=== PATIENT | male | born 1980 | race Two or more races ===

== ENCOUNTER 2019-12-18 01:47 | Emergency (ER) | payer MEDICARE, OTHER, MEDICAID, SELFPAY ==
--- NOTE | 2019-12-18 | XR_ITS ---
Pt: Koby Lundberg. :1980 EXAMINATION: ABDOMEN SERIES CLINICAL INFORMATION: Rule out obstruction. Abdominal COMPARISON: CT abdomen and pelvis 10/26/2019 TECHNIQUE: 2 views abdomen FINDINGS: Upright and supine views of the abdomen reveal a no bowel distention, air-fluid levels or free air. There is no organomegaly. Scattered stool is seen in the colon. No radiopaque renal calculi. No gross bony abnormality. IMPRESSION: Unremarkable abdomen exam with no evidence of obstruction or free air.
[2019-12-18 03:28] LABS: Anion Gap 14 (12-20); Bilirubin Total 0.8 mg/dL (0.0-1.0); Blood Urea Nitrogen 12 mg/dL (9-16); Carbon Dioxide 27 mmol/L (22-29); Chloride 102 mmol/L (96-108); Estimated Glomerular Filt Rate > 60; Glucose Random 126 mg/dL (60-115); Potassium 4.4 mmol/l (3.3-5.1); Sodium 139 mmol/L (135-145)
[2019-12-18 03:29] LABS: Alanine Aminotransferase 34 U/L (0-40); Albumin Level 4.6 g/dL (3.5-5.0); Alkaline Phosphatase 74 U/L (39-117); Aspartate Amino Transferase 29 U/L (5-37); Bilirubin Direct 0.3 mg/dL (0.0-0.5); Lipase 22 U/L (8-78); Total Protein 8.5 g/dL (6.5-8.0)
[2019-12-18 04:23] LABS: MANUAL DIFF FLAG NO
[2019-12-18 04:26] LABS: Basophils Absolute Auto 0.1 X10*3/uL (0.0-0.2); Basophils Percent Auto 0.4 % (0-2); Eosinophils Absolute Auto 0.2 X10*3/uL (0.0-0.4); Hematocrit 39.4 % (42-52); Imm Gran Abs Auto 0.04 X10*3/uL (0.00-0.03); Imm Gran Pct Auto 0.4 % (0.0-0.4); Lymphocytes Absolute Auto 2.7 X10*3/uL (1.2-4.9); Lymphocytes Percent Auto 23.9 % (20-40); Mean Corpuscular Hemoglobin 29.5 pg (27.0-33.0); Mean Corpuscular Volume 89.3 fL (80-98); Mean Platelet Volume 12.1 fL (9.4-12.4); Monocytes Absolute Auto 0.9 X10*3/uL (0.1-1.2); Monocytes Percent Auto 7.8 % (2-11); Neutrophils Absolute Auto 7.5 X10*3/uL (2.0-8.3); Neutrophils Percent Auto 65.5 % (45-73); Platelet Count 270 X10*3/uL (160-400); Red Blood Count 4.41 X10*6/uL (4.60-5.80); Red Cell Distribution Width 11.9 % (11.0-16.0); White Blood Count 11.4 X10*3/uL (4.8-10.8)
== END 2019-12-18 11:29 | disposition home or self-care (01) ==
PROVIDERS: Emergency Provider Emergency Medicine; PCP Internal Medicine
DX: K50.90 Crohn's disease, unspecified, without complications (principal); R11.0 Nausea
CPT/HCPCS: 36415; 74022; 80051; 80076; 82565; 82947; 83690; 84520; 85025; 96361; 96374; 96375; 96376; 99284

== ENCOUNTER 2019-12-18 16:56 | Emergency (ER) | payer MEDICARE, OTHER, MEDICAID, SELFPAY ==
--- NOTE | 2019-12-18 18:53 | ED.ABDPAIN ---
HPI - Abdominal Pain General Chief Complaint: Abdominal Pain Stated Complaint: abd pain, nausea Time Seen by Provider: 12/18/19 18:50 Source: patient Mode of arrival: ambulatory Limitations: no limitations History of Present Illness HPI narrative: 39 y/o MD elicited complaint: abdominal pain Related Data Allergies Allergy/AdvReac Type Severity Reaction Status Date / Time No Known Allergies Allergy Unverified 12/04/19 15:38 [No Known Allergies*] none Allergy Unknown Uncoded 07/29/18 00:00 Course Course Hospital Course: 39 y/o mlae with history of Crohn's disease presenting with abdominal pain and nausea. Seen here at 6am today for the same. labs were unremarkable, aside from WBC 11.4.
== END 2019-12-18 19:00 | disposition left against medical advice (07) ==
LOC: HO.ED 19:13
PROVIDERS: Emergency Provider Emergency Medicine; PCP Internal Medicine
DX: R10.9 Unspecified abdominal pain (principal); R11.0 Nausea
CPT/HCPCS: 99281

== ENCOUNTER → 2020-05-05 10:25 | Outpatient (BNVA) | payer OTHER, SELFPAY | PROVIDERS: Visit Provider Internal Medicine Gastroenterology ==

== ENCOUNTER 2020-07-11 14:47 | Emergency (ER) | payer OTHER, MEDICARE, MEDICAID, SELFPAY ==
--- NOTE | ~2020-07-11 | CT_ITS ---
EXAMINATION: CT ABDOMEN AND PELVIS WITH CONTRAST CLINICAL INFORMATION: ?Crohn's flare, diarrhea, AP COMPARISON: 10/26/2019 TECHNIQUE: Multidetector volumetric images were obtained from the superior aspect of the liver through the pubic symphysis following administration 85 mL of Omnipaque 350 intravenous contrast. Sagittal and coronal reformatted images were obtained on the technologist's workstation. Oral contrast: No This CT examination was performed using dose optimization techniques as appropriate, variously including the following: *Automated exposure control *Adjustment of mA and/or kV according to patient size (this includes techniques or standardized protocols for targeted exams where dose is matched to indication/reason for exam; i.e. extremities or head) *Use of iterative reconstruction technique DLP: 704 mGy-cm FINDINGS: LUNG BASES: Dependent atelectasis is present in the lower lobes bilaterally. A 1.2 cm ill-defined nodular opacity in the right lower lobe is favored to be consolidative nature. Additional airspace consolidation is suspected in the left lower lobe. Imaged airways appear clear. LIVER, GALLBLADDER, AND BILIARY TREE: The liver is normal in size, shape, and attenuation. No focal hepatic lesion or biliary ductal dilatation is present. The gallbladder is unremarkable with no evidence of radiopaque gallstones, gallbladder wall thickening, or obvious pericholecystic inflammatory changes. PANCREAS: Unremarkable. SPLEEN: Unremarkable. ADRENAL GLANDS: Unremarkable. KIDNEYS AND URETERS: The kidneys are normal in size, shape, and attenuation. No hydronephrosis or hydroureter. A few punctate calculi in the left lower pole measure up to 2 mm in diameter. No additional calculi are identified. Ureters are normal in caliber without ureteral calculi. No perinephric stranding. 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 BLADDER: There is mild bladder wall thickening with surrounding fat stranding. GASTROINTESTINAL TRACT: Stomach, small bowel, and colon are normal in caliber. Again seen are postsurgical changes of prior ileocolonic anastomosis and rectosigmoid anastomosis, suggesting prior partial colectomies. Intramural fat within the colon is most pronounced at the hepatic flexure and suggestive of changes of chronic inflammation. Internal fat is also noted within the distal ileum. No acute bowel wall thickening and surrounding fat stranding are identified. ABDOMINAL WALL: Postsurgical changes of prior midline laparotomy are again noted. Multiple fat containing midline ventral abdominal hernias are noted. No bowel involvement. LYMPH NODES: Normal. VASCULAR: Unremarkable. PELVIC VISCERA: Prostate gland is normal in size. OSSEOUS STRUCTURES: No acute osseous abnormalities. CT/CT abdomen pelvis w con IMPRESSION: 1. No acute intra-abdominal or intrapelvic abnormalities are identified. Chronic postoperative changes from prior bowel surgeries are evident. Intramural fat within segments of distal small bowel and colon are consistent with chronic inflammation related to Crohn's disease. No areas of acute inflammation are identified. No abscess. 2. Left nephrolithiasis without evidence of acute obstructive uropathy.
[2020-07-11 14:59] VITALS: BP 120/75; PULSE 82; RESP 17; TEMP 37.3; O2SAT 97; BMI 31.8
[2020-07-11 15:52] VITALS: BP 110/69; PULSE 74; RESP 18; TEMP 37.2; O2SAT 94
[2020-07-11 16:11] LABS: MANUAL DIFF FLAG NO
[2020-07-11 16:13] LABS: Eosinophils Absolute Auto 0.1 X10*3/uL (0.0-0.4); Eosinophils Percent Auto 1.4 % (0-4); Hematocrit 37.5 % (42-52); Hemoglobin 12.2 g/dl (14.0-18.0); Imm Gran Abs Auto 0.01 X10*3/uL (0.00-0.03); Imm Gran Pct Auto 0.2 % (0.0-0.4); Lymphocytes Absolute Auto 1.5 X10*3/uL (1.2-4.9); Lymphocytes Percent Auto 34.5 % (20-40); Mean Corpuscular HGB Conc 32.5 g/dl (31.0-36.0); Mean Corpuscular Hemoglobin 29.1 pg (27.0-33.0); Mean Corpuscular Volume 89.5 fL (80-98); Mean Platelet Volume 11.7 fL (9.4-12.4); Monocytes Absolute Auto 0.6 X10*3/uL (0.1-1.2); Monocytes Percent Auto 13.8 % (2-11); Neutrophils Absolute Auto 2.1 X10*3/uL (2.0-8.3); Neutrophils Percent Auto 50.1 % (45-73); Platelet Count 187 X10*3/uL (160-400); Red Blood Count 4.19 X10*6/uL (4.60-5.80); Red Cell Distribution Width 12.1 % (11.0-16.0); White Blood Count 4.3 X10*3/uL (4.8-10.8)
[2020-07-11] MEDS: Morphine Sulfate 4 MG/ML CARTRIDGE IVPUSH ×2 (16:20→18:38)
--- NOTE | 2020-07-11 16:22 | ED_ITS ---
HPI - Abdominal Pain General Chief Complaint: Abdominal Pain Stated Complaint: abd pain Time Seen by Provider: 07/11/20 16:07 Source: patient Mode of arrival: ambulatory Limitations: no limitations History of Present Illness HPI narrative: 39-year-old male with a past medical history of Crohn's disease on Remicade infusions every [address] Arellano, iron deficiency anemia here with complaints of lower abdominal cramping and discomfort with increase in stools x2 days. Patient tells me he normally moves his bowels 3-4 times a day. Since waking today he has had 5 episodes which are nonbloody.. No fevers, chills, nausea, vomiting. Status post exploratory laparotomy, sigmoid resection with primary colonic anastomosis, diverting loop ileostomy and 2016. Ileostomy reversal and 2017 @ [facility]. elicited complaint: abdominal pain Related Data Home Medications Medication Instructions Recorded Confirmed ferrous sulfate 325 mg (65 mg 325 mg PO DAILY 05/09/20 05/09/20 iron) tablet infliximab 100 mg intravenous IV Q6W ea 05/09/20 05/09/20 solution omeprazole magnesium 20 mg 20 mg PO DAILY 05/09/20 05/09/20 tablet,delayed release Previous Rx's Medication Instructions Recorded oxycodone 5 mg PO Q6H PRN #10 tab 07/11/20 prednisone See Rx Instructions .ROUTE 07/11/20 .COMPLEX #70 tab Allergies Allergy/AdvReac Type Severity Reaction Status Date / Time No Known Allergies Allergy Verified 05/05/20 10:26 [No Known Allergies*] Review of Systems Review of Systems Yes all other systems are reviewed and are negative Constitutional: Reports no additional constitutional complaints, Denies body ache(s), Denies chills, Denies fever(s), Denies headache(s) and Denies weakness Eyes: Reports no additional eye complaints and Denies change in vision Reports system reviewed and no additional complaints, except as documented, Denies dizziness, Denies headache(s), Denies nasal congestion, Denies nasal discharge and Denies neck pain Cardiovascular: Reports no additional cardiovascular complaints, Denies chest pain, Denies leg edema and Denies dyspnea Respiratory: Reports no additional respiratory complaints, Denies cough and Denies dyspnea Gastrointestinal: Reports no additional gastrointestinal complaints, Reports abdominal pain, Denies hematochezia, Reports diarrhea, Denies nausea and Denies vomiting Genitourinary: Denies urinary incontinence Musculoskeletal: Reports no additional musculoskeletal complaints, Denies back pain, Denies arthralgias, Denies joint swelling, Denies neck pain, Denies numbness and Denies tingling Skin/Breast: Reports system reviewed and no additional complaints, except as docu and Denies rash Reports system reviewed and no additional complaints, except as documented, Denies Abnormal speech present, Denies dizziness, Denies headache(s), Denies numbness, Denies tingling and Denies weakness Physical Exam Vital Signs: Vital Signs: Last Vital Signs Temp 98.9 F 07/11/20 20:41 Pulse 68 07/11/20 20:41 Resp 18 07/11/20 20:41 BP 117/76 07/11/20 20:41 Pulse Ox 96 07/11/20 20:41 Body Mass Index 31.8 Const: General: cooperative, healthy appearing, comfortable and no acute distress Orientation/consciousness: patient oriented x3 Limitations: no limitations HENMT: Head: Yes normal to inspection Ears: hearing grossly normal bilaterally General nose exam: Normal external nose present Face and sinus: Yes normal facial exam Mouth: Normal oral and palatal mucosa present Throat: Yes posterior oropharynx normal Eyes: General: appearance normal, both eyes and all related structures Pupils: Equal, round and reactive pupils present Neck: Neck: Yes normal visual inspection Chest: Chest palpation & inspection: normal inspection of the chest Resp: Effort & Inspection: normal respiratory effort Auscultation: clear to auscultation bilaterally Cardio: Rate: regular rate Rhythm: regular rhythm Peripheral pulses: Peripheral pulses 2+ throughout GI: Inspection: Yes normal to inspection Palpation (GI): Soft to palpation and Tenderness to palpation present (GI) (Tender in the bilateral lower quadrants. No rebound or guarding) Auscultation: normal bowel sounds Back/Spine/Pelvis: Thoracic/Lumbar Spine: thoracic and lumbar spine normal to inspection Skin: General skin exam: no rashes or lesions noted Neuro: General: patient oriented x3, no focal motor deficits and normal sensation to monofilament Cranial nerves: Yes Equal, round and reactive pupils present Cognition (Neuro): normal cognition Speech: No Abnormal speech present Gait exam (Neuro): Normal gait present Motor exam (neuro): 5/5 motor strength present throughout Extrem: General: Yes normal to inspection, Yes no pedal edema and Yes no calf tenderness Course Course Course Narrative: [age] year old male with a past medical history of Crohn's disease currently on Remicade infusions here with concern for Crohn's flare. Patient has had increase in bowel movements with associated abdominal pain for the last 24-48 hours. On exam he has tenderness in the bilateral lower quadrants. No rebound or guarding. Will need labs, UA, CT a/P. Will provide analgesia, discuss with GI 1899-CT shows no acute finding. Hemoglobin stable. No leukocytosis or shift. Urine is pending. Patient has required an additional dose of morphine for pain control. Will discuss with GI. 1999-UA negative. Feeling improved after second dose of morphine. Pending call back from Dr Song from GI. 2099-pain is now improving. Patient tolerated p.o. prednisone and some fluids. Discussed with Dr. Song from GI. Recommended a taper of prednisone (40mg x 7 days, then decreased by 10 every 7 days) and follow-up with Dr. Arellano. Reviewed worrisome signs and symptoms and when to return to the emergency department. Comfortable with discharge home. MDM - Abdominal Pain Medical Records Attestation: I reviewed the patient's medical records. Lab Data Attestation: I reviewed the patient's lab results. Result diagrams: 07/11/20 16:07 07/11/20 16:07 Labs: Lab Results 07/11/20 07/11/20 07/11/20 Range/Units 16:07 16:07 16:07 WBC 4.3 L (4.8-10.8) X10*3/uL RBC 4.19 L (4.60-5.80) X10*6/uL Hgb 12.2 L (14.0-18.0) g/dl Hct 37.5 L (42-52) % MCV 89.5 (80-98) fL MCH 29.1 (27.0-33.0) pg MCHC 32.5 (31.0-36.0) g/dl RDW 12.1 (11.0-16.0) % Plt Count 187 D (160-400) X10*3/uL MPV 11.7 (9.4-12.4) fL Immature Gran % (Auto) 0.2 (0.0-0.4) % Neut % (Auto) 50.1 (45-73) % Lymph % (Auto) 34.5 (20-40) % Angelina % (Auto) 13.8 H (2-11) % Eos % (Auto) 1.4 (0-4) % Baso % (Auto) 0.0 (0-2) % Lymph # (Auto) 1.5 (1.2-4.9) X10*3/uL Angelina # (Auto) 0.6 (0.1-1.2) X10*3/uL Eos # (Auto) 0.1 (0.0-0.4) X10*3/uL Baso # (Auto) 0.0 (0.0-0.2) X10*3/uL Abs Immat Gran (auto) 0.01 (0.00-0.03) X10*3/uL Absolute Neuts (auto) 2.1 (2.0-8.3) X10*3/uL Absolute Nucleated RBC 0.000 (0.0-0.012) X10*3/uL Nucleated RBC % (auto) 0.0 (0.0-0.2) /100WBC ESR (0-15) MM/HR Hold Blue Top SEE NOTE Sodium 140 (135-145) mmol/L Potassium 4.0 (3.3-5.1) mmol/L Chloride 108 (96-108) mmol/L Carbon Dioxide 23 (22-29) mmol/L Anion Gap 13 (12-20) BUN 12 (9-16) mg/dL Creatinine 0.86 (0.5-1.4) mg/dL Estim Creat Clear Calc 135.7 Estimated GFR > 60 Random Glucose 96 (60-115) mg/dL Calcium 8.4 (8.4-10.2) mg/dL Total Bilirubin 0.6 (0.0-1.0) mg/dL Direct Bilirubin 0.3 (0.0-0.5) mg/dL AST 66 H (5-37) U/L ALT 79 H (0-40) U/L Alkaline Phosphatase 104 D (39-117) U/L C-Reactive Protein 0.55 H (< or = 0.50) mg/dL Total Protein 7.9 (6.5-8.0) g/dL Albumin 4.0 (3.5-5.0) g/dL Lipase 53 (8-78) U/L Urine Color Urine Appearance Urine pH (5.0-8.0) Ur Specific [place] (1.005-1.025) Urine Protein (NEG-TRACE) MG/DL Urine Glucose (UA) (NEG) MG/DL Urine Ketones (NEG) MG/DL Urine Blood (NEG) Urine Nitrite (NEG) Ur Leukocyte Esterase (NEG) 07/11/20 07/11/20 07/11/20 Range/Units 17:26 17:26 19:39 WBC (4.8-10.8) X10*3/uL RBC (4.60-5.80) X10*6/uL Hgb (14.0-18.0) g/dl Hct (42-52) % MCV (80-98) fL MCH (27.0-33.0) pg MCHC (31.0-36.0) g/dl RDW (11.0-16.0) % Plt Count (160-400) X10*3/uL MPV (9.4-12.4) fL Immature Gran % (Auto) (0.0-0.4) % Neut % (Auto) (45-73) % Lymph % (Auto) (20-40) % Angelina % (Auto) (2-11) % Eos % (Auto) (0-4) % Baso % (Auto) (0-2) % Lymph # (Auto) (1.2-4.9) X10*3/uL Angelina # (Auto) (0.1-1.2) X10*3/uL Eos # (Auto) (0.0-0.4) X10*3/uL Baso # (Auto) (0.0-0.2) X10*3/uL Abs Immat Gran (auto) (0.00-0.03) X10*3/uL Absolute Neuts (auto) (2.0-8.3) X10*3/uL Absolute Nucleated RBC (0.0-0.012) X10*3/uL Nucleated RBC % (auto) (0.0-0.2) /100WBC ESR 33 H (0-15) MM/HR Hold Blue Top Sodium (135-145) mmol/L Potassium (3.3-5.1) mmol/L Chloride (96-108) mmol/L Carbon Dioxide (22-29) mmol/L Anion Gap (12-20) BUN (9-16) mg/dL Creatinine (0.5-1.4) mg/dL Estim Creat Clear Calc Estimated GFR Random Glucose (60-115) mg/dL Calcium (8.4-10.2) mg/dL Total Bilirubin 0.6 (0.0-1.0) mg/dL Direct Bilirubin 0.3 (0.0-0.5) mg/dL AST 59 H (5-37) U/L ALT 75 H (0-40) U/L Alkaline Phosphatase 101 (39-117) U/L C-Reactive Protein 0.53 H (< or = 0.50) mg/dL Total Protein 7.2 (6.5-8.0) g/dL Albumin 3.8 (3.5-5.0) g/dL Lipase (8-78) U/L Urine Color YELLOW Urine Appearance CLEAR Urine pH 5.0 (5.0-8.0) Ur Specific [place] 1.010 (1.005-1.025) Urine Protein NEG (NEG-TRACE) MG/DL Urine Glucose (UA) NEG (NEG) MG/DL Urine Ketones NEG (NEG) MG/DL Urine Blood NEG (NEG) Urine Nitrite NEG (NEG) Ur Leukocyte Esterase NEG (NEG) Imaging Data CT scan - abdomen: Attestation: I personally reviewed and interpreted this imaging study as follows: Radiologist's impression: 1. No acute intra-abdominal or intrapelvic abnormalities are identified. Chronic postoperative changes from prior bowel surgeries are evident. Intramural fat within segments of distal small bowel and colon are consistent with chronic inflammation related to Crohn's disease. No areas of acute inflammation are identified. No abscess. 2. Left nephrolithiasis without evidence of acute obstructive uropathy. Discharge Plan Discharge Clinical Impression: Crohn disease Qualifiers: Digestive disease complication type: without complication Patient Disposition: Home, Self-Care Instructions: Crohn Disease (ED) Additional Instructions: Next dose of prednisone tomorrow Call Dr. Arellano' office for follow-up appointment Prescriptions: New prednisone 10 mg tablet See Rx Instructions .ROUTE .COMPLEX Qty: 70 RF: 0 oxycodone 5 mg tablet 5 mg PO Q6H PRN (Reason: pain) Qty: 10 RF: 0 No Action ferrous sulfate 325 mg (65 mg iron) tablet 325 mg PO DAILY RF: 0 omeprazole magnesium 20 mg tablet,delayed release (DR/EC) 20 mg PO DAILY RF: 0 Remicade 100 mg recon soln IV Q6W RF: 0 Referrals: Emilia Leija MD [Primary Care Provider] - 2 days Livier Arellano MD [Physician] - 2 days Interventions: ED Discharge Assessment Last Done: 07/11/20 20:49 Discharge Date/Time: 07/11/20 20:49 [facility] Past Medical History Attestation statement: The following information was validated with the patient. Source: old records reviewed and nursing notes reviewed Medical History Anemia Anxiety Crohn disease GERD (gastroesophageal reflux disease) High risk medication use Low vitamin D level Pituitary macroadenoma Surgical History H/O colonoscopy History of esophagogastroduodenoscopy (EGD) Family History Family History Mother Breast cancer Social History Social History Household Members: Significant Other Alcohol intake: never Smoking Status: Never smoker Use of substances other than those prescribed or required for medical reasons: No Substance Use Type: Marijuana Advance Directives: No Advance Directives Information Provided: No
--- NOTE | 2020-07-11 16:22 | PC.NURSE ---
iv inserted, labs drawn, pt medicated for pain, will continue to monitor.
[2020-07-11 16:37] LABS: Alanine Aminotransferase 79 U/L (0-40); Alkaline Phosphatase 104 U/L (39-117); Anion Gap 13 (12-20); Aspartate Amino Transferase 66 U/L (5-37); Bilirubin Total 0.6 mg/dL (0.0-1.0); Blood Urea Nitrogen 12 mg/dL (9-16); Calcium 8.4 mg/dL (8.4-10.2); Carbon Dioxide 23 mmol/L (22-29); Chloride 108 mmol/L (96-108); Creatinine Clr Calc Pharmacy 135.7; Estimated Glomerular Filt Rate > 60; Glucose Random 96 mg/dL (60-115); Lipase 53 U/L (8-78); Sodium 140 mmol/L (135-145); Total Protein 7.9 g/dL (6.5-8.0)
[2020-07-11] MEDS: iohexoL 350 MG/ML 100 ML INFUS..BTL IV (17:34)
[2020-07-11 17:56] LABS: Alanine Aminotransferase 75 U/L (0-40); Albumin Level 3.8 g/dL (3.5-5.0); Alkaline Phosphatase 101 U/L (39-117); Aspartate Amino Transferase 59 U/L (5-37); Bilirubin Direct 0.3 mg/dL (0.0-0.5); Bilirubin Total 0.6 mg/dL (0.0-1.0); C Reactive Protein 0.53 mg/dL (< or = 0.50); Total Protein 7.2 g/dL (6.5-8.0)
[2020-07-11 18:10] LABS: Bilirubin Direct 0.3 mg/dL (0.0-0.5); C Reactive Protein 0.55 mg/dL (< or = 0.50)
[2020-07-11 18:16] LABS: Erythrocyte Sedimentation Rate 33 MM/HR (0-15)
--- NOTE | 2020-07-11 18:31 | PC.NURSE ---
pt requesting additional pain medications, provider notified, pt is aware a urine is needed.
[2020-07-11] MEDS: 0.9 % Sodium Chloride 1,000 ML 999 ML IV (18:38)
[2020-07-11 18:40] VITALS: BP 113/81; PULSE 65; RESP 18; TEMP 37.2; O2SAT 97
--- NOTE | 2020-07-11 18:41 | PC.NURSE ---
ivf hung per order, pt medicated for pain, vss, will continue to monitor.
[2020-07-11 19:55] LABS: Glucose Urine UA NEG (NEG); Leukocyte Esterase Urine NEG (NEG); Nitrite Urine NEG (NEG); Urine Blood NEG (NEG); Urine Ketones NEG (NEG); Urine Protein NEG (NEG-TRACE)
[2020-07-11 19:56] LABS: Appearance Urine CLEAR; Color Urine YELLOW
[2020-07-11 20:41] VITALS: BP 117/76; PULSE 68; RESP 18; TEMP 37.2; O2SAT 96
[2020-07-11] MEDS: predniSONE 20 MG TABLET 40 MG PO (20:43)
--- NOTE | 2020-07-11 20:43 | PC.NURSE ---
patient a&ox3, pt c/o 05/26 umbilicus area pain, vss, pt medicated per order, will continue to monitor
== END 2020-07-11 20:49 | disposition home or self-care (01) ==
PROVIDERS: Nurse Practitioner Family; Emergency Provider Emergency Medicine Emergency Medical Services; PCP Internal Medicine
DX: D50.9 Iron deficiency anemia, unspecified (principal); K50.90 Crohn's disease, unspecified, without complications; K21.9 Gastro-esophageal reflux disease without esophagitis; N20.0 Calculus of kidney
CPT/HCPCS: 36415; 74177; 80053; 80076; 81003; 82248; 83690; 85025; 85652; 86140; 96361; 96374; 96376; 99284; J2270; Q9967

== ENCOUNTER 2020-07-16 19:18 | Inpatient (IN) | payer OTHER, MEDICARE, MEDICAID, SELFPAY ==
--- NOTE | ~2020-07-16 | XR_ITS ---
EXAMINATION: XR ABDOMEN KUB CLINICAL INDICATION: Abdominal pain with history of Crohn's disease. COMPARISON: CT abdomen pelvis 07/11/2020 TECHNIQUE: AP view of the abdomen. FINDINGS: The bowel gas pattern is normal with no evidence of ileus or obstruction. No unusual soft tissue calcifications are noted. Again seen is a rectal anastomosis as well as an ileocolic anastomosis in the right abdomen. The bones are unremarkable. XR/XR KUB IMPRESSION: No acute disease.
[2020-07-16 20:02] VITALS: BP 135/86; PULSE 60; RESP 18; TEMP 37; O2SAT 98; BMI 31.5
[2020-07-16 21:29] LABS: MANUAL DIFF FLAG NO
[2020-07-16 21:30] LABS: Basophils Percent Auto 0.1 % (0-2); Eosinophils Absolute Auto 0.1 X10*3/uL (0.0-0.4); Eosinophils Percent Auto 1.8 % (0-4); Hematocrit 37.8 % (42-52); Hemoglobin 11.8 g/dl (14.0-18.0); Imm Gran Abs Auto 0.02 X10*3/uL (0.00-0.03); Imm Gran Pct Auto 0.3 % (0.0-0.4); Lymphocytes Absolute Auto 1.8 X10*3/uL (1.2-4.9); Lymphocytes Percent Auto 25.6 % (20-40); Mean Corpuscular HGB Conc 31.2 g/dl (31.0-36.0); Mean Corpuscular Hemoglobin 28.6 pg (27.0-33.0); Mean Corpuscular Volume 91.5 fL (80-98); Mean Platelet Volume 11.7 fL (9.4-12.4); Monocytes Absolute Auto 0.7 X10*3/uL (0.1-1.2); Monocytes Percent Auto 10.1 % (2-11); Neutrophils Absolute Auto 4.2 X10*3/uL (2.0-8.3); Neutrophils Percent Auto 62.1 % (45-73); Platelet Count 216 X10*3/uL (160-400); Red Blood Count 4.13 X10*6/uL (4.60-5.80); Red Cell Distribution Width 12.2 % (11.0-16.0); White Blood Count 6.8 X10*3/uL (4.8-10.8)
[2020-07-16 21:52] LABS: Alanine Aminotransferase 70 U/L (0-40); Albumin Level 4.2 g/dL (3.5-5.0); Alkaline Phosphatase 102 U/L (39-117); Anion Gap 15 (12-20); Aspartate Amino Transferase 38 U/L (5-37); Bilirubin Total 0.8 mg/dL (0.0-1.0); Blood Urea Nitrogen 12 mg/dL (9-16); Calcium 9.4 mg/dL (8.4-10.2); Carbon Dioxide 26 mmol/L (22-29); Chloride 107 mmol/L (96-108); Creatinine Clr Calc Pharmacy 119.8; Estimated Glomerular Filt Rate > 60; Glucose Random 103 mg/dL (60-115); Lipase 23 U/L (8-78); Potassium 4.6 mmol/L (3.3-5.1); Sodium 143 mmol/L (135-145); Total Protein 8.2 g/dL (6.5-8.0)
--- NOTE | 2020-07-16 22:12 | ED.ABDPAIN ---
HPI - Abdominal Pain General Chief Complaint: Abdominal Pain Stated Complaint: Abdominal pain Time Seen by Provider: 07/16/20 22:06 Source: patient Mode of arrival: ambulatory Limitations: no limitations History of Present Illness HPI narrative: 39-year-old male with a past medical history of Crohn's disease on Remicade infusions every [address] Arellano, iron deficiency anemia. Status post exploratory laparotomy, sigmoid resection with primary colonic anastomosis, diverting loop ileostomy and 2016. Ileostomy reversal and 2017 @ [facility]. Patient was evaluated on 07/11/2020 at this hospital, CT scan was unremarkable. Patient states that since he left the hospital, the abdominal pain has gradually been worse. Patient has been taking prednisone at home. Patient has not had any bowel movements in 3 days. Patient has not been vomiting but is very nauseous. Patient states the pain is worse in bilateral lower quadrants Related Data Home Medications Medication Instructions Recorded Confirmed ferrous sulfate 325 mg (65 mg 325 mg PO DAILY 05/09/20 05/09/20 iron) tablet infliximab 100 mg intravenous IV Q6W ea 05/09/20 05/09/20 solution omeprazole magnesium 20 mg 20 mg PO DAILY 05/09/20 05/09/20 tablet,delayed release Previous Rx's Medication Instructions Recorded oxycodone 5 mg PO Q6H PRN #10 tab 07/11/20 prednisone See Rx Instructions .ROUTE 07/11/20 .COMPLEX #70 tab Allergies Allergy/AdvReac Type Severity Reaction Status Date / Time No Known Allergies Allergy Verified 07/16/20 20:01 [No Known Allergies*] Review of Systems Review of Systems Constitutional : No Weight loss, No Fever, No Chills, No Night Sweats, No Fatigue, No Malaise ENT/Mouth : No Hearing loss, No Ear Pain, No Nasal Congestion, No Sinus Pain, No Hoarseness, No sore throat, No Rhinorrhea, No Swallowing Difficulty Eyes: No Eye Pain, No Swelling, No Redness, No Foreign Body, No Discharge, No Vision Changes Cardiovascular : No Chest Pain, No SOB, No Dyspnea on Exertion, No Orthopnea, No Edema, No Palpitations Respiratory : No Cough, No Sputum, No Wheezing, No Smoke Exposure, No Dyspnea Gastrointestinal : Complaining of Nausea, No Vomiting, No Diarrhea, No Constipation, complaining of diffuse abdominal pain but worse in bilateral lower quadrants, No Hematochezia, No Melena, able to pass gas Genitourinary : no irregular bleeding, No Dysuria, No Urinary Frequency, No Hematuria, No Urinary Incontinence, No Urgency, No Flank Pain, No Urinary Flow Changes, No Hesitancy Musculoskeletal : No joint pain, No Myalgias, No Joint Swelling Skin : No Skin Lesions, No rash Neuro : No Weakness, No Numbness, No Paresthesias, No Loss of Consciousness, No Dizziness, No Headache Psych : No Anxiety/Panic, No Depression, No SI/HI/AH/VH, No Social Issues, Heme/Lymph: No Bruising, No Bleeding,No Lymphadenopathy Endocrine : No Polyuria, No Polydipsia, No Temperature Intolerance Physical Exam Vital Signs: Vital Signs: Last Vital Signs Temp 98.3 F 07/17/20 00:06 Pulse 59 07/17/20 00:06 Resp 20 07/17/20 00:06 BP 128/80 07/17/20 00:06 Pulse Ox 96 07/17/20 00:06 Body Mass Index 31.5 Course Course Course Narrative: I discussed with the patient that his labs are at baseline, no acute pathology, KUB is not consistent with obstruction. Patient states that the morphine helps, however the pain is going back up fast. I discussed the patient with our hospitalist, patient being admitted for pain control for Crohn's exacerbation. Patient was admitted to the hospital, seen by Dr. Garcia. Patient changed his mind, states that he would like to be discharged, patient will call tomorrow Dr. Arellano [facility] - Abdominal Pain Lab Data Result diagrams: 07/16/20 21:20 07/16/20 21:20 Labs: Lab Results 07/16/20 07/16/20 07/16/20 Range/Units 21:20 21:20 21:20 WBC 6.8 (4.8-10.8) X10*3/uL RBC 4.13 L (4.60-5.80) X10*6/uL Hgb 11.8 L (14.0-18.0) g/dl Hct 37.8 L (42-52) % MCV 91.5 (80-98) fL MCH 28.6 (27.0-33.0) pg MCHC 31.2 (31.0-36.0) g/dl RDW 12.2 (11.0-16.0) % Plt Count 216 (160-400) X10*3/uL MPV 11.7 (9.4-12.4) fL Immature Gran % (Auto) 0.3 (0.0-0.4) % Neut % (Auto) 62.1 (45-73) % Lymph % (Auto) 25.6 (20-40) % Alexander % (Auto) 10.1 (2-11) % Eos % (Auto) 1.8 (0-4) % Baso % (Auto) 0.1 (0-2) % Lymph # (Auto) 1.8 (1.2-4.9) X10*3/uL Alexander # (Auto) 0.7 (0.1-1.2) X10*3/uL Eos # (Auto) 0.1 (0.0-0.4) X10*3/uL Baso # (Auto) 0.0 (0.0-0.2) X10*3/uL Abs Immat Gran (auto) 0.02 (0.00-0.03) X10*3/uL Absolute Neuts (auto) 4.2 (2.0-8.3) X10*3/uL Absolute Nucleated RBC 0.000 (0.0-0.012) X10*3/uL Nucleated RBC % (auto) 0.0 (0.0-0.2) /100WBC Hold Blue Top SEE NOTE Sodium 143 (135-145) mmol/L Potassium 4.6 (3.3-5.1) mmol/L Chloride 107 (96-108) mmol/L Carbon Dioxide 26 (22-29) mmol/L Anion Gap 15 (12-20) BUN 12 (9-16) mg/dL Creatinine 0.97 (0.5-1.4) mg/dL Estim Creat Clear Calc 119.8 Estimated GFR > 60 Random Glucose 103 (60-115) mg/dL Calcium 9.4 D (8.4-10.2) mg/dL Total Bilirubin 0.8 (0.0-1.0) mg/dL AST 38 H (5-37) U/L ALT 70 H (0-40) U/L Alkaline Phosphatase 102 (39-117) U/L Total Protein 8.2 H (6.5-8.0) g/dL Albumin 4.2 (3.5-5.0) g/dL Lipase 23 (8-78) U/L Imaging Data KUB: Radiologist's impression: The bowel gas pattern is normal with no evidence of ileus or obstruction. No unusual soft tissue calcifications are noted. Again seen is a rectal anastomosis as well as an ileocolic anastomosis in the right abdomen. The bones are unremarkable. XR/XR KUB IMPRESSION: No acute disease. Discharge Plan Discharge Clinical Impression: Crohn disease, Abdominal pain Patient Disposition: Home, Self-Care [facility] Past Medical History Medical History Anemia Anxiety Crohn disease GERD (gastroesophageal reflux disease) High risk medication use Low vitamin D level Pituitary macroadenoma Surgical History H/O colonoscopy History of esophagogastroduodenoscopy (EGD) Family History Family History Mother Breast cancer Social History Social History Household Members: Significant Other Alcohol intake: never Smoking Status: Never smoker Substance Use Type: Marijuana Advance Directives: No Advance Directives Information Provided: Yes
[2020-07-16 22:59] VITALS: RESP 20
[2020-07-16] MEDS: 0.9 % Sodium Chloride 1,000 ML 999 ML IVCONT (22:59)
[2020-07-16] MEDS: methylPREDNISolone Sod Succ 125 MG/2 ML VIAL IVPUSH (22:59)
[2020-07-16] MEDS: Morphine Sulfate 4 MG/ML CARTRIDGE IVPUSH (22:59)
[2020-07-16] MEDS: ondansetron HCL 4 MG/2 ML VIAL IVPUSH (23:00)
[2020-07-17 00:06] VITALS: BP 128/80; PULSE 59; RESP 20; TEMP 36.8; O2SAT 96
--- NOTE | 2020-07-17 00:52 | PM.IMHP ---
History of Present Illness Date of Service: 07/17/20 Chief Complaint: Abd pain PMFSH Medical History Anemia Anxiety Crohn disease GERD (gastroesophageal reflux disease) High risk medication use Low vitamin D level Pituitary macroadenoma Family History Mother Breast cancer Surgical History H/O colonoscopy History of esophagogastroduodenoscopy (EGD) Social History Household Members: Significant Other Alcohol intake: never Smoking Status: Never smoker Substance Use Type: Marijuana Advance Directives: No Advance Directives Information Provided: Yes Meds Allergies Allergy/AdvReac Type Severity Reaction Status Date / Time No Known Allergies Allergy Verified 07/16/20 20:01 [No Known Allergies*] Active Medications: Current Medications Generic Name Dose Route Start Last Admin Trade Name Freq PRN Reason Stop Dose Admin Hydromorphone HCl 0.5 mg 07/17/20 00:49 Hydromorphone Hcl 0.5 Mg/0.5 Ml Syringe IVPUSH Q4H PRN Pain, Severe (Pain Scale 7-10) Dextrose/Sodium Chloride 1,000 mls @ 100 mls/hr 07/17/20 01:00 D51/2ns IVCONT .Q10H SANGITA Methylprednisolone Sodium Succinate 20 mg 07/17/20 01:00 Methylprednisolone Sod Succ 40 Mg/Ml Vial IVPUSH Q8H [facility] Sodium Chloride 3 ml 07/17/20 08:00 0.9 % Sodium Chloride Flush 3 Ml Syringe IVFLUSH QSHIFT [facility] Home Medications Medication Instructions Recorded Confirmed Last Taken Type ferrous sulfate 325 mg (65 mg 325 mg PO DAILY 05/09/20 05/09/20 Unknown History iron) tablet infliximab 100 mg intravenous IV Q6W ea 05/09/20 05/09/20 Unknown History solution omeprazole magnesium 20 mg 20 mg PO DAILY 05/09/20 05/09/20 Unknown History tablet,delayed release Physical Exam Vital Signs and Narrative: Vital Signs: Last Vital Signs Temp 98.3 F 07/17/20 00:06 Pulse 59 07/17/20 00:06 Resp 20 07/17/20 00:06 BP 128/80 07/17/20 00:06 Pulse Ox 96 07/17/20 00:06 Body Mass Index 31.5 Results Labs CBC and Chem 7: 07/16/20 21:20 07/16/20 21:20 Labs: Laboratory Results - last 24 hr 07/16/20 07/16/20 07/16/20 21:20 21:20 21:20 MCV 91.5 MCH 28.6 MCHC 31.2 RDW 12.2 Plt Count 216 MPV 11.7 Immature Gran % (Auto) 0.3 Neut % (Auto) 62.1 Lymph % (Auto) 25.6 [place] % (Auto) 10.1 Eos % (Auto) 1.8 Baso % (Auto) 0.1 Lymph # (Auto) 1.8 [place] # (Auto) 0.7 Eos # (Auto) 0.1 Baso # (Auto) 0.0 Abs Immat Gran (auto) 0.02 Absolute Neuts (auto) 4.2 Absolute Nucleated RBC 0.000 Nucleated RBC % (auto) 0.0 Hold Blue Top SEE NOTE Anion Gap 15 Estim Creat Clear Calc 119.8 Estimated GFR > 60 Random Glucose 103 Calcium 9.4 D Total Bilirubin 0.8 AST 38 H ALT 70 H Alkaline Phosphatase 102 Total Protein 8.2 H Albumin 4.2 Lipase 23 Imaging Radiologist's Impressions: Impressions KUB X-Ray 07/16/20 22:18 IMPRESSION: No acute disease. Assessment and Plan (1) Abdominal pain: Qualifiers: Abdominal location: generalized Qualified Code(s): R10.84 - Generalized abdominal pain Status: Acute
--- NOTE | 2020-07-17 01:37 | PC.NURSE ---
Patient verbalizes that he does not want to stay and be admitted as planned for pain management. Pt states I just don't want to stay for pain management, and at the same time they're telling me that they're not finding anything wrong with me, but I'm still in pain. I'll just follow up with tomorrow and arrange things myself. & hospitalist aware, and spoke to patient at bedside. Explained risks to not being admitted, and offered GI consult tomorrow arranged by [facility] if admitted. Pt continues to refuse admission. IV access removed from Right AC. Awaiting discharge paperwork. Pt is non-combative, remained calm/cooperative/understanding with staff. Pt thankful to staff for care provided while in ED.
--- NOTE | 2020-07-17 01:45 | PM.EVENT ---
Event Note Date of Service: 07/17/20 Event Note: ER initially asked for an admission for this patient. I went in to talk to the patient patient does not want to stay and wanted to be discharged from the ER. Patient was not admitted. ER physician signed out the patient MICHAEL
== END 2020-07-17 07:53 | disposition left against medical advice (07) | DRG 387 ==
LOC: HO.ED 07-17 00:50 → HO.EDOVER 07-17 01:03
PROVIDERS: Admitting Provider Hospitalist; Emergency Provider Emergency Medicine; PCP Internal Medicine; Visit Provider Internal Medicine
DX: K50.90 Crohn's disease, unspecified, without complications (principal); Z79.899 Other long term (current) drug therapy
CPT/HCPCS: 36415; 74018; 80053; 83690; 85025; 96374; 96375; 99283; 99285; J2270; J2405; J2930

== ENCOUNTER 2020-07-17 08:44 | Inpatient (IN) | payer OTHER, MEDICARE, MEDICAID, SELFPAY ==
--- NOTE | ~2020-07-17 | CT_ITS ---
EXAMINATION: CT ABDOMEN AND PELVIS WITHOUT CONTRAST CLINICAL INFORMATION: History of Crohn's disease. Colectomy. COMPARISON: 07/11/2020 TECHNIQUE: Multidetector volumetric imaging was performed from the superior aspect of the liver through the pubic symphysis. Sagittal and coronal reformatted images were obtained on the technologist's workstation. This CT examination was performed using dose optimization techniques as appropriate, variously including the following: *Automated exposure control *Adjustment of mA and/or kV according to patient size (this includes techniques or standardized protocols for targeted exams where dose is matched to indication/reason for exam; i.e. extremities or head) *Use of iterative reconstruction technique DLP: 733 mGy-cm FINDINGS: LUNG BASES: Subsegmental atelectasis present within the lower lobes bilaterally. There are some patchy and groundglass opacities within the lower lobes bilaterally. Previously seen 1 cm nodular opacity within the right lower lobe lateral segment has decreased in size and density. New nodular opacity with associated small pneumatocele present within the right lower lobe as seen on series 4, image 67. LIVER, GALLBLADDER, AND BILIARY TREE: Liver is normal in size, contour and morphology. Mild diffuse hepatic steatosis. No focal liver lesions. No intra or extrahepatic biliary dilatation. Gallbladder unremarkable. PANCREAS: Unremarkable. SPLEEN: Unremarkable. ADRENAL GLANDS: Unremarkable. KIDNEYS AND URETERS: The kidneys are normal in size, shape, and attenuation. No hydronephrosis or hydroureter. 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 There are couple punctate nonobstructive calculi within the lower pole of the left kidney. No perinephric stranding. BLADDER: Unremarkable. GASTROINTESTINAL TRACT: Ileocecectomy. There is a enteroenteric ileal anastomosis within the right abdomen with dilatation of the small bowel inspissation of succus entericus proximal to the anastomosis and decompression distally suggestive of a small bowel obstruction. Previous sigmoid colectomy with intact anastomosis within the pelvis. Submucosal fat deposition present within the remaining distal ileum and proximal colon ABDOMINAL WALL: Small omental fat-containing hernia in the epigastric midline as well as small fat-containing umbilical hernia. LYMPH NODES: Normal. VASCULAR: Unremarkable. PELVIC VISCERA: Unremarkable. OSSEOUS STRUCTURES: Unremarkable. CT/CT abdomen pelvis wo con IMPRESSION: * There is a small bowel obstruction with transition point at a enteroenteric ileal anastomosis within the right mid abdomen. The small bowel upstream from the anastomosis is mildly dilated with inspissation of succus entericus. * Additional post surgical changes involving the gastrointestinal tract is described. * Mild diffuse hepatic steatosis. 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 * Nonobstructive intrarenal calculi present within the left lower kidney. * Chronic inflammatory changes within the lower lungs bilaterally with decreased size of a 1.2 cm nodule seen previously and new approximately 1 cm nodule with associated small pneumatocele within the right lower lobe.
[2020-07-17 09:56] VITALS: BP 144/84; PULSE 61; RESP 16; O2SAT 97; BMI 31.4
--- NOTE | 2020-07-17 10:20 | ED_ITS ---
HPI - Abdominal Pain General Chief Complaint: Abdominal Pain Stated Complaint: ABD PAIN Time Seen by Provider: 07/17/20 09:50 Source: patient Mode of arrival: ambulatory Limitations: no limitations History of Present Illness HPI narrative: This is 39 years old male came in for evaluation of abdominal pain for the past 3 days. This is a 39-year-old male with history of Crohn's disease, and history of colectomy test well as the consequences of complicated Crohn's disease, patient also is taking Remicade infusion every 8 weeks (last infusion was 7 weeks ago). Patient came in for abdominal pain for the past 3 days describes the pain as constant crampy, pain is involved the entire abdomen diffusely, described as severe 10/10, associated with nausea, last bowel movement was this morning and he is passing flatus normally.. Nothing makes the pain better or worse. Patient was seen last night for similar symptoms and patient was discharged after felt slightly better. Patient had CT of the abdomen pelvis 5 days ago and had KUB yesterday showing no sign of bowel obstruction. Related Data Home Medications Medication Instructions Recorded Confirmed ferrous sulfate 325 mg (65 mg 325 mg PO DAILY 05/09/20 05/09/20 iron) tablet infliximab 100 mg intravenous IV Q6W ea 05/09/20 05/09/20 solution omeprazole magnesium 20 mg 20 mg PO DAILY 05/09/20 05/09/20 tablet,delayed release Previous Rx's Medication Instructions Recorded oxycodone 5 mg PO Q6H PRN #10 tab 07/11/20 prednisone See Rx Instructions .ROUTE 07/11/20 .COMPLEX #70 tab Allergies Allergy/AdvReac Type Severity Reaction Status Date / Time No Known Allergies Allergy Verified 07/16/20 20:01 [No Known Allergies*] Review of Systems Review of Systems All other systems are reviewed and are negative Constitutional: Reports as per HPI and Reports no additional constitutional complaints Eyes: Reports as per HPI and Reports no additional eye complaints Reports system reviewed and no additional complaints, except as documented Cardiovascular: Reports as per HPI and Reports no additional cardiovascular complaints Respiratory: Reports as per HPI and Reports no additional respiratory complaints Gastrointestinal: Reports as per HPI and Reports no additional gastrointestinal complaints Genitourinary: Reports no additional female genitourinary complaints Musculoskeletal: Reports no additional musculoskeletal complaints Skin/Breast: Reports system reviewed and no additional complaints, except as docu Psychiatric: Reports no additional psychiatric complaints Endocrine: Reports no additional endocrine complaints Hematologic/Lymphatic: Reports no additional hematologic/lymphatic complaints Allergic/Immunologic: Reports no additional allergic/immunologic complaints Reports system reviewed and no additional complaints, except as documented and Reports Abnormal speech present Physical Exam Vital Signs: Vital Signs: Last Vital Signs Pulse 61 07/17/20 09:56 Resp 16 07/17/20 09:56 BP 144/84 H 07/17/20 09:56 Pulse Ox 97 07/17/20 09:56 Body Mass Index 31.4 Vital signs have been reviewed as appeared to be correct. Blood pressure normal. Heart rate normal. Respiration rate normal. Temperature normal. Oxygen saturation normal. Appearance: Alert. Oriented X3. No acute distress. Head: Normal external exam. Normocephalic. Atraumatic. No Stevens signs noted. No raccoon eyes noted Eyes: PERRLA. EOMI. Conjunctiva and sclera normal. Eyelids normal. ENT: TM's Normal. Pharynx normal. Uvula midline. Moist mucous membranes. No trismus noted. No drooling noted. No muffled voice noted. Neck: Normal inspection. Neck supple. FROM. No adenopathy. Thyroid Normal. No meningeal signs. No neck mass noted. CVS: Normal heart rate and rhythm. Heart sound normal. No murmurs noted. Pulses normal throughout. Respiratory: No respiratory distress. Painless inspiration. Breath sounds normal. No wheezes/rales/rhonchi noted. Chest nontender. No accessory muscle usage noted or decreased air movement noted. Abdomen: Soft, diffuse tenderness with no rebound.. Bowel sounds normal in all 4 quadrants. No distention noted. No organomegaly noted. No visible injury noted. Back: No CVA tenderness. Full range of motion noted. Skin: Skin warm and dry. Normal skin color. Normal skin turgor. No rashes/lesions/lacerations noted. Extremities: No lower extremity edema. Extremities exhibit normal range of motion. Extremities nontender. Neuro: Oriented X 3. No motor deficit. No sensory deficit. Reflexes normal. Course Course Course Narrative: Assessment and plan. 39 years old male with history of Crohn's disease, multiple abdominal surgery and colectomy in the past, patient return to the emergency department for severe abdominal pain, CT of today showed small-bowel obstruction, patient adamantly refusing placement of NG tube. The case was discussed with Dr. Simpson from surgery, admit the patient. MDM - Abdominal Pain Lab Data Attestation: I reviewed the patient's lab results. Result diagrams: 07/17/20 10:26 07/17/20 10:26 Labs: Lab Results 07/17/20 07/17/20 Range/Units 10:26 10:26 WBC 6.2 (4.8-10.8) X10*3/uL RBC 4.27 L (4.60-5.80) X10*6/uL Hgb 12.1 L (14.0-18.0) g/dl Hct 38.1 L (42-52) % MCV 89.2 (80-98) fL MCH 28.3 (27.0-33.0) pg MCHC 31.8 (31.0-36.0) g/dl RDW 12.0 (11.0-16.0) % Plt Count 246 (160-400) X10*3/uL MPV 11.7 (9.4-12.4) fL Immature Gran % (Auto) 0.5 H (0.0-0.4) % Neut % (Auto) 81.5 H (45-73) % Lymph % (Auto) 16.0 L (20-40) % [place] % (Auto) 1.8 L (2-11) % Eos % (Auto) 0.0 (0-4) % Baso % (Auto) 0.2 (0-2) % Lymph # (Auto) 1.0 L (1.2-4.9) X10*3/uL [place] # (Auto) 0.1 (0.1-1.2) X10*3/uL Eos # (Auto) 0.0 (0.0-0.4) X10*3/uL Baso # (Auto) 0.0 (0.0-0.2) X10*3/uL Abs Immat Gran (auto) 0.03 (0.00-0.03) X10*3/uL Absolute Neuts (auto) 5.0 (2.0-8.3) X10*3/uL Absolute Nucleated RBC 0.000 (0.0-0.012) X10*3/uL Nucleated RBC % (auto) 0.0 (0.0-0.2) /100WBC Sodium 142 (135-145) mmol/L Potassium 4.3 (3.3-5.1) mmol/L Chloride 105 (96-108) mmol/L Carbon Dioxide 25 (22-29) mmol/L Anion Gap 16 (12-20) BUN 14 (9-16) mg/dL Creatinine 0.93 (0.5-1.4) mg/dL Estim Creat Clear Calc 124.7 Estimated GFR > 60 Random Glucose 130 H (60-115) mg/dL Calcium 9.3 (8.4-10.2) mg/dL Total Bilirubin 0.9 (0.0-1.0) mg/dL Direct Bilirubin 0.4 (0.0-0.5) mg/dL AST 35 (5-37) U/L ALT 67 H (0-40) U/L Alkaline Phosphatase 101 (39-117) U/L Total Protein 8.3 H (6.5-8.0) g/dL Albumin 4.2 (3.5-5.0) g/dL Lipase 18 (8-78) U/L Imaging Data CT scan - abdomen: Radiologist's impression: * There is a small bowel obstruction with transition point at a enteroenteric ileal anastomosis within the right mid abdomen. The small bowel upstream from the anastomosis is mildly dilated with inspissation of succus entericus. * Additional post surgical changes involving the gastrointestinal tract is described. * Mild diffuse hepatic steatosis. 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 * Nonobstructive intrarenal calculi present within the left lower kidney. * Chronic inflammatory changes within the lower lungs bilaterally with decreased size of a 1.2 cm nodule seen previously and new approximately 1 cm nodule with associated small pneumatocele within the right lower lobe. Discharge Plan Discharge Clinical Impression: Crohn disease, Small bowel obstruction Patient Disposition: Admitted As Inpatient Prescriptions: No Action prednisone 10 mg tablet See Rx Instructions .ROUTE .COMPLEX Qty: 70 RF: 0 oxycodone 5 mg tablet 5 mg PO Q6H PRN (Reason: pain) Qty: 10 RF: 0 ferrous sulfate 325 mg (65 mg iron) tablet 325 mg PO DAILY RF: 0 omeprazole magnesium 20 mg tablet,delayed release (DR/EC) 20 mg PO DAILY RF: 0 Remicade 100 mg recon soln IV Q6W RF: 0 PMFSH Past Medical History Medical History Anemia Anxiety Crohn disease GERD (gastroesophageal reflux disease) High risk medication use Low vitamin D level Pituitary macroadenoma Surgical History H/O colonoscopy History of esophagogastroduodenoscopy (EGD) Family History Family History Mother Breast cancer Social History Social History Household Members: Significant Other Alcohol intake: never Smoking Status: Never smoker Substance Use Type: Marijuana Advance Directives: Yes Advance Directives Information Provided: No Advance Directives on File: No
[2020-07-17] MEDS: 0.9 % Sodium Chloride 1,000 ML 999 ML IVCONT (10:26)
[2020-07-17 10:32] LABS: MANUAL DIFF FLAG NO
[2020-07-17] MEDS: Morphine Sulfate 2 MG/ML CARTRIDGE 1 MG IVPUSH (10:36)
[2020-07-17] MEDS: Ketorolac Tromethamine 15 MG/ML VIAL IV (10:36)
[2020-07-17 10:39] LABS: Basophils Percent Auto 0.2 % (0-2); Hematocrit 38.1 % (42-52); Hemoglobin 12.1 g/dl (14.0-18.0); Imm Gran Abs Auto 0.03 X10*3/uL (0.00-0.03); Imm Gran Pct Auto 0.5 % (0.0-0.4); Mean Corpuscular HGB Conc 31.8 g/dl (31.0-36.0); Mean Corpuscular Hemoglobin 28.3 pg (27.0-33.0); Mean Corpuscular Volume 89.2 fL (80-98); Mean Platelet Volume 11.7 fL (9.4-12.4); Monocytes Absolute Auto 0.1 X10*3/uL (0.1-1.2); Monocytes Percent Auto 1.8 % (2-11); Neutrophils Percent Auto 81.5 % (45-73); Platelet Count 246 X10*3/uL (160-400); Red Blood Count 4.27 X10*6/uL (4.60-5.80); White Blood Count 6.2 X10*3/uL (4.8-10.8)
[2020-07-17 10:56] LABS: Alanine Aminotransferase 67 U/L (0-40); Albumin Level 4.2 g/dL (3.5-5.0); Alkaline Phosphatase 101 U/L (39-117); Anion Gap 16 (12-20); Aspartate Amino Transferase 35 U/L (5-37); Bilirubin Direct 0.4 mg/dL (0.0-0.5); Bilirubin Total 0.9 mg/dL (0.0-1.0); Blood Urea Nitrogen 14 mg/dL (9-16); Calcium 9.3 mg/dL (8.4-10.2); Carbon Dioxide 25 mmol/L (22-29); Chloride 105 mmol/L (96-108); Creatinine Clr Calc Pharmacy 124.7; Estimated Glomerular Filt Rate > 60; Glucose Random 130 mg/dL (60-115); Lipase 18 U/L (8-78); Potassium 4.3 mmol/L (3.3-5.1); Sodium 142 mmol/L (135-145); Total Protein 8.3 g/dL (6.5-8.0)
[2020-07-17] MEDS: Morphine Sulfate 2 MG/ML CARTRIDGE IVPUSH (12:44)
[2020-07-17 13:55] VITALS: BP 121/78; PULSE 56; RESP 16; O2SAT 96
--- NOTE | 2020-07-17 14:08 | PM.HPGS ---
History of Present Illness History of Present Illness Date of Service: 07/17/20 Chief complaint: ABD PAIN Narrative: Toño Whalen is a 39 year old male with a history of Crohn's disease and prior surgery (ileocecectomy and sigmoid resection with diverting loop ileostomy followed by ileostomy reversal at [facility]) who presents with an approximately 1 week history of intermittent stabbing abdominal pain. He has no urinary complaints. The pain has been worsening slowly. He has been passing gas and had a formed bowel movement this morning. His usual bowel pattern has been 3-4 soft stools daily. He stools have been more formed recently. He does not report fever or chills. He reports that the pain is similar to pain he has experienced in the past with flares of his Crohn's disease. He was seen in the emergency department on 07/11/2020, a couple of days after his symptoms began. His workup at that time was unremarkable including a CT scan of the abdomen and pelvis that demonstrated changes consistent with prior surgery and with Crohn's disease, but no acute abnormalities. He returned to the emergency department yesterday because of persistent symptoms. A KUB at that time did not demonstrate anyAcute changes. He returned today because of worsening pain. CT scan of the abdomen and pelvis was repeated and demonstrated changes consistent with partial small-bowel obstruction at the level of his small-bowel anastomosis. Crohn's disease is managed with Remicade infusions Q 6 weeks. He receives these at home. Review of Systems Constitutional: Constitutional: Denies body ache(s), Denies chills and Denies fever(s) Eyes: Eyes: Denies requires corrective lenses ENT: Reports Normal hearing present Cardiovascular: Cardiovascular: Denies chest pain, Denies palpitations and Denies dyspnea Respiratory: Respiratory: Denies cough, Denies dyspnea and Denies wheezing Gastrointestinal: Gastrointestinal: Reports as per HPI Genitourinary: Genitourinary: Reports no additional male genitourinary complaints Musculoskeletal: Musculoskeletal: Reports no additional musculoskeletal complaints Neurologic: Reports Normal hearing present Endocrine: Endocrine: Denies cold intolerance, Denies heat intolerance and Denies palpitations Hematologic/Lymphatic: Hematologic/Lymphatic: Denies easy bleeding Allergic/Immunologic: Allergic/Immunologic: Denies wheezing Comments: Seasonal allergies PMFSH Past Medical History Medical History Anemia Anxiety Crohn disease GERD (gastroesophageal reflux disease) High risk medication use Low vitamin D level Pituitary macroadenoma Family History Family History Mother Breast cancer Surgical History Surgical History (Updated 07/17/20 @ 14:27 by Jennifer Simpson MD) H/O colonoscopy History of esophagogastroduodenoscopy (EGD) History of ileostomy History of partial surgical removal of colon Social History Social History Household Members: Significant Other Alcohol intake: never Smoking Status: Never smoker Substance Use Type: Marijuana Advance Directives: Yes Advance Directives Information Provided: No Advance Directives on File: No Meds Allergies Allergy/AdvReac Type Severity Reaction Status Date / Time No Known Allergies Allergy Verified 07/16/20 20:01 [No Known Allergies*] Home Medications Medication Instructions Recorded Confirmed Last Taken Type ferrous sulfate 325 mg (65 mg 325 mg PO DAILY 05/09/20 05/09/20 Unknown History iron) tablet infliximab 100 mg intravenous IV Q6W ea 05/09/20 05/09/20 Unknown History solution omeprazole magnesium 20 mg 20 mg PO DAILY 05/09/20 05/09/20 Unknown History tablet,delayed release Physical Exam Vital Signs: Vital Signs: Last Vital Signs Pulse 56 07/17/20 13:55 Resp 16 07/17/20 13:55 BP 121/78 07/17/20 13:55 Pulse Ox 96 07/17/20 13:55 Body Mass Index 31.4 Const: General: cooperative, alert and ill appearing (Mildly) Orientation/consciousness: patient oriented x3 HENMT: Head: Yes normocephalic and Yes atraumatic Eyes: Sclerae: sclerae normal EOM: EOMs intact bilaterally Neck: Neck: Yes normal visual inspection Resp: Effort & Inspection: normal respiratory effort Auscultation: clear to auscultation bilaterally Cardio: Rate: regular rate Rhythm: regular rhythm GI: Other: Mildly distended, soft, active bowel sounds, mild diffuse tenderness more significant right lower quadrant, no palpable masses, no organomegaly Rectal Exam - Male: Yes deferred Skin: Other: Normal color, warm and dry Neuro: General: patient oriented x3 Cranial nerves: Yes Normal hearing present Extrem: General: Yes normal to inspection Psych: Affect: normal affect Attitude: cooperative Thought process: Normal thought process present Insight: Good insight present (Psych) Results Results Labs: Short CBC 07/17/20 Range/Units 10:26 WBC 6.2 (4.8-10.8) X10*3/uL Hgb 12.1 L (14.0-18.0) g/dl Hct 38.1 L (42-52) % Plt Count 246 (160-400) X10*3/uL BMP 07/17/20 10:26 Sodium 142 Potassium 4.3 Chloride 105 Carbon Dioxide 25 BUN 14 Creatinine 0.93 Calcium 9.3 Liver Function 07/17/20 Range/Units 10:26 Total Bilirubin 0.9 (0.0-1.0) mg/dL Direct Bilirubin 0.4 (0.0-0.5) mg/dL AST 35 (5-37) U/L ALT 67 H (0-40) U/L Alkaline Phosphatase 101 (39-117) U/L Albumin 4.2 (3.5-5.0) g/dL Assessment and Plan (1) Small bowel obstruction: Status: Acute 39-year-old male with history of Crohn's disease status post ileocolic and sigmoid resection with ileostomy followed by ileostomy closure now presenting with partial small-bowel obstruction at the level of the ileal anastomosis. He has not experienced nausea and vomiting. NG tube insertion has been difficult in the past and he prefers not to attempt insertion at this time. It does not appear to be necessary. He will be admitted and kept NPO and on IV fluids. Further plans will be made depending upon his clinical progress. (2) Crohn disease: Qualifiers: Digestive disease complication type: with intestinal obstruction Gastrointestinal tract location: unspecified location Qualified Code(s): K50.912 - Crohn's disease, unspecified, with intestinal obstruction Status: Acute His Crohn's disease appears stable at this time. There is no radiologic evidence to suggest that the bowel obstruction is related to a flare of his Crohn's disease. 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 Livier Arellano, will be requested.
[2020-07-17] MEDS: HYDROmorphone HCl 1 MG/ML SYRINGE IVPUSH (14:29)
[2020-07-17 15:32] VITALS: BP 123/76; PULSE 81; RESP 20; TEMP 37.2; O2SAT 94
[2020-07-17 15:59] LABS: COVID-19 Test Negative (Negative)
[2020-07-17] MEDS: HYDROmorphone HCl 0.5 MG/0.5 ML SYRINGE IVPUSH (18:41)
[2020-07-17 20:45] VITALS: BP 108/72; PULSE 61; RESP 20; TEMP 36.3; O2SAT 93
[2020-07-17] MEDS: Dextrose 5 % and Lactated Ring 1,000 ML 100 ML IVCONT (20:54)
[2020-07-17 23:48] VITALS: BP 109/62; PULSE 69; RESP 20; TEMP 36.7; O2SAT 92
[2020-07-18] MEDS: HYDROmorphone HCl 0.5 MG/0.5 ML SYRINGE IVPUSH ×3 (00:06→14:49)
[2020-07-18] MEDS: LORazepam 2 MG/ML VIAL 1 MG IVPUSH (02:27)
[2020-07-18 04:07] VITALS: BP 122/69; PULSE 69; RESP 20; TEMP 36.3; O2SAT 96
[2020-07-18] MEDS: Omeprazole 20 MG CAPSULE.DR PO (05:41)
[2020-07-18] MEDS: Dextrose 5 % and Lactated Ring 1,000 ML 100 ML IVCONT (05:42)
[2020-07-18 06:57] LABS: Hematocrit 34.7 % (42-52); Hemoglobin 10.8 g/dl (14.0-18.0); Mean Corpuscular HGB Conc 31.1 g/dl (31.0-36.0); Mean Corpuscular Volume 89.9 fL (80-98); Mean Platelet Volume 12.1 fL (9.4-12.4); Platelet Count 193 X10*3/uL (160-400); Red Blood Count 3.86 X10*6/uL (4.60-5.80); White Blood Count 7.5 X10*3/uL (4.8-10.8)
[2020-07-18 07:10] LABS: Anion Gap 11 (12-20); Blood Urea Nitrogen 17 mg/dL (9-16); Carbon Dioxide 26 mmol/L (22-29); Chloride 109 mmol/L (96-108); Creatinine Clr Calc Pharmacy 139.7; Estimated Glomerular Filt Rate > 60; Glucose Fasting 102 mg/dL (60-99); Potassium 3.7 mmol/L (3.3-5.1); Sodium 142 mmol/L (135-145)
[2020-07-18 07:19] LABS: Calcium 8.2 mg/dL (8.4-10.2)
[2020-07-18 08:00] VITALS: BP 116/79; PULSE 91; RESP 18; TEMP 36; O2SAT 93
--- NOTE | 2020-07-18 08:34 | MHC.CM.PN ---
Patient lives at home with his girlfriend. He is independent, drives, no services, no equipment needs. He will call his girlfriend for a ride home when he is ready for D/C.
[2020-07-18 12:00] VITALS: BP 108/73; PULSE 82; RESP 18; TEMP 35.9; O2SAT 96
--- NOTE | 2020-07-18 13:17 | PM.PNGS ---
Subjective Subjective Date of Service: 07/18/20 Interval history: Feels better. Still having some pain, but less severe. Passing flatus. No bowel movement since prior to admission yesterday. Physical Exam Vital Signs: Vital Signs: Last Vital Signs Temp 96.7 F L 07/18/20 12:00 Pulse 82 07/18/20 12:00 Resp 18 07/18/20 12:00 BP 108/73 07/18/20 12:00 Pulse Ox 96 07/18/20 12:00 Body Mass Index 31.4 Const: General: cooperative, no acute distress and alert Resp: Effort & Inspection: normal respiratory effort Auscultation: wheezes right lower (Occasional) Cardio: Rate: regular rate Rhythm: regular rhythm GI: Other: Soft, mildly tender, normal bowel sounds, no palpable masses Skin: Other: Normal color, warm and dry Progress Note: A&P Assessment and plan (1) Small bowel obstruction: Status: Acute Assessment and Plan: Appears symptomatically improved. Will begin clear liquid diet and continue observation. (2) Crohn disease: Status: Acute Assessment and Plan: Chronic. Partial small-bowel obstruction and does not appear to be related to an exacerbation of Crohn's radiographically, but the possibility cannot be completely ruled out in GI consultation may be needed. Fall Risk Details Current Medications: Current Medications Generic Name Dose Route Start Last Admin Trade Name Freq PRN Reason Stop Dose Admin Acetaminophen 650 mg 07/17/20 18:28 Acetaminophen 325 Mg Tablet PO Q6H PRN Fever Hydromorphone HCl 0.5 mg 07/17/20 18:28 07/18/20 09:35 Hydromorphone Hcl 0.5 Mg/0.5 Ml Syringe IVPUSH 0.5 mg Q3H PRN Administration Pain, severe Dextrose/Lactated Ringer's 1,000 mls @ 100 mls/hr 07/17/20 18:28 07/18/20 05:42 D5lr IVCONT 100 mls/hr .Q10H SANGITA Administration Lorazepam 1 mg 07/18/20 02:07 07/18/20 02:27 Lorazepam 2 Mg/Ml Vial IVPUSH 1 mg Q6H PRN Administration Anxiety Omeprazole 20 mg 07/18/20 06:30 07/18/20 05:41 Omeprazole 20 Mg Capsule. PO 20 mg BID@0630,1630 SANGITA Administration Ondansetron HCl 4 mg 07/17/20 18:28 Ondansetron Hcl 4 Mg/2 Ml Vial IVPUSH Q8H PRN Nausea Time Spent With Patient Time: Total time spent is greater than 50% in coordination of care (as documented) at patient's floor/unit and/or counseling patient: Time with patient: less than 15 minutes
[2020-07-18 15:42] VITALS: BP 144/98; PULSE 64; RESP 20; TEMP 36; O2SAT 98
--- NOTE | 2020-07-28 08:55 | PM.DS ---
DS: Providers Provider Date of Service: 07/28/20 Date of admission: 07/17/20 15:02 Primary care physician: Emilia Leija MD DS: Diagnosis Discharge Diagnosis (1) Small bowel obstruction: Status: Acute (2) Crohn disease: Status: Acute DS: Medications Discharge Medications Home Medications: Home Medications Medication Instructions Recorded Confirmed ferrous sulfate 325 mg (65 mg 325 mg PO DAILY 05/09/20 05/09/20 iron) tablet infliximab 100 mg intravenous IV Q6W ea 05/09/20 05/09/20 solution omeprazole magnesium 20 mg 20 mg PO DAILY 05/09/20 05/09/20 tablet,delayed release Previous Rx's Medication Instructions Recorded oxycodone 5 mg PO Q6H PRN #10 tab 07/11/20 prednisone See Rx Instructions .ROUTE 07/11/20 .COMPLEX #70 tab DS: Summary Hospital Course Hospital Course: This is a 39-year-old gentleman With a history of Crohn's disease who presented to the emergency department with a several-day history of stabbing abdominal pain that had been worsening steadily. he reported that the pain felt similar to pain he had experienced with prior exacerbations of his Crohn's disease. He had visited the emergency department for evaluation on 2 prior occasions following the onset of pain, but workup on those occasions had been unrevealing. CT scan of the abdomen pelvis done in the emergency department at the time of this visit revealed findings consistent with small bowel obstruction at the level of an ileal anastomosis. He had a history of prior treatment for the Crohn's disease with ileocolectomy and sigmoidectomy as well as a diverting loop ileostomy followed by ileostomy closure. The point of obstruction appeared to be the prior loop ileostomy closure site. he did not report vomiting or significant nausea, but appetite had been diminished. He had been passing flatus and had a formed bowel movement on the morning of admission. He had been receiving his usual Remicade Q 6 weeks for treatment of the Crohn's disease. Laboratory studies on admission were significant for a normal white blood count and a mild anemia with hemoglobin of 12.1. ALT was elevated at 67. CT findings were not suggestive of Crohn's disease as the source of obstruction. Gastroenterology consultation was not requested though plans were in place to proceed with consultation if the obstruction did not resolve promptly. He was admitted and kept NPO except for medications. IV fluids were administered. By the following day, he was feeling better though he still had some abdominal discomfort. He had continued to pass flatus but had not had A bowel movement since the time of admission. Clear liquid diet was initiated. He tolerated this. Later in the day, on 07/18/2020, he received word that his mother was extremely ill. He felt he could not stay in the hospital under that circumstance and elected to proceed with discharge against medical advice. He was advised by nursing staff to return to the emergency department if needed for further evaluation and treatment. He was to continue his usual medications at home. Time Spent with Patient Time attestation: Total time spent providing and/or coordinating discharge services: Discharge coordination time: Less than 30 minutes Physical Exam Vital Signs: Vital Signs: Last Vital Signs Temp 96.8 F 07/18/20 15:42 Pulse 64 07/18/20 15:42 Resp 20 07/18/20 15:42 BP 144/98 H 07/18/20 15:42 Pulse Ox 98 07/18/20 15:42 Body Mass Index 31.4 Const: General: cooperative, healthy appearing and no acute distress Resp: Other: Occasional wheeze right lower lobe, otherwise clear Effort & Inspection: normal respiratory effort Cardio: Rate: regular rate Rhythm: regular rhythm GI: Other: soft, nondistended, mildly tender diffusely, no palpable masses Skin: Other: normal color, warm and dry Discharge Plan Discharge Patient Disposition: Left Against Medical Advice Discharge Diagnosis: SBO Referrals: Emilia Leija MD [Primary Care Provider] - 1 Week Discharge Medications: No Action prednisone 10 mg tablet See Rx Instructions .ROUTE .COMPLEX Qty: 70 RF: 0 oxycodone 5 mg tablet 5 mg PO Q6H PRN (Reason: pain) Qty: 10 RF: 0 ferrous sulfate 325 mg (65 mg iron) tablet 325 mg PO DAILY RF: 0 omeprazole magnesium 20 mg tablet,delayed release (DR/EC) 20 mg PO DAILY RF: 0 Remicade 100 mg recon soln IV Q6W RF: 0 Discharge Orders: Discharge Order (Routine); Ordered 07/28/20 Ordered By: Jennifer Simpson Care Plan Goals: Left against medical advice, advised to return to the emergency department for further evaluation and care if needed. Was to continue routine follow-up with his PCP and healthcare administrative assistant, Dr. Livier Arellano. Health Concerns: Small-bowel obstruction, Crohn's disease Plan of Treatment: left against medical advice. Up was to return to the emergency department as needed. Continue current treatment regimen for Crohn's disease with Remicade. Assessment: Left against medical advice Discharge Date/Time: 07/18/20 15:40
== END 2020-07-18 15:40 | disposition left against medical advice (07) | DRG 389 ==
LOC: HO.ED 15:20 → HO.EDOVER 15:37 → HO.S3 16:17
PROVIDERS: Admitting Provider Surgery; Emergency Provider Emergency Medicine; PCP Internal Medicine; Visit Provider Surgery
DX: K56.609 Unspecified intestinal obstruction, unspecified as to partial versus complete obstruction (principal); K50.90 Crohn's disease, unspecified, without complications; K21.9 Gastro-esophageal reflux disease without esophagitis; F41.9 Anxiety disorder, unspecified; Z20.822 Contact with and (suspected) exposure to COVID-19; Z79.899 Other long term (current) drug therapy
CPT/HCPCS: 36415; 74176; 80048; 80076; 83690; 85025; 85027; 87635; 96374; 96375; 99285; J1170; J1885; J2060; J2270

== ENCOUNTER → 2020-11-19 11:05 | Outpatient (BNVA) | payer MEDICARE, MEDICAID, SELFPAY | PROVIDERS: PCP Internal Medicine; Visit Provider Internal Medicine Gastroenterology | DX: Z13.89 Encounter for screening for other disorder (principal) | CPT/HCPCS: Q3014 ==

== ENCOUNTER 2021-10-04 22:24 | Emergency (ER) | payer MEDICARE, BC, MEDICAID, SELFPAY ==
[2021-10-04 22:27] VITALS: BP 135/87; PULSE 77; RESP 18; TEMP 36.3; O2SAT 96; BMI 32.3
== END 2021-10-04 23:57 | disposition left against medical advice (07) ==
LOC: HO.ED 23:14
PROVIDERS: Emergency Provider Emergency Medicine
DX: R10.9 Unspecified abdominal pain (principal)
CPT/HCPCS: 99281

== ENCOUNTER 2021-10-05 01:58 | Inpatient (IN) | payer MEDICARE, BC, MEDICAID, SELFPAY ==
[2021-10-05] VITALS (8 sets, daily range): BP systolic 110–143; BP diastolic 71–92; PULSE 55–96; RESP 16–20; TEMP 36.4–37; O2SAT 90–98; BMI 31.4
--- NOTE | ~2021-10-05 | CT_ITS ---
EXAMINATION: CT ABDOMEN AND PELVIS WITHOUT CONTRAST CLINICAL INFORMATION: History of Crohn's, abdominal pain, distention COMPARISON: 07/17/2020 TECHNIQUE: Multidetector volumetric imaging was performed from the superior aspect of the liver through the pubic symphysis. Sagittal and coronal reformatted images were obtained on the technologist's workstation. This CT examination was performed using dose optimization techniques as appropriate, variously including the following: *Automated exposure control *Adjustment of mA and/or kV according to patient size (this includes techniques or standardized protocols for targeted exams where dose is matched to indication/reason for exam; i.e. extremities or head) *Use of iterative reconstruction technique DLP: 675 mGy-cm FINDINGS: LUNG BASES: The visualized lung bases are unremarkable. LIVER, GALLBLADDER, AND BILIARY TREE: The liver is normal in size, shape, and attenuation. No focal hepatic lesion or biliary ductal dilatation is present. The gallbladder is unremarkable with no evidence of radiopaque gallstones, gallbladder wall thickening, or obvious pericholecystic inflammatory changes. PANCREAS: Unremarkable. SPLEEN: Unremarkable. ADRENAL GLANDS: Unremarkable. KIDNEYS AND URETERS: Duplicated right renal collecting system. No hydronephrosis or obstructing calculus. A few scattered bilateral renal calculi are noted measuring up to 3 mm. BLADDER: Unremarkable. GASTROINTESTINAL TRACT: There is an enterocolonic anastomosis in the right lower quadrant. There are several dilated, fluid-filled and fecalized small bowel loops in the lower abdomen leading to a suspected transition site at a right lower quadrant small bowel suture line on image 56/103, consistent with small bowel obstruction. Suture line is also noted in the sigmoid colon. Much of the colon is collapsed and demonstrates diffuse prominence of submucosal fat which can be seen as sequelae of prior inflammation. No free fluid or free air is seen. ABDOMINAL WALL: Bilateral fat-containing inguinal hernias. LYMPH NODES: Normal. VASCULAR: Unremarkable. PELVIC VISCERA: Unremarkable. OSSEOUS STRUCTURES: Unremarkable. CT/CT abdomen pelvis wo con IMPRESSION: Small bowel obstruction, with transition point at the site of a small bowel anastomosis in the right lower quadrant.
--- NOTE | 2021-10-05 02:18 | ED.ABDPAIN ---
HPI - Abdominal Pain General Chief Complaint: Abdominal Pain <AMBROSE Mei Last Filed: 10/05/21 03:54> Stated Complaint: abd pain <AMBROSE Mei Last Filed: 10/05/21 03:54> Time Seen by Provider: 10/05/21 04:44 <AMBROSE Mei Last Filed: 10/05/21 03:54> Source: patient <AMBROSE Mei Last Filed: 10/05/21 03:54> Mode of arrival: ambulatory <Tamika Whitehead NP - Last Filed: 10/05/21 03:54> Limitations: no limitations <Tamika Whitehead NP - Last Filed: 10/05/21 03:54> History of Present Illness HPI narrative: 40-year-old male with past medical history of small-bowel obstruction, Crohn's disease, colon resection, on Remicade every 8 weeks and is due in approximately 1 week. States that his entire abdomen is tender, has 10/10 pain, with nausea and vomiting. He is able to pass bowels and flatus without difficulty. States that this onset of pain started at 15:00 this afternoon. He does not report fevers, chills, chest pain or pressure, palpitations, or weakness. <AMBROSE Mei Last Filed: 10/05/21 03:54> MD elicited complaint: abdominal pain <AMBROSE Mei Last Filed: 10/05/21 03:54> Pertinent past history: other (Crohn's with surgical resection) <AMBROSE Mei Last Filed: 10/05/21 03:54> Onset (ago): hour(s) (15:00 today) <AMBROSE Mei Last Filed: 10/05/21 03:54> Pain Consistency: constant <AMBROSE Mei Last Filed: 10/05/21 03:54> Location: diffuse <Tamika Whitehead NP - Last Filed: 10/05/21 03:54> Severity: severe <AMBROSE Mei Last Filed: 10/05/21 03:54> Pain scale (0-10): 10 <AMBROSE Mei Last Filed: 10/05/21 03:54> Quality: aching and fullness <AMBROSE Mei Last Filed: 10/05/21 03:54> Radiation: none <Tamika Whitehead NP - Last Filed: 10/05/21 03:54> Migration to: no migration <AMBROSE Mei Last Filed: 10/05/21 03:54> Exacerbating factors: vomiting and movement <AMBROSE Mei Last Filed: 10/05/21 03:54> Relieving factors: nothing <Tamika Whitehead NP - Last Filed: 10/05/21 03:54> Context: history of similar episodes <AMBROSE Mei Last Filed: 10/05/21 03:54> Associated symptoms: denies other symptoms <Tamika Whitehead NP - Last Filed: 10/05/21 03:54> Related Data Home Medications: Home Medications Medication Instructions Recorded Confirmed ferrous sulfate 325 mg (65 mg 325 mg PO DAILY 05/09/20 05/09/20 iron) tablet infliximab 100 mg intravenous IV Q6W 05/09/20 05/09/20 solution (Remicade) omeprazole magnesium 20 mg 20 mg PO DAILY 05/09/20 05/09/20 tablet,delayed release ergocalciferol (vitamin D2) 1,250 1,250 mcg PO QWEEK 11/19/20 mcg (50,000 unit) capsule pyridoxine (vitamin B6) 50 mg 50 mg PO DAILY 11/19/20 tablet Previous Rx's Medication Instructions Recorded oxycodone 5 mg tablet 5 mg PO Q6H PRN pain #10 tabs 07/11/20 prednisone 10 mg tablet See Rx Instructions .Route 07/11/20 .COMPLEX #70 tabs azathioprine 50 mg tablet 50 mg PO DAILY #60 tabs 11/19/20 <AMBROSE Mei Last Filed: 10/05/21 03:54> Allergies/Adverse Reactions: Allergies Allergy/AdvReac Type Severity Reaction Status Date / Time No Known Allergies Allergy Verified 11/19/20 11:06 [No Known Allergies*] <AMBROSE Mei Last Filed: 10/05/21 03:54> Review of Systems Review of Systems Constitutional: No Weight loss, No Fever, No Chills, No Night Sweats, No Fatigue, No Malaise ENT/Mouth: No Hearing loss, No Ear Pain, No Nasal Congestion, No Sinus Pain, No Hoarseness, No sore throat, No Rhinorrhea, No Swallowing Difficulty Eyes: No Eye Pain, No Swelling, No Redness, No Foreign Body, No Discharge, No Vision Changes Cardiovascular: No Chest Pain, No SOB, No Dyspnea on Exertion, No Orthopnea, No Edema, No Palpitations Respiratory: No Cough, No Sputum, No Wheezing, No Smoke Exposure, No Dyspnea Gastrointestinal: Positive Nausea, Positive Vomiting, no Diarrhea, positive abdominal Pain, No Hematochezia, No Melena Genitourinary: no irregular bleeding, No Dysuria, No Urinary Frequency, No Hematuria, No Urinary Incontinence, No Urgency, No Flank Pain, No Urinary Flow Changes, No Hesitancy Musculoskeletal: No joint pain, No Myalgias, No Joint Swelling Skin: No Skin Lesions, No rash Neuro: No Weakness, No Numbness, No Paresthesias, No Loss of Consciousness, No Dizziness, No Headache Psych: No Anxiety/Panic, No Depression, No SI/HI/AH/VH, No Social Issues Heme/Lymph: No Bruising, No Bleeding,No Lymphadenopathy Endocrine: No Polyuria, No Polydipsia, No Temperature Intolerance <Tamika Whitehead NP - Last Filed: 10/05/21 03:54> Yes all other systems are reviewed and are negative <Tamika Whitehead NP - Last Filed: 10/05/21 03:54> PMFSH Past Medical History Attestation statement: The following information was validated with the patient. <Tamika Whitehead NP - Last Filed: 10/05/21 03:54> Source: old records reviewed <Tamika Whitehead NP - Last Filed: 10/05/21 03:54> Medical History: Medical History Anemia Anxiety Crohn disease GERD (gastroesophageal reflux disease) High risk medication use Low vitamin D level Pituitary macroadenoma <Tamika Whitehead NP - Last Filed: 10/05/21 03:54> Surgical History: Surgical History H/O colonoscopy History of esophagogastroduodenoscopy (EGD) History of ileostomy History of partial surgical removal of colon <Tamika Whitehead NP - Last Filed: 10/05/21 03:54> Family History Family History: Family History Mother Breast cancer <Tamika Whitehead NP - Last Filed: 10/05/21 03:54> Social History Social History: Social History Household Members: Significant Other Do you presently have visiting nurse or other home services: No Alcohol intake: never Patient Tobacco Use Status: Never used Tobacco Second Hand Smoke Exposure: No Use of substances other than those prescribed or required for medical reasons: No Substance Use Type: Marijuana Advance Directives: No Advance Directives Date on File: 07/17/20 service: No <Tamika Whitehead NP - Last Filed: 10/05/21 03:54> Physical Exam ED Vital Signs: Vital Signs - 24 hr 10/05/21 02:12 10/05/21 04:49 10/05/21 06:54 Temperature 97.7 F 98.6 F Pulse Rate 96 55 66 Respiratory Rate 20 18 16 Blood Pressure 139/88 125/87 123/88 Pulse Oximetry 95 97 96 Oxygen Delivery Method Room Air Room Air Room Air BMI result Body Mass Index 31.4 <Tamika Whitehead NP - Last Filed: 10/05/21 03:54> Vital Signs - 24 hr 10/05/21 02:12 10/05/21 04:49 10/05/21 06:54 Temperature 97.7 F 98.6 F Pulse Rate 96 55 66 Respiratory Rate 20 18 16 Blood Pressure 139/88 125/87 123/88 Pulse Oximetry 95 97 96 Oxygen Delivery Method Room Air Room Air Room Air BMI result Body Mass Index 31.4 <Selma Goetz MD - Last Filed: 10/05/21 07:21> Appearance: Alert. Oriented X3. Moderate distress. Eyes: Pupils equal, round and reactive to light. Sclera nonicteric. ENT: Pharynx normal. Neck: Normal inspection. Neck supple. CVS: Tachycardic heart rate and rhythm. Apical pulse good pulses to extremities. Respiratory: No respiratory distress. Breath sounds normal. Abdomen: Soft and diffusely tender. Skin: Skin warm and dry. Normal skin color. Normal skin turgor. Extremities: No lower extremity edema. Moves all extremities against resistance. Neuro: No motor deficit. No sensory deficit. Cranial nerves 2-12 intact. <Tamika Whitehead NP - Last Filed: 10/05/21 03:54> Course Course Course Narrative: 40-year-old male presents with diffuse abdominal pain nausea and vomiting that started at 15:00 today. Has a history of Crohn's and prior colectomy. Has had small bowel obstructions in the past. Is due for Remicade in approximately 1 week. Patient does not report any bright red blood per rectum or melena. Will order CT scan of abdomen and pelvis, and labs. 03:29 CT scan positive for small bowel obstruction. I discussed severity of findings with this patient. Patient does not want an NG tube. Will agree to stay. 03:[address] Kumar, he recommends NG tube, however patient is adamantly against NG tube placement. Dr. Kumar recommends admitting to Medicine. Also recommends referring to Dr. Reyes will be on in the morning as he does not work with small bowel inflammatory disease . 03:42 discussion with hospitalist, hospitalist feels that this patient is a surgical patient. Recommends that patient be admitted by surgery. Hospitalist did ask if I spoke to surgery regarding this patient, I did inform him that Dr. Kumar will not be admitting this patient. 03:[address] Goetz. <Tamika Whitehead NP - Last Filed: 10/05/21 03:54> 40-year-old male presents with diffuse abdominal pain nausea and vomiting that started at 15:00 today. Has a history of Crohn's and prior colectomy. Has had small bowel obstructions in the past. Is due for Remicade in approximately 1 week. Patient does not report any bright red blood per rectum or melena. Will order CT scan of abdomen and pelvis, and labs. 03:29 CT scan positive for small bowel obstruction. I discussed severity of findings with this patient. Patient does not want an NG tube. Will agree to stay. 03:[address] Kumar, he recommends NG tube, however patient is adamantly against NG tube placement. Dr. Kumar recommends admitting to Medicine. Also recommends referring to Dr. Reyes will be on in the morning as he does not work with small bowel inflammatory disease . 03:42 discussion with hospitalist, hospitalist feels that this patient is a surgical patient. Recommends that patient be admitted by surgery. Hospitalist did ask if I spoke to surgery regarding this patient, I did inform him that Dr. Kumar will not be admitting this patient. 03:[address] Goetz. 07:20, I discussed the patient with Dr. Reyes, who will be admitting the patient. <Selma Goetz MD - Last Filed: 10/05/21 07:21> Consultations Consultation #1: José <Tamika Whitehead NP - Last Filed: 10/05/21 03:54> Time: 03:40 <Tamika Whitehead NP - Last Filed: 10/05/21 03:54> Consultation #2: kailey <Tamika Whitehead NP - Last Filed: 10/05/21 03:54> Time: 03:46 <Tamika Whitehead NP - Last Filed: 10/05/21 03:54> MDM - Abdominal Pain Differential Diagnosis Differential diagnosis: Likely abdominal pain, acute appendicitis, bowel perforation and small bowel obstruction <Tamika Whitehead NP - Last Filed: 10/05/21 03:54> Medical Records Attestation: I reviewed the patient's medical records. <Tamika Whitehead NP - Last Filed: 10/05/21 03:54> Lab Data Attestation: I reviewed the patient's lab results. <Tamika Whitehead NP - Last Filed: 10/05/21 03:54> Result diagrams: : 10/05/21 02:56 10/05/21 02:56 <Tamika Whitehead NP - Last Filed: 10/05/21 03:54> Labs: Lab Results 10/05/21 10/05/21 10/05/21 Range/Units 02:55 02:56 02:56 WBC 9.8 (4.8-10.8) X10*3/uL RBC 4.60 (4.60-5.80) X10*6/uL Hgb 13.2 L (14.0-18.0) g/dl Hct 40.2 L (42.0-52.0) % MCV 87.4 (80.0-98.0) fL MCH 28.7 (27.0-33.0) pg MCHC 32.8 (31.0-36.0) g/dl RDW 12.0 (11.0-16.0) % Plt Count 238 (160-400) X10*3/uL MPV 11.5 (9.4-12.4) fL Immature Gran % (Auto) 0.3 (0.0-0.4) % Neut % (Auto) 59.3 (45-73) % Lymph % (Auto) 28.2 (20-40) % [place] % (Auto) 9.7 (2-11) % Eos % (Auto) 2.1 (0-4) % Baso % (Auto) 0.4 (0-2) % Lymph # (Auto) 2.8 (1.2-4.9) X10*3/uL [place] # (Auto) 1.0 (0.1-1.2) X10*3/uL Eos # (Auto) 0.2 (0.0-0.4) X10*3/uL Baso # (Auto) 0.0 (0.0-0.2) X10*3/uL Abs Immat Gran (auto) 0.03 (0.00-0.03) X10*3/uL Absolute Neuts (auto) 5.8 (2.0-8.3) x10*3/uL Absolute Nucleated RBC 0.000 (0.0-0.012) X10*3/uL Nucleated RBC % (auto) 0.0 (0.0-0.2) /100WBC Sodium 139 (135-145) mmol/L Potassium 5.2 H D (3.3-5.1) mmol/L Chloride 106 (96-108) mmol/L Carbon Dioxide 24 (22-29) mmol/L Anion Gap 14 (12-20) BUN 13 (9-16) mg/dL Creatinine 1.09 (0.5-1.4) mg/dL Estim Creat Clear Calc 108.4 Estimated GFR > 60 POC Glucose 104 (60-115) mg/dL Random Glucose 114 (60-115) mg/dL Calcium 9.0 D (8.4-10.2) mg/dL Magnesium 1.8 (1.6-2.6) mg/dL Total Bilirubin 0.7 (0.0-1.0) mg/dL Direct Bilirubin 0.2 (0.0-0.5) mg/dL AST 37 (5-37) U/L ALT 39 (0-40) U/L Alkaline Phosphatase 75 D (39-117) U/L Total Protein 8.4 H (6.5-8.0) g/dL Albumin 4.3 (3.5-5.0) g/dL Lipase 22 (8-78) U/L <Tamika Whitehead, MILK COLLECTOR - Last Filed: 10/05/21 03:54> Lab Results 10/05/21 10/05/21 10/05/21 Range/Units 02:55 02:56 02:56 WBC 9.8 (4.8-10.8) X10*3/uL RBC 4.60 (4.60-5.80) X10*6/uL Hgb 13.2 L (14.0-18.0) g/dl Hct 40.2 L (42.0-52.0) % MCV 87.4 (80.0-98.0) fL MCH 28.7 (27.0-33.0) pg MCHC 32.8 (31.0-36.0) g/dl RDW 12.0 (11.0-16.0) % Plt Count 238 (160-400) X10*3/uL MPV 11.5 (9.4-12.4) fL Immature Gran % (Auto) 0.3 (0.0-0.4) % Neut % (Auto) 59.3 (45-73) % Lymph % (Auto) 28.2 (20-40) % [place] % (Auto) 9.7 (2-11) % Eos % (Auto) 2.1 (0-4) % Baso % (Auto) 0.4 (0-2) % Lymph # (Auto) 2.8 (1.2-4.9) X10*3/uL [place] # (Auto) 1.0 (0.1-1.2) X10*3/uL Eos # (Auto) 0.2 (0.0-0.4) X10*3/uL Baso # (Auto) 0.0 (0.0-0.2) X10*3/uL Abs Immat Gran (auto) 0.03 (0.00-0.03) X10*3/uL Absolute Neuts (auto) 5.8 (2.0-8.3) x10*3/uL Absolute Nucleated RBC 0.000 (0.0-0.012) X10*3/uL Nucleated RBC % (auto) 0.0 (0.0-0.2) /100WBC Sodium 139 (135-145) mmol/L Potassium 5.2 H D (3.3-5.1) mmol/L Chloride 106 (96-108) mmol/L Carbon Dioxide 24 (22-29) mmol/L Anion Gap 14 (12-20) BUN 13 (9-16) mg/dL Creatinine 1.09 (0.5-1.4) mg/dL Estim Creat Clear Calc 108.4 Estimated GFR > 60 POC Glucose 104 (60-115) mg/dL Random Glucose 114 (60-115) mg/dL Calcium 9.0 D (8.4-10.2) mg/dL Magnesium 1.8 (1.6-2.6) mg/dL Total Bilirubin 0.7 (0.0-1.0) mg/dL Direct Bilirubin 0.2 (0.0-0.5) mg/dL AST 37 (5-37) U/L ALT 39 (0-40) U/L Alkaline Phosphatase 75 D (39-117) U/L Total Protein 8.4 H (6.5-8.0) g/dL Albumin 4.3 (3.5-5.0) g/dL Lipase 22 (8-78) U/L <Selma Goetz MD - Last Filed: 10/05/21 07:21> Imaging Data CT scan - abdomen: Attestation: I personally reviewed and interpreted this imaging study as follows: <Tamika Whitehead NP - Last Filed: 10/05/21 03:54> Radiologist's impression: FINDINGS: LUNG BASES: The visualized lung bases are unremarkable.? LIVER, GALLBLADDER, AND BILIARY TREE: The liver is normal in size, shape, and attenuation. No focal hepatic lesion or biliary ductal dilatation is present. The gallbladder is unremarkable with no evidence of radiopaque gallstones, gallbladder wall thickening, or obvious pericholecystic inflammatory changes.? PANCREAS: Unremarkable.? SPLEEN: Unremarkable.? ADRENAL GLANDS: Unremarkable.? KIDNEYS AND URETERS: Duplicated right renal collecting system. No hydronephrosis or obstructing calculus. A few scattered bilateral renal calculi are noted measuring up to 3 mm. BLADDER: Unremarkable.? GASTROINTESTINAL TRACT: There is an enterocolonic anastomosis in the right lower quadrant. There are several dilated, fluid-filled and fecalized small bowel loops in the lower abdomen leading to a suspected transition site at a right lower quadrant small bowel suture line on image 56/103, consistent with small bowel obstruction. Suture line is also noted in the sigmoid colon. Much of the colon is collapsed and demonstrates diffuse prominence of submucosal fat which can be seen as sequelae of prior inflammation. No free fluid or free air is seen. ABDOMINAL WALL: Bilateral fat-containing inguinal hernias.? LYMPH NODES: Normal. VASCULAR: Unremarkable. PELVIC VISCERA: Unremarkable.? OSSEOUS STRUCTURES: Unremarkable.? CT/CT abdomen pelvis wo con IMPRESSION: Small bowel obstruction, with transition point at the site of a small bowel anastomosis in the right lower quadrant.? <Tamika Whitehead NP - Last Filed: 10/05/21 03:54> Discharge Plan Discharge Clinical Impression: Small bowel obstruction <Tamika Whitehead NP - Last Filed: 10/05/21 03:54> Patient Disposition: Admitted As Inpatient <Tamika Whitehead NP - Last Filed: 10/05/21 03:54> Prescriptions: No Action prednisone 10 mg tablet See Rx Instructions .ROUTE .COMPLEX Qty: 70 0RF Rx Instructions: 40mg daily for 7 days, then decrease to 30mg daily for 7 days, then decrease to 20mg daily for 7 days then decreased to 10mg for 7 days then discontinue oxycodone 5 mg tablet 5 mg PO Q6H PRN (Reason: pain) Qty: 10 0RF ergocalciferol (vitamin D2) 1,250 mcg (50,000 unit) capsule 1,250 mcg PO QWEEK pyridoxine (vitamin B6) 50 mg tablet 50 mg PO DAILY azathioprine 50 mg tablet 50 mg PO DAILY Qty: 60 1RF ferrous sulfate 325 mg (65 mg iron) tablet 325 mg PO DAILY omeprazole magnesium 20 mg tablet,delayed release (DR/EC) 20 mg PO DAILY Remicade 100 mg recon soln IV Q6W <Tamika Whitehead NP - Last Filed: 10/05/21 03:54>
[2021-10-05 03:00] LABS: Glucose, Whole Blood 104 mg/dL (60-115)
[2021-10-05 03:01] LABS: Basophils Percent Auto 0.4 % (0-2); Eosinophils Absolute Auto 0.2 X10*3/uL (0.0-0.4); Eosinophils Percent Auto 2.1 % (0-4); Hematocrit 40.2 % (42.0-52.0); Hemoglobin 13.2 g/dl (14.0-18.0); Imm Gran Abs Auto 0.03 X10*3/uL (0.00-0.03); Imm Gran Pct Auto 0.3 % (0.0-0.4); Lymphocytes Absolute Auto 2.8 X10*3/uL (1.2-4.9); Lymphocytes Percent Auto 28.2 % (20-40); MANUAL DIFF FLAG NO; Mean Corpuscular HGB Conc 32.8 g/dl (31.0-36.0); Mean Corpuscular Hemoglobin 28.7 pg (27.0-33.0); Mean Corpuscular Volume 87.4 fL (80.0-98.0); Mean Platelet Volume 11.5 fL (9.4-12.4); Monocytes Percent Auto 9.7 % (2-11); Neutrophils Absolute Auto 5.8 x10*3/uL (2.0-8.3); Neutrophils Percent Auto 59.3 % (45-73); Platelet Count 238 X10*3/uL (160-400); White Blood Count 9.8 X10*3/uL (4.8-10.8)
[2021-10-05] MEDS: 0.9 % Sodium Chloride 1,000 ML 999 ML IVCONT (03:04)
[2021-10-05] MEDS: ondansetron HCL 4 MG/2 ML VIAL IVPUSH ×3 (03:04→14:36)
[2021-10-05] MEDS: Morphine Sulfate 4 MG/ML CARTRIDGE IVPUSH ×2 (03:04→04:59)
[2021-10-05 03:39] LABS: Alanine Aminotransferase 39 U/L (0-40); Albumin Level 4.3 g/dL (3.5-5.0); Alkaline Phosphatase 75 U/L (39-117); Anion Gap 14 (12-20); Aspartate Amino Transferase 37 U/L (5-37); Bilirubin Direct 0.2 mg/dL (0.0-0.5); Bilirubin Total 0.7 mg/dL (0.0-1.0); Blood Urea Nitrogen 13 mg/dL (9-16); Carbon Dioxide 24 mmol/L (22-29); Chloride 106 mmol/L (96-108); Creatinine Clr Calc Pharmacy 108.4; Estimated Glomerular Filt Rate > 60; Glucose Random 114 mg/dL (60-115); Lipase 22 U/L (8-78); Magnesium 1.8 mg/dL (1.6-2.6); Potassium 5.2 mmol/L (3.3-5.1); Sodium 139 mmol/L (135-145); Total Protein 8.4 g/dL (6.5-8.0)
--- NOTE | 2021-10-05 05:02 | PC.NURSE ---
Pt a&o, no sob or chest pain. Medicated pt for abd pain. Pt Npo until surgery conscult.
--- NOTE | 2021-10-05 05:08 | PC.NURSE ---
pt reports not having any medications.
--- NOTE | 2021-10-05 05:08 | PC.NURSE ---
pt reports having a bowel movement yesterday, but was straining.
--- NOTE | 2021-10-05 06:02 | PC.NURSE ---
medicated pt per Mar
[2021-10-05] MEDS: HYDROmorphone HCl 1 MG/ML SYRINGE IVPUSH (07:30)
--- NOTE | 2021-10-05 07:32 | PC.NURSE ---
Report received from Marie PIZANO. Patient resting on stretcher, reports some discomfort, no nausea at this time. Respirations regular and even. Skin PWD. Lung sounds clear. Patient reports discomfort and requests pain medication. Made Dr. Goetz aware. Administered Dilaudid as ordered. Will continue to monitor.
--- NOTE | 2021-10-05 08:38 | PC.NURSE ---
Patient remains comfortable after Dilaudid. Dr. Reyes down to discuss admission with patient. Patient agreeable to plan of care. Respirations regular and even with clear lunch sounds. RR-17. Pharmacy down to complete medication reconciliation. Awaiting admission orders. Will continue to monitor.
--- NOTE | 2021-10-05 08:44 | PHA.MEDREC ---
Pharmacy Consult ? Medication Reconciliation Pharmacy has completed the medication reconciliation. Patient gets remicade infusion every 8 weeks. says he is due in about 1 week. thanks cora
[2021-10-05] MEDS: Lactated Ringers 1,000 ML 100 ML IVCONT ×2 (09:06→18:50)
--- NOTE | 2021-10-05 09:47 | P.CNGI_ITS ---
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 Patient initially diagnosed with crohns 2004 and had surgeries for complications at [facility] 2011 He has been on remicade for 2-3 yrs with q 6 wk dosing, having been on humira before this. yesterday he had peanuts which usu he avoids, shortly thereafter he developed severe 10/10 cramping, colicky mid sbdominal pain which was spreading over the abdomen, associated with nausea but no vomiting as well as abdominal distention. he has been passing formed stool and gas. No fever or chills. no relieving or exacerbating factors to symptoms. These sx were very similar to prior attacks of SBO with last major attack about 1 year ago. Review of Systems Review of Systems: Constitutional: No Weight loss, No Fever, No Chills, No Night Sweats, No Fatigue, No Malaise ENT/Mouth: No Hearing loss, No Ear Pain, No Nasal Congestion, No Sinus Pain, No Hoarseness, No sore throat, No Rhinorrhea, No Swallowing Difficulty Eyes: No Eye Pain, No Swelling, No Redness, No Foreign Body, No Discharge, No Vision Changes Cardiovascular: No Chest Pain, No SOB, No Dyspnea on Exertion, No Orthopnea, No Edema, No Palpitations Respiratory: No Cough, No Sputum, No Wheezing, No Smoke Exposure, No Dyspnea Gastrointestinal: Positive Nausea, , no Diarrhea, positive abdominal Pain, No Hematochezia, No Melena Genitourinary: no irregular bleeding, No Dysuria, No Urinary Frequency, No Hematuria, No Urinary Incontinence, No Urgency, No Flank Pain, No Urinary Flow Changes, No Hesitancy Musculoskeletal: No joint pain, No Myalgias, No Joint Swelling Skin: No Skin Lesions, No rash Neuro: No Weakness, No Numbness, No Paresthesias, No Loss of Consciousness, No Dizziness, No Headache Psych: No Anxiety/Panic, No Depression, No SI/HI/AH/VH, No Social Issues Heme/Lymph: No Bruising, No Bleeding,No Lymphadenopathy Endocrine: No Polyuria, No Polydipsia, No Temperature Intolerance PMFSH Past Medical History Medical History Anemia Anxiety Crohn disease GERD (gastroesophageal reflux disease) High risk medication use Low vitamin D level Pituitary macroadenoma Family History Family History Mother Breast cancer Surgical History Surgical History H/O colonoscopy History of esophagogastroduodenoscopy (EGD) History of ileostomy History of partial surgical removal of colon Social History Social History Household Members: Significant Other Do you presently have visiting nurse or other home services: No Alcohol intake: never Patient Tobacco Use Status: Never used Tobacco Second Hand Smoke Exposure: No Use of substances other than those prescribed or required for medical reasons: No Substance Use Type: Marijuana Advance Directives: No Advance Directives Date on File: 07/17/20 service: No Meds Allergies Allergy/AdvReac Type Severity Reaction Status Date / Time No Known Allergies Allergy Verified 11/19/20 11:06 [No Known Allergies*] Active Medications: Current Medications Lactated Ringer's (Lr) 1,000 mls @ 100 mls/hr IVCONT .Q10H [facility] Last Admin: 10/05/21 09:06 Dose: 100 mls/hr Morphine Sulfate (Morphine Sulfate 4 Mg/Ml Cartridge) 3 mg IVPUSH Q4H PRN; Protocol PRN Reason: Pain, Severe (Pain Scale 7-10) Ondansetron HCl (Ondansetron Hcl 4 Mg/2 Ml Vial) 4 mg IVPUSH Q8H PRN PRN Reason: Nausea Sodium Chloride (0.9 % Sodium Chloride Flush 3 Ml Syringe) 3 ml IVFLUSH QSHIFT [facility] Home Medications Medication Instructions Recorded Confirmed Last Taken Type infliximab 100 mg intravenous IV Q6W 05/09/20 05/09/20 Unknown History solution (Remicade) omeprazole magnesium 20 mg 20 mg PO DAILY 05/09/20 10/05/21 Unknown History tablet,delayed release Physical Exam Vital Signs: Vital Signs: Last Vital Signs Temp 97.8 F 10/05/21 08:00 Pulse 59 10/05/21 08:00 Resp 17 10/05/21 08:00 BP 117/82 10/05/21 08:00 Pulse Ox 94 10/05/21 08:00 O2 Del Method 10/05/21 08:00 BMI result Body Mass Index 31.4 EXAM: GENERAL: The patient is well developed and nontoxic. VITAL SIGNS:see workflow HEENT: Nonicteric sclerae, PERRLA, EOMI. Oropharynx clear. Moist mucous membranes. Conjunctivae appear well perfused. No thyroid mass. CHEST: Chest wall is nontender. HEART: Regular rate and rhythm without murmurs. LUNGS: Clear to auscultation bilaterally. ABDOMEN: Soft, positive bowel sounds, nontender, no organomegaly.no flank tenderness, distended abdomen SKIN: No rash, no excessive bruising, petechiae, or purpura. NEUROLOGIC: Cranial nerves II-XII intact without motor/sensory deficit. psych-nml affect Results Labs CBC & Chem 7: 10/05/21 02:56 10/05/21 02:56 Labs: Short CBC 10/05/21 Range/Units 02:56 WBC 9.8 (4.8-10.8) X10*3/uL Hgb 13.2 L (14.0-18.0) g/dl Hct 40.2 L (42.0-52.0) % Plt Count 238 (160-400) X10*3/uL BMP 10/05/21 02:56 Sodium 139 Potassium 5.2 H D Chloride 106 Carbon Dioxide 24 BUN 13 Creatinine 1.09 Calcium 9.0 D Liver Function 10/05/21 Range/Units 02:56 Total Bilirubin 0.7 (0.0-1.0) mg/dL Direct Bilirubin 0.2 (0.0-0.5) mg/dL AST 37 (5-37) U/L ALT 39 (0-40) U/L Alkaline Phosphatase 75 D (39-117) U/L Albumin 4.3 (3.5-5.0) g/dL Imaging CT scan - abdomen: Attestation: I personally reviewed and interpreted this imaging study as follows: (dilated small bowel, enterocolonic narrowing) Assessment and Plan (1) Small bowel obstruction: Status: Acute (2) Crohn disease: Qualifiers: Digestive disease complication type: with intestinal obstruction Gastrointestinal tract location: unspecified location Qualified Code(s): K50.912 - Crohn's disease, unspecified, with intestinal obstruction Status: Acute Plan 1/ SBO (seems partial as passign gas and stool) from diet indiscretion and pre exisitng stricture from enterocolonic anastomosis. Seems like a simple mechanical obstruction, no evidence of crohns flare. PLAN: 1/ Bowel rest, NGT if needed 2/ analgesia 3/ hold on antibioitcs and steroids 4/ o/p colonoscopy with dilation and maybe kenalog injection into the stricture site. Procedures Date of Service Date of Service: 10/05/21
--- NOTE | 2021-10-05 10:38 | P.HPGS_ITS ---
History of Present Illness History of Present Illness Date of Service: 10/11/21 Chief complaint: Small-bowel obstruction Narrative: Toño Whalen is a 40 year old male with a long history of Crohn's disease. He came in last night because of what he described as abdominal pain starting about 03:00 o'clock yesterday afternoon. He says that he had some emesis last night as well. He has had no vomiting since about 02:00 o'clock in the morning. He has history of ileo colectomy and sigmoid resection for Crohn's disease with a stricture in 2016. He has had multiple this for small-bowel obstruction in the meantime since then. Review of his records show that this last admission for small-bowel obstruction was more than a year ago. He does state that he feels much better this morning. He is on Remicade and was seen by GI last year for this. Review of Systems Constitutional: Constitutional: Denies chills and Denies fever(s) Cardiovascular: Cardiovascular: Denies chest pain, Denies dyspnea and Denies dyspnea on exertion Respiratory: Respiratory: Denies cough, Denies dyspnea and Denies dyspnea on exertion Gastrointestinal: Gastrointestinal: Denies hematochezia and Denies change in bowel habits Genitourinary: Genitourinary: Denies hematuria and Denies difficulty urinating Musculoskeletal: Musculoskeletal: Denies back pain and Denies limited range of motion Neurologic: Denies focal weakness and Denies convulsions Psychiatric: Psychiatric: Denies depression and Denies mood swings PMFSH Past Medical History Medical History Anemia Anxiety Crohn disease GERD (gastroesophageal reflux disease) High risk medication use Low vitamin D level Pituitary macroadenoma Family History Family History Mother Breast cancer Surgical History Surgical History H/O colonoscopy History of esophagogastroduodenoscopy (EGD) History of ileostomy History of partial surgical removal of colon Social History Social History Household Members: None Housing: Apartment Do you presently have visiting nurse or other home services: Yes (infusion nurses) Alcohol intake: never Patient Tobacco Use Status: Never used Tobacco e-Cigarette/Vaping Use: Never Used Second Hand Smoke Exposure: No Substance Use Type: Marijuana Advance Directives Date on File: 07/17/20 service: No Current occupational status: disabled Meds Allergies Allergy/AdvReac Type Severity Reaction Status Date / Time No Known Allergies Allergy Verified 11/19/20 11:06 [No Known Allergies*] Active Medications: Current Medications Lactated Ringer's (Lr) 1,000 mls @ 100 mls/hr IVCONT .Q10H [facility] Last Admin: 10/05/21 09:06 Dose: 100 mls/hr Morphine Sulfate (Morphine Sulfate 4 Mg/Ml Cartridge) 3 mg IVPUSH Q4H PRN; Protocol PRN Reason: Pain, Severe (Pain Scale 7-10) Ondansetron HCl (Ondansetron Hcl 4 Mg/2 Ml Vial) 4 mg IVPUSH Q8H PRN PRN Reason: Nausea Sodium Chloride (0.9 % Sodium Chloride Flush 3 Ml Syringe) 3 ml IVFLUSH QSHIFT [facility] Home Medications Medication Instructions Recorded Confirmed Last Taken Type infliximab 100 mg intravenous IV Q6W 05/09/20 05/09/20 Unknown History solution (Remicade) omeprazole magnesium 20 mg 20 mg PO DAILY 05/09/20 10/05/21 Unknown History tablet,delayed release Physical Exam Vital Signs: Vital Signs: Last Vital Signs Temp 97.8 F 10/05/21 08:00 Pulse 59 10/05/21 08:00 Resp 17 10/05/21 08:00 BP 117/82 10/05/21 08:00 Pulse Ox 94 10/05/21 08:00 O2 Del Method 10/05/21 08:00 BMI result Body Mass Index 31.4 Const: General: comfortable and no acute distress Orientation/consciousness: patient oriented x3 Neck: Neck: Yes no lymphadenopathy Resp: Auscultation: clear to auscultation bilaterally Cardio: Rhythm: regular rhythm GI: Other: Mildly distended, soft, no guarding rebound, no significant tenderness at this time Palpation (GI): Soft to palpation, nontender and no guarding Neuro: General: patient oriented x3 Results Results Labs: Short CBC 10/05/21 Range/Units 02:56 WBC 9.8 (4.8-10.8) X10*3/uL Hgb 13.2 L (14.0-18.0) g/dl Hct 40.2 L (42.0-52.0) % Plt Count 238 (160-400) X10*3/uL BMP 10/05/21 02:56 Sodium 139 Potassium 5.2 H D Chloride 106 Carbon Dioxide 24 BUN 13 Creatinine 1.09 Calcium 9.0 D Liver Function 10/05/21 Range/Units 02:56 Total Bilirubin 0.7 (0.0-1.0) mg/dL Direct Bilirubin 0.2 (0.0-0.5) mg/dL AST 37 (5-37) U/L ALT 39 (0-40) U/L Alkaline Phosphatase 75 D (39-117) U/L Albumin 4.3 (3.5-5.0) g/dL Additional studies: Laboratory Results WBC 9.8 X10*3/uL (4.8-10.8) 10/05/21 02:56 RBC 4.60 X10*6/uL (4.60-5.80) 10/05/21 02:56 Hgb 13.2 g/dl (14.0-18.0) L 10/05/21 02:56 Hct 40.2 % (42.0-52.0) L 10/05/21 02:56 MCV 87.4 fL (80.0-98.0) 10/05/21 02:56 MCH 28.7 pg (27.0-33.0) 10/05/21 02:56 MCHC 32.8 g/dl (31.0-36.0) 10/05/21 02:56 RDW 12.0 % (11.0-16.0) 10/05/21 02:56 Plt Count 238 X10*3/uL (160-400) 10/05/21 02:56 MPV 11.5 fL (9.4-12.4) 10/05/21 02:56 Immature Gran % (Auto) 0.3 % (0.0-0.4) 10/05/21 02:56 Neut % (Auto) 59.3 % (45-73) 10/05/21 02:56 Lymph % (Auto) 28.2 % (20-40) 10/05/21 02:56 [place] % (Auto) 9.7 % (2-11) 10/05/21 02:56 Eos % (Auto) 2.1 % (0-4) 10/05/21 02:56 Baso % (Auto) 0.4 % (0-2) 10/05/21 02:56 Lymph # (Auto) 2.8 X10*3/uL (1.2-4.9) 10/05/21 02:56 [place] # (Auto) 1.0 X10*3/uL (0.1-1.2) 10/05/21 02:56 Eos # (Auto) 0.2 X10*3/uL (0.0-0.4) 10/05/21 02:56 Baso # (Auto) 0.0 X10*3/uL (0.0-0.2) 10/05/21 02:56 Abs Immat Gran (auto) 0.03 X10*3/uL (0.00-0.03) 10/05/21 02:56 Absolute Neuts (auto) 5.8 x10*3/uL (2.0-8.3) 10/05/21 02:56 Absolute Nucleated RBC 0.000 X10*3/uL (0.0-0.012) 10/05/21 02:56 Nucleated RBC % (auto) 0.0 /100WBC (0.0-0.2) 10/05/21 02:56 Sodium 139 mmol/L (135-145) 10/05/21 02:56 Potassium 5.2 mmol/L (3.3-5.1) H D 10/05/21 02:56 Chloride 106 mmol/L (96-108) 10/05/21 02:56 Carbon Dioxide 24 mmol/L (22-29) 10/05/21 02:56 Anion Gap 14 (12-20) 10/05/21 02:56 BUN 13 mg/dL (9-16) 10/05/21 02:56 Creatinine 1.09 mg/dL (0.5-1.4) 10/05/21 02:56 Estim Creat Clear Calc 108.4 10/05/21 02:56 Estimated GFR > 60 10/05/21 02:56 POC Glucose 104 mg/dL (60-115) 10/05/21 02:55 Random Glucose 114 mg/dL (60-115) 10/05/21 02:56 Calcium 9.0 mg/dL (8.4-10.2) D 10/05/21 02:56 Magnesium 1.8 mg/dL (1.6-2.6) 10/05/21 02:56 Total Bilirubin 0.7 mg/dL (0.0-1.0) 10/05/21 02:56 Direct Bilirubin 0.2 mg/dL (0.0-0.5) 10/05/21 02:56 AST 37 U/L (5-37) 10/05/21 02:56 ALT 39 U/L (0-40) 10/05/21 02:56 Alkaline Phosphatase 75 U/L (39-117) D 10/05/21 02:56 Total Protein 8.4 g/dL (6.5-8.0) H 10/05/21 02:56 Albumin 4.3 g/dL (3.5-5.0) 10/05/21 02:56 Lipase 22 U/L (8-78) 10/05/21 02:56 Impressions Abdomen/Pelvis CT 10/05/21 02:41 IMPRESSION: Small bowel obstruction, with transition point at the site of a small bowel anastomosis in the right lower quadrant. Assessment and Plan (1) Small bowel obstruction: Status: Acute 40-year-old male long history of Crohn's disease, admitted for abdominal pain vomiting. Review of his CT scan shows dilated small bowel loops all the way to the ileocolic anastomosis suggestive of narrowing in this area. There does not seem to be any suggestion of active disease at this time. He is exam is otherwise benign. He feels much improved. He has had similar admissions in the past. I will hold off on any NG tube placement in the meantime. He will be kept NPO and the will be hydrated. His potassium was on the high normal so this will be followed. He understands the plan and is comfortable with this. I will have the gastroenterology see him as well as he is on Remicade. Quality Stroke Does the patient have a stroke diagnosis?: No VTE Prior VTE?: No VTE Risk Level:: Medical - low VTE Device Contraindication: N/A - Device Ordered VTE Drug Contraindication: Treatment Not Indicated Procedures Date of Service Date of Service: 10/05/21
[2021-10-05] MEDS: Morphine Sulfate 4 MG/ML CARTRIDGE 3 MG IVPUSH ×3 (10:55→18:49)
[2021-10-05 11:18] LABS: COVID-19 Test Negative (Negative); IDNOW Serial# 16C4AD1C
[2021-10-05] MEDS: Acetaminophen 325 MG TABLET 650 MG PO (16:24)
--- NOTE | 2021-10-05 16:43 | PM.EVENT ---
Event Note Date of Service: 10/05/21 Event Note: Seen on afternoon rounds Says he has good pain control Comfortable Abdomen soft, benign, minimal tenderness Keep NPO IV fluids Looks well otherwise
[2021-10-05] MEDS: Metoclopramide HCl 10 MG/2 ML VIAL IVPUSH (18:49)
[2021-10-06] VITALS (8 sets, daily range): BP systolic 124–160; BP diastolic 68–88; PULSE 60–74; RESP 16–20; TEMP 36.5–37.3; O2SAT 94–97
[2021-10-06] MEDS: Morphine Sulfate 4 MG/ML CARTRIDGE 3 MG IVPUSH ×4 (00:20→19:49)
[2021-10-06] MEDS: ondansetron HCL 4 MG/2 ML VIAL IVPUSH (03:13)
[2021-10-06] MEDS: Acetaminophen 325 MG TABLET 650 MG PO (03:16)
[2021-10-06] MEDS: Lactated Ringers 1,000 ML 100 ML IVCONT ×3 (04:34→22:15)
[2021-10-06] MEDS: Metoclopramide HCl 10 MG/2 ML VIAL IVPUSH ×2 (08:16→17:47)
[2021-10-06] MEDS: 0.9 % Sodium Chloride Flush 3 ML SYRINGE IVFLUSH (08:16)
--- NOTE | 2021-10-06 08:34 | MHC.CM.PN ---
CM met with Patient at bedside and addressed IMM with him, providing him with the original and placing a copy on the chart. 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 Home/self care is the goal and CM has initiated and will follow for dc planning. Patient states that he believes his PCP is through [facility] and he has received [employer] vax X2.
--- NOTE | 2021-10-06 09:19 | PM.PNGS ---
Subjective Subjective Date of Service: 10/06/21 Interval history: feels better denies abdl pain no N/V passing flatus c/o headache Physical Exam Vital Signs: Vital Signs: Last Vital Signs Temp 98.0 F 10/06/21 07:47 Pulse 66 10/06/21 07:47 Resp 18 10/06/21 07:47 BP 140/88 H 10/06/21 07:47 Pulse Ox 96 10/06/21 07:47 O2 Del Method 10/06/21 07:47 BMI result Body Mass Index 31.4 Const: General: comfortable and no acute distress Orientation/consciousness: patient oriented x3 Neck: Neck: Yes no lymphadenopathy Resp: Auscultation: clear to auscultation bilaterally Cardio: Rhythm: regular rhythm GI: Palpation (GI): Soft to palpation, nontender and no guarding Neuro: General: patient oriented x3 Objective Data Active Medications Acetaminophen (Acetaminophen 325 Mg Tablet) 650 mg PO Q6H PRN PRN Reason: Pain, Mild (Pain Scale 1-3) Last Admin: 10/06/21 03:16 Dose: 650 mg Documented By: PEPITO Lactated Ringer's (Lr) 1,000 mls @ 100 mls/hr IVCONT .Q10H [facility] Last Admin: 10/06/21 04:34 Dose: 100 mls/hr Documented By: PEPITO Metoclopramide HCl (Metoclopramide Hcl 10 Mg/2 Ml Vial) 10 mg IVPUSH Q6H PRN PRN Reason: Nausea and Vomiting Last Admin: 10/06/21 08:16 Dose: 10 mg Documented By: PEPITO Morphine Sulfate (Morphine Sulfate 4 Mg/Ml Cartridge) 3 mg IVPUSH Q4H PRN; Protocol PRN Reason: Pain, Severe (Pain Scale 7-10) Last Admin: 10/06/21 00:20 Dose: 3 mg Documented By: PEPITO Ondansetron HCl (Ondansetron Hcl 4 Mg/2 Ml Vial) 4 mg IVPUSH Q8H PRN PRN Reason: Nausea Last Admin: 10/06/21 03:13 Dose: 4 mg Documented By: PEPITO Sodium Chloride (0.9 % Sodium Chloride Flush 3 Ml Syringe) 3 ml IVFLUSH QSHIFT [facility] Last Admin: 10/06/21 08:16 Dose: 3 ml Documented By: PEPITO Labs CBC & Chem 7: 10/05/21 02:56 10/05/21 02:56 Labs: Laboratory Results - last 24 hr 10/05/21 10/05/21 02:55 10:57 POC Glucose 104 COVID-19 ([facility]) Negative COVID-19 Clin Com See Note Procedures Date of Service Date of Service: 10/06/21 Progress Note: A&P Assessment and plan (1) Small bowel obstruction: Status: Acute Assessment and Plan: clinically much improved ok for clear liquids OOB Ibuprofen for headache doing well Time Spent With Patient Time: Total time spent is greater than 50% in coordination of care (as documented) at patient's floor/unit and/or counseling patient: Quality Stroke Does the patient have a stroke diagnosis?: No VTE Prior VTE?: No VTE Risk Level:: Medical - low VTE Device Contraindication: N/A - Device Ordered VTE Drug Contraindication: Treatment Not Indicated
[2021-10-06 10:45] LABS: Anion Gap 12 (12-20); Blood Urea Nitrogen 9 mg/dL (9-16); Calcium 8.7 mg/dL (8.4-10.2); Carbon Dioxide 26 mmol/L (22-29); Chloride 101 mmol/L (96-108); Creatinine Clr Calc Pharmacy 124.4; Estimated Glomerular Filt Rate > 60; Glucose Random 95 mg/dL (60-115); Potassium 4.4 mmol/L (3.3-5.1); Sodium 135 mmol/L (135-145)
[2021-10-07] MEDS: Morphine Sulfate 4 MG/ML CARTRIDGE 3 MG IVPUSH (01:10)
[2021-10-07 03:54] VITALS: BP 133/86; PULSE 74; RESP 20; TEMP 36.8; O2SAT 94
[2021-10-07 07:49] VITALS: BP 132/91; PULSE 74; RESP 18; TEMP 36.4; O2SAT 97
--- NOTE | 2021-10-07 09:41 | PM.PNGS ---
Subjective Subjective Date of Service: 10/07/21 Interval history: feels well tolerating clear liquids has flatus and BMs denies pain says he is ready to go home Physical Exam Vital Signs: Vital Signs: Last Vital Signs Temp 97.5 F 10/07/21 07:49 Pulse 74 10/07/21 07:49 Resp 18 10/07/21 07:49 BP 132/91 H 10/07/21 07:49 Pulse Ox 97 10/07/21 07:49 O2 Del Method 10/07/21 07:49 BMI result Body Mass Index 31.4 Const: General: comfortable and no acute distress Resp: Effort & Inspection: normal respiratory effort Cardio: Rate: regular rate GI: Palpation (GI): Soft to palpation, not firm, nontender and no guarding Objective Data Active Medications Acetaminophen (Acetaminophen 325 Mg Tablet) 650 mg PO Q6H PRN PRN Reason: Pain, Mild (Pain Scale 1-3) Last Admin: 10/06/21 03:16 Dose: 650 mg Documented By: PEPITO Ibuprofen (Ibuprofen 400 Mg Tablet) 400 mg PO Q6H PRN PRN Reason: Headache Metoclopramide HCl (Metoclopramide Hcl 10 Mg/2 Ml Vial) 10 mg IVPUSH Q6H PRN PRN Reason: Nausea and Vomiting Last Admin: 10/06/21 17:47 Dose: 10 mg Documented By: VALARIE Morphine Sulfate (Morphine Sulfate 4 Mg/Ml Cartridge) 3 mg IVPUSH Q4H PRN; Protocol PRN Reason: Pain, Severe (Pain Scale 7-10) Last Admin: 10/07/21 01:10 Dose: 3 mg Documented By: AMBROCIO Ondansetron HCl (Ondansetron Hcl 4 Mg/2 Ml Vial) 4 mg IVPUSH Q8H PRN PRN Reason: Nausea Last Admin: 10/06/21 03:13 Dose: 4 mg Documented By: PEPITO Sodium Chloride (0.9 % Sodium Chloride Flush 3 Ml Syringe) 3 ml IVFLUSH [facility] Last Admin: 10/06/21 19:51 Dose: Not Given Documented By: AMBROCIO Non-Admin Reason: IV Running Labs CBC & Chem 7: 10/05/21 02:56 10/06/21 10:14 Labs: Laboratory Results - last 24 hr 10/06/21 10:14 Anion Gap 12 Estim Creat Clear Calc 124.4 Estimated GFR > 60 Random Glucose 95 Calcium 8.7 Procedures Date of Service Date of Service: 10/07/21 Progress Note: A&P Assessment and plan (1) Small bowel obstruction: Status: Acute Assessment and Plan: clinically resolved likely from anastomotic narrowing and not from active Crohn's diet as tolerated he looks well likely to be discharged home later on today Time Spent With Patient Time: Total time spent is greater than 50% in coordination of care (as documented) at patient's floor/unit and/or counseling patient: Quality Stroke Does the patient have a stroke diagnosis?: No VTE Prior VTE?: No VTE Risk Level:: Medical - low VTE Device Contraindication: N/A - Device Ordered VTE Drug Contraindication: Treatment Not Indicated
[2021-10-07] MEDS: 0.9 % Sodium Chloride Flush 3 ML SYRINGE IVFLUSH (10:10)
[2021-10-07 11:33] VITALS: BP 128/83; PULSE 71; RESP 18; TEMP 36.6; O2SAT 92
--- NOTE | 2021-10-07 13:45 | MHC.CM.PN ---
HOME - SELF CARE RN AWARE OF PLAN
--- NOTE | 2021-10-11 16:27 | PM.DS ---
DS: Providers Provider Date of Service: 10/05/21 Date of admission: 10/05/21 08:34 Date of discharge: 10/07/21 Primary care physician: Emilia Leija MD Consults: 10/05/21 08:37 Consult to Gastroenterology Routine Consulting Provider: Jacob Mackenzie Reason for consultation: hx of Crohns DS: Diagnosis Discharge Diagnosis (1) Small bowel obstruction: Status: Acute DS: Summary Hospital Course Hospital Course: 40-year-old male with history of Crohn's disease, with previous right colon resection, admitted because of abdominal pain and vomiting. His CAT scan was suggestive of a partial small-bowel obstruction with narrowing at the ileocolic anastomosis. He was kept on bowel rest. He improved significantly. He did not have any significant pain after admission so was started on clear liquids. No NG tube was placed. He tolerated clear liquids and started to have good BMs and flatus. He did not have any further abdominal pain. His exam remained benign. He was therefore discharged on 10/07/2021. At the time of his discharge, he was tolerating regular diet. He did not have any vomiting and his exam was unremarkable. He was also seen by GI as a consult during admission. Time Spent with Patient Time attestation: Total time spent providing and/or coordinating discharge services: Discharge coordination time: Less than 30 minutes Quality: Safe Use of Opioids Does Pt have an Active Cancer Diagnosis on the Problem List?: No Quality: Stroke Does the patient have a stroke diagnosis?: No Physical Exam Vital Signs: Vital Signs: Last Vital Signs Temp 97.8 F 10/07/21 11:33 Pulse 71 10/07/21 11:33 Resp 18 10/07/21 11:33 BP 128/83 10/07/21 11:33 Pulse Ox 92 10/07/21 11:33 O2 Del Method 10/07/21 11:33 BMI result Body Mass Index 31.4 Const: General: comfortable and no acute distress Orientation/consciousness: patient oriented x3 Neck: Neck: Yes no lymphadenopathy Resp: Auscultation: clear to auscultation bilaterally Cardio: Rhythm: regular rhythm GI: Palpation (GI): Soft to palpation, nontender and no guarding Neuro: General: patient oriented x3 DS: Data Data Completed and Pending Labs on day of discharge: Laboratory Results WBC 9.8 X10*3/uL (4.8-10.8) 10/05/21 02:56 RBC 4.60 X10*6/uL (4.60-5.80) 10/05/21 02:56 Hgb 13.2 g/dl (14.0-18.0) L 10/05/21 02:56 Hct 40.2 % (42.0-52.0) L 10/05/21 02:56 MCV 87.4 fL (80.0-98.0) 10/05/21 02:56 MCH 28.7 pg (27.0-33.0) 10/05/21 02:56 MCHC 32.8 g/dl (31.0-36.0) 10/05/21 02:56 RDW 12.0 % (11.0-16.0) 10/05/21 02:56 Plt Count 238 X10*3/uL (160-400) 10/05/21 02:56 MPV 11.5 fL (9.4-12.4) 10/05/21 02:56 Immature Gran % (Auto) 0.3 % (0.0-0.4) 10/05/21 02:56 Neut % (Auto) 59.3 % (45-73) 10/05/21 02:56 Lymph % (Auto) 28.2 % (20-40) 10/05/21 02:56 [place] % (Auto) 9.7 % (2-11) 10/05/21 02:56 Eos % (Auto) 2.1 % (0-4) 10/05/21 02:56 Baso % (Auto) 0.4 % (0-2) 10/05/21 02:56 Lymph # (Auto) 2.8 X10*3/uL (1.2-4.9) 10/05/21 02:56 [place] # (Auto) 1.0 X10*3/uL (0.1-1.2) 10/05/21 02:56 Eos # (Auto) 0.2 X10*3/uL (0.0-0.4) 10/05/21 02:56 Baso # (Auto) 0.0 X10*3/uL (0.0-0.2) 10/05/21 02:56 Abs Immat Gran (auto) 0.03 X10*3/uL (0.00-0.03) 10/05/21 02:56 Absolute Neuts (auto) 5.8 x10*3/uL (2.0-8.3) 10/05/21 02:56 Absolute Nucleated RBC 0.000 X10*3/uL (0.0-0.012) 10/05/21 02:56 Nucleated RBC % (auto) 0.0 /100WBC (0.0-0.2) 10/05/21 02:56 Sodium 135 mmol/L (135-145) 10/06/21 10:14 Potassium 4.4 mmol/L (3.3-5.1) 10/06/21 10:14 Chloride 101 mmol/L (96-108) 10/06/21 10:14 Carbon Dioxide 26 mmol/L (22-29) 10/06/21 10:14 Anion Gap 12 (12-20) 10/06/21 10:14 BUN 9 mg/dL (9-16) 10/06/21 10:14 Creatinine 0.95 mg/dL (0.5-1.4) 10/06/21 10:14 Estim Creat Clear Calc 124.4 10/06/21 10:14 Estimated GFR > 60 10/06/21 10:14 POC Glucose 104 mg/dL (60-115) 10/05/21 02:55 Random Glucose 95 mg/dL (60-115) 10/06/21 10:14 Calcium 8.7 mg/dL (8.4-10.2) 10/06/21 10:14 Magnesium 1.8 mg/dL (1.6-2.6) 10/05/21 02:56 Total Bilirubin 0.7 mg/dL (0.0-1.0) 10/05/21 02:56 Direct Bilirubin 0.2 mg/dL (0.0-0.5) 10/05/21 02:56 AST 37 U/L (5-37) 10/05/21 02:56 ALT 39 U/L (0-40) 10/05/21 02:56 Alkaline Phosphatase 75 U/L (39-117) D 10/05/21 02:56 Total Protein 8.4 g/dL (6.5-8.0) H 10/05/21 02:56 Albumin 4.3 g/dL (3.5-5.0) 10/05/21 02:56 Lipase 22 U/L (8-78) 10/05/21 02:56 COVID-19 ([facility]) Negative (Negative) 10/05/21 10:57 COVID-19 Clin Com See Note 10/05/21 10:57 Impressions Abdomen/Pelvis CT 10/05/21 02:41 IMPRESSION: Small bowel obstruction, with transition point at the site of a small bowel anastomosis in the right lower quadrant. Discharge Plan Discharge Patient Disposition: Home, Self-Care Discharge Diagnosis: partial small-bowel obstruction Referrals: Physician,None [Physician] - 1 Week Discharge Medications: Continued omeprazole magnesium 20 mg tablet,delayed release (DR/EC) 20 mg PO DAILY Remicade 100 mg recon soln IV Q6W Discharge Orders: Discharge Order (Routine); Ordered 10/07/21 Ordered By: Wesley Reyes Activity on Discharge: As tolerated Stand Alone Forms: Patient Portal Discharge page Activity Restrictions/Additional Instructions: make sure to follow-up with organic extractions technician Care Plan Goals: control Crohn's disease Health Concerns: Crohn's disease recurrent obstruction Plan of Treatment: follow-up with Gastroenterology Assessment: doing well Discharge Date/Time: 10/07/21 14:15
== END 2021-10-07 14:15 | disposition home or self-care (01) | DRG 387 ==
LOC: HO.ED 07:21 → HO.EDOVER 08:40 → HO.S3 16:03
PROVIDERS: Nurse Practitioner Family; Admitting Provider Surgery; Emergency Provider Emergency Medicine; PCP Internal Medicine; Visit Provider Surgery
DX: K50.912 Crohn's disease, unspecified, with intestinal obstruction (principal); K21.9 Gastro-esophageal reflux disease without esophagitis; F41.9 Anxiety disorder, unspecified; Z20.822 Contact with and (suspected) exposure to COVID-19; Z79.899 Other long term (current) drug therapy
CPT/HCPCS: 36415; 74176; 80048; 80076; 82947; 83690; 83735; 85025; 87635; 96361; 96374; 96375; 96376; 99281; 99285; J1170; J2270; J2405; J2765

== ENCOUNTER 2021-10-31 10:38 | Outpatient (REF) | payer MEDICARE, BC, MEDICAID, SELFPAY ==
[2021-10-31 10:59] LABS: MANUAL DIFF FLAG NO
[2021-10-31 11:31] LABS: Basophils Absolute Auto 0.1 X10*3/uL (0.0-0.2); Basophils Percent Auto 0.6 % (0-2); Eosinophils Absolute Auto 0.3 X10*3/uL (0.0-0.4); Eosinophils Percent Auto 3.6 % (0-4); Hematocrit 37.9 % (42.0-52.0); Hemoglobin 12.3 g/dl (14.0-18.0); Imm Gran Abs Auto 0.02 X10*3/uL (0.00-0.03); Imm Gran Pct Auto 0.2 % (0.0-0.4); Lymphocytes Absolute Auto 2.2 X10*3/uL (1.2-4.9); Lymphocytes Percent Auto 25.2 % (20-40); Mean Corpuscular HGB Conc 32.5 g/dl (31.0-36.0); Mean Corpuscular Hemoglobin 28.4 pg (27.0-33.0); Mean Corpuscular Volume 87.5 fL (80.0-98.0); Mean Platelet Volume 12.2 fL (9.4-12.4); Monocytes Absolute Auto 1.1 X10*3/uL (0.1-1.2); Monocytes Percent Auto 12.5 % (2-11); Neutrophils Percent Auto 57.9 % (45-73); Platelet Count 248 X10*3/uL (160-400); Red Blood Count 4.33 X10*6/uL (4.60-5.80); Red Cell Distribution Width 11.9 % (11.0-16.0); White Blood Count 8.6 X10*3/uL (4.8-10.8)
[2021-10-31 12:22] LABS: Alanine Aminotransferase 36 U/L (0-40); Albumin Level 4.2 g/dL (3.5-5.0); Alkaline Phosphatase 72 U/L (39-117); Anion Gap 14 (12-20); Aspartate Amino Transferase 27 U/L (5-37); Bilirubin Total 0.7 mg/dL (0.0-1.0); Blood Urea Nitrogen 11 mg/dL (9-16); C Reactive Protein 0.65 mg/dL (< or = 0.50); Calcium 9.3 mg/dL (8.4-10.2); Carbon Dioxide 26 mmol/L (22-29); Chloride 105 mmol/L (96-108); Estimated Glomerular Filt Rate > 60; Glucose Random 86 mg/dL (60-115); Potassium 4.2 mmol/L (3.3-5.1); Sodium 141 mmol/L (135-145)
[2021-10-31 12:52] LABS: Vitamin B12 192 pg/mL (200-900)
[2021-11-01 04:06] LABS: HBS Num1 2.12 mIU/mL (0-7.99); HBc Num1 0.15 S/CO (0.00-0.79); HBsAGNum1 0.26 S/CO (0.00-0.99); Hepatitis B Core Antibody Nonreactive (Nonreactive); Hepatitis B Surface Antigen Negative (Negative); ~HepC Num1 0.12 S/CO (0.00-0.79); ~Hepatitis B Surface Antibody NONREACTIVE (Nonreactive); ~Hepatitis C Antibody Nonreactive (Nonreactive)
[2021-11-02 04:58] LABS: Hepatitis A Antibody IgM 0.14 Index (0-0.79); ~Hepatitis A Antibody IgM Nonreactive (Nonreactive)
[2021-11-02 22:36] LABS: TS Negative Control Passed; TS Panel A 0; TS Panel B 0; TS Positive Control Passed; TSpotTB Negative (Negative)
== END 2021-10-31 10:39 | disposition home or self-care (01) ==
LOC: HO.LAB 10:38
PROVIDERS: PCP Internal Medicine; Visit Provider Internal Medicine Gastroenterology
DX: Z11.1 Encounter for screening for respiratory tuberculosis (principal); K50.912 Crohn's disease, unspecified, with intestinal obstruction; K56.609 Unspecified intestinal obstruction, unspecified as to partial versus complete obstruction; K75.81 Nonalcoholic steatohepatitis (NASH)
CPT/HCPCS: 36415; 80053; 82607; 82746; 85025; 86140; 86481; 86704; 86706; 86709; 86803; 87340

== ENCOUNTER 2022-05-07 20:09 | Inpatient (IN) | payer MEDICARE, BC, MEDICAID, SELFPAY ==
--- NOTE | ~2022-05-07 | CT_ITS ---
EXAMINATION: CT ABDOMEN AND PELVIS WITH CONTRAST CLINICAL INFORMATION: Diffuse severe abdominal pain, history of Crohn's COMPARISON: 10/05/2021 TECHNIQUE: Multidetector volumetric images were obtained from the superior aspect of the liver through the pubic symphysis following administration 85 mL of Omnipaque 350 intravenous contrast. Sagittal and coronal reformatted images were obtained on the technologist's workstation. Oral contrast: No This CT examination was performed using dose optimization techniques as appropriate, variously including the following: *Automated exposure control *Adjustment of mA and/or kV according to patient size (this includes techniques or standardized protocols for targeted exams where dose is matched to indication/reason for exam; i.e. extremities or head) *Use of iterative reconstruction technique DLP: 688 mGy-cm FINDINGS: LUNG BASES: The visualized lung bases are unremarkable. LIVER, GALLBLADDER, AND BILIARY TREE: The liver is normal in size, shape, and attenuation. No focal hepatic lesion or biliary ductal dilatation is present. The gallbladder is unremarkable with no evidence of radiopaque gallstones, gallbladder wall thickening, or obvious pericholecystic inflammatory changes. PANCREAS: Unremarkable. SPLEEN: Unremarkable. ADRENAL GLANDS: Unremarkable. KIDNEYS AND URETERS: Bilateral duplicated renal collecting systems. No hydronephrosis or obstructing calculus bilaterally. There is a 5 mm right upper pole renal calculus. A couple tiny calculi are also noted in the left lower pole. A few scattered small hypodensities bilaterally are too small to characterize, statistically favoring cysts; no follow-up recommended. BLADDER: Unremarkable. GASTROINTESTINAL TRACT: There are mildly to moderately dilated small bowel loops in the central to lower abdomen. Transition from dilated to nondilated small bowel appears to occur at the location of a suture line in the anterior right lower quadrant, and overall appearance is suspicious for a component of small bowel obstruction. Enterocolonic anastomosis noted in the right lower quadrant. There is prominent submucosal fat throughout the colon, which may be sequelae of prior inflammation. Additional suture line is present in the sigmoid colon. No free fluid or free air is seen. ABDOMINAL WALL: Small fat-containing inguinal hernias. LYMPH NODES: Normal. VASCULAR: Unremarkable. PELVIC VISCERA: Unremarkable. OSSEOUS STRUCTURES: Unremarkable. CT/CT abdomen pelvis w IV con IMPRESSION: 1. Mildly to moderately dilated small bowel loops in the central to lower abdomen, suspicious for small bowel obstruction. Transition point appears to occur at the location of a suture line in the anterior right lower quadrant. 2. Bilateral renal calculi without hydronephrosis.
--- NOTE | 2022-05-07 20:33 | ED_ITS ---
HPI - Abdominal Pain General Chief Complaint: Abdominal Pain <FOX Dyer - Last Filed: 05/07/22 20:38> Stated Complaint: abd pain/ vomiting <FOX Dyer - Last Filed: 05/07/22 20:38> Time Seen by Provider: 05/07/22 21:31 <FOX Dyer - Last Filed: 05/07/22 20:38> Source: patient <Elise Lopez MD - Last Filed: 05/07/22 23:47> Mode of arrival: ambulatory <Elise Lopez MD - Last Filed: 05/07/22 23:47> Limitations: no limitations <Elise Lopez MD - Last Filed: 05/07/22 23:47> History of Present Illness HPI narrative: 41-year-old male history of complicated Crohn's disease, colectomy, small- bowel obstruction is taking Remicade every 8 weeks to control his Crohn's disease, presented today with diffuse abdominal pain x1 day similar to his previous Crohn's disease flare, pain is described as 5/10 constant as crampy pain associated with vomiting x2, has a bowel movement earlier today, patient is passing gas, decline fever chills. <Elise Lopez MD - Last Filed: 05/07/22 23:47> Related Data Home Medications: Home Medications Medication Instructions Recorded Confirmed infliximab 100 mg intravenous IV Q6W 05/09/20 05/09/20 solution (Remicade) omeprazole magnesium 20 mg 20 mg PO DAILY 05/09/20 10/05/21 tablet,delayed release <FOX Dyer - Last Filed: 05/07/22 20:38> Allergies/Adverse Reactions: Allergies Allergy/AdvReac Type Severity Reaction Status Date / Time No Known Allergies Allergy Verified 11/19/20 11:06 [No Known Allergies*] <FOX Dyer - Last Filed: 05/07/22 20:38> Review of Systems Review of Systems All other systems are reviewed and are negative Constitutional: Reports as per HPI and Reports no additional constitutional complaints Eyes: Reports as per HPI and Reports no additional eye complaints Reports system reviewed and no additional complaints, except as documented Cardiovascular: Reports as per HPI and Reports no additional cardiovascular complaints Respiratory: Reports as per HPI and Reports no additional respiratory complaints Gastrointestinal: Reports as per HPI and Reports no additional gastrointestinal complaints Genitourinary: Reports no additional female genitourinary complaints Musculoskeletal: Reports no additional musculoskeletal complaints Skin/Breast: Reports system reviewed and no additional complaints, except as docu Psychiatric: Reports no additional psychiatric complaints Endocrine: Reports no additional endocrine complaints Hematologic/Lymphatic: Reports no additional hematologic/lymphatic complaints Allergic/Immunologic: Reports no additional allergic/immunologic complaints Reports system reviewed and no additional complaints, except as documented and Reports Abnormal speech present <Elise Lopez MD - Last Filed: 05/07/22 23:47> [facility] Past Medical History Medical History: Medical History Anemia Anxiety Crohn disease GERD (gastroesophageal reflux disease) High risk medication use Low vitamin D level Pituitary macroadenoma <FOX Dyer - Last Filed: 05/07/22 20:38> Surgical History: Surgical History H/O colonoscopy History of esophagogastroduodenoscopy (EGD) History of ileostomy History of partial surgical removal of colon <FOX Dyer - Last Filed: 05/07/22 20:38> Family History Family History: Family History Mother Breast cancer <FOX Dyer - Last Filed: 05/07/22 20:38> Social History Social History: Social History Household Members: None Housing: Apartment Do you presently have visiting nurse or other home services: Yes (infusion nurses) Alcohol intake: never Patient Tobacco Use Status: Never used Tobacco e-Cigarette/Vaping Use: Never Used Second Hand Smoke Exposure: No Substance Use Type: Marijuana Advance Directives: No Advance Directives Information Provided: Yes Advance Directives Date on File: 07/17/20 service: No Current occupational status: disabled <FOX Dyer - Last Filed: 05/07/22 20:38> Physical Exam ED Vital Signs: Vital Signs - 24 hr 05/07/22 20:35 Temperature 97.8 F Pulse Rate 69 Respiratory Rate 16 Blood Pressure 138/86 Pulse Oximetry 99 Oxygen Delivery Method Room Air BMI result Body Mass Index 31.5 <FOX Dyer - Last Filed: 05/07/22 20:38> Vital Signs - 24 hr 05/07/22 20:35 Temperature 97.8 F Pulse Rate 69 Respiratory Rate 16 Blood Pressure 138/86 Pulse Oximetry 99 Oxygen Delivery Method Room Air BMI result Body Mass Index 31.5 Vital signs have been reviewed as appeared to be correct. Blood pressure normal. Heart rate normal. Respiration rate normal. Temperature normal. Oxygen saturation normal. <Elise Lopez MD - Last Filed: 05/07/22 23:47> Appearance: Alert. Oriented X3. No acute distress. Head: Normal external exam. Normocephalic. Atraumatic. No Stevens signs noted. No raccoon eyes noted Eyes: PERRLA. EOMI. Conjunctiva and sclera normal. Eyelids normal. ENT: TM's Normal. Pharynx normal. Uvula midline. Moist mucous membranes. No trismus noted. No drooling noted. No muffled voice noted. Neck: Normal inspection. Neck supple. FROM. No adenopathy. Thyroid Normal. No meningeal signs. No neck mass noted. CVS: Normal heart rate and rhythm. Heart sound normal. No murmurs noted. Pulses normal throughout. Respiratory: No respiratory distress. Painless inspiration. Breath sounds normal. No wheezes/rales/rhonchi noted. Chest nontender. No accessory muscle usage noted or decreased air movement noted. Abdomen: Soft and nontender. Bowel sounds normal in all 4 quadrants. No distention noted. No organomegaly noted. No visible injury noted. Back: No CVA tenderness. Full range of motion noted. Skin: Skin warm and dry. Normal skin color. Normal skin turgor. No rashes/lesions/lacerations noted. Extremities: No lower extremity edema. Extremities exhibit normal range of motion. Extremities nontender. Neuro: Oriented X 3. Cranial nerve exam: II-XII are grossly intact No motor deficit. No sensory deficit. Reflexes normal. <Elise Lopez MD - Last Filed: 05/07/22 23:47> Course Course Course Narrative: This is an RME: Additional HPI, ROS, PE not included below will be deferred to primary provider. 41-year-old male history of Crohn's disease presents diffuse abdominal pain, nausea, vomiting since this morning, tells me this feels like a typical Crohn's flare he tells me he is extremely uncomfortab le reporting 10/10 abdominal pain. Denies fevers, chills, chest pain, shortness of breath, headache, vision changes, dizziness, weakness. Physical exam diffuse tenderness on exam. Patient appears uncomfortable. Plan labs, urine, CT of the abdomen and pelvis, morphine for pain control <FOX Dyer - Last Filed: 05/07/22 20:38> Reevaluation(s) Reevaluation #1: 41-year-old male with history of Crohn's disease and colectomy presented with abdominal pain physical exam and CT revealed SBO, patient had 2 vomiting a home no vomiting for the last few hours patient of did not to insert NG tube illicit of pain and vomiting become very severe which is not draining now. The case discussed with Dr. Reyes who will admit the patient for serial abdominal exam, and surgical evaluation. <Elise Lopez MD - Last Filed: 05/07/22 23:47> Time: 23:46 <Elise Lopez MD - Last Filed: 05/07/22 23:47> Medical Decision Making Differential Diagnosis Differential Diagnoses: The differential diagnosis associated with the presentation includes (Crohn disease flare, small-bowel obstruction, perforated bowel.) <Elise Lopez MD - Last Filed: 05/07/22 23:47> Admission/Observation Consideration of admission/observation: Escalation of care including admission/observation considered <Elise Lopez MD - Last Filed: 05/07/22 23:47> Consult Healthcare Provider Management of the patient was discussed with: 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 Reyes <Elise Lopez MD - Last Filed: 05/07/22 23:47> Lab Data MDM Lab Attestation statement: I reviewed the patient's lab results. <Elise Lopez MD - Last Filed: 05/07/22 23:47> Result Diagrams: 05/07/22 20:32 05/07/22 20:32 <FOX Dyer - Last Filed: 05/07/22 20:38> Labs: Lab Results 05/07/22 05/07/22 05/07/22 Range/Units 20:29 20:32 20:32 WBC 10.6 (4.8-10.8) X10*3/uL RBC 4.27 L (4.60-5.80) X10*6/uL Hgb 12.3 L (14.0-18.0) g/dl Hct 37.8 L (42.0-52.0) % MCV 88.5 (80.0-98.0) fL MCH 28.8 (27.0-33.0) pg MCHC 32.5 (31.0-36.0) g/dl RDW 12.0 (11.0-16.0) % Plt Count 247 (160-400) X10*3/uL MPV 11.5 (9.4-12.4) fL Immature Gran % (Auto) 0.3 (0.0-0.4) % Neut % (Auto) 53.3 (45-73) % Lymph % (Auto) 34.2 (20-40) % [place] % (Auto) 8.8 (2-11) % Eos % (Auto) 3.0 (0-4) % Baso % (Auto) 0.4 (0-2) % Lymph # (Auto) 3.6 (1.2-4.9) X10*3/uL [place] # (Auto) 0.9 (0.1-1.2) X10*3/uL Eos # (Auto) 0.3 (0.0-0.4) X10*3/uL Baso # (Auto) 0.0 (0.0-0.2) X10*3/uL Abs Immat Gran (auto) 0.03 (0.00-0.03) X10*3/uL Absolute Neuts (auto) 5.7 (2.0-8.3) x10*3/uL Absolute Nucleated RBC 0.000 (0.0-0.012) X10*3/uL Nucleated RBC % (auto) 0.0 (0.0-0.2) /100WBC Sodium 141 (135-145) mmol/L Potassium 3.9 (3.3-5.1) mmol/L Chloride 107 (96-108) mmol/L Carbon Dioxide 27 (22-29) mmol/L Anion Gap 11 L (12-20) BUN 10 (9-16) mg/dL Creatinine 0.88 (0.5-1.4) mg/dL Estim Creat Clear Calc 129.4 Estimated GFR > 60 Random Glucose 97 (60-115) mg/dL Calcium 9.1 (8.4-10.2) mg/dL Magnesium 1.7 (1.6-2.6) mg/dL Total Bilirubin 0.8 (0.0-1.0) mg/dL AST 50 H (5-37) U/L ALT 39 (0-40) U/L Alkaline Phosphatase 70 (39-117) U/L Total Protein 7.5 (6.5-8.0) g/dL Albumin 4.2 (3.5-5.0) g/dL Lipase 25 (8-78) U/L COVID-19 ([facility]) Negative (Negative) COVID-19 Clin Com See Note <FOX Dyer - Last Filed: 05/07/22 20:38> Lab Results 05/07/22 05/07/22 05/07/22 Range/Units 20:29 20:32 20:32 WBC 10.6 (4.8-10.8) X10*3/uL RBC 4.27 L (4.60-5.80) X10*6/uL Hgb 12.3 L (14.0-18.0) g/dl Hct 37.8 L (42.0-52.0) % MCV 88.5 (80.0-98.0) fL MCH 28.8 (27.0-33.0) pg MCHC 32.5 (31.0-36.0) g/dl RDW 12.0 (11.0-16.0) % Plt Count 247 (160-400) X10*3/uL MPV 11.5 (9.4-12.4) fL Immature Gran % (Auto) 0.3 (0.0-0.4) % Neut % (Auto) 53.3 (45-73) % Lymph % (Auto) 34.2 (20-40) % [place] % (Auto) 8.8 (2-11) % Eos % (Auto) 3.0 (0-4) % Baso % (Auto) 0.4 (0-2) % Lymph # (Auto) 3.6 (1.2-4.9) X10*3/uL [place] # (Auto) 0.9 (0.1-1.2) X10*3/uL Eos # (Auto) 0.3 (0.0-0.4) X10*3/uL Baso # (Auto) 0.0 (0.0-0.2) X10*3/uL Abs Immat Gran (auto) 0.03 (0.00-0.03) X10*3/uL Absolute Neuts (auto) 5.7 (2.0-8.3) x10*3/uL Absolute Nucleated RBC 0.000 (0.0-0.012) X10*3/uL Nucleated RBC % (auto) 0.0 (0.0-0.2) /100WBC Sodium 141 (135-145) mmol/L Potassium 3.9 (3.3-5.1) mmol/L Chloride 107 (96-108) mmol/L Carbon Dioxide 27 (22-29) mmol/L Anion Gap 11 L (12-20) BUN 10 (9-16) mg/dL Creatinine 0.88 (0.5-1.4) mg/dL Estim Creat Clear Calc 129.4 Estimated GFR > 60 Random Glucose 97 (60-115) mg/dL Calcium 9.1 (8.4-10.2) mg/dL Magnesium 1.7 (1.6-2.6) mg/dL Total Bilirubin 0.8 (0.0-1.0) mg/dL AST 50 H (5-37) U/L ALT 39 (0-40) U/L Alkaline Phosphatase 70 (39-117) U/L Total Protein 7.5 (6.5-8.0) g/dL Albumin 4.2 (3.5-5.0) g/dL Lipase 25 (8-78) U/L COVID-19 ([facility]) Negative (Negative) COVID-19 Clin Com See Note <Elise Lopez MD - Last Filed: 05/07/22 23:47> Independent Interpretation I performed an independent interpretation of an: CT Scan (Abdomen and pelvis:. Mildly to moderately dilated small bowel loops in the central to lower abdomen, suspicious for small bowel obstruction. Transition point appears to occur at the location of a suture line in the anterior right lower quadrant. 2. Bilateral renal calculi without hydronephrosis.) <Elise Lopez MD - Last Filed: 05/07/22 23:47> Radiology Impression Discussion of test interpretation with radiology: I have reviewed the radiologist's reading. <Elise Lopez MD - Last Filed: 05/07/22 23:47> Chronic Conditions Patient?s care impacted by: Other (Crohn's disease.) <Elise Lopez MD - Last Filed: 05/07/22 23:47> Medications Administered Discontinued Medications Generic Name Dose Route Start Last Admin Trade Name Freq PRN Reason Stop Dose Admin Sodium Chloride 1,000 mls @ 999 mls/hr 05/07/22 20:45 05/07/22 21:35 Ns IV 05/07/22 21:45 999 mls/hr .Q1H1M SANGITA Administration Iohexol 100 ml 05/07/22 21:57 05/07/22 21:57 Iohexol 350 Mg/Ml 100 Ml Infus..Btl IV 05/07/22 21:58 85 ml ONCE ONE Administration Morphine Sulfate 4 mg 05/07/22 20:34 05/07/22 21:30 Morphine Sulfate 4 Mg/Ml Cartridge IVPUSH 05/07/22 20:35 4 mg ONCE ONE Administration Protocol <FOX Dyer - Last Filed: 05/07/22 20:38> Medications Administered Discontinued Medications Generic Name Dose Route Start Last Admin Trade Name Freq PRN Reason Stop Dose Admin Sodium Chloride 1,000 mls @ 999 mls/hr 05/07/22 20:45 05/07/22 21:35 Ns IV 05/07/22 21:45 999 mls/hr .Q1H1M SANGITA Administration Iohexol 100 ml 05/07/22 21:57 05/07/22 21:57 Iohexol 350 Mg/Ml 100 Ml Infus..Btl IV 05/07/22 21:58 85 ml ONCE ONE Administration Morphine Sulfate 4 mg 05/07/22 20:34 05/07/22 21:30 Morphine Sulfate 4 Mg/Ml Cartridge IVPUSH 05/07/22 20:35 4 mg ONCE ONE Administration Protocol <Elise Lopez MD - Last Filed: 05/07/22 23:47> Discharge Plan Discharge Clinical Impression: Small bowel obstruction <FOX Dyer - Last Filed: 05/07/22 20:38> Patient Disposition: Admitted As Inpatient <FOX Dyer - Last Filed: 05/07/22 20:38>
[2022-05-07 20:35] VITALS: BP 138/86; PULSE 69; RESP 16; TEMP 36.6; O2SAT 99; BMI 31.5
[2022-05-07 20:36] LABS: MANUAL DIFF FLAG NO
[2022-05-07 20:39] LABS: Basophils Percent Auto 0.4 % (0-2); Eosinophils Absolute Auto 0.3 X10*3/uL (0.0-0.4); Hematocrit 37.8 % (42.0-52.0); Hemoglobin 12.3 g/dl (14.0-18.0); Imm Gran Abs Auto 0.03 X10*3/uL (0.00-0.03); Imm Gran Pct Auto 0.3 % (0.0-0.4); Lymphocytes Absolute Auto 3.6 X10*3/uL (1.2-4.9); Lymphocytes Percent Auto 34.2 % (20-40); Mean Corpuscular HGB Conc 32.5 g/dl (31.0-36.0); Mean Corpuscular Hemoglobin 28.8 pg (27.0-33.0); Mean Corpuscular Volume 88.5 fL (80.0-98.0); Mean Platelet Volume 11.5 fL (9.4-12.4); Monocytes Absolute Auto 0.9 X10*3/uL (0.1-1.2); Monocytes Percent Auto 8.8 % (2-11); Neutrophils Absolute Auto 5.7 x10*3/uL (2.0-8.3); Neutrophils Percent Auto 53.3 % (45-73); Platelet Count 247 X10*3/uL (160-400); Red Blood Count 4.27 X10*6/uL (4.60-5.80); White Blood Count 10.6 X10*3/uL (4.8-10.8)
[2022-05-07 20:54] LABS: COVID-19 Test Negative (Negative); IDNOW Serial# 16C4AD1C
[2022-05-07 20:55] LABS: Alanine Aminotransferase 39 U/L (0-40); Albumin Level 4.2 g/dL (3.5-5.0); Alkaline Phosphatase 70 U/L (39-117); Anion Gap 11 (12-20); Aspartate Amino Transferase 50 U/L (5-37); Bilirubin Total 0.8 mg/dL (0.0-1.0); Blood Urea Nitrogen 10 mg/dL (9-16); Calcium 9.1 mg/dL (8.4-10.2); Carbon Dioxide 27 mmol/L (22-29); Chloride 107 mmol/L (96-108); Creatinine Clr Calc Pharmacy 129.4; Estimated Glomerular Filt Rate > 60; Glucose Random 97 mg/dL (60-115); Lipase 25 U/L (8-78); Magnesium 1.7 mg/dL (1.6-2.6); Potassium 3.9 mmol/L (3.3-5.1); Sodium 141 mmol/L (135-145); Total Protein 7.5 g/dL (6.5-8.0)
[2022-05-07] MEDS: Morphine Sulfate 4 MG/ML CARTRIDGE IVPUSH (21:30)
[2022-05-07] MEDS: 0.9 % Sodium Chloride 1,000 ML 999 ML IV (21:35)
[2022-05-07] MEDS: iohexoL 350 MG/ML 100 ML INFUS..BTL IV (21:57)
--- NOTE | 2022-05-07 22:33 | PC.NURSE ---
pt medicated per MAY- now reporting 09/25 abdonimal pain- pt awaiting CT results- 22g IV in place in right hand- call powell within reach, will continue to monitor
--- NOTE | 2022-05-07 23:06 | PC.NURSE ---
report given to JERICA lynne pt transferred to ED19
[2022-05-07] MEDS: Lactated Ringers 1,000 ML 100 ML IVCONT (23:52)
[2022-05-07 23:57] VITALS: BP 123/77; PULSE 60; RESP 16; TEMP 36.7; O2SAT 97
--- NOTE | 2022-05-08 00:01 | PC.NURSE ---
Pt A&Ox4, reports 7/10 all over ABD pain. ABD rounds, firm, tender to RLQ abd, hypoactive bowel sounds. States last BM was yesterday, normal, denies diarrhea. VSS. IV fluids running as ordered.
[2022-05-08] MEDS: ondansetron HCL 4 MG/2 ML VIAL IVPUSH (00:57)
[2022-05-08 00:59] VITALS: RESP 20
[2022-05-08] MEDS: Morphine Sulfate 4 MG/ML CARTRIDGE 3 MG IVPUSH ×2 (00:59→04:11)
[2022-05-08 04:08] VITALS: BP 111/71; PULSE 78; RESP 17; TEMP 36.6; O2SAT 97
[2022-05-08 04:11] VITALS: RESP 18
--- NOTE | 2022-05-08 04:16 | PC.NURSE ---
Pt reports effectiveness to meds given as documented but reports increasing 6/10 ABD pain. Medicated per PRN MAY. VSS.
--- NOTE | 2022-05-08 04:58 | PC.NURSE ---
Addendum entered by Alison Moss 05/08/22 05:20: Dr. Reyes notified Pt request to leave AMA. Informed of risks of leaving and advised to come back if symptoms worsen. AMA formed signed with witness presence. Pt ambulated independently with steady gait. Original Note: New room assignment, Pt updated on plan, states I don't want to take a room from anyone, I want to leave AMA, I've been through this before and I am here for pain management . Dr. Tirado notified and will see Pt.
--- NOTE | 2022-05-08 08:03 | PM.EVENT ---
Event Note Date of Service: 05/08/22 Event Note: informed by nurse that patient signed out from the ED AMA around 5 am this morning I had not seen patient prior to that Time Spent With Patient Time: Total time managing care of this patient today ____ minutes.
== END 2022-05-07 23:00 | disposition left against medical advice (07) | DRG 387 ==
LOC: HO.ED 22:58 → HO.EDOVER 23:18 → HO.IMC 05-08 05:19
PROVIDERS: Physician Assistant; Admitting Provider Surgery; Emergency Provider Emergency Medicine; PCP Internal Medicine; Visit Provider Surgery
DX: K50.912 Crohn's disease, unspecified, with intestinal obstruction (principal); F41.9 Anxiety disorder, unspecified; K21.9 Gastro-esophageal reflux disease without esophagitis; Z20.822 Contact with and (suspected) exposure to COVID-19; Z79.899 Other long term (current) drug therapy
CPT/HCPCS: 74177; 80053; 83690; 83735; 85025; 87635; 96361; 96374; 96375; 96376; 99284; J2270; J2405; Q9967

== ENCOUNTER 2022-05-21 09:06 | Inpatient (IN) | payer MEDICARE, BC, MEDICAID, SELFPAY ==
--- NOTE | ~2022-05-21 | CT_ITS ---
EXAMINATION: CT ABDOMEN AND PELVIS WITH CONTRAST CLINICAL INFORMATION: SBO, abdominal pain. COMPARISON: CT abdomen and pelvis 05/07/2022. TECHNIQUE: Multidetector volumetric images were obtained from the superior aspect of the liver through the pubic symphysis following administration 85 mL of Omnipaque 350 intravenous contrast. Sagittal and coronal reformatted images were obtained on the technologist's workstation. Oral contrast: No. This CT examination was performed using dose optimization techniques as appropriate, variously including the following: *Automated exposure control *Adjustment of mA and/or kV according to patient size (this includes techniques or standardized protocols for targeted exams where dose is matched to indication/reason for exam; i.e. extremities or head) *Use of iterative reconstruction technique DLP: 707 mGy-cm FINDINGS: LUNG BASES: The visualized lung bases are unremarkable. LIVER, GALLBLADDER, AND BILIARY TREE: The liver is normal in size, shape, and attenuation. No focal hepatic lesion or biliary ductal dilatation is present. The gallbladder is unremarkable with no evidence of radiopaque gallstones, gallbladder wall thickening, or obvious pericholecystic inflammatory changes. PANCREAS: Unremarkable. SPLEEN: Unremarkable. ADRENAL GLANDS: Unremarkable. KIDNEYS AND URETERS: The kidneys are normal in size, shape, and attenuation. There are 5 mm nonobstructive radiopaque calculi upper pole right kidney and a couple of 2 mm radiopaque calculi in lower pole left kidney. No additional radiopaque calculi. There is no caliectasis or hydronephrosis. Patient has known bilateral duplicated collecting system. A 1.2 cm cyst seen in mid to lower pole left kidney. BLADDER: Unremarkable. GASTROINTESTINAL TRACT: There are anastomotic sutures distal small bowel loop in right lower quadrant with proximal dilated small bowel loops and air-fluid level suggestive of small bowel obstruction. The distal small bowel loops are normal caliber. It is best visualized on axial image 54/3. There is submucosal fat throughout the colon, similar to previous study. No free air or free fluid seen. ABDOMINAL WALL: Midline supraumbilical small abdominal wall hernia containing fat is noted, stable. Prominent bilateral inguinal canals containing fat. LYMPH NODES: Normal. VASCULAR: Unremarkable. PELVIC VISCERA: The prostate gland is normal size with central gland calcification. Periprostatic fat planes are preserved. OSSEOUS STRUCTURES: No aggressive lytic or sclerotic process seen. CT/CT abdomen pelvis w IV con IMPRESSION: 1. Anastomotic small bowel loop segment seen in right lower quadrant causing proximal small bowel obstruction, similar to previous study. 2. Bilateral nonobstructive radiopaque renal calculi with left renal cyst. 3. Small supraumbilical midline abdominal wall hernia containing fat, stable. Fleischner guidelines were followed.
[2022-05-21 09:17] VITALS: BP 138/86; PULSE 81; O2SAT 99
[2022-05-21 09:24] VITALS: BP 142/92; PULSE 77; RESP 20; TEMP 36.6; O2SAT 100; BMI 32.3
--- NOTE | 2022-05-21 09:27 | ED_ITS ---
HPI - Abdominal Pain General Chief Complaint: Abdominal Pain Stated Complaint: Abd pain, nausea per EMS Time Seen by Provider: 05/21/22 09:18 Source: patient Mode of arrival: ambulatory Limitations: no limitations History of Present Illness HPI narrative: 41-year-old male with long history of Crohn's disease complicated with small- bowel obstruction, patient has multiple hospitalization for similar symptoms started since yesterday with abdominal cramps associated with nausea and vomiting, last bowel movement was 2 days ago, no gas passing since last night. Related Data Home Medications Medication Instructions Recorded Confirmed infliximab 100 mg intravenous IV Q6W 05/09/20 05/09/20 solution (Remicade) omeprazole magnesium 20 mg 20 mg PO DAILY 05/09/20 10/05/21 tablet,delayed release Allergies Allergy/AdvReac Type Severity Reaction Status Date / Time No Known Allergies Allergy Verified 05/08/22 04:37 [No Known Allergies*] Review of Systems Review of Systems All other systems are reviewed and are negative Constitutional: Reports as per HPI and Reports no additional constitutional complaints Eyes: Reports as per HPI and Reports no additional eye complaints Reports system reviewed and no additional complaints, except as documented Cardiovascular: Reports as per HPI and Reports no additional cardiovascular com plaints Respiratory: Reports as per HPI and Reports no additional respiratory complaints Gastrointestinal: Reports as per HPI and Reports no additional gastrointestinal complaints Genitourinary: Reports no additional female genitourinary complaints Musculoskeletal: Reports no additional musculoskeletal complaints Skin/Breast: Reports system reviewed and no additional complaints, except as docu Psychiatric: Reports no additional psychiatric complaints Endocrine: Reports no additional endocrine complaints Hematologic/Lymphatic: Reports no additional hematologic/lymphatic complaints Allergic/Immunologic: Reports no additional allergic/immunologic complaints Reports system reviewed and no additional complaints, except as documented and Reports Abnormal speech present [facility] Past Medical History Medical History Anemia Anxiety Crohn disease GERD (gastroesophageal reflux disease) High risk medication use Low vitamin D level Pituitary macroadenoma Surgical History H/O colonoscopy History of esophagogastroduodenoscopy (EGD) History of ileostomy History of partial surgical removal of colon Family History Family History Mother Breast cancer Social History Social History Household Members: None Housing: Apartment Do you presently have visiting nurse or other home services: Yes (infusion nurses) Alcohol intake: never Patient Tobacco Use Status: Never used Tobacco Smoked in Last 30 Days: Yes e-Cigarette/Vaping Use: Never Used Second Hand Smoke Exposure: No Use of substances other than those prescribed or required for medical reasons: No Substance Use Type: Marijuana Advance Directives: No Advance Directives Information Provided: No Advance Directives Date on File: 07/17/20 service: No Current occupational status: disabled Physical Exam ED Vital Signs: Vital Signs - 24 hr 05/21/22 09:24 05/21/22 13:01 Temperature 98 F 98.3 F Pulse Rate 77 64 Respiratory Rate 20 16 Blood Pressure 142/92 H 119/75 Pulse Oximetry 100 94 Oxygen Delivery Method Room Air Room Air BMI result Body Mass Index 32.3 Vital signs have been reviewed as appeared to be correct. Blood pressure normal. Heart rate normal. Respiration rate normal. Temperature normal. Oxygen saturation normal. Appearance: Alert. Oriented X3. No acute distress. Head: Normal external exam. Normocephalic. Atraumatic. No Stevens signs noted. No raccoon eyes noted Eyes: PERRLA. EOMI. Conjunctiva and sclera normal. Eyelids normal. ENT: TM's Normal. Pharynx normal. Uvula midline. Moist mucous membranes. No trismus noted. No drooling noted. No muffled voice noted. Neck: Normal inspection. Neck supple. FROM. No adenopathy. Thyroid Normal. No meningeal signs. No neck mass noted. CVS: Normal heart rate and rhythm. Heart sound normal. No murmurs noted. Pulses normal throughout. Respiratory: No respiratory distress. Painless inspiration. Breath sounds normal. No wheezes/rales/rhonchi noted. Chest nontender. No accessory muscle usage noted or decreased air movement noted. Abdomen: Soft, my. Bowel sounds normal in all 4 quadrants. No distention noted. No organomegaly noted. No visible injury noted. Back: No CVA tenderness. Full range of motion noted. Skin: Skin warm and dry. Normal skin color. Normal skin turgor. No rashes/lesions/lacerations noted. Extremities: No lower extremity edema. Extremities exhibit normal range of motion. Extremities nontender. Neuro: Oriented X 3. Cranial nerve exam: II-XII are grossly intact No motor deficit. No sensory deficit. Reflexes normal. Course Course Course Narrative: 41-year-old male history of longstanding Crohn's disease with colectomy patient had a multiple presentation with small-bowel obstruction that is normally resolve spontaneously with conservative treatment, patient's presentation today is showing small bowel obstruction patient adamantly refusing NG tube insertion, case discussed with Dr. Zapien will admit the patient for observation. Medical Decision Making Differential Diagnosis Differential Diagnoses: The differential diagnosis associated with the presentation includes (Small-bowel obstruction, Crohn's disease flare, perforated bowel, kidney stone.) Admission/Observation Consideration of admission/observation: Escalation of care including admission/observation considered Consult Healthcare Provider Management of the patient was discussed with: Rn Admit (Dr. Zapien ) Lab Data MDM Lab Attestation statement: I reviewed the patient's lab results. 05/21/22 09:43 05/21/22 09:43 Labs: Lab Results 05/21/22 05/21/22 05/21/22 Range/Units 09:43 09:43 09:43 WBC 11.0 H (4.8-10.8) X10*3/uL RBC 4.53 L (4.60-5.80) X10*6/uL Hgb 13.0 L (14.0-18.0) g/dl Hct 39.7 L (42.0-52.0) % MCV 87.6 (80.0-98.0) fL MCH 28.7 (27.0-33.0) pg MCHC 32.7 (31.0-36.0) g/dl RDW 12.0 (11.0-16.0) % Plt Count 265 (160-400) X10*3/uL MPV 11.4 (9.4-12.4) fL Immature Gran % (Auto) 0.3 (0.0-0.4) % Neut % (Auto) 59.9 (45-73) % Lymph % (Auto) 29.0 (20-40) % [place] % (Auto) 8.8 (2-11) % Eos % (Auto) 1.5 (0-4) % Baso % (Auto) 0.5 (0-2) % Lymph # (Auto) 3.2 (1.2-4.9) X10*3/uL [place] # (Auto) 1.0 (0.1-1.2) X10*3/uL Eos # (Auto) 0.2 (0.0-0.4) X10*3/uL Baso # (Auto) 0.1 (0.0-0.2) X10*3/uL Abs Immat Gran (auto) 0.03 (0.00-0.03) X10*3/uL Absolute Neuts (auto) 6.6 (2.0-8.3) x10*3/uL Absolute Nucleated RBC 0.000 (0.0-0.012) X10*3/uL Nucleated RBC % (auto) 0.0 (0.0-0.2) /100WBC Sodium 139 (135-145) mmol/L Potassium 4.1 (3.3-5.1) mmol/L Chloride 106 (96-108) mmol/L Carbon Dioxide 23 (22-29) mmol/L Anion Gap 14 (12-20) BUN 12 (9-16) mg/dL Creatinine 0.95 (0.5-1.4) mg/dL Estim Creat Clear Calc 121.2 Estimated GFR > 60 Random Glucose 104 (60-115) mg/dL Calcium 9.4 (8.4-10.2) mg/dL Total Bilirubin 1.1 H (0.0-1.0) mg/dL Direct Bilirubin 0.3 (0.0-0.5) mg/dL AST 28 (5-37) U/L ALT 31 (0-40) U/L Alkaline Phosphatase 66 (39-117) U/L Troponin I High Sens < 3.5 (<3.5-35.0) ng/L Total Protein 8.1 H (6.5-8.0) g/dL Albumin 4.5 (3.5-5.0) g/dL Lipase 17 (8-78) U/L Independent Interpretation I performed an independent interpretation of an: CT Scan (Small-bowel obstruction) Radiology Impression Discussion of test interpretation with radiology: I have reviewed the radio logist's reading. Medications Administered Discontinued Medications Generic Name Dose Route Start Last Admin Trade Name Freq PRN Reason Stop Dose Admin Hydromorphone HCl 1 mg 05/21/22 09:22 05/21/22 10:33 Hydromorphone Hcl 1 Mg/Ml Syringe IVPUSH 05/21/22 09:23 1 mg ONCE ONE Administration Protocol Hydromorphone HCl 1 mg 05/21/22 11:53 05/21/22 12:05 Hydromorphone Hcl 1 Mg/Ml Syringe IVPUSH 05/21/22 11:54 1 mg ONCE ONE Administration Protocol Hydromorphone HCl 2 mg 05/21/22 14:40 05/21/22 14:46 Hydromorphone Hcl 2 Mg/Ml Vial IVPUSH 05/21/22 14:41 2 mg ONCE ONE Administration Protocol Sodium Chloride 1,000 mls @ 999 mls/hr 05/21/22 09:18 05/21/22 12:07 Ns IV 05/21/22 10:18 Infused .Q1H1M ONE Infusion Sodium Chloride 1,000 mls @ 999 mls/hr 05/21/22 09:24 05/21/22 14:46 Ns IV 05/21/22 10:24 Infused .Q1H1M ONE Infusion Iohexol 85 ml 05/21/22 10:58 05/21/22 11:00 Iohexol 350 Mg/Ml 100 Ml Infus..Btl IV 05/21/22 10:59 85 ml ONCE ONE Administration Ondansetron HCl 4 mg 05/21/22 09:22 05/21/22 10:33 Ondansetron Hcl 4 Mg/2 Ml Vial IVPUSH 05/21/22 09:23 4 mg ONCE ONE Administration Ondansetron HCl 4 mg 05/21/22 14:40 05/21/22 14:46 Ondansetron Hcl 4 Mg/2 Ml Vial IVPUSH 05/21/22 14:41 4 mg ONCE ONE Administration Discharge Plan Discharge Clinical Impression: Small bowel obstruction Patient Disposition: Admitted As Inpatient
[2022-05-21 09:49] LABS: MANUAL DIFF FLAG NO
[2022-05-21 09:51] LABS: Basophils Absolute Auto 0.1 X10*3/uL (0.0-0.2); Basophils Percent Auto 0.5 % (0-2); Eosinophils Absolute Auto 0.2 X10*3/uL (0.0-0.4); Eosinophils Percent Auto 1.5 % (0-4); Hematocrit 39.7 % (42.0-52.0); Imm Gran Abs Auto 0.03 X10*3/uL (0.00-0.03); Imm Gran Pct Auto 0.3 % (0.0-0.4); Lymphocytes Absolute Auto 3.2 X10*3/uL (1.2-4.9); Mean Corpuscular HGB Conc 32.7 g/dl (31.0-36.0); Mean Corpuscular Hemoglobin 28.7 pg (27.0-33.0); Mean Corpuscular Volume 87.6 fL (80.0-98.0); Mean Platelet Volume 11.4 fL (9.4-12.4); Monocytes Percent Auto 8.8 % (2-11); Neutrophils Absolute Auto 6.6 x10*3/uL (2.0-8.3); Neutrophils Percent Auto 59.9 % (45-73); Platelet Count 265 X10*3/uL (160-400); Red Blood Count 4.53 X10*6/uL (4.60-5.80)
[2022-05-21 10:08] LABS: Alanine Aminotransferase 31 U/L (0-40); Albumin Level 4.5 g/dL (3.5-5.0); Alkaline Phosphatase 66 U/L (39-117); Anion Gap 14 (12-20); Aspartate Amino Transferase 28 U/L (5-37); Bilirubin Direct 0.3 mg/dL (0.0-0.5); Bilirubin Total 1.1 mg/dL (0.0-1.0); Blood Urea Nitrogen 12 mg/dL (9-16); Calcium 9.4 mg/dL (8.4-10.2); Carbon Dioxide 23 mmol/L (22-29); Chloride 106 mmol/L (96-108); Creatinine Clr Calc Pharmacy 121.2; Estimated Glomerular Filt Rate > 60; Glucose Random 104 mg/dL (60-115); Lipase 17 U/L (8-78); Potassium 4.1 mmol/L (3.3-5.1); Sodium 139 mmol/L (135-145); Total Protein 8.1 g/dL (6.5-8.0)
[2022-05-21 10:19] LABS: Troponin-I High Sensitivity < 3.5 ng/L (<3.5-35.0)
[2022-05-21] MEDS: ondansetron HCL 4 MG/2 ML VIAL IVPUSH ×2 (10:33→14:46)
[2022-05-21] MEDS: HYDROmorphone HCl 1 MG/ML SYRINGE IVPUSH ×3 (10:33→23:30)
[2022-05-21] MEDS: 0.9 % Sodium Chloride 1,000 ML 999 ML IV ×2 (10:33→12:06)
[2022-05-21] MEDS: iohexoL 350 MG/ML 100 ML INFUS..BTL 85 ML IV (11:00)
[2022-05-21 13:01] VITALS: BP 119/75; PULSE 64; RESP 16; TEMP 36.8; O2SAT 94
[2022-05-21] MEDS: HYDROmorphone HCl 2 MG/ML VIAL IVPUSH (14:46)
[2022-05-21 15:01] VITALS: BP 115/78; PULSE 54; RESP 16; TEMP 36.9; O2SAT 96
--- NOTE | 2022-05-21 15:55 | PHA.MEDREC ---
Pharmacy Consult ? Medication Reconciliation Pharmacy has completed the medication reconciliation. med rec completed. spoke with patient. currently takes Remicade IV infusion every 8 weeks and he states last one was about a month ago. dose is unknown.
[2022-05-21 16:18] LABS: COVID-19 Test Negative (Negative); IDNOW Serial# 16C4AD1C
[2022-05-21] MEDS: 0.9 % Sodium Chloride 1,000 ML 100 ML IVCONT (16:25)
[2022-05-21 19:59] VITALS: BP 120/75; PULSE 60; RESP 14; TEMP 36.1; O2SAT 98
--- NOTE | 2022-05-21 20:04 | PM.HPGS ---
History of Present Illness History of Present Illness Date of Service: 05/21/22 Chief complaint: Abdominal Pain Narrative: Toño Whalen is a 41 year old male With history of Crohn's disease and previous admissions with partial small bowel obstruction. He has had a previous operation small bowel resection and it seems that the anastomosis site is what HOLDS THINGS UP AND PARTIAL BOWEL OBSTRUCTIONS. He has had more flareups recently. He says generally he knows that he is eaten something inappropriate and then gets an attack but this time he has been very good with trying to watch what he eats and not agitating things. He started feeling nausea abdominal distention and pain and came into the hospital. CT scan has showed this consistent findings over the last several months. He generally does well with conservative care and has recently been refusing NG tube decompression. Review of Systems Review of Systems: Yes all other systems are reviewed and are negative PMFSH Past Medical History Medical History Anemia Anxiety Crohn disease GERD (gastroesophageal reflux disease) High risk medication use Low vitamin D level Pituitary macroadenoma Family History Family History Mother Breast cancer Surgical History Surgical History H/O colonoscopy History of esophagogastroduodenoscopy (EGD) History of ileostomy History of partial surgical removal of colon Social History Social History Household Members: None Housing: Apartment Do you presently have visiting nurse or other home services: Yes (infusion nurses) Alcohol intake: never Patient Tobacco Use Status: Never used Tobacco Smoked in Last 30 Days: Yes e-Cigarette/Vaping Use: Never Used Second Hand Smoke Exposure: No Use of substances other than those prescribed or required for medical reasons: No Substance Use Type: Marijuana Advance Directives: No Advance Directives Information Provided: No Advance Directives Date on File: 07/17/20 Nutrition Risks: No Nutritional Risk service: No Current occupational status: disabled Meds Allergies Allergy/AdvReac Type Severity Reaction Status Date / Time No Known Allergies Allergy Verified 05/08/22 04:37 [No Known Allergies*] Active Medications: Current Medications Sodium Chloride (Ns) 1,000 mls @ 100 mls/hr IVCONT .Q10H [facility] [place] Last Admin: 05/21/22 16:25 Dose: 100 mls/hr Morphine Sulfate (Morphine Sulfate 4 Mg/Ml Cartridge) 4 mg IVPUSH Q4H PRN; Protocol PRN Reason: Pain, Moderate (Pain Scale 4-6 Ondansetron HCl (Ondansetron Hcl 4 Mg/2 Ml Vial) 4 mg IVPUSH QID PRN PRN Reason: Nausea Sodium Chloride (0.9 % Sodium Chloride Flush 3 Ml Syringe) 3 ml IVFLUSH QSHIFT [facility] [place] Last Admin: 05/21/22 16:25 Dose: Not Given Home Medications Medication Instructions Recorded Confirmed Last Taken Type infliximab 100 mg intravenous IV Q8W 05/09/20 05/09/20 Unknown History solution (Remicade) calcium carbonate 200 mg calcium 200 mg PO BID PRN Heartburn 05/21/22 05/21/22 Unknown History (500 mg) chewable tablet (Tums) Physical Exam Vital Signs: Vital Signs: Last Vital Signs Temp 96.9 F 05/21/22 19:59 Pulse 60 05/21/22 19:59 Resp 14 05/21/22 19:59 BP 120/75 05/21/22 19:59 Pulse Ox 98 05/21/22 19:59 O2 Del Method 05/21/22 19:59 BMI result Body Mass Index 32.3 Const: General: cooperative, healthy appearing and comfortable HEENT: Head: Yes normal to inspection Resp: Effort & Inspection: normal respiratory effort Auscultation: clear to auscultation bilaterally Cardio: Rate: regular rate Rhythm: regular rhythm GI: Other: SOFT diffusely mild tenderness hypo bowel sounds Inspection: Yes normal to inspection Results Results Labs: Short CBC 05/21/22 Range/Units 09:43 WBC 11.0 H (4.8-10.8) X10*3/uL Hgb 13.0 L (14.0-18.0) g/dl Hct 39.7 L (42.0-52.0) % Plt Count 265 (160-400) X10*3/uL BMP 05/21/22 09:43 Sodium 139 Potassium 4.1 Chloride 106 Carbon Dioxide 23 BUN 12 Creatinine 0.95 Calcium 9.4 Liver Function 05/21/22 Range/Units 09:43 Total Bilirubin 1.1 H (0.0-1.0) mg/dL Direct Bilirubin 0.3 (0.0-0.5) mg/dL AST 28 (5-37) U/L ALT 31 (0-40) U/L Alkaline Phosphatase 66 (39-117) U/L Albumin 4.5 (3.5-5.0) g/dL Abdomen CT scan report/results: report reviewed and image reviewed CT scan - pelvis: report reviewed and image reviewed Assessment and Plan (1) Small bowel obstruction: Status: Acute Plan 41-year-old male history of Crohn's disease coming in with another episode of partial small bowel obstruction. Patient has had previous surgery with anastomosis area seeming to be part of the issue with his repeated episodes of bowel obstruction. Plan to continue with conservative care in this admission. Nothing by mouth NG tube decompression is being refused by patient. Continue with IV fluids IV pain meds and consider small bowel follow-through during this admission to reevaluate the anastomosis area. He understands and agrees Time Spent With Patient Time: Total time managing care of this patient today __55__ minutes. Quality Stroke Does the patient have a stroke diagnosis?: No VTE Prior VTE?: No VTE Risk Level:: Medical - low VTE Device Contraindication: N/A - Device Ordered VTE Drug Contraindication: Treatment Not Indicated Procedures Date of Service Date of Service: 05/21/22
[2022-05-21 20:09] VITALS: BMI 32.3
[2022-05-21] MEDS: diphenhydrAMINE HCL 50 MG/ML VIAL 25 MG IVPUSH (20:47)
[2022-05-21] MEDS: LORazepam 2 MG/ML VIAL 1 MG IVPUSH (23:31)
[2022-05-21] MEDS: Acetaminophen 1,000 MG/100 ML PIGGYBACK 400 MG IV (23:39)
[2022-05-22 00:54] LABS: Appearance Urine Clear; Color Urine Yellow; Glucose Urine UA Negative (Negative); Leukocyte Esterase Urine Negative (Negative); Nitrite Urine Negative (Negative); PH 5.5 (5.0-9.0); Specific Gravity - Urine >= 1.030 (1.005-1.025); Urine Blood Negative (Negative); Urine Ketones Trace mg/dL (Negative); Urine Protein Trace mg/dL (Neg-Trace)
[2022-05-22 03:55] VITALS: BP 130/74; PULSE 75; RESP 18; TEMP 36.4; O2SAT 93
[2022-05-22] MEDS: Acetaminophen 1,000 MG/100 ML PIGGYBACK 400 MG IV ×3 (04:45→15:28)
[2022-05-22] MEDS: 0.9 % Sodium Chloride 1,000 ML 100 ML IVCONT ×2 (04:47→10:28)
[2022-05-22] MEDS: HYDROmorphone HCl 1 MG/ML SYRINGE IVPUSH ×4 (04:47→20:35)
[2022-05-22 06:22] LABS: Hematocrit 35.6 % (42.0-52.0); Hemoglobin 11.2 g/dl (14.0-18.0); Mean Corpuscular HGB Conc 31.5 g/dl (31.0-36.0); Mean Corpuscular Hemoglobin 28.9 pg (27.0-33.0); Mean Platelet Volume 11.6 fL (9.4-12.4); Platelet Count 209 X10*3/uL (160-400); Red Blood Count 3.87 X10*6/uL (4.60-5.80); Red Cell Distribution Width 12.3 % (11.0-16.0)
[2022-05-22 06:37] LABS: Anion Gap 9 (12-20); Blood Urea Nitrogen 11 mg/dL (9-16); Calcium 7.4 mg/dL (8.4-10.2); Carbon Dioxide 24 mmol/L (22-29); Chloride 113 mmol/L (96-108); Creatinine Clr Calc Pharmacy 145.7; Estimated Glomerular Filt Rate > 60; Glucose Random 74 mg/dL (60-115); Potassium 3.5 mmol/L (3.3-5.1); Sodium 142 mmol/L (135-145)
[2022-05-22 07:37] VITALS: BP 119/74; PULSE 55; RESP 16; TEMP 36.5; O2SAT 96
--- NOTE | 2022-05-22 08:17 | PM.PNGS ---
Subjective Subjective Date of Service: 05/22/22 Interval history: history reviewed pt known to me he now feels much better denies pain does not recall flatus no vomitting since last night Physical Exam Vital Signs: Vital Signs: Last Vital Signs Temp 97.7 F 05/22/22 07:37 Pulse 55 05/22/22 07:37 Resp 16 05/22/22 07:37 BP 119/74 05/22/22 07:37 Pulse Ox 96 05/22/22 07:37 O2 Del Method 05/22/22 07:37 BMI result Body Mass Index 32.3 Const: Other: looks well General: comfortable and no acute distress Resp: Effort & Inspection: normal respiratory effort Cardio: Rate: regular rate GI: Palpation (GI): Soft to palpation, not firm, nontender and no guarding Objective Data Active Medications Hydromorphone HCl (Hydromorphone Hcl 1 Mg/Ml Syringe) 1 mg IVPUSH Q4H PRN; Protocol PRN Reason: Pain, Severe (Pain Scale 7-10) Last Admin: 05/22/22 04:47 Dose: 1 mg Documented By: DAVID Sodium Chloride (Ns) 1,000 mls @ 100 mls/hr IVCONT .Q10H [facility] Last Admin: 05/22/22 04:47 Dose: 100 mls/hr Documented By: DAVID Acetaminophen (Ofirmev) 1,000 mg in 100 mls @ 400 mls/hr IV Q6H [facility] Stop: 05/22/22 15:14 Last Infusion: 05/22/22 05:33 Dose: 0 mls/hr Documented By: DAVID Ondansetron HCl (Ondansetron Hcl 4 Mg/2 Ml Vial) 4 mg IVPUSH QID PRN PRN Reason: Nausea Sodium Chloride (0.9 % Sodium Chloride Flush 3 Ml Syringe) 3 ml IVFLUSH QSHIFT [facility] Last Admin: 05/22/22 04:46 Dose: Not Given Documented By: DAVID Non-Admin Reason: IV Running Labs 05/22/22 06:04 05/22/22 06:04 Labs: Laboratory Results - last 24 hr 05/21/22 05/21/22 05/21/22 09:43 09:43 09:43 MCV 87.6 MCH 28.7 MCHC 32.7 RDW 12.0 Plt Count 265 MPV 11.4 Immature Gran % (Auto) 0.3 Neut % (Auto) 59.9 Lymph % (Auto) 29.0 [place] % (Auto) 8.8 Eos % (Auto) 1.5 Baso % (Auto) 0.5 Lymph # (Auto) 3.2 [place] # (Auto) 1.0 Eos # (Auto) 0.2 Baso # (Auto) 0.1 Abs Immat Gran (auto) 0.03 Absolute Neuts (auto) 6.6 Absolute Nucleated RBC 0.000 Nucleated RBC % (auto) 0.0 Anion Gap 14 Estim Creat Clear Calc 121.2 Estimated GFR > 60 Random Glucose 104 Calcium 9.4 Total Bilirubin 1.1 H Direct Bilirubin 0.3 AST 28 ALT 31 Alkaline Phosphatase 66 Troponin I High Sens < 3.5 Total Protein 8.1 H Albumin 4.5 Lipase 17 Urine Color Urine Appearance Urine pH Ur Specific [place] Urine Protein Urine Glucose (UA) Urine Ketones Urine Blood Urine Nitrite Ur Leukocyte Esterase COVID-19 ([facility]) COVID-19 Clin Com 05/21/22 05/22/22 05/22/22 16:01 06:04 06:04 MCV 92.0 MCH 28.9 MCHC 31.5 RDW 12.3 Plt Count 209 MPV 11.6 Immature Gran % (Auto) Neut % (Auto) Lymph % (Auto) [place] % (Auto) Eos % (Auto) Baso % (Auto) Lymph # (Auto) [place] # (Auto) Eos # (Auto) Baso # (Auto) Abs Immat Gran (auto) Absolute Neuts (auto) Absolute Nucleated RBC 0.000 Nucleated RBC % (auto) 0.0 Anion Gap 9 L Estim Creat Clear Calc 145.7 Estimated GFR > 60 Random Glucose 74 Calcium 7.4 L D Total Bilirubin Direct Bilirubin AST ALT Alkaline Phosphatase Troponin I High Sens Total Protein Albumin Lipase Urine Color Urine Appearance Urine pH Ur Specific [place] Urine Protein Urine Glucose (UA) Urine Ketones Urine Blood Urine Nitrite Ur Leukocyte Esterase COVID-19 ([facility]) Negative COVID-19 Clin Com See Note 05/22/22 Unknown MCV MCH MCHC RDW Plt Count MPV Immature Gran % (Auto) Neut % (Auto) Lymph % (Auto) [place] % (Auto) Eos % (Auto) Baso % (Auto) Lymph # (Auto) [place] # (Auto) Eos # (Auto) Baso # (Auto) Abs Immat Gran (auto) Absolute Neuts (auto) Absolute Nucleated RBC Nucleated RBC % (auto) Anion Gap Estim Creat Clear Calc Estimated GFR Random Glucose Calcium Total Bilirubin Direct Bilirubin AST ALT Alkaline Phosphatase Troponin I High Sens Total Protein Albumin Lipase Urine Color Yellow Urine Appearance Clear Urine pH 5.5 Ur Specific [place] >= 1.030 H Urine Protein Trace Urine Glucose (UA) Negative Urine Ketones Trace Urine Blood Negative Urine Nitrite Negative Ur Leukocyte Esterase Negative COVID-19 ([facility]) COVID-19 Clin Com Procedures Date of Service Date of Service: 05/22/22 Progress Note: A&P Assessment and plan (1) Small bowel obstruction: Status: Acute Plan clinically much improved denies pain now however, he states he does not think he has passed flatus yet will keep NPO for now exam very benign Time Spent With Patient Time: Total time managing care of this patient today ____ minutes. Quality Stroke Does the patient have a stroke diagnosis?: No VTE Prior VTE?: No VTE Risk Level:: Medical - low VTE Device Contraindication: N/A - Device Ordered VTE Drug Contraindication: Treatment Not Indicated
[2022-05-22] MEDS: 0.9 % Sodium Chloride Flush 3 ML SYRINGE IVFLUSH (08:58)
--- NOTE | 2022-05-22 14:37 | PM.EVENT ---
Event Note Date of Service: 05/22/22 Event Note: Seen on afternoon rounds Has been passing flatus Denies abdominal pain Abdomen remained soft, benign, nondistended, nontender Will start on clear liquids Looks well Time Spent With Patient Time: Total time managing care of this patient today ____ minutes.
[2022-05-22 15:33] VITALS: BP 134/80; PULSE 56; RESP 17; TEMP 36.3; O2SAT 98
[2022-05-22 19:30] VITALS: BP 118/73; PULSE 66; RESP 16; TEMP 36.4; O2SAT 95
[2022-05-23] MEDS: HYDROmorphone HCl 1 MG/ML SYRINGE IVPUSH ×2 (00:50→04:48)
[2022-05-23] MEDS: 0.9 % Sodium Chloride 1,000 ML 100 ML IVCONT (06:10)
[2022-05-23 07:32] VITALS: BP 128/80; PULSE 63; RESP 16; TEMP 36.8; O2SAT 94
--- NOTE | 2022-05-23 07:35 | PM.PNGS ---
Subjective Subjective Date of Service: 05/23/22 Interval history: continues to feel well denies abdominal pain tolerating liquids passing flatus, had BMs says he wants to go home Physical Exam Vital Signs: Vital Signs: Last Vital Signs Temp 98.2 F 05/23/22 07:32 Pulse 63 05/23/22 07:32 Resp 16 05/23/22 07:32 BP 128/80 05/23/22 07:32 Pulse Ox 94 05/23/22 07:32 O2 Del Method 05/23/22 07:32 BMI result Body Mass Index 32.3 Const: General: comfortable and no acute distress Resp: Effort & Inspection: normal respiratory effort Cardio: Rate: regular rate GI: Inspection: No distended Palpation (GI): Soft to palpation, not firm, nontender and no guarding Objective Data Active Medications Hydromorphone HCl (Hydromorphone Hcl 1 Mg/Ml Syringe) 1 mg IVPUSH Q4H PRN; Protocol PRN Reason: Pain, Severe (Pain Scale 7-10) Last Admin: 05/23/22 04:48 Dose: 1 mg Documented By: DAVID Sodium Chloride (Ns) 1,000 mls @ 100 mls/hr IVCONT .Q10H [facility] Last Admin: 05/23/22 06:10 Dose: 100 mls/hr Documented By: DAVID Ondansetron HCl (Ondansetron Hcl 4 Mg/2 Ml Vial) 4 mg IVPUSH QID PRN PRN Reason: Nausea Sodium Chloride (0.9 % Sodium Chloride Flush 3 Ml Syringe) 3 ml IVFLUSH QSHIFT [facility] Last Admin: 05/23/22 07:29 Dose: Not Given Documented By: FREDDIE Non-Admin Reason: IV Running Labs 05/22/22 06:04 05/22/22 06:04 Procedures Date of Service Date of Service: 05/23/22 Progress Note: A&P Assessment and plan (1) Small bowel obstruction: Status: Acute Assessment and Plan: continues do well abdomen remained soft and benign asymptomatic good GI function regular diet possibly home later on today - patient asking to be discharged Time Spent With Patient Time: Total time managing care of this patient today ____ minutes. Quality Stroke Does the patient have a stroke diagnosis?: No VTE Prior VTE?: No VTE Risk Level:: Medical - low VTE Device Contraindication: N/A - Device Ordered VTE Drug Contraindication: Treatment Not Indicated
--- NOTE | 2022-05-23 13:04 | MHC.CM.PN ---
pt is independent expects to be dcd today he is covid vax x 2 declined hcp
--- NOTE | 2022-05-23 13:27 | PM.EVENT ---
Event Note Date of Service: 05/23/22 Event Note: says he tolerated regular food denies N/V denies abdl pain passing flatus abd soft he says he is ready to be discharged continues to look well and comfortable Time Spent With Patient Time: Total time managing care of this patient today ____ minutes.
--- NOTE | 2022-05-23 14:19 | P.DS_ITS ---
DS: Providers Provider Date of Service: 05/23/22 Date of admission: 05/21/22 14:54 Date of discharge: 05/23/22 Primary care physician: Emilia Leija MD Attending physician on admission: Aida Zapien Attending physician on discharge: Wesley Reyes DS: Diagnosis Discharge Diagnosis (1) Small bowel obstruction: Status: Acute DS: Summary Hospital Course Hospital Course: HPI AT ADMISSION: Toño Whalen is a 41 year old male With history of Crohn's disease and previous admissions with partial small bowel obstruction.? He has had a previous operation small bowel resection and it seems that the anastomosis site is what HOLDS THINGS UP AND PARTIAL BOWEL OBSTRUCTIONS.? He has had more flareups recently.? He says generally he knows that he is eaten something inappropriate and then gets an attack but this time he has been very good with trying to watch what he eats and not agitating things.? He started feeling nausea abdominal distention and pain and came into the hospital.? CT scan has showed this consistent findings over the last several months.? He generally does well with conservative care and has recently been refusing NG tube decompression. HOSPITAL COURSE: He was admitted to the surgical service for further treatment of the SBO. Conservative care was continued with NPO status, IVF. NG tube decompression was being refused by patient.? He had an uncomplicated hospital stay. The following day he felt improved symptomatically. He began to pass flatus later in the day and he was started on clear liquids. He began to move his bowels the following day and remained without abd pain, nausea or vomiting. He was then advanced to a solid diet. He was tolerating this without any symptoms and good GI function. He felt ready for discharge. He was discharged to home on 05/23/22 in stable condition. Time Spent with Patient Time attestation: Total time managing care of this patient today ____ minutes. Discharge coordination time: Less than 30 minutes Quality: Safe Use of Opioids Does Pt have an Active Cancer Diagnosis on the Problem List?: No Quality: Stroke Does the patient have a stroke diagnosis?: No Physical Exam 2 Vital Signs: Vital Signs: Last Vital Signs Temp 98.2 F 05/23/22 07:32 Pulse 63 05/23/22 07:32 Resp 16 05/23/22 07:32 BP 128/80 03/07/23 07:32 Pulse Ox 94 05/23/22 07:32 O2 Del Method 05/23/22 07:32 BMI result Body Mass Index 32.3 Const: General: comfortable, no acute distress and alert Resp: Effort & Inspection: normal respiratory effort GI: Inspection: No distended Palpation (GI): Soft to palpation, nontender, no guarding and not rigid Skin: General skin exam: no rashes or lesions noted Discharge Plan Discharge Anticipated Discharge Date/Time: 05/23/22 12:40 Patient Disposition: Home, Self-Care Discharge Diagnosis: SBO Referrals: Emilia Leija MD [Primary Care Provider] - 1 Week Discharge Medications: Continued calcium carbonate [Tums] 200 mg calcium (500 mg) Tablet,Chewable 200 mg PO BID PRN (Reason: Heartburn) Remicade 100 mg recon soln IV Q8W Discharge Orders: Discharge Order (Routine); Ordered 05/23/22 Ordered By: Candace Cuevas Diet: Advance to usual diet Activity on Discharge: As tolerated Stand Alone Forms: Patient Portal Discharge page Activity Restrictions/Additional Instructions: Follow up in office in a week. ([phone]) Call Your Doctor If: ? ? -Your temperature exceeds 101.5? F? ? ? -You experience excessive pain or swelling ? ? -You have an unexpected reaction to medication ? ? -You experience continued vomiting/nausea Care Plan Goals: gradual return to activity Health Concerns: SBO, crohns disease Plan of Treatment: nonoperative management Assessment: Improved Discharge Date/Time: 05/23/22 14:00
== END 2022-05-23 14:00 | disposition home or self-care (01) | DRG 390 ==
LOC: HO.ED 14:57 → HO.EDOVER 14:59 → HO.S3 18:37
PROVIDERS: Admitting Provider Surgery; Emergency Provider Emergency Medicine; PCP Internal Medicine; Visit Provider Surgery
DX: K91.31 Postprocedural partial intestinal obstruction (principal); Y83.2 Surgical operation with anastomosis, bypass or graft as the cause of abnormal reaction of the patient, or of later complication, without mention of misadventure at the time of the procedure; Z20.822 Contact with and (suspected) exposure to COVID-19; Z79.899 Other long term (current) drug therapy
CPT/HCPCS: 36415; 74177; 80048; 80076; 81003; 83690; 84484; 85025; 85027; 87635; 96361; 96374; 96375; 96376; 99285; J0131; J1170; J1200; J2060; J2405; Q9967

== ENCOUNTER 2022-06-10 17:55 | Inpatient (IN) | payer MEDICARE, BC, MEDICAID, SELFPAY ==
--- NOTE | ~2022-06-10 | FL_ITS ---
EXAMINATION: FL SMALL BOWEL SERIES CLINICAL INFORMATION: Small bowel obstruction. COMPARISON: None available. TECHNIQUE: Following a take down sorter image of the abdomen, contrast was administered orally, and interval abdominal radiographs were performed to assess for contrast progression through the small bowel. Following contrast transit through the small bowel and into the colon, the patient was placed on the fluoroscopy table, and multiple spot images were obtained. FINDINGS: Pattern Clerk image of the abdomen demonstrates prominent gas in the transverse colon. The small bowel loops are unremarkable.. Following oral administration of Gastrografin patient immediately vomited. Subsequently 2 cups of thin barium was administered and an sequential images were obtained over the abdomen and reveal contrast within the stomach and small bowel. There is slow progression of oral contrast through the small bowel into the right colon by greater than 8 hours.. FLUOROSCOPY TIME: 0 DOSE AREA PRODUCT: 0 uGy-m2 (microgray-meter squared) FL/FL small bowel follow through IMPRESSION: Significant delay of small bowel transit following oral administration of thin barium. Recommend KUB this morning at 8:00 AM.
--- NOTE | ~2022-06-10 | XR_ITS ---
EXAMINATION: XR ABDOMEN KUB CLINICAL INDICATION: Follow-up small bowel follow COMPARISON: Small bowel follow-through 06/11/2022 TECHNIQUE: AP view of the abdomen. FINDINGS: All of the contrast administered yesterday is in the right colon with the exception of a tiny bit that is in the terminal ileum. No evidence of bowel obstruction. XR/XR KUB IMPRESSION: All of the contrast administered yesterday is in the right colon.
--- NOTE | ~2022-06-10 | CT_ITS ---
EXAMINATION: CT ABDOMEN AND PELVIS WITHOUT CONTRAST CLINICAL INFORMATION: Abdominal pain COMPARISON: CT 05/21/2022 TECHNIQUE: Multidetector volumetric imaging was performed from the superior aspect of the liver through the pubic symphysis. Sagittal and coronal reformatted images were obtained on the technologist's workstation. This CT examination was performed using dose optimization techniques as appropriate, variously including the following: *Automated exposure control *Adjustment of mA and/or kV according to patient size (this includes techniques or standardized protocols for targeted exams where dose is matched to indication/reason for exam; i.e. extremities or head) *Use of iterative reconstruction technique DLP: 675 mGy-cm FINDINGS: LUNG BASES: The visualized lung bases are unremarkable. LIVER, GALLBLADDER, AND BILIARY TREE: The liver is normal in size, shape, and attenuation. No focal hepatic lesion or biliary ductal dilatation is present. The gallbladder is unremarkable with no evidence of radiopaque gallstones, gallbladder wall thickening, or obvious pericholecystic inflammatory changes. PANCREAS: Unremarkable. SPLEEN: Unremarkable. ADRENAL GLANDS: Unremarkable. KIDNEYS AND URETERS: Nonobstructing right renal calculus. No change. BLADDER: Unremarkable. GASTROINTESTINAL TRACT: Post surgical changes with anastomotic sutures. Small bowel dilatation has slightly decreased. Previously demonstrated inflammatory stranding adjacent to the small bowel anastomosis in the right lower quadrant has resolved. ABDOMINAL WALL: Ventral hernia, unchanged. LYMPH NODES: Normal. VASCULAR: Unremarkable. PELVIC VISCERA: Unremarkable. OSSEOUS STRUCTURES: Unremarkable. CT/CT abdomen pelvis wo IV con IMPRESSION: Probable mild partial obstruction of the right lower quadrant small bowel anastomosis has improved since 05/21/2022. No new abnormality. Fleischner guidelines were followed.
--- NOTE | 2022-06-10 18:11 | ED_ITS ---
HPI - Abdominal Pain General Chief Complaint: Abdominal Pain <FOX Muro - Last Filed: 06/10/22 18:18> Stated Complaint: ABD PAIN/ N/V <FOX Muro - Last Filed: 06/10/22 18:18> Time Seen by Provider: 06/10/22 18:34 <FOX Muro - Last Filed: 06/10/22 18:18> Source: patient and EMS <FOX Dyer - Last Filed: 06/10/22 21:25> Mode of arrival: EMS <FOX Dyer Last Filed: 06/10/22 21:25> Limitations: no limitations <FOX Dyer Last Filed: 06/10/22 21:25> History of Present Illness HPI narrative: 41-year-old male history of complicated Crohn's disease, colectomy, small- bowel obstruction is taking Remicade every 8 weeks to control his Crohn's disease, presents to the emergency department with complaints of diffuse abdominal pain x1 day similar to his previous Crohn's disease flare. Pain is described as diffuse, severe 10/10 constant crampy pain associated with nausea and vomiting. Denies chest pain, shortness of breath, hematochezia, melena, hematemesis, headache, vision changes, dizziness, fevers, chills, sick contacts and weakness. Currently followed by gastroenterology Dr. Mackenzie <FOX Dyer Last Filed: 06/10/22 21:25> Related Data Home Medications: Home Medications Medication Instructions Recorded Confirmed infliximab 100 mg intravenous IV Q8W 05/09/20 05/09/20 solution (Remicade) calcium carbonate 200 mg calcium 200 mg PO BID PRN Heartburn 05/21/22 05/21/22 (500 mg) chewable tablet (Tums) <FOX Muro Last Filed: 06/10/22 18:18> Allergies/Adverse Reactions: Allergies Allergy/AdvReac Type Severity Reaction Status Date / Time No Known Allergies Allergy Verified 05/08/22 04:37 [No Known Allergies*] <FOX Muro Last Filed: 06/10/22 18:18> Review of Systems Review of Systems Constitutional : No Weight loss, No Fever, No Chills, No Fatigue, + Malaise ENT/Mouth : No sore throat, No Rhinorrhea Eyes: No Eye Pain, No Swelling, No Redness Cardiovascular : No Chest Pain, No SOB, No Dyspnea on Exertion, No Orthopnea, No Edema, No Palpitations Respiratory : No Cough, No Sputum, No Wheezing Gastrointestinal : + Nausea, + Vomiting, No Diarrhea, No Constipation, + abdominal Pain, No Hematochezia, No Melena Genitourinary : No Dysuria, No Urinary Frequency, No Hematuria, Musculoskeletal : No joint pain, No Myalgias, No Joint Swelling Skin : No Skin Lesions, No rash Neuro : No Weakness, No Numbness, No Dizziness, No Headache Psych : No Anxiety/Panic, No Depression All other systems reviewed and are negative <FOX Dyer - Last Filed: 06/10/22 21:25> Yes all other systems are reviewed and are negative <FOX Deyr - Last Filed: 06/10/22 21:25> [facility] Past Medical History Attestation statement: The following information was validated with the patient. <FOX Dyer - Last Filed: 06/10/22 21:25> Source: old records reviewed and nursing notes reviewed <FOX Dyer - Last Filed: 06/10/22 21:25> Medical History: Medical History Anemia Anxiety Crohn disease GERD (gastroesophageal reflux disease) High risk medication use Low vitamin D level Pituitary macroadenoma <FOX Muro - Last Filed: 06/10/22 18:18> Surgical History: Surgical History H/O colonoscopy History of esophagogastroduodenoscopy (EGD) History of ileostomy History of partial surgical removal of colon <FOX Muro - Last Filed: 06/10/22 18:18> Family History Family History: Family History Mother Breast cancer <FOX Muro - Last Filed: 06/10/22 18:18> Social History Social History: Social History Household Members: Family Housing: Apartment Do you presently have visiting nurse or other home services: Yes (infusion nurses) Alcohol intake: never Patient Tobacco Use Status: Never used Tobacco Smoked in Last 30 Days: No e-Cigarette/Vaping Use: Never Used Second Hand Smoke Exposure: No Use of substances other than those prescribed or required for medical reasons: Yes Substance Use Type: Marijuana Advance Directives: No Advance Directives Information Provided: No Advance Directives Date on File: 07/17/20 Nutrition Risks: No Nutritional Risk service: No Current occupational status: disabled <FOX Muro - Last Filed: 06/10/22 18:18> Physical Exam ED Vital Signs: Vital Signs - 24 hr 06/10/22 18:12 06/10/22 18:44 06/10/22 19:51 Temperature 97.3 F 97 F 97.5 F Pulse Rate 84 84 73 Respiratory Rate 18 18 15 Blood Pressure 123/88 119/82 110/71 Pulse Oximetry 100 100 93 Oxygen Delivery Method Room Air Room Air Room Air 06/10/22 21:18 Temperature Pulse Rate 75 Respiratory Rate 18 Blood Pressure 117/77 Pulse Oximetry 98 Oxygen Delivery Method Room Air BMI result Body Mass Index 33.0 <FOX Muro - Last Filed: 06/10/22 18:18> Vital Signs - 24 hr 06/10/22 18:12 06/10/22 18:44 06/10/22 19:51 Temperature 97.3 F 97 F 97.5 F Pulse Rate 84 84 73 Respiratory Rate 18 18 15 Blood Pressure 123/88 119/82 110/71 Pulse Oximetry 100 100 93 Oxygen Delivery Method Room Air Room Air Room Air 06/10/22 21:18 Temperature Pulse Rate 75 Respiratory Rate 18 Blood Pressure 117/77 Pulse Oximetry 98 Oxygen Delivery Method Room Air BMI result Body Mass Index 33.0 vss <FOX Dyer - Last Filed: 06/10/22 21:25> Appearance: Alert.? Oriented X3.? No acute distress.? Head: Normocephalic, atraumatic, no step-offs or deformities Eyes: Pupils equal, round and reactive to light.? ENT: Pharynx normal.? Neck: Normal inspection.? Neck supple.? CVS: Normal heart rate and rhythm.? Pulses normal.? Respiratory: No respiratory distress.? Breath sounds normal.? Abdomen: Soft and diffusely tender with rebound tenderness throughout. Hypoactive bowel sounds in all 4 quadrants.? Skin: Skin warm and dry.? Normal skin color.? Normal skin turgor.? Extremities: No lower extremity edema.? No calf ttp. 5/5 strength to bilateral upper and lower extremities Back: No midline tenderness, no C-spine tenderness, full range of motion, no CVA tenderness bilaterally Neuro: Oriented X 3.? No motor deficit.? No sensory deficit. CN 2-12 intact <FOX Dyer - Last Filed: 06/10/22 21:25> Course Course Course Narrative: RME--41 year old male With history of Crohn's disease and previous admissions with partial small bowel obstruction presenting to the ED c/o abdominal pain, N/V x few hours. Last BM this AM. Patient was recently d/c from our facility with SBO on 05/23. Appears uncomfortable, actively vomiting in triage Labs, UA, CT, IVF, Zofran ordered <FOX Muro - Last Filed: 06/10/22 18:18> Reevaluation(s) Reevaluation #1: CBC with leukocytosis of 16.4 could be reactive from nausea and vomiting, chemistry is hemolyzed multiple times, phlebotomy nursing staff have tried, I will attempt to put in an ultrasound-guided line and obtain labs from there. Lactic acid was elevated 2.4 likely secondary to dehydration, fluids are given as well as antibiotics for prophylactic coverage. Patient is COVID negative. CT of the abdomen and pelvis showing probable mild partial obstruction of the right lower quadrant small bowel anastomoses have improved. No new abnormalities. Patient was evaluated by general surgeon Dr. Lovelace who will admit to the surgical team, NG-tube recommended however patient refusing. Will continue to educate patient on whites needed and see if patient changes his mind. Patient will be NPO and received fluids, IV. Will be admitted to the surgical team at this time. <FOX Dyer - Last Filed: 06/10/22 21:25> Time: 21:22 <FOX Dyer - Last Filed: 06/10/22 21:25> Medical Decision Making Medical Decision Making [facility] Narrative: 1856 41-year-old male presents with 1 day of severe abdominal pain diffuse in nature with nausea, vomiting, feels like his typical Crohn's flare. Physical exam with Soft and diffusely tender with rebound tenderness throughout. Hypoactive bowel sounds in all 4 quadrants.? Patient appears very uncomfortable. Concerns for acute Crohn's flare with possible obstruction. Less likely acute abdomen, viral illness. Plan labs, imaging, urine, pain control. <FOX Dyer - Last Filed: 06/10/22 21:25> Differential Diagnosis Differential Diagnoses: The differential diagnosis associated with the presentation includes <FOX Dyer - Last Filed: 06/10/22 21:25> Concerns for acute Crohn's flare with possible obstruction. Less likely acute abdomen, viral illness. <FOX Dyer - Last Filed: 06/10/22 21:25> Admission/Observation Consideration of admission/observation: Escalation of care including admission/observation considered <FOX Dyer - Last Filed: 06/10/22 21:25> Likely <FOX Dyer - Last Filed: 06/10/22 21:25> Lab Data [facility] Lab Attestation statement: I reviewed the patient's lab results. <FOX Dyre - Last Filed: 06/10/22 21:25> Result Diagrams: 06/10/22 19:04 06/10/22 19:46 <FOX Muro - Last Filed: 06/10/22 18:18> Labs: Lab Results 06/10/22 06/10/22 06/10/22 Range/Units 18:48 19:04 19:46 WBC 16.4 H (4.8-10.8) X10*3/uL RBC 4.89 D (4.60-5.80) X10*6/uL Hgb 14.0 D (14.0-18.0) g/dl Hct 43.2 D (42.0-52.0) % MCV 88.3 (80.0-98.0) fL MCH 28.6 (27.0-33.0) pg MCHC 32.4 (31.0-36.0) g/dl RDW 12.0 (11.0-16.0) % Plt Count 235 (160-400) X10*3/uL MPV 11.8 (9.4-12.4) fL Immature Gran % (Auto) 0.4 (0.0-0.4) % Neut % (Auto) 73.4 H (45-73) % Lymph % (Auto) 15.9 L (20-40) % [place] % (Auto) 9.3 (2-11) % Eos % (Auto) 0.6 (0-4) % Baso % (Auto) 0.4 (0-2) % Lymph # (Auto) 2.6 (1.2-4.9) X10*3/uL [place] # (Auto) 1.5 H (0.1-1.2) X10*3/uL Eos # (Auto) 0.1 (0.0-0.4) X10*3/uL Baso # (Auto) 0.1 (0.0-0.2) X10*3/uL Abs Immat Gran (auto) 0.07 H (0.00-0.03) X10*3/uL Absolute Neuts (auto) 12.0 H (2.0-8.3) x10*3/uL Absolute Nucleated RBC 0.000 (0.0-0.012) X10*3/uL Nucleated RBC % (auto) 0.0 (0.0-0.2) /100WBC Smear Tech's Comments VERIFIED Lactic Acid 2.4 H* (0.5-2.0) mmol/L COVID-19 ([facility]A) Negative (Negative) COVID-19 Clin Com See Note <FOX Muro - Last Filed: 06/10/22 18:18> Lab Results 06/10/22 06/10/22 06/10/22 Range/Units 18:48 19:04 19:46 WBC 16.4 H (4.8-10.8) X10*3/uL RBC 4.89 D (4.60-5.80) X10*6/uL Hgb 14.0 D (14.0-18.0) g/dl Hct 43.2 D (42.0-52.0) % MCV 88.3 (80.0-98.0) fL MCH 28.6 (27.0-33.0) pg MCHC 32.4 (31.0-36.0) g/dl RDW 12.0 (11.0-16.0) % Plt Count 235 (160-400) X10*3/uL MPV 11.8 (9.4-12.4) fL Immature Gran % (Auto) 0.4 (0.0-0.4) % Neut % (Auto) 73.4 H (45-73) % Lymph % (Auto) 15.9 L (20-40) % [place] % (Auto) 9.3 (2-11) % Eos % (Auto) 0.6 (0-4) % Baso % (Auto) 0.4 (0-2) % Lymph # (Auto) 2.6 (1.2-4.9) X10*3/uL [place] # (Auto) 1.5 H (0.1-1.2) X10*3/uL Eos # (Auto) 0.1 (0.0-0.4) X10*3/uL Baso # (Auto) 0.1 (0.0-0.2) X10*3/uL Abs Immat Gran (auto) 0.07 H (0.00-0.03) X10*3/uL Absolute Neuts (auto) 12.0 H (2.0-8.3) x10*3/uL Absolute Nucleated RBC 0.000 (0.0-0.012) X10*3/uL Nucleated RBC % (auto) 0.0 (0.0-0.2) /100WBC Smear Tech's Comments VERIFIED Lactic Acid 2.4 H* (0.5-2.0) mmol/L COVID-19 ([facility]) Negative (Negative) COVID-19 Clin Com See Note <FOX Dyer - Last Filed: 06/10/22 21:25> Independent Interpretation I performed an independent interpretation of an: CT Scan (CT/CT abdomen pelvis wo IV con IMPRESSION: Probable mild partial obstruction of the right lower quadrant small bowel anastomosis has improved since 05/21/2022. No new abnormality. Fleischner guidelines were followed.) <FOX Dyer - Last Filed: 06/10/22 21:25> Radiology Impression Discussion of test interpretation with radiology: I have reviewed the radiologist's reading. <FOX Dyer - Last Filed: 06/10/22 21:25> External Record Review External record reviewed: Inpatient record, Office record, Outpatient record, Prior outpatient labs, Prior outpatient radiology, Primary care record and Outside ED record <FOX Dyer - Last Filed: 06/10/22 21:25> Core Measures AMI core measures followed: Yes <FOX Dyer - Last Filed: 06/10/22 21:25> Measure exclusions: not indicated <FOX Dyer - Last Filed: 06/10/22 21:25> Medications Administered Discontinued Medications Generic Name Dose Route Start Last Admin Trade Name Freq PRN Reason Stop Dose Admin Sodium Chloride 1,000 mls @ 999 mls/hr 06/10/22 18:30 06/10/22 19:15 Ns IV 06/10/22 19:30 999 mls/hr .Q1H1M SANGITA Administration Sodium Chloride 1,000 mls @ 999 mls/hr 06/10/22 19:30 06/10/22 20:20 Ns IV 06/10/22 20:30 999 mls/hr .Q1H1M SANGITA Administration Morphine Sulfate 4 mg 06/10/22 18:53 06/10/22 19:10 Morphine Sulfate 4 Mg/Ml Cartridge IVPUSH 06/10/22 18:54 4 mg ONCE ONE Administration Protocol Ondansetron HCl 4 mg 06/10/22 18:16 06/10/22 19:09 Ondansetron Hcl 4 Mg/2 Ml Vial IVPUSH 06/10/22 18:17 4 mg ONCE ONE Administration <FOX Muro - Last Filed: 06/10/22 18:18> Medications Administered Discontinued Medications Generic Name Dose Route Start Last Admin Trade Name Freq PRN Reason Stop Dose Admin Sodium Chloride 1,000 mls @ 999 mls/hr 06/10/22 18:30 06/10/22 19:15 Ns IV 06/10/22 19:30 999 mls/hr .Q1H1M SANGITA Administration Sodium Chloride 1,000 mls @ 999 mls/hr 06/10/22 19:30 06/10/22 20:20 Ns IV 06/10/22 20:30 999 mls/hr .Q1H1M SANGITA Administration Morphine Sulfate 4 mg 06/10/22 18:53 06/10/22 19:10 Morphine Sulfate 4 Mg/Ml Cartridge IVPUSH 06/10/22 18:54 4 mg ONCE ONE Administration Protocol Ondansetron HCl 4 mg 06/10/22 18:16 06/10/22 19:09 Ondansetron Hcl 4 Mg/2 Ml Vial IVPUSH 06/10/22 18:17 4 mg ONCE ONE Administration <FOX Dyer - Last Filed: 06/10/22 21:25> Critical Care Time Critical Care Time Critical Care Time: Yes <FOX Dyer - Last Filed: 06/10/22 21:25> Total Critical Care Time: 35 <FOX Dyer - Last Filed: 06/10/22 21:25> Attestation: I attest to this time spent taking care of the patient, obtaining history, physical, reviewing labs, imaging, speaking to my attending, speaking to specialist. <FOX Dyer - Last Filed: 06/10/22 21:25> Discharge Plan Discharge Clinical Impression: Partial small bowel obstruction, Abdominal pain, Abdominal distension, Nausea & vomiting <FOX Muro Last Filed: 06/10/22 18:18> Patient Disposition: Admitted As Inpatient <FOX Muro Last Filed: 06/10/22 18:18> Prescriptions: No Action calcium carbonate [Tums] 200 mg calcium (500 mg) Tablet,Chewable 200 mg PO BID PRN (Reason: Heartburn) Remicade 100 mg recon soln IV Q8W <FOX Muro Last Filed: 06/10/22 18:18>
[2022-06-10 18:12] VITALS: BP 123/88; BP 170/110; PULSE 80; PULSE 84; RESP 18; TEMP 36.3; O2SAT 100; O2SAT 98; BMI 33.0
[2022-06-10 18:44] VITALS: BP 119/82; PULSE 84; RESP 18; TEMP 36.1; O2SAT 100
[2022-06-10 19:09] LABS: Basophils Absolute Auto 0.1 X10*3/uL (0.0-0.2); Basophils Percent Auto 0.4 % (0-2); Eosinophils Absolute Auto 0.1 X10*3/uL (0.0-0.4); Eosinophils Percent Auto 0.6 % (0-4); Hematocrit 43.2 % (42.0-52.0); Imm Gran Abs Auto 0.07 X10*3/uL (0.00-0.03); Imm Gran Pct Auto 0.4 % (0.0-0.4); Lymphocytes Absolute Auto 2.6 X10*3/uL (1.2-4.9); Lymphocytes Percent Auto 15.9 % (20-40); MANUAL DIFF FLAG SCAN; Mean Corpuscular HGB Conc 32.4 g/dl (31.0-36.0); Mean Corpuscular Hemoglobin 28.6 pg (27.0-33.0); Mean Corpuscular Volume 88.3 fL (80.0-98.0); Mean Platelet Volume 11.8 fL (9.4-12.4); Monocytes Absolute Auto 1.5 X10*3/uL (0.1-1.2); Monocytes Percent Auto 9.3 % (2-11); Neutrophils Percent Auto 73.4 % (45-73); Platelet Count 235 X10*3/uL (160-400); Red Blood Count 4.89 X10*6/uL (4.60-5.80); SCAN SMEAR FLAG 1; White Blood Count 16.4 X10*3/uL (4.8-10.8)
[2022-06-10] MEDS: ondansetron HCL 4 MG/2 ML VIAL IVPUSH ×2 (19:09→22:17)
[2022-06-10] MEDS: Morphine Sulfate 4 MG/ML CARTRIDGE IVPUSH ×2 (19:10→22:09)
[2022-06-10] MEDS: 0.9 % Sodium Chloride 1,000 ML 999 ML IV ×3 (19:15→21:37)
--- NOTE | 2022-06-10 19:19 | PC.NURSE ---
pt aox3, reporting 10/10 abdominal pain, pt vomiting. IV inserted, labs drawn and sent to lab. pt medicated per order and fluids running. site monitor intact. will cont to monitor
[2022-06-10 19:29] LABS: COVID-19 Test Negative (Negative); IDNOW Serial# 08D9AD1C
[2022-06-10 19:31] LABS: SLIDE REVIEW VERIFIED
--- NOTE | 2022-06-10 19:50 | PC.NURSE ---
phlebotomy was called to obtain blood cultures as patient is a difficult stick
[2022-06-10 19:51] VITALS: BP 110/71; PULSE 73; RESP 15; TEMP 36.4; O2SAT 93
--- NOTE | 2022-06-10 19:53 | PC.NURSE ---
pt nausea and pain has lessened - reporting 6/10 pain in abdomen. fluids running, playground monitor intact- NS. will continue to monitor. blood cultures needed
[2022-06-10 20:17] LABS: Lactic Acid 2.4 mmol/L (0.5-2.0)
--- NOTE | 2022-06-10 20:20 | PC.NURSE ---
ivf continue to run slowly
[2022-06-10 21:18] VITALS: BP 117/77; PULSE 75; RESP 18; O2SAT 98
--- NOTE | 2022-06-10 21:24 | ECG_ITS ---
Test Reason : repeat/ chest pain/ SOB Blood Pressure : / mmHG Vent. Rate : 081 BPM Atrial Rate : 081 BPM P-R Int : 202 ms QRS Dur : 088 ms QT Int : 358 ms P-R-T Axes : 037 -18 013 degrees QTc Int : 415 ms Normal sinus rhythm Normal ECG When compared with ECG of 20-JUN-2016 10:06, Inverted T waves have replaced nonspecific T wave abnormality in Inferior leads Nonspecific T wave abnormality now evident in Anterior leads Referred By: jM Gary Electronically Signed By:MONY PINON MD
--- NOTE | 2022-06-10 21:27 | PC.NURSE ---
pt resting on stretcher at this time, reporting 10/10 abdominal pain. IV is running very slowly, FOX Espinoza aware. phlebotomy was able to draw one set of blood cultures but was unable to obtain the second set. FOX Espinoza aware, plan to try a second IV with ultrasound in order to obtain blood cultures. IV abx continues to be delayed
[2022-06-10] MEDS: Lactated Ringers 1,000 ML 150 ML IVCONT (21:35)
--- NOTE | 2022-06-10 21:38 | PC.NURSE ---
pt refusing NG tube at this time. Pt states he has PTSD from getting multiple NG tubes in the past and would not like it at this time. bernard lepe
[2022-06-10 21:39] LABS: Alanine Aminotransferase 27 U/L (0-40); Albumin Level 4.4 g/dL (3.5-5.0); Alkaline Phosphatase 65 U/L (39-117); Anion Gap 17 (12-20); Aspartate Amino Transferase 25 U/L (5-37); Bilirubin Direct 0.3 mg/dL (0.0-0.5); Blood Urea Nitrogen 14 mg/dL (9-16); C Reactive Protein 0.64 mg/dL (< or = 0.50); Calcium 9.4 mg/dL (8.4-10.2); Carbon Dioxide 22 mmol/L (22-29); Chloride 105 mmol/L (96-108); Estimated Glomerular Filt Rate > 60; Glucose Random 93 mg/dL (60-115); Lipase 17 U/L (8-78); Magnesium 1.6 mg/dL (1.6-2.6); Potassium 4.6 mmol/L (3.3-5.1); Sodium 139 mmol/L (135-145); Total Protein 7.9 g/dL (6.5-8.0)
[2022-06-10 21:51] LABS: Reflex Lactate? Lactic Acid Added
[2022-06-10] MEDS: Piperacillin Sodium/Tazobactam 3.375 GM in 0.9 % Sodium Chloride 50 ML IV (22:17)
--- NOTE | 2022-06-10 22:26 | PC.NURSE ---
Addendum entered by Sheila Barton 06/10/22 22:26: lactated ringers had to be paused in order to administer abx Original Note: second set of blood cultures were able to be drawn by phlebotomy. Abx adminsitered
[2022-06-10 22:36] LABS: ~Lactic Acid-LAB USE ONLY 1.4 mmol/L (0.5-2.0)
[2022-06-10 22:50] VITALS: BP 106/77; PULSE 89; RESP 12; TEMP 36.6; O2SAT 95
[2022-06-11] VITALS (7 sets, daily range): BP systolic 115–163; BP diastolic 67–82; PULSE 65–88; RESP 16–18; TEMP 36–36.6; O2SAT 91–96
[2022-06-11] MEDS: HYDROmorphone HCl 2 MG/ML VIAL IVPUSH ×4 (00:36→21:18)
--- NOTE | 2022-06-11 03:55 | PC.NURSE ---
patient restless.anxious,and N/V. MD Lovelace contacted via [facility] requesting antiemetic and medication for anxiety to help make patient more comfortable.
[2022-06-11] MEDS: Lactated Ringers 1,000 ML 150 ML IVCONT ×3 (04:12→17:57)
[2022-06-11] MEDS: LORazepam 2 MG/ML VIAL 1 MG IVPUSH ×2 (04:34→22:22)
[2022-06-11] MEDS: ondansetron HCL 4 MG/2 ML VIAL IVPUSH ×3 (05:32→21:18)
[2022-06-11 06:20] LABS: MANUAL DIFF FLAG NO
[2022-06-11 06:25] LABS: Basophils Percent Auto 0.3 % (0-2); Eosinophils Absolute Auto 0.2 X10*3/uL (0.0-0.4); Eosinophils Percent Auto 1.5 % (0-4); Hematocrit 34.8 % (42.0-52.0); Hemoglobin 11.3 g/dl (14.0-18.0); Imm Gran Abs Auto 0.05 X10*3/uL (0.00-0.03); Imm Gran Pct Auto 0.4 % (0.0-0.4); Lymphocytes Absolute Auto 2.6 X10*3/uL (1.2-4.9); Lymphocytes Percent Auto 22.6 % (20-40); Mean Corpuscular HGB Conc 32.5 g/dl (31.0-36.0); Mean Corpuscular Hemoglobin 29.4 pg (27.0-33.0); Mean Corpuscular Volume 90.4 fL (80.0-98.0); Mean Platelet Volume 12.1 fL (9.4-12.4); Monocytes Absolute Auto 1.3 X10*3/uL (0.1-1.2); Monocytes Percent Auto 11.3 % (2-11); Neutrophils Absolute Auto 7.3 x10*3/uL (2.0-8.3); Neutrophils Percent Auto 63.9 % (45-73); Platelet Count 208 X10*3/uL (160-400); Red Blood Count 3.85 X10*6/uL (4.60-5.80); Red Cell Distribution Width 12.1 % (11.0-16.0); White Blood Count 11.4 X10*3/uL (4.8-10.8)
[2022-06-11 06:52] LABS: Anion Gap 15 (12-20); Blood Urea Nitrogen 12 mg/dL (9-16); Calcium 8.5 mg/dL (8.4-10.2); Carbon Dioxide 23 mmol/L (22-29); Chloride 105 mmol/L (96-108); Creatinine Clr Calc Pharmacy 140.2; Estimated Glomerular Filt Rate > 60; Glucose Random 88 mg/dL (60-115); Potassium 4.3 mmol/L (3.3-5.1); Sodium 139 mmol/L (135-145)
--- NOTE | 2022-06-11 10:00 | PHA.MEDREC ---
Pharmacy Consult ? Medication Reconciliation Pharmacy has completed the medication reconciliation. Spoke to patient to confirm meds.
[2022-06-11] MEDS: Metoclopramide HCl 10 MG/2 ML VIAL IVPUSH (10:28)
--- NOTE | 2022-06-11 10:31 | MHC.CM.PN ---
Lives with daughter. Has an infusion nurse that comes to his home ever 8 weeks to give him his remicade infusion; (he does not remember the name of the agency but indicates he will try to find it). No prior equipment, previously independent w/ADLs, etc. Drives self where he needs to go. At time of D/C, he will call a contact for a ride to return home. CM to follow.
--- NOTE | 2022-06-11 10:40 | PC.NURSE ---
Staff at bedside to do Swallow evaluation with small bowel follow through exam, pt vomiting unable to tolerate PO barium swallow. MD Lovelace notified, 10mg IV reglan ordered and given, awaiting results.
[2022-06-11] MEDS: Diatrizoate Meglumine, Sodium 120 ML SOLUTION PO ×2 (10:48→10:50)
--- NOTE | 2022-06-11 13:32 | PM.HPGS ---
History of Present Illness History of Present Illness Date of Service: 06/10/22 Chief complaint: Sbo Narrative: Toño Whalen is a 41 year old male who has a longstanding history of partial small-bowel obstructions and actually had a prior surgery for this who now presents with recurrence symptoms of nausea, vomiting, abdominal distention, and of colicky abdominal pain. Patient has had multiple admissions for this in the past. Chart was reviewed Andpatient evaluated. incidental note is that the patient has refused by me and by the ER staff placement of a nasogastric tube. PMFSH Past Medical History Medical History Anemia Anxiety Crohn disease GERD (gastroesophageal reflux disease) High risk medication use Low vitamin D level Pituitary macroadenoma Family History Family History Mother Breast cancer Surgical History Surgical History H/O colonoscopy History of esophagogastroduodenoscopy (EGD) History of ileostomy History of partial surgical removal of colon Social History Social History Household Members: Family Housing: Apartment Do you presently have visiting nurse or other home services: No Alcohol intake: never Patient Tobacco Use Status: Never used Tobacco Smoked in Last 30 Days: No e-Cigarette/Vaping Use: Never Used Patient Interested in Nicotine Replacement: No Patient Given Instructions on How to Stop Smoking: No Second Hand Smoke Exposure: No Use of substances other than those prescribed or required for medical reasons: Yes Substance Use Type: Marijuana Substance Use Frequency: Occasionally Last Used Substance: Unknown Currently Displaying Signs/Symptoms of Drug Intoxication Withdrawal: No Any prior treatment program specific to substance use: No Have you been hit, kicked, punched, or otherwise hurt by someone within the past year? If so, by whom?: No Do you feel safe in your current relationship?: No Current Relationship Is there a partner from a previous relationship who is making you feel unsafe now?: No Are you made to feel afraid or neglected: No Advance Directives: No Advance Directives Information Provided: No Advance Directives Date on File: 07/17/20 Do you have thoughts of harming others: None Do you have a plan to hurt others: No Plan Recently lost weight without trying: No Eating poorly because of decreased appetite: Yes Nutrition Risks: No Nutritional Risk Poor oral hygiene: No service: No Current occupational status: disabled Meds Allergies Allergy/AdvReac Type Severity Reaction Status Date / Time No Known Allergies Allergy Verified 05/08/22 04:37 [No Known Allergies*] Active Medications: Current Medications Hydromorphone HCl (Hydromorphone Hcl 2 Mg/Ml Vial) 2 mg IVPUSH Q4H PRN; Protocol PRN Reason: Pain, Moderate (Pain Scale 4-6 Last Admin: 06/11/22 07:52 Dose: 2 mg Lactated Ringer's (Lr) 1,000 mls @ 150 mls/hr IVCONT .Q6H40M REPLACED BY [facility] Last Admin: 06/11/22 10:32 Dose: 150 mls/hr Ondansetron HCl (Ondansetron Hcl 4 Mg/2 Ml Vial) 4 mg IVPUSH Q8H PRN PRN Reason: Nausea and Vomiting Last Admin: 06/11/22 05:32 Dose: 4 mg Sodium Chloride (0.9 % Sodium Chloride Flush 3 Ml Syringe) 3 ml IVFLUSH QSHIFT REPLACED BY [facility] Last Admin: 06/11/22 09:15 Dose: Not Given Home Medications Medication Instructions Recorded Confirmed Last Taken Type infliximab 100 mg intravenous 100 mg IV Q8W 05/09/20 06/11/22 05/01/22 History solution (Remicade) calcium carbonate 200 mg calcium 200 mg PO BID PRN Heartburn 05/21/22 06/11/22 Unknown History (500 mg) chewable tablet (Tums) ascorbic acid (vitamin C) 500 mg 500 mg PO DAILY 06/11/22 06/11/22 06/09/22 History tablet (Vitamin C) cholecalciferol (vitamin D3) 25 25 mcg PO DAILY 06/11/22 06/11/22 06/09/22 History mcg (1,000 unit) tablet (Vitamin D3) cyanocobalamin (vitamin B-12) 100 100 mcg PO DAILY 06/11/22 06/11/22 06/09/22 History mcg tablet Physical Exam Vital Signs: Vital Signs: Last Vital Signs Temp 97.2 F 06/11/22 07:44 Pulse 70 06/11/22 07:44 Resp 16 06/11/22 07:44 BP 117/82 06/11/22 07:44 Pulse Ox 93 06/11/22 07:44 O2 Del Method Room Air 06/11/22 07:44 O2 Flow Rate 1 06/11/22 05:25 BMI result Body Mass Index 33.0 GI: Other: Abdominal exam is most noteworthy for a moderately distended abdomen. Patient has a midline and right lower quadrant scar is well healed. There is diffuse mild tenderness but no evidence of any guarding, rebound, or rigidity. No obvious incisional Or groin hernias is demonstrated. Results Results Labs: Short CBC 06/10/22 06/11/22 Range/Units 19:04 05:45 WBC 16.4 H 11.4 H (4.8-10.8) X10*3/uL Hgb 14.0 D 11.3 L (14.0-18.0) g/dl Hct 43.2 D 34.8 L (42.0-52.0) % Plt Count 235 208 (160-400) X10*3/uL BMP 06/10/22 06/11/22 20:58 05:45 Sodium 139 139 Potassium 4.6 D 4.3 Chloride 105 105 Carbon Dioxide 22 23 BUN 14 12 Creatinine 0.97 0.83 Calcium 9.4 D 8.5 D Liver Function 06/10/22 Range/Units 20:58 Total Bilirubin 1.0 (0.0-1.0) mg/dL Direct Bilirubin 0.3 (0.0-0.5) mg/dL AST 25 (5-37) U/L ALT 27 (0-40) U/L Alkaline Phosphatase 65 (39-117) U/L Albumin 4.4 (3.5-5.0) g/dL Assessment and Plan (1) Partial small bowel obstruction: Status: Acute (2) Abdominal pain: Status: Acute (3) Abdominal distension: Status: Acute (4) Nausea & vomiting: Status: Acute (5) Abdominal pain: Qualifiers: Abdominal location: generalized Qualified Code(s): R10.84 - Generalized abdominal pain Status: Acute Plan CT scan is consistent with a partial small-bowel obstruction. This was compared to prior scan which apparently actually shows improvement from earlier studies. In the meantime, patient is inmoderate distress secondary to his distention and nausea, vomiting. Pleasant demented patient, although he has refused, he has been strongly encouraged to get a nasogastric tube placement. Follow I's and O's, serial labs and exams. I will arrange for a small-bowel follow-through study in the morning. Further interventions and studies will be directed by the patient's clinical course And the results of the above-mentioned studies. Time Spent With Patient Time: Total time managing care of this patient today ____ minutes. Quality Stroke Does the patient have a stroke diagnosis?: No VTE Prior VTE?: No VTE Risk Level:: Surgical - low VTE Device Contraindication: N/A - Device Ordered VTE Drug Contraindication: Treatment Not Indicated Procedures Date of Service Date of Service: 06/10/22
[2022-06-11 15:47] LABS: Appearance Urine Clear; Color Urine Yellow; Glucose Urine UA Negative (Negative); Leukocyte Esterase Urine Negative (Negative); Nitrite Urine Negative (Negative); Specific Gravity - Urine 1.025 (1.005-1.025); Urine Blood Negative (Negative); Urine Ketones 40 mg/dL (Negative); Urine Protein Negative (Neg-Trace)
--- NOTE | 2022-06-11 16:04 | P.PNGS_ITS ---
Subjective Subjective Date of Service: 06/11/22 Patient reports: pain is less and bowel movement Physical Exam Vital Signs: Vital Signs: Last Vital Signs Temp 98 F 06/11/22 15:14 Pulse 72 06/11/22 15:14 Resp 18 06/11/22 15:14 BP 116/67 06/11/22 15:14 Pulse Ox 95 06/11/22 15:14 O2 Del Method Room Air 06/11/22 15:14 O2 Flow Rate 1 06/11/22 05:25 BMI result Body Mass Index 33.0 GI: Other: patient passing contrast. Still has some nausea earlier today. Less abdominal discomfort. Abdomen softer. Minimal periumbilical tenderness. No evidence of any guarding, rebound, rigidity. Objective Data Active Medications Hydromorphone HCl (Hydromorphone Hcl 2 Mg/Ml Vial) 2 mg IVPUSH Q4H PRN; Protocol PRN Reason: Pain, Moderate (Pain Scale 4-6 Last Admin: 06/11/22 15:19 Dose: 2 mg Documented By: MATTY Lactated Ringer's (Lr) 1,000 mls @ 150 mls/hr IVCONT .Q6H40M [facility] Last Admin: 06/11/22 10:32 Dose: 150 mls/hr Documented By: MATTY Ondansetron HCl (Ondansetron Hcl 4 Mg/2 Ml Vial) 4 mg IVPUSH Q8H PRN PRN Reason: Nausea and Vomiting Last Admin: 06/11/22 14:19 Dose: 4 mg Documented By: MATTY Sodium Chloride (0.9 % Sodium Chloride Flush 3 Ml Syringe) [facility] Last Admin: 06/11/22 16:00 Dose: Not Given Documented By: MATTY Non-Admin Reason: IV Running Labs 06/11/22 05:45 06/11/22 05:45 Labs: Laboratory Results - last 24 hr 06/10/22 06/10/22 06/10/22 18:48 19:04 19:46 MCV 88.3 MCH 28.6 MCHC 32.4 RDW 12.0 Plt Count 235 MPV 11.8 Immature Gran % (Auto) 0.4 Neut % (Auto) 73.4 H Lymph % (Auto) 15.9 L [place] % (Auto) 9.3 Eos % (Auto) 0.6 Baso % (Auto) 0.4 Lymph # (Auto) 2.6 [place] # (Auto) 1.5 H Eos # (Auto) 0.1 Baso # (Auto) 0.1 Abs Immat Gran (auto) 0.07 H Absolute Neuts (auto) 12.0 H Absolute Nucleated RBC 0.000 Nucleated RBC % (auto) 0.0 Smear Tech's Comments VERIFIED Anion Gap Estim Creat Clear Calc Estimated GFR Random Glucose Lactic Acid 2.4 H* Lactic Acid F/U @ 2Hr Calcium Magnesium Total Bilirubin Direct Bilirubin AST ALT Alkaline Phosphatase C-Reactive Protein Total Protein Albumin Lipase Urine Color Urine Appearance Urine pH Ur Specific Kenneth Urine Protein Urine Glucose (UA) Urine Ketones Urine Blood Urine Nitrite Ur Leukocyte Esterase COVID-19 ([facility]) Negative COVID-19 Clin Com See Note 06/10/22 06/10/22 06/11/22 20:58 22:15 05:45 MCV 90.4 MCH 29.4 MCHC 32.5 RDW 12.1 Plt Count 208 MPV 12.1 Immature Gran % (Auto) 0.4 Neut % (Auto) 63.9 Lymph % (Auto) 22.6 [place] % (Auto) 11.3 H Eos % (Auto) 1.5 Baso % (Auto) 0.3 Lymph # (Auto) 2.6 [place] # (Auto) 1.3 H Eos # (Auto) 0.2 Baso # (Auto) 0.0 Abs Immat Gran (auto) 0.05 H Absolute Neuts (auto) 7.3 Absolute Nucleated RBC 0.000 Nucleated RBC % (auto) 0.0 Smear Tech's Comments Anion Gap 17 Estim Creat Clear Calc 120.0 Estimated GFR > 60 Random Glucose 93 Lactic Acid Lactic Acid F/U @ 2Hr 1.4 Calcium 9.4 D Magnesium 1.6 Total Bilirubin 1.0 Direct Bilirubin 0.3 AST 25 ALT 27 Alkaline Phosphatase 65 C-Reactive Protein 0.64 H Total Protein 7.9 Albumin 4.4 Lipase 17 Urine Color Urine Appearance Urine pH Ur Specific Kenneth Urine Protein Urine Glucose (UA) Urine Ketones Urine Blood Urine Nitrite Ur Leukocyte Esterase COVID-19 ([facility]) COVID-[place] Clin Com 06/11/22 06/11/22 05:45 15:17 MCV MCH MCHC RDW Plt Count MPV Immature Gran % (Auto) Neut % (Auto) Lymph % (Auto) [place] % (Auto) Eos % (Auto) Baso % (Auto) Lymph # (Auto) [place] # (Auto) Eos # (Auto) Baso # (Auto) Abs Immat Gran (auto) Absolute Neuts (auto) Absolute Nucleated RBC Nucleated RBC % (auto) Smear Tech's Comments Anion Gap 15 Estim Creat Clear Calc 140.2 Estimated GFR > 60 Random Glucose 88 Lactic Acid Lactic Acid F/U @ 2Hr Calcium 8.5 D Magnesium Total Bilirubin Direct Bilirubin AST ALT Alkaline Phosphatase C-Reactive Protein Total Protein Albumin Lipase Urine Color Yellow Urine Appearance Clear Urine pH 7.0 Ur Specific Kenneth 1.025 Urine Protein Negative Urine Glucose (UA) Negative Urine Ketones 40 Urine Blood Negative Urine Nitrite Negative Ur Leukocyte Esterase Negative COVID-19 ([facility]) COVID-19 Clin Com Procedures Date of Service Date of Service: 06/11/22 Progress Note: A&P Assessment and plan (1) Partial small bowel obstruction: Status: Acute Plan Improving partial SBO. Continue current plan. Anticipate advancing diet tomorrow as tolerated. Out of bed. Inc Time Spent With Patient Time: Total time managing care of this patient today ____ minutes. Quality Stroke Does the patient have a stroke diagnosis?: No VTE Prior VTE?: No VTE Risk Level:: Surgical - low VTE Device Contraindication: N/A - Device Ordered VTE Drug Contraindication: Treatment Not Indicated
[2022-06-12] MEDS: Lactated Ringers 1,000 ML 150 ML IVCONT ×4 (00:45→19:47)
[2022-06-12 02:58] VITALS: BP 138/83; PULSE 68; RESP 16; TEMP 36.3; O2SAT 98
[2022-06-12] MEDS: Metoclopramide HCl 10 MG/2 ML VIAL IVPUSH (03:12)
[2022-06-12] MEDS: HYDROmorphone HCl 2 MG/ML VIAL IVPUSH (04:32)
--- NOTE | 2022-06-12 06:15 | PC.NURSE ---
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 MD Lovelace notified of pt's symptoms. MD Lovelace ordered one time dose of Ativan & Reglan. Medications given to pt. Will continue to monitor pt's symptoms.
[2022-06-12 07:24] VITALS: BP 126/76; PULSE 66; RESP 18; TEMP 36.1; O2SAT 97
--- NOTE | 2022-06-12 09:17 | P.PNGS_ITS ---
Subjective Subjective Date of Service: 06/12/22 Interval history: Patient has no abdominal complaints or pain. He has had intermittent nausea. His p.o. intake has been marginal at best. Patient passed contrast yesterday. Only flatus this morning. Physical Exam Vital Signs: Vital Signs: Last Vital Signs Temp 97.0 F 06/12/22 07:24 Pulse 66 06/12/22 07:24 Resp 18 06/12/22 07:24 BP 126/76 06/12/22 07:24 Pulse Ox 97 06/12/22 07:24 O2 Del Method Room Air 06/12/22 07:24 O2 Flow Rate 1 06/11/22 05:25 BMI result Body Mass Index 33.0 GI: Other: Abdomen soft. Nontender. Objective Data Active Medications Hydromorphone HCl (Hydromorphone Hcl 2 Mg/Ml Vial) 0.5 mg IVPUSH Q4H PRN; Protocol PRN Reason: Pain, Moderate (Pain Scale 4-6 Lactated Ringer's (Lr) 1,000 mls @ 150 mls/hr IVCONT .Q6H40M [facility] Last Admin: 06/12/22 06:40 Dose: 150 mls/hr Documented By: JOSSE Ondansetron HCl (Ondansetron Hcl 4 Mg/2 Ml Vial) 4 mg IVPUSH Q8H PRN PRN Reason: Nausea and Vomiting Last Admin: 06/11/22 21:18 Dose: 4 mg Documented By: JOSSE Oxycodone HCl (Oxycodone Hcl Immed Release 5 Mg Tablet) 5 mg PO Q4H PRN PRN Reason: Pain, Moderate (Pain Scale 4-6 Sodium Chloride (0.9 % Sodium Chloride Flush 3 Ml Syringe) 3 ml IVFLUSH QSHIFT [facility] Last Admin: 06/12/22 07:43 Dose: Not Given Documented By: FREDDIE Non-Admin Reason: IV Running Labs 06/11/22 05:45 06/11/22 05:45 Labs: Laboratory Results - last 24 hr 06/11/22 15:17 Urine Color Yellow Urine Appearance Clear Urine pH 7.0 Ur Specific [place] 1.025 Urine Protein Negative Urine Glucose (UA) Negative Urine Ketones 40 Urine Blood Negative Urine Nitrite Negative Ur Leukocyte Esterase Negative Microbiology Microbiology Results: Microbiology 06/10/22 22:15 Blood Culture - Preliminary Blood - Venous No growth after 24 hours. 06/10/22 20:58 Blood Culture - Preliminary Blood - Venous No growth after 24 hours. Procedures Date of Service Date of Service: 06/12/22 Progress Note: A&P Assessment and plan (1) Partial small bowel obstruction: Status: Acute Plan Encourage out of bed/ambulation, incentive spirometry, advanced diet as tolerated. Time Spent With Patient Time: Total time managing care of this patient today ____ minutes. Quality Stroke Does the patient have a stroke diagnosis?: No VTE Prior VTE?: No VTE Risk Level:: Surgical - low VTE Device Contraindication: N/A - Device Ordered VTE Drug Contraindication: Treatment Not Indicated
[2022-06-12] MEDS: ondansetron HCL 4 MG/2 ML VIAL IVPUSH (11:23)
[2022-06-12] MEDS: HYDROmorphone HCl 0.5 MG/0.5 ML SYRINGE IVPUSH ×3 (11:23→20:21)
[2022-06-12 14:15] VITALS: BP 136/77; PULSE 79; RESP 16; TEMP 37.2; O2SAT 97
[2022-06-12] MEDS: oxyCODONE HCl Immed Release 5 MG TABLET PO (14:57)
[2022-06-12] MEDS: Acetaminophen 325 MG TABLET 650 MG PO (14:57)
[2022-06-12 15:44] VITALS: BP 130/85; PULSE 75; RESP 18; TEMP 36.7; O2SAT 99
[2022-06-12 19:27] VITALS: BP 132/69; PULSE 79; RESP 18; TEMP 36.3; O2SAT 96
[2022-06-13] MEDS: HYDROmorphone HCl 0.5 MG/0.5 ML SYRINGE IVPUSH ×2 (01:15→11:55)
[2022-06-13] MEDS: LORazepam 2 MG/ML VIAL 0.5 MG IVPUSH (01:28)
[2022-06-13] MEDS: Pantoprazole Sodium 40 MG/10 ML VIAL IVPUSH (01:29)
[2022-06-13 03:28] VITALS: BP 132/80; PULSE 74; RESP 18; TEMP 36.8; O2SAT 93
--- NOTE | 2022-06-13 04:00 | PC.NURSE ---
Approximately around 00:45 pt complained of anxiety and acid reflex. rn call center MD Reyes notified of pt's symptoms. One time dose of Ativan and Protonix were ordered. Pt received ordered medications. Pt is now resting quietly in bed with no complaints of anxiety and acid reflex. Will continue to monitor.
[2022-06-13 08:00] VITALS: BP 132/76; PULSE 75; RESP 18; TEMP 36.6; O2SAT 94
--- NOTE | 2022-06-13 08:13 | PM.PNGS ---
Subjective Subjective Date of Service: 06/13/22 Interval history: Vomited yesterday following tylenol and oxycodone administration. Had some nausea following this but overall feels improved this morning. Denies abd pain. Continues to pass flatus. OOB and ambulating. Physical Exam Vital Signs: Vital Signs: Last Vital Signs Temp 98.2 F 06/13/22 03:28 Pulse 74 06/13/22 03:28 Resp 18 06/13/22 03:28 BP 132/80 06/13/22 03:28 Pulse Ox 93 06/13/22 03:28 O2 Del Method Room Air 06/13/22 03:28 O2 Flow Rate 1 06/11/22 05:25 BMI result Body Mass Index 33.0 Const: General: comfortable, no acute distress and alert Orientation/consciousness: patient oriented x3 Resp: Effort & Inspection: normal respiratory effort GI: Inspection: No distended Palpation (GI): Soft to palpation, nontender, no guarding and not rigid Percussion: Yes normal to percussion Skin: General skin exam: no rashes or lesions noted Neuro: General: patient oriented x3 Extrem: General: Yes no clubbing, cyanosis or edema Objective Data Active Medications Acetaminophen (Acetaminophen 325 Mg Tablet) 650 mg PO Q6H PRN PRN Reason: Pain, Mild (Pain Scale 1-3) Last Admin: 06/12/22 14:57 Dose: 650 mg Documented By: FREDDIE Hydromorphone HCl (Hydromorphone Hcl 0.5 Mg/0.5 Ml Syringe) 0.5 mg IVPUSH Q4H PRN; Protocol PRN Reason: Pain, Moderate (Pain Scale 4-6 Last Admin: 06/13/22 01:15 Dose: 0.5 mg Documented By: JOSSE Promethazine HCl 12.5 mg/ (Sodium Chloride) 50.5 mls @ 202 mls/hr IV Q6H PRN PRN Reason: Nausea and Vomiting Last Infusion: 06/12/22 16:33 Dose: 0 mls/hr Documented By: FREDDIE Ondansetron HCl (Ondansetron Hcl 4 Mg/2 Ml Vial) 4 mg IVPUSH Q8H PRN PRN Reason: Nausea and Vomiting Last Admin: 06/12/22 11:23 Dose: 4 mg Documented By: FREDDIE Oxycodone HCl (Oxycodone Hcl Immed Release 5 Mg Tablet) 5 mg PO Q4H PRN PRN Reason: Pain, Moderate (Pain Scale 4-6 Last Admin: 06/12/22 14:57 Dose: 5 mg Documented By: FREDDIE Sodium Chloride (0.9 % Sodium Chloride Flush 3 Ml Syringe) 3 ml IVFLUSH QSHIFT [facility] Last Admin: 06/13/22 00:54 Dose: Not Given Documented By: JOSSE Non-Admin Reason: IV Running Labs 06/11/22 05:45 06/11/22 05:45 Microbiology Microbiology Results: Microbiology 06/10/22 22:15 Blood Culture - Preliminary Blood - Venous No growth after 48 hours. 06/10/22 20:58 Blood Culture - Preliminary Blood - Venous No growth after 48 hours. Procedures Date of Service Date of Service: 06/13/22 Progress Note: A&P Assessment and plan (1) Partial small bowel obstruction: Status: Acute (2) Nausea & vomiting: Status: Acute Plan 41 year old male admitted with PSBO. Given gastrograffin for SBFT and PSBO appeared to resolved however he continued with intermittent nausea and vomiting. Improved this morning. Clinically not obstructed. Will advance to clear liquids and then further as tolerated. If unable to tolerate diet advancement, ?repeat CT scan vs GI consult. Patient comfortable with plan. Continue OOB/ambulation. Time Spent With Patient Time: Total time managing care of this patient today ____ minutes. Quality Stroke Does the patient have a stroke diagnosis?: No VTE Prior VTE?: No VTE Risk Level:: Surgical - low VTE Device Contraindication: N/A - Device Ordered VTE Drug Contraindication: Treatment Not Indicated
[2022-06-13] MEDS: 0.9 % Sodium Chloride Flush 3 ML SYRINGE IVFLUSH (09:12)
--- NOTE | 2022-06-13 16:06 | MHC.CM.PN ---
pt dcd home no skilled servceis ordered by
--- NOTE | 2022-06-14 12:59 | PM.DS ---
DS: Providers Provider Date of Service: 06/13/22 Date of admission: 06/10/22 20:34 Primary care physician: Emilia Leija MD Attending physician on admission: Pete Lovelace DS: Diagnosis Discharge Diagnosis (1) Partial small bowel obstruction: Status: Acute (2) Nausea & vomiting: Status: Acute DS: Summary Hospital Course Hospital Course: HPI AT BASELINE: Toño Whalen is a 41 year old male who has a longstanding history of partial small-bowel obstructions and actually had a prior surgery for this who now presents with recurrence symptoms of nausea, vomiting, abdominal distention, and of colicky abdominal pain. Patient has had multiple admissions for this in the past. Patient has refused by me and by the ED staff placement of a nasogastric tube. CT scan is consistent with a partial small-bowel obstruction.? This was compared to prior scan which apparently actually shows improvement from earlier studies. HOSPITAL COURSE: Admitted to the medical service for further treatment of his SBO. NGT was recommended and was refused. He was started on IVF, follow I's and O's, serial labs and exams.? He had a small-bowel follow-through the following day which showed contrast in the colon however there was delayed transit.?He began to have bowel movements and felt overall improved with less abdominal pain. His diet was slowly advanced however he had persistent intermittent nausea and vomiting. He was not clinically obstructed at that point. This was treated with bowel rest and antiemetics. His symptoms improved and his diet was advanced slowly to clear liquids and then solid. On the day of discharge he was tolerating a solid diet without any symptoms and had a benign abd exam. He was discharged to home on 06/13/22 in stable condition. Status at Discharge Functional status at discharge: independent ambulation Overall status at discharge: patient is back to baseline Time Spent with Patient Time attestation: Total time managing care of this patient today ____ minutes. Discharge coordination time: Less than 30 minutes Quality: Safe Use of Opioids Does Pt have an Active Cancer Diagnosis on the Problem List?: No Quality: Stroke Does the patient have a stroke diagnosis?: No Physical Exam Vital Signs: Vital Signs: Last Vital Signs Temp 97.8 F 06/13/22 08:00 Pulse 75 06/13/22 08:00 Resp 18 06/13/22 08:00 BP 132/76 06/13/22 08:00 Pulse Ox 94 06/13/22 08:00 O2 Del Method Room Air 06/13/22 08:00 O2 Flow Rate 1 06/11/22 05:25 BMI result Body Mass Index 33.0 Const: General: comfortable, no acute distress and alert Orientation/consciousness: patient oriented x3 Resp: Effort & Inspection: normal respiratory effort GI: Inspection: No distended Palpation (GI): Soft to palpation, nontender, no guarding and not rigid Skin: General skin exam: no rashes or lesions noted Neuro: General: patient oriented x3 DS: Data Data Completed and Pending Labs on day of discharge: Preliminary micro results at discharge 06/10/22 22:15 Blood Culture - Preliminary Blood - Venous No growth after 48 hours. 06/10/22 20:58 Blood Culture - Preliminary Blood - Venous No growth after 48 hours. Discharge Plan Discharge Anticipated Discharge Date/Time: 06/13/22 14:09 Patient Disposition: Home, Self-Care Discharge Diagnosis: PSBO Referrals: Emilia Leija MD [Primary Care Provider] - 1 Week Discharge Medications: Continued calcium carbonate [Tums] 200 mg calcium (500 mg) Tablet,Chewable 200 mg PO BID PRN (Reason: Heartburn) cyanocobalamin (vitamin B-12) 100 mcg Tablet 100 mcg PO DAILY ascorbic acid (vitamin C) [Vitamin C] 500 mg Tablet 500 mg PO DAILY cholecalciferol (vitamin D3) [Vitamin D3] 25 mcg (1,000 unit) Tablet 25 mcg PO DAILY Remicade 100 mg recon soln 100 mg IV Q8W Rx Instructions: NEXT DOSE: 06/29/22 Discharge Orders: Discharge Order (Routine); Ordered 06/13/22 Ordered By: Candace Cuevas Diet: low residue diet Activity on Discharge: As tolerated Stand Alone Forms: Patient Portal Discharge page Care Plan Goals: Return to baseline health and resume normal activities. Health Concerns: PSBO N/V Plan of Treatment: Supportive SBFT with gastrografin F/u with PCP Assessment: Improved Discharge Date/Time: 06/13/22 16:00
== END 2022-06-13 16:00 | disposition home or self-care (01) | DRG 387 ==
LOC: HO.ED 21:25 → HO.EDOVER 21:32 → HO.S3 22:50
PROVIDERS: Physician Assistant; Admitting Provider Surgery; Emergency Provider Emergency Medicine; PCP Internal Medicine; Visit Provider Surgery
DX: K50.912 Crohn's disease, unspecified, with intestinal obstruction (principal); K21.9 Gastro-esophageal reflux disease without esophagitis; Z20.822 Contact with and (suspected) exposure to COVID-19; Z79.620 Long term (current) use of immunosuppressive biologic; Z79.899 Other long term (current) drug therapy
CPT/HCPCS: 36415; 74018; 74176; 74250; 80048; 80076; 81003; 83605; 83690; 83735; 85025; 86140; 87040; 87635; 93005; 96361; 96374; 96375; 99214; 99285; J1170; J2060; J2270; J2405; J2543; J2550; J2765

== ENCOUNTER 2022-07-27 04:53 | Emergency (ER) | payer MEDICARE, BC, MEDICAID, SELFPAY ==
--- NOTE | ~2022-07-27 | CT_ITS ---
EXAMINATION: CT ABDOMEN AND PELVIS WITH CONTRAST CLINICAL INFORMATION: Abdominal pain, history of Crohn's disease COMPARISON: 06/10/2022 TECHNIQUE: Multidetector volumetric images were obtained from the superior aspect of the liver through the pubic symphysis following administration 85 mL of Omnipaque 350 intravenous contrast. Sagittal and coronal reformatted images were obtained on the technologist's workstation. Oral contrast: No This CT examination was performed using dose optimization techniques as appropriate, variously including the following: *Automated exposure control *Adjustment of mA and/or kV according to patient size (this includes techniques or standardized protocols for targeted exams where dose is matched to indication/reason for exam; i.e. extremities or head) *Use of iterative reconstruction technique DLP: 642 mGy-cm FINDINGS: LUNG BASES: Mild dependent atelectasis. LIVER, GALLBLADDER, AND BILIARY TREE: The liver is normal in size, shape, and attenuation. No focal hepatic lesion or biliary ductal dilatation is present. The gallbladder is unremarkable with no evidence of radiopaque gallstones, gallbladder wall thickening, or obvious pericholecystic inflammatory changes. PANCREAS: Unremarkable. SPLEEN: Unremarkable. ADRENAL GLANDS: Unremarkable. KIDNEYS AND URETERS: Bilateral nephrograms are symmetric. No hydronephrosis or obstructing calculus identified. Few scattered small hypoattenuating foci bilaterally favor cysts; no follow-up recommended. A few tiny calculi are noted in the lower left kidney. BLADDER: Partially distended with minimal adjacent stranding which appears similar to prior. GASTROINTESTINAL TRACT: There is an enterocolonic anastomosis in the right abdomen. There are several dilated, fluid-filled and fecalized small bowel loops in the central to lower abdomen. Transition from dilated to collapsed small bowel appears to occur anteriorly in the region of a fecalized segment and small bowel suture line such as on image 54/92. Small bowel distal to this site is collapsed, and appearance is consistent with small bowel obstruction. Overall appearance is somewhat similar to 06/10/2022. Much of the colon is collapsed. There is prominent submucosal fat within much of the colon which can be seen as sequelae of prior inflammation. Suture line is also present in the sigmoid colon. ABDOMINAL WALL: Small fat-containing inguinal hernias. LYMPH NODES: Normal. VASCULAR: Unremarkable. PELVIC VISCERA: Unremarkable. OSSEOUS STRUCTURES: Unremarkable. CT/CT abdomen pelvis w IV con IMPRESSION: Small bowel obstruction with transition point in the anterior lower abdomen. Overall appearance is somewhat similar to 06/10/2022.
[2022-07-27 04:56] VITALS: BP 132/93; PULSE 75; RESP 16; TEMP 36.4; O2SAT 99; BMI 31.6
[2022-07-27 05:07] VITALS: BP 128/79; PULSE 70; RESP 17; TEMP 36.3; O2SAT 96
[2022-07-27 05:22] LABS: Basophils Percent Auto 0.4 % (0-2); Eosinophils Absolute Auto 0.3 X10*3/uL (0.0-0.4); Eosinophils Percent Auto 3.3 % (0-4); Hemoglobin 11.2 g/dl (14.0-18.0); Imm Gran Abs Auto 0.02 X10*3/uL (0.00-0.03); Imm Gran Pct Auto 0.2 % (0.0-0.4); Lymphocytes Absolute Auto 2.4 X10*3/uL (1.2-4.9); Lymphocytes Percent Auto 28.9 % (20-40); MANUAL DIFF FLAG NO; Mean Corpuscular Hemoglobin 28.8 pg (27.0-33.0); Mean Platelet Volume 11.5 fL (9.4-12.4); Monocytes Absolute Auto 0.9 X10*3/uL (0.1-1.2); Monocytes Percent Auto 11.5 % (2-11); Neutrophils Absolute Auto 4.5 x10*3/uL (2.0-8.3); Neutrophils Percent Auto 55.7 % (45-73); Platelet Count 212 X10*3/uL (160-400); Red Blood Count 3.89 X10*6/uL (4.60-5.80); Red Cell Distribution Width 12.6 % (11.0-16.0); White Blood Count 8.2 X10*3/uL (4.8-10.8)
--- NOTE | 2022-07-27 05:30 | ED_ITS ---
HPI - Abdominal Pain General Chief Complaint: Abdominal Pain Stated Complaint: stomach pain Time Seen by Provider: 07/27/22 05:21 Source: patient Mode of arrival: ambulatory Limitations: no limitations History of Present Illness HPI narrative: 41-year-old male history of complicated Crohn's disease, colectomy, small-bowel obstruction is taking Remicade every 8 weeks to control his Crohn's disease, presents to the emergency department with complaints of? diffuse abdominal pain x1 day similar to his previous Crohn's disease flare. Pain is described as diffuse, severe 10/10 constant crampy pain associated with nausea and vomiting.? Denies chest pain, shortness of breath, hematochezia, melena, hematemesis, head ache, vision changes, dizziness, fevers, chills, sick contacts and weakness.? Currently followed by gastroenterology Dr. Mackenzie. Related Data Home Medications Medication Instructions Recorded Confirmed infliximab 100 mg intravenous 100 mg IV Q8W 05/09/20 06/11/22 solution (Remicade) calcium carbonate 200 mg calcium 200 mg PO BID PRN Heartburn 05/21/22 06/11/22 (500 mg) chewable tablet (Tums) ascorbic acid (vitamin C) 500 mg 500 mg PO DAILY 06/11/22 06/11/22 tablet (Vitamin C) cholecalciferol (vitamin D3) 25 25 mcg PO DAILY 06/11/22 06/11/22 mcg (1,000 unit) tablet (Vitamin D3) cyanocobalamin (vitamin B-12) 100 100 mcg PO DAILY 06/11/22 06/11/22 mcg tablet Allergies Allergy/AdvReac Type Severity Reaction Status Date / Time No Known Allergies Allergy Verified 07/27/22 04:56 [No Known Allergies*] Review of Systems Review of Systems all other systems are reviewed and are negative Constitutional: Reports as per HPI and Reports no additional constitutional complaints Eyes: Reports as per HPI and Reports no additional eye complaints Reports system reviewed and no additional complaints, except as documented Cardiovascular: Reports as per HPI and Reports no additional cardiovascular complaints Respiratory: Reports as per HPI and Reports no additional respiratory complaints Gastrointestinal: Reports as per HPI and Reports no additional gastrointestinal complaints Genitourinary: Reports no additional female genitourinary complaints Musculoskeletal: Reports no additional musculoskeletal complaints Skin/Breast: Reports system reviewed and no additional complaints, except as docu Psychiatric: Reports no additional psychiatric complaints Endocrine: Reports no additional endocrine complaints Hematologic/Lymphatic: Reports no additional hematologic/lymphatic complaints Allergic/Immunologic: Reports no additional allergic/immunologic complaints Reports system reviewed and no additional complaints, except as documented and Reports Abnormal speech present [facility] Past Medical History Medical History Anemia Anxiety Crohn disease GERD (gastroesophageal reflux disease) High risk medication use Low vitamin D level Pituitary macroadenoma Surgical History H/O colonoscopy History of esophagogastroduodenoscopy (EGD) History of ileostomy History of partial surgical removal of colon Family History Family History Mother Breast cancer Social History Social History Household Members: Family Housing: Apartment Do you presently have visiting nurse or other home services: No Alcohol intake: never Patient Tobacco Use Status: Never used Tobacco Smoked in Last 30 Days: No e-Cigarette/Vaping Use: Never Used Second Hand Smoke Exposure: No Use of substances other than those prescribed or required for medical reasons: No Substance Use Type: Marijuana Any prior treatment program specific to substance use: No Advance Directives: No Advance Directives Information Provided: Yes Advance Directives Date on File: 07/17/20 service: No Current occupational status: disabled Physical Exam ED Vital Signs: Vital Signs - 24 hr 07/27/22 04:56 07/27/22 05:07 07/27/22 06:08 Temperature 97.6 F 97.4 F Pulse Rate 75 70 58 Respiratory Rate 16 17 19 Blood Pressure 132/93 H 128/79 117/78 Pulse Oximetry 99 96 93 Oxygen Delivery Method Room Air Room Air Room Air BMI result Body Mass Index 31.6 vital signs have been reviewed as appeared to be correct. Blood pressure normal. Heart rate normal. Respiration rate normal. Temperature normal. Oxygen saturation normal. Appearance: Alert. Oriented X3. No acute distress. Head: Normal external exam. Normocephalic. Atraumatic. No Stevens signs noted. No raccoon eyes noted Eyes: PERRLA. EOMI. Conjunctiva and sclera normal. Eyelids normal. ENT: TM's Normal. Pharynx normal. Uvula midline. Moist mucous membranes. No trismus noted. No drooling noted. No muffled voice noted. Neck: Normal inspection. Neck supple. FROM. No adenopathy. Thyroid Normal. No meningeal signs. No neck mass noted. CVS: Normal heart rate and rhythm. Heart sound normal. No murmurs noted. Pulses normal throughout. Respiratory: No respiratory distress. Painless inspiration. Breath sounds nor mal. No wheezes/rales/rhonchi noted. Chest nontender. No accessory muscle usage noted or decreased air movement noted. Abdomen: Soft, diffuse abdominal tenderness, no rebound tenderness, no guarding. Bowel sounds hypoactive in all 4 quadrants. No distention noted. No organomegaly noted. No visible injury noted. Back: No CVA tenderness. Full range of motion noted. Skin: Skin warm and dry. Normal skin color. Normal skin turgor. No rashes/lesions/lacerations noted. Extremities: No lower extremity edema. Extremities exhibit normal range of motion. Extremities nontender. Neuro: Oriented X 3. Cranial nerve exam: II-XII are grossly intact No motor deficit. No sensory deficit. Reflexes normal. Course Course Course Narrative: 41-year-old male well known to our ED staff with frequent Crohn's disease flare up and frequent admission due to Crohn's disease complications presented with abdominal pain /vomiting, CT with p.o./ IV contrast was ordered patient adamantly refusing the p.o. contrast. the case discussed with Dr. Reyes who will review is a CT, Signed out to Dr. Yan and disposition of the patient. Medical Decision Making Differential Diagnosis Differential Diagnoses: The differential diagnosis associated with the presentation includes ( Crohn's disease exacerbation, bowel perforation, abscess, SBO, severe dehydration, electrolyte abnormalities, severe anemia.) Admission/Observation Consideration of admission/observation: Escalation of care including admission/observation considered Lab Data MDM Lab Attestation statement: I reviewed the patient's lab results. 07/27/22 05:18 07/27/22 05:18 Labs: Lab Results 07/27/22 07/27/22 Range/Units 05:18 05:18 WBC 8.2 (4.8-10.8) X10*3/uL RBC 3.89 L (4.60-5.80) X10*6/uL Hgb 11.2 L (14.0-18.0) g/dl Hct 35.0 L (42.0-52.0) % MCV 90.0 (80.0-98.0) fL MCH 28.8 (27.0-33.0) pg MCHC 32.0 (31.0-36.0) g/dl RDW 12.6 (11.0-16.0) % Plt Count 212 (160-400) X10*3/uL MPV 11.5 (9.4-12.4) fL Immature Gran % (Auto) 0.2 (0.0-0.4) % Neut % (Auto) 55.7 (45-73) % Lymph % (Auto) 28.9 (20-40) % [place] % (Auto) 11.5 H (2-11) % Eos % (Auto) 3.3 (0-4) % Baso % (Auto) 0.4 (0-2) % Lymph # (Auto) 2.4 (1.2-4.9) X10*3/uL [place] # (Auto) 0.9 (0.1-1.2) X10*3/uL Eos # (Auto) 0.3 (0.0-0.4) X10*3/uL Baso # (Auto) 0.0 (0.0-0.2) X10*3/uL Abs Immat Gran (auto) 0.02 (0.00-0.03) X10*3/uL Absolute Neuts (auto) 4.5 (2.0-8.3) x10*3/uL Absolute Nucleated RBC 0.000 (0.0-0.012) X10*3/uL Nucleated RBC % (auto) 0.0 (0.0-0.2) /100WBC Sodium 141 (135-145) mmol/L Potassium 3.8 (3.3-5.1) mmol/L Chloride 110 H (96-108) mmol/L Carbon Dioxide 25 (22-29) mmol/L Anion Gap 10 L (12-20) BUN 11 (9-16) mg/dL Creatinine 0.89 (0.5-1.4) mg/dL Estim Creat Clear Calc 128.0 Estimated GFR > 60 Random Glucose 106 (60-115) mg/dL Calcium 8.7 (8.4-10.2) mg/dL Total Bilirubin 0.7 (0.0-1.0) mg/dL Direct Bilirubin 0.2 (0.0-0.5) mg/dL AST 24 (5-37) U/L ALT 28 (0-40) U/L Alkaline Phosphatase 62 (39-117) U/L Total Protein 7.0 (6.5-8.0) g/dL Albumin 3.9 (3.5-5.0) g/dL Lipase 19 (8-78) U/L Independent Interpretation I performed an independent interpretation of an: CT Scan ( abdomen pelvis: SBO) Radiology Impression Discussion of test interpretation with radiology: I have reviewed the radiologist's reading. Medications Administered Discontinued Medications Generic Name Dose Route Start Last Admin Trade Name Freq PRN Reason Stop Dose Admin Hydromorphone HCl 1 mg 07/27/22 05:25 07/27/22 05:56 Hydromorphone Hcl 1 Mg/Ml Syringe IVPUSH 07/27/22 05:26 1 mg ONCE ONE Administration Protocol Sodium Chloride 1,000 mls @ 999 mls/hr 07/27/22 05:25 07/27/22 05:56 Ns IV 07/27/22 06:25 999 mls/hr .Q1H1M ONE Administration Iohexol 85 ml 07/27/22 06:19 07/27/22 06:19 Iohexol 350 Mg/Ml 100 Ml Infus..Btl IV 07/27/22 06:20 85 ml ONCE ONE Administration Ondansetron HCl 4 mg 07/27/22 05:25 07/27/22 05:56 Ondansetron Hcl 4 Mg/2 Ml Vial IVPUSH 07/27/22 05:26 4 mg ONCE ONE Administration Discharge Plan Discharge Clinical Impression: Abdominal pain, Exacerbation of Crohn's disease, Small bowel obstruction Patient Disposition: Admitted As Inpatient Prescriptions: No Action calcium carbonate [Tums] 200 mg calcium (500 mg) Tablet,Chewable 200 mg PO BID PRN (Reason: Heartburn) cyanocobalamin (vitamin B-12) 100 mcg Tablet 100 mcg PO DAILY ascorbic acid (vitamin C) [Vitamin C] 500 mg Tablet 500 mg PO DAILY cholecalciferol (vitamin D3) [Vitamin D3] 25 mcg (1,000 unit) Tablet 25 mcg PO DAILY Remicade 100 mg recon soln 100 mg IV Q8W Rx Instructions: NEXT DOSE: 06/29/22
[2022-07-27 05:46] LABS: Anion Gap 10 (12-20)
[2022-07-27 05:47] LABS: Alanine Aminotransferase 28 U/L (0-40); Albumin Level 3.9 g/dL (3.5-5.0); Alkaline Phosphatase 62 U/L (39-117); Aspartate Amino Transferase 24 U/L (5-37); Bilirubin Direct 0.2 mg/dL (0.0-0.5); Bilirubin Total 0.7 mg/dL (0.0-1.0); Blood Urea Nitrogen 11 mg/dL (9-16); Calcium 8.7 mg/dL (8.4-10.2); Carbon Dioxide 25 mmol/L (22-29); Chloride 110 mmol/L (96-108); Estimated Glomerular Filt Rate > 60; Glucose Random 106 mg/dL (60-115); Lipase 19 U/L (8-78); Potassium 3.8 mmol/L (3.3-5.1); Sodium 141 mmol/L (135-145)
[2022-07-27] MEDS: ondansetron HCL 4 MG/2 ML VIAL IVPUSH (05:56)
[2022-07-27] MEDS: 0.9 % Sodium Chloride 1,000 ML 999 ML IV (05:56)
[2022-07-27] MEDS: HYDROmorphone HCl 1 MG/ML SYRINGE IVPUSH ×2 (05:56→07:31)
[2022-07-27 06:08] VITALS: BP 117/78; PULSE 58; RESP 19; O2SAT 93
[2022-07-27] MEDS: iohexoL 350 MG/ML 100 ML INFUS..BTL 85 ML IV (06:19)
--- NOTE | 2022-07-27 07:08 | PC.NURSE ---
Report given to RN about pts present condition the reason pt is in the ED and what the treatments were carried out in the ED.
[2022-07-27 07:58] VITALS: BP 112/73; PULSE 61; RESP 18; TEMP 36.8; O2SAT 95
--- NOTE | 2022-07-27 08:40 | PHA.MEDREC ---
Pharmacy Consult ? Medication Reconciliation Pharmacy has completed the medication reconciliation. Patient reported all medications. Christal Manrique, AdelfoD
--- NOTE | 2022-07-27 09:46 | PM.CNGS ---
History of Present Illness Consult details Consult date: 07/27/22 Narrative: 41-year-old male in the ER because of 2 episodes of vomiting at around 02:00 o'clock in the morning last night. He says that he had been doing well yesterday. He had dinner with Yor[place] food and says that he felt that the peanuts with a Yoruba food had caused him this symptoms. He had some diffuse abdominal pain as well. He says that he has not had any vomiting since he has been in the ER. He says that his pain has improved significantly. He says he is passing flatus. He has a known history of Crohn's disease. He had undergone sigmoid resection and ileo colonic resection 2016 in [facility]. He is currently on Remicade. He is being followed by a needle punch machine operator helper. He has had multiple admissions for partial small-bowel obstruction here at [facility]. He says that his symptoms are similar although milder today. Review of Systems Constitutional: Constitutional: Denies chills and Denies fever(s) Cardiovascular: Cardiovascular: Denies chest pain, Denies dyspnea and Denies dyspnea on exertion Respiratory: Respiratory: Denies cough, Denies dyspnea and Denies dyspnea on exertion Gastrointestinal: Gastrointestinal: Denies hematochezia and Denies change in bowel habits Genitourinary: Genitourinary: Denies hematuria and Denies difficulty urinating Musculoskeletal: Musculoskeletal: Denies back pain and Denies limited range of motion Neurologic: Denies focal weakness and Denies convulsions Psychiatric: Psychiatric: Denies depression and Denies mood swings PMFSH Past Medical History Medical History Anemia Anxiety Crohn disease GERD (gastroesophageal reflux disease) High risk medication use Low vitamin D level Pituitary macroadenoma Family History Family History Mother Breast cancer Surgical History Surgical History H/O colonoscopy History of esophagogastroduodenoscopy (EGD) History of ileostomy History of partial surgical removal of colon Social History Social History Household Members: Family Housing: Apartment Do you presently have visiting nurse or other home services: No Alcohol intake: never Patient Tobacco Use Status: Never used Tobacco Smoked in Last 30 Days: No e-Cigarette/Vaping Use: Never Used Second Hand Smoke Exposure: No Use of substances other than those prescribed or required for medical reasons: No Substance Use Type: Marijuana Any prior treatment program specific to substance use: No Advance Directives: No Advance Directives Information Provided: Yes Advance Directives Date on File: 07/17/20 service: No Current occupational status: disabled Meds Allergies Allergy/AdvReac Type Severity Reaction Status Date / Time No Known Allergies Allergy Verified 07/27/22 04:56 [No Known Allergies*] Home Medications Medication Instructions Recorded Confirmed Last Taken Type infliximab 100 mg intravenous mg IV Q8W 05/09/20 06/11/22 05/01/22 History solution (Remicade) calcium carbonate 200 mg calcium 200 mg PO BID PRN Heartburn 05/21/22 07/27/22 Unknown History (500 mg) chewable tablet (Tums) ascorbic acid (vitamin C) 500 mg 500 mg PO DAILY 06/11/22 07/27/22 06/09/22 History tablet (Vitamin C) cholecalciferol (vitamin D3) 25 25 mcg PO DAILY 06/11/22 07/27/22 06/09/22 History mcg (1,000 unit) tablet (Vitamin D3) cyanocobalamin (vitamin B-12) 100 100 mcg PO DAILY 06/11/22 07/27/22 06/09/22 History mcg tablet Physical Exam Vital Signs: Vital Signs: Last Vital Signs Temp 98.3 F 07/27/22 07:58 Pulse 61 07/27/22 07:58 Resp 18 07/27/22 07:58 BP 112/73 07/27/22 07:58 Pulse Ox 95 07/27/22 07:58 O2 Del Method Room Air 07/27/22 07:58 BMI result Body Mass Index 31.6 Const: General: comfortable and no acute distress Orientation/consciousness: patient oriented x3 Neck: Neck: Yes no lymphadenopathy Resp: Auscultation: clear to auscultation bilaterally Cardio: Rhythm: regular rhythm GI: Inspection: No distended Palpation (GI): Soft to palpation, nontender and no guarding Neuro: General: patient oriented x3 Results Labs 07/27/22 05:18 07/27/22 05:18 Labs: Abnormal lab results 07/27/22 07/27/22 Range/Units 05:18 05:18 RBC 3.89 L (4.60-5.80) X10*6/uL Hgb 11.2 L (14.0-18.0) g/dl Hct 35.0 L (42.0-52.0) % [place] % (Auto) 11.5 H (2-11) % Chloride 110 H (96-108) mmol/L Anion Gap 10 L (12-20) Short CBC 07/27/22 Range/Units 05:18 WBC 8.2 (4.8-10.8) X10*3/uL Hgb 11.2 L (14.0-18.0) g/dl Hct 35.0 L (42.0-52.0) % Plt Count 212 (160-400) X10*3/uL BMP 07/27/22 05:18 Sodium 141 Potassium 3.8 Chloride 110 H Carbon Dioxide 25 BUN 11 Creatinine 0.89 Calcium 8.7 Liver Function 07/27/22 Range/Units 05:18 Total Bilirubin 0.7 (0.0-1.0) mg/dL Direct Bilirubin 0.2 (0.0-0.5) mg/dL AST 24 (5-37) U/L ALT 28 (0-40) U/L Alkaline Phosphatase 62 (39-117) U/L Albumin 3.9 (3.5-5.0) g/dL All other labs normal. Laboratory Results WBC 8.2 X10*3/uL (4.8-10.8) 07/27/22 05:18 RBC 3.89 X10*6/uL (4.60-5.80) L 07/27/22 05:18 Hgb 11.2 g/dl (14.0-18.0) L 07/27/22 05:18 Hct 35.0 % (42.0-52.0) L 07/27/22 05:18 MCV 90.0 fL (80.0-98.0) 07/27/22 05:18 MCH 28.8 pg (27.0-33.0) 07/27/22 05:18 MCHC 32.0 g/dl (31.0-36.0) 07/27/22 05:18 RDW 12.6 % (11.0-16.0) 07/27/22 05:18 Plt Count 212 X10*3/uL (160-400) 07/27/22 05:18 MPV 11.5 fL (9.4-12.4) 07/27/22 05:18 Immature Gran % (Auto) 0.2 % (0.0-0.4) 07/27/22 05:18 Neut % (Auto) 55.7 % (45-73) 07/27/22 05:18 Lymph % (Auto) 28.9 % (20-40) 07/27/22 05:18 [place] % (Auto) 11.5 % (2-11) H 07/27/22 05:18 Eos % (Auto) 3.3 % (0-4) 07/27/22 05:18 Baso % (Auto) 0.4 % (0-2) 07/27/22 05:18 Lymph # (Auto) 2.4 X10*3/uL (1.2-4.9) 07/27/22 05:18 [place] # (Auto) 0.9 X10*3/uL (0.1-1.2) 07/27/22 05:18 Eos # (Auto) 0.3 X10*3/uL (0.0-0.4) 07/27/22 05:18 Baso # (Auto) 0.0 X10*3/uL (0.0-0.2) 07/27/22 05:18 Abs Immat Gran (auto) 0.02 X10*3/uL (0.00-0.03) 07/27/22 05:18 Absolute Neuts (auto) 4.5 x10*3/uL (2.0-8.3) 07/27/22 05:18 Absolute Nucleated RBC 0.000 X10*3/uL (0.0-0.012) 07/27/22 05:18 Nucleated RBC % (auto) 0.0 /100WBC (0.0-0.2) 07/27/22 05:18 Sodium 141 mmol/L (135-145) 07/27/22 05:18 Potassium 3.8 mmol/L (3.3-5.1) 07/27/22 05:18 Chloride 110 mmol/L (96-108) H 07/27/22 05:18 Carbon Dioxide 25 mmol/L (22-29) 07/27/22 05:18 Anion Gap 10 (12-20) L 07/27/22 05:18 BUN 11 mg/dL (9-16) 07/27/22 05:18 Creatinine 0.89 mg/dL (0.5-1.4) 07/27/22 05:18 Estim Creat Clear Calc 128.0 07/27/22 05:18 Estimated GFR > 60 07/27/22 05:18 Random Glucose 106 mg/dL (60-115) 07/27/22 05:18 Calcium 8.7 mg/dL (8.4-10.2) 07/27/22 05:18 Total Bilirubin 0.7 mg/dL (0.0-1.0) 07/27/22 05:18 Direct Bilirubin 0.2 mg/dL (0.0-0.5) 07/27/22 05:18 AST 24 U/L (5-37) 07/27/22 05:18 ALT 28 U/L (0-40) 07/27/22 05:18 Alkaline Phosphatase 62 U/L (39-117) 07/27/22 05:18 Total Protein 7.0 g/dL (6.5-8.0) 07/27/22 05:18 Albumin 3.9 g/dL (3.5-5.0) 07/27/22 05:18 Lipase 19 U/L (8-78) 07/27/22 05:18 Impressions Abdomen/Pelvis CT 07/27/22 06:26 IMPRESSION: Small bowel obstruction with transition point in the anterior lower abdomen. Overall appearance is somewhat similar to 06/10/2022. Assessment and Plan (1) Partial small bowel obstruction: Status: Resolved He had 2 episodes of vomiting last night at around 02:00 o'clock in the morning along with some abdominal pain. He says that he feels much better this morning. I have reviewed his CAT scan and this appears similar to his previous CT scans showing a transition point in the mid abdomen. I do not see inflammatory changes and this probably is likely secondary to adhesions postoperatively. I have recommended for him to stay in the hospital overnight so we can observe him. He says that he is not staying though and stay stated that he knows his body well. He says that his symptoms have practically resolved. He understands the risks of recurrent vomiting and worsening of his symptoms once he he goes home. He says he is going to sign out against medical advise. He says that he has a follow-up with his needle punch machine operator helper tomorrow. I have discussed the above with the ER physician. Time Spent With Patient Time: Total time managing care of this patient today ____ minutes. Procedures Date of Service Date of Service: 07/27/22
== END 2022-07-27 08:05 | disposition left against medical advice (07) ==
PROVIDERS: Emergency Provider Emergency Medicine
DX: K56.600 Partial intestinal obstruction, unspecified as to cause (principal); K50.90 Crohn's disease, unspecified, without complications; Z79.899 Other long term (current) drug therapy
CPT/HCPCS: 36415; 74177; 80048; 80076; 83690; 85025; 96361; 96374; 96375; 96376; 99284; J1170; J2405; Q9967

== ENCOUNTER → 2022-07-28 11:50 | Outpatient (BNVA) | payer MEDICARE, BC, MEDICAID, SELFPAY | PROVIDERS: Visit Provider Internal Medicine Gastroenterology | DX: K50.90 Crohn's disease, unspecified, without complications (principal); K56.609 Unspecified intestinal obstruction, unspecified as to partial versus complete obstruction | CPT/HCPCS: 99212 ==

== ENCOUNTER 2022-09-05 13:39 | Emergency (ER) | payer MEDICARE, BC, MEDICAID, SELFPAY ==
[2022-09-05 14:04] VITALS: BP 148/85; PULSE 72; RESP 20; TEMP 36.4; O2SAT 100; BMI 31.6
--- NOTE | 2022-09-05 14:05 | ED.GENADULT ---
HPI - General Adult General Chief complaint: Abdominal Pain Stated complaint: having flare up Related Data Home Medications Medication Instructions Recorded Confirmed infliximab 100 mg intravenous mg IV Q8W 05/09/20 06/11/22 solution (Remicade) Previous Rx's Medication Instructions Recorded prednisone 20 mg tablet 40 mg (2 x 20 mg) PO DAILY #10 tabs 11/17/22 budesonide 3 mg 9 mg (3 x 3 mg) PO DAILY #90 ea 12/01/22 capsule,delayed,extended release sodium,potassium,mag sulfates 17.5 See Rx Instructions PO .COMPLEX 12/01/22 gram-3.13 gram-1.6 gram oral soln #354 mL (Suprep Bowel Prep Kit) Allergies Allergy/AdvReac Type Severity Reaction Status Date / Time No Known Allergies Allergy Verified 12/01/22 11:16 [No Known Allergies*] PMFSH Past Medical History Medical History Anemia Anxiety Crohn disease GERD (gastroesophageal reflux disease) High risk medication use Low vitamin D level Pituitary macroadenoma Surgical History H/O colonoscopy History of esophagogastroduodenoscopy (EGD) History of ileostomy History of partial surgical removal of colon Family History Family History Mother Breast cancer Social History Social History Household Members: Family Housing: Apartment Do you presently have visiting nurse or other home services: No Alcohol intake: never Patient Tobacco Use Status: Never used Tobacco e-Cigarette/Vaping Use: Never Used Second Hand Smoke Exposure: No Substance Use Type: Marijuana Advance Directives Date on File: 07/17/20 service: No Current occupational status: disabled Physical Exam ED Vital Signs: BMI result Body Mass Index 31.6 Course Course Course Narrative: RME- 41 year old male presents for evaluation of abdominal pain, nausea vomiting or diarrhea. Reports history of Crohn's disease. Feels if he is having a flare. Symptoms started at 10:00 a.m. this morning. Reports history of partial colectomy Medical Decision Making Lab Data 09/05/22 14:19 09/05/22 14:19 Labs: Lab Results 09/05/22 Range/Units 14:19 WBC 9.7 (4.8-10.8) X10*3/uL RBC 4.18 L (4.60-5.80) X10*6/uL Hgb 12.2 L (14.0-18.0) g/dl Hct 37.3 L (42.0-52.0) % MCV 89.2 (80.0-98.0) fL MCH 29.2 (27.0-33.0) pg MCHC 32.7 (31.0-36.0) g/dl RDW 12.4 (11.0-16.0) % Plt Count 250 (160-400) X10*3/uL MPV 12.1 (9.4-12.4) fL Immature Gran % (Auto) 0.3 (0.0-0.4) % Neut % (Auto) 54.2 (45-73) % Lymph % (Auto) 33.5 (20-40) % [place] % (Auto) 9.5 (2-11) % Eos % (Auto) 2.2 (0-4) % Baso % (Auto) 0.3 (0-2) % Lymph # (Auto) 3.3 (1.2-4.9) X10*3/uL [place] # (Auto) 0.9 (0.1-1.2) X10*3/uL Eos # (Auto) 0.2 (0.0-0.4) X10*3/uL Baso # (Auto) 0.0 (0.0-0.2) X10*3/uL Abs Immat Gran (auto) 0.03 (0.00-0.03) X10*3/uL Absolute Neuts (auto) 5.3 (2.0-8.3) x10*3/uL Absolute Nucleated RBC 0.000 (0.0-0.012) X10*3/uL Nucleated RBC % (auto) 0.0 (0.0-0.2) /100WBC ESR 20 H (0-15) MM/HR Sodium 139 (135-145) mmol/L Potassium 4.2 (3.3-5.1) mmol/L Chloride 104 (96-108) mmol/L Carbon Dioxide 24 (22-29) mmol/L Anion Gap 15 (12-20) BUN 10 (9-16) mg/dL Creatinine 0.92 (0.5-1.4) mg/dL Estim Creat Clear Calc 123.8 Estimated GFR > 60 Random Glucose 100 (60-115) mg/dL Calcium 10.0 D (8.4-10.2) mg/dL Total Bilirubin 0.9 (0.0-1.0) mg/dL AST 26 (5-37) U/L ALT 24 (0-40) U/L Alkaline Phosphatase 66 (39-117) U/L C-Reactive Protein 0.21 (< or = 0.50) mg/dL Total Protein 8.6 H (6.5-8.0) g/dL Albumin 4.5 (3.5-5.0) g/dL Lipase 17 (8-78) U/L Discharge Plan Discharge Clinical Impression: Diverticulitis Patient Disposition: Elopement Prescriptions: No Action prednisone 20 mg tablet 40 mg PO DAILY Qty: 10 0RF Remicade 100 mg recon soln IV Q8W Rx Instructions: NEXT DOSE: 10/17/2022 budesonide 3 mg capsule,delayed,extend.release 9 mg PO DAILY Qty: 90 1RF sodium,potassium,mag sulfates [Suprep Bowel Prep Kit] 17.5-3.13-1.6 gram recon soln See Rx Instructions PO .COMPLEX Qty: 354 0RF Rx Instructions: DILUTE; drink 1/2 at 6-8 pm and half at 11 PM- 1AM Discharge Date/Time: 09/05/22 17:06
[2022-09-05 14:36] LABS: MANUAL DIFF FLAG NO
[2022-09-05 14:41] LABS: Basophils Percent Auto 0.3 % (0-2); Eosinophils Absolute Auto 0.2 X10*3/uL (0.0-0.4); Eosinophils Percent Auto 2.2 % (0-4); Hematocrit 37.3 % (42.0-52.0); Hemoglobin 12.2 g/dl (14.0-18.0); Imm Gran Abs Auto 0.03 X10*3/uL (0.00-0.03); Imm Gran Pct Auto 0.3 % (0.0-0.4); Lymphocytes Absolute Auto 3.3 X10*3/uL (1.2-4.9); Lymphocytes Percent Auto 33.5 % (20-40); Mean Corpuscular HGB Conc 32.7 g/dl (31.0-36.0); Mean Corpuscular Hemoglobin 29.2 pg (27.0-33.0); Mean Corpuscular Volume 89.2 fL (80.0-98.0); Mean Platelet Volume 12.1 fL (9.4-12.4); Monocytes Absolute Auto 0.9 X10*3/uL (0.1-1.2); Monocytes Percent Auto 9.5 % (2-11); Neutrophils Absolute Auto 5.3 x10*3/uL (2.0-8.3); Neutrophils Percent Auto 54.2 % (45-73); Platelet Count 250 X10*3/uL (160-400); Red Blood Count 4.18 X10*6/uL (4.60-5.80); Red Cell Distribution Width 12.4 % (11.0-16.0); White Blood Count 9.7 X10*3/uL (4.8-10.8)
[2022-09-05 15:07] LABS: Alanine Aminotransferase 24 U/L (0-40); Albumin Level 4.5 g/dL (3.5-5.0); Alkaline Phosphatase 66 U/L (39-117); Anion Gap 15 (12-20); Aspartate Amino Transferase 26 U/L (5-37); Bilirubin Total 0.9 mg/dL (0.0-1.0); Blood Urea Nitrogen 10 mg/dL (9-16); C Reactive Protein 0.21 mg/dL (< or = 0.50); Carbon Dioxide 24 mmol/L (22-29); Chloride 104 mmol/L (96-108); Creatinine Clr Calc Pharmacy 123.8; Estimated Glomerular Filt Rate > 60; Glucose Random 100 mg/dL (60-115); Lipase 17 U/L (8-78); Potassium 4.2 mmol/L (3.3-5.1); Sodium 139 mmol/L (135-145); Total Protein 8.6 g/dL (6.5-8.0)
[2022-09-05 15:24] LABS: Erythrocyte Sedimentation Rate 20 MM/HR (0-15)
== END 2022-09-05 17:06 | disposition left against medical advice (07) ==
PROVIDERS: Physician Assistant; Emergency Provider Emergency Medicine; PCP Internal Medicine
DX: K50.90 Crohn's disease, unspecified, without complications (principal); R11.2 Nausea with vomiting, unspecified; Z79.899 Other long term (current) drug therapy
CPT/HCPCS: 36415; 80053; 83690; 85025; 85652; 86140; 99281; 99283

== ENCOUNTER 2022-10-04 15:54 | Inpatient (IN) | payer MEDICARE, BC, MEDICAID, SELFPAY ==
--- NOTE | ~2022-10-04 | CT_ITS ---
EXAMINATION: CT ABDOMEN AND PELVIS WITH CONTRAST CLINICAL INFORMATION: Previous CT of the abdomen and pelvis most recent July 2022 COMPARISON: Previous CT of the abdomen and pelvis most recent July 2022 TECHNIQUE: Multidetector volumetric images were obtained from the superior aspect of the liver through the pubic symphysis following administration 85 mL of Omnipaque 350 intravenous contrast. Sagittal and coronal reformatted images were obtained on the technologist's workstation. Oral contrast: No This CT examination was performed using dose optimization techniques as appropriate, variously including the following: *Automated exposure control *Adjustment of mA and/or kV according to patient size (this includes techniques or standardized protocols for targeted exams where dose is matched to indication/reason for exam; i.e. extremities or head) *Use of iterative reconstruction technique DLP: 806 mGy-cm FINDINGS: No IV contrast is seen and IV likely infiltrated in the arm. LUNG BASES: The visualized lung bases are unremarkable. LIVER, GALLBLADDER, AND BILIARY TREE: The liver is normal in size, shape, and attenuation. No focal hepatic lesion or biliary ductal dilatation is present. The gallbladder is unremarkable with no evidence of radiopaque gallstones, gallbladder wall thickening, or obvious pericholecystic inflammatory changes. PANCREAS: Unremarkable. SPLEEN: Unremarkable. ADRENAL GLANDS: Unremarkable. KIDNEYS AND URETERS: The kidneys are normal in size, shape, and attenuation. Small stones in the lower pole of the left kidney. No hydronephrosis. BLADDER: Unremarkable. GASTROINTESTINAL TRACT: There are postsurgical changes to the distal small bowel and proximal colon in the right lower quadrant. There is wall thickening of the proximal colon suggestive of acute colitis. There is fat in the colon. Specific finding seen with changes from old colitis. There are postsurgical changes to the sigmoid colon. There is very mild diverticulosis. There are several dilated fluid-filled small bowel and small bowel feces sign in the right lower quadrant and left mid abdomen. Appearance is questionable for small bowel stricture is partial small bowel obstruction. The appendix is not seen and may been removed. ABDOMINAL WALL: Small ventral hernia containing fat. Small umbilical hernia containing fat and knuckle of small bowel. No evidence of obstruction. LYMPH NODES: Small small bowel mesentery lymph nodes. No enlarged lymph nodes. No ascites. VASCULAR: Unremarkable. PELVIC VISCERA: Unremarkable. OSSEOUS STRUCTURES: Unremarkable. CT/CT abdomen pelvis w IV con IMPRESSION: Acute colitis of the proximal right colon. Dilated fluid-filled loops of small bowel and small bowel feces sign in the left mid abdomen and right lower quadrant questionable for partial small bowel obstructions. Small left renal stones. Fleischner guidelines were followed.
[2022-10-04 16:02] VITALS: BP 122/74; PULSE 76; O2SAT 99
[2022-10-04 16:13] VITALS: BP 129/80; PULSE 71; RESP 18; TEMP 37.1; O2SAT 98; BMI 31.6
--- NOTE | 2022-10-04 16:14 | ED_ITS ---
HPI - Abdominal Pain General Chief Complaint: Abdominal Pain Stated Complaint: n/v, chrons disease, per ems Time Seen by Provider: 10/04/22 18:10 Source: patient Mode of arrival: ambulatory Limitations: no limitations History of Present Illness HPI narrative: 41-year-old male presents with abdominal pain. The pain is generalized. Severe. Is constant. Is sharp, aching and crampy. It is associated with nausea vomiting. There is no diarrhea. He has had no fevers or chills. There is no clear relieving or exacerbating features. Patient has had similar symptoms in the past with a Crohn's flare ups. He believe this is a Crohn's flare-up. Patient denies any urinary frequency, urgency, dysuria. Denies any fevers or chills. Related Data Home Medications Medication Instructions Recorded Confirmed infliximab 100 mg intravenous mg IV Q8W 05/09/20 06/11/22 solution (Remicade) Allergies Allergy/AdvReac Type Severity Reaction Status Date / Time No Known Allergies Allergy Verified 10/04/22 16:12 [No Known Allergies*] Review of Systems Review of Systems CONSTITUTIONAL: Denies weight loss, fever and chills. HEENT: Denies changes in vision and hearing. RESPIRATORY: Denies SOB and cough. CV: Denies palpitations no CP. GI: + abdominal pain, nausea, vomiting - diarrhea. : Denies dysuria and urinary frequency. MSK: Denies myalgia and joint pain. SKIN: Denies rash and pruritus. NEUROLOGICAL: Denies headache and syncope. PSYCHIATRIC: Denies recent changes in mood. Denies anxiety and depression. All other ROS are negative unless in HPI PMFSH Past Medical History Medical History Anemia Anxiety Crohn disease GERD (gastroesophageal reflux disease) High risk medication use Low vitamin D level Pituitary macroadenoma Surgical History H/O colonoscopy History of esophagogastroduodenoscopy (EGD) History of ileostomy History of partial surgical removal of colon Family History Family History Mother Breast cancer Social History Social History Household Members: Family Housing: Apartment Do you presently have visiting nurse or other home services: No Alcohol intake: never Patient Tobacco Use Status: Never used Tobacco e-Cigarette/Vaping Use: Never Used Second Hand Smoke Exposure: No Substance Use Type: Marijuana Advance Directives: No Advance Directives Information Provided: Yes Advance Directives Date on File: 07/17/20 service: No Current occupational status: disabled Physical Exam ED Vital Signs: Vital Signs - 24 hr 10/04/22 16:13 10/04/22 18:03 10/04/22 19:50 Temperature 98.7 F 96.7 F L 97.5 F Pulse Rate 71 70 62 Respiratory Rate 18 24 H 18 Blood Pressure 129/80 137/83 Pulse Oximetry 98 98 98 Oxygen Delivery Method Room Air Room Air BMI result Body Mass Index 31.6 GEN: Well developed, + acute distress, alert, oriented HEENT: Normocephalic, atraumatic, normal external ears, nose appears normal, no oropharyngeal edema or exudates Eyes: Normal to appearance Neck: Supple, no lymphadenopathy Respiratory: Talks in complete sentences, no respiratory distress, clear to auscultation bilaterally Cardiovascular: Regular rate and rhythm, no murmurs rubs or gallops Abdomen: Soft, generalized tenderness, no rebound or guarding Back: No CVA tenderness Extremities: No clubbing cyanosis or edema Neurologic: No focal neurologic deficits, cranial nerves 2-12 intact, strength is 5/5 bilaterally Skin: No rash Course Course Course Narrative: 41 year old male patient with history of Chrons disease, GERD and Anemia presents to the ED with complaints of generalized abdominal pain, nausea, vomiting with hemoptysis since 9am this morning. Patient elicits chest pain that radiates to his lower back. Hasn't been able to eat or drink since this morning. Vital signs are stable. Plan: Labs Reevaluation(s) Reevaluation #1: Patient's pain is getting better. However, I did review the results with the patient. He has what size inflammation in areas of the small bowel with possible partial small-bowel obstruction. I suspect however he does not actually have a bowel obstruction but more likely just may be an ileus secondary to the inflammation. Will contact GI at this time to determine whether antibiotics plus or minus steroids would be appropriate. Time: 21:07 Reevaluation #2: For Dr. Song, if this is most consistent with Crohn's flare-up, which patient believes that it is and also I think this is reasonable, starting steroids methylprednisone wound 60 mg x 1 followed by 20 mg q.8 hours would be appropriate. Time: 21:25 Medical Decision Making Medical Decision Making [facility] Narrative: 41-year-old male presents with abdominal pain. Examination revealed diffuse tenderness without rebound or guarding. He does have a history of Crohn's disease. Differential diagnosis includes Crohn's flare-up, IBS, IBD, diverticulitis, mesenteric adenitis, infectious etiology, fissure, fistula. Patient will require CT scan to rule out any potential complications from a diagnosis of Crohn's flare-up. Will obtain routine laboratory analysis to assist with her diagnosis and manage any possible co conditions. Admission is determined by patient's clinical situation as well as his imaging studies. Differential Diagnosis Differential Diagnoses: The differential diagnosis associated with the presentation includes (See above) Admission/Observation Consideration of admission/observation: Escalation of care including admission/observation considered Lab Data [facility] Lab Attestation statement: I reviewed the patient's lab results. 10/04/22 18:35 10/04/22 16:36 Labs: Lab Results 10/04/22 10/04/22 10/04/22 Range/Units 16:36 18:35 18:35 WBC 17.4 H (4.8-10.8) X10*3/uL RBC 4.62 (4.60-5.80) X10*6/uL Hgb 13.3 L (14.0-18.0) g/dl Hct 40.1 L (42.0-52.0) % MCV 86.8 (80.0-98.0) fL MCH 28.8 (27.0-33.0) pg MCHC 33.2 (31.0-36.0) g/dl RDW 12.2 (11.0-16.0) % Plt Count 246 (160-400) X10*3/uL MPV 12.7 H (9.4-12.4) fL Immature Gran % (Auto) 0.3 (0.0-0.4) % Neut % (Auto) 79.1 H (45-73) % Lymph % (Auto) 11.0 L (20-40) % [place] % (Auto) 9.1 (2-11) % Eos % (Auto) 0.3 (0-4) % Baso % (Auto) 0.2 (0-2) % Lymph # (Auto) 1.9 (1.2-4.9) X10*3/uL [place] # (Auto) 1.6 H (0.1-1.2) X10*3/uL Eos # (Auto) 0.1 (0.0-0.4) X10*3/uL Baso # (Auto) 0.0 (0.0-0.2) X10*3/uL Abs Immat Gran (auto) 0.06 H (0.00-0.03) X10*3/uL Absolute Neuts (auto) 13.6 H (2.0-8.3) x10*3/uL Absolute Nucleated RBC 0.000 (0.0-0.012) X10*3/uL Nucleated RBC % (auto) 0.0 (0.0-0.2) /100WBC Smear Tech's Comments VERIFIED ESR 25 H (0-15) MM/HR Sodium 140 (135-145) mmol/L Potassium 4.1 (3.3-5.1) mmol/L Chloride 107 (96-108) mmol/L BUN 10 (9-16) mg/dL Creatinine 1.02 (0.5-1.4) mg/dL Estim Creat Clear Calc 111.7 Estimated GFR > 60 Random Glucose 132 H (60-115) mg/dL Calcium 10.2 (8.4-10.2) mg/dL Magnesium 1.6 (1.6-2.6) mg/dL Total Bilirubin 0.9 (0.0-1.0) mg/dL Direct Bilirubin 0.3 (0.0-0.5) mg/dL AST 25 (5-37) U/L ALT 21 (0-40) U/L Alkaline Phosphatase 61 (39-117) U/L C-Reactive Protein 0.18 (< or = 0.50) mg/dL Total Protein 8.4 H (6.5-8.0) g/dL Albumin 4.5 (3.5-5.0) g/dL Lipase 15 (8-78) U/L Independent Interpretation I performed an independent interpretation of an: CT Scan (Inflammatory changes on the right side of the abdomen just inferior to the liver. Additionally there are some air-fluid levels consistent with a possible partial small-bowel obstruction) Radiology Impression Discussion of test interpretation with radiology: I have reviewed the radiologist's reading. Radiologist Impression: CT/CT abdomen pelvis w IV con IMPRESSION: Acute colitis of the proximal right colon. Dilated fluid-filled loops of small bowel and? small bowel feces sign in the left mid abdomen and right lower quadrant questionable for partial small bowel obstructions. Small left renal stones. ? Fleischner guidelines were followed. Dictated By: Gladys Brand MD Signed By: <Electronically signed by Gladys Brand MD in [place]> 10/04/222050 Tests considered The following testing was considered but not selected: Ultrasound abdomen patient would benefit from a CT scan over ultrasound. Prescription Management I considered prescription management with: Pain Medication Chronic Conditions Patient?s care impacted by: Other (Crohn's disease) Medications Administered Discontinued Medications Generic Name Dose Route Start Last Admin Trade Name Freq PRN Reason Stop Dose Admin Hydromorphone HCl 1 mg 10/04/22 18:43 10/04/22 18:50 Hydromorphone Hcl 1 Mg/Ml Syringe IVPUSH 10/04/22 18:44 1 mg ONCE ONE Administration Protocol Sodium Chloride 1,000 mls @ 999 mls/hr 10/04/22 18:45 10/04/22 18:51 Ns IV 10/04/22 19:45 999 mls/hr .Q1H1M SANGITA Administration Iohexol 85 ml 10/04/22 19:45 10/04/22 19:46 Iohexol 350 Mg/Ml 100 Ml Infus..Btl IV 10/04/22 19:46 85 ml ONCE ONE Administration Metoclopramide HCl 10 mg 10/04/22 18:43 10/04/22 18:50 Metoclopramide Hcl 10 Mg/2 Ml Vial IVPUSH 10/04/22 18:44 10 mg ONCE ONE Administration Ondansetron HCl 4 mg 10/04/22 18:40 10/04/22 18:42 Ondansetron Odt 4 Mg Tab.Rapdis TRANSLINGU 10/04/22 18:41 4 mg ONCE ONE Administration Critical Care Time Critical Care Time Critical Care Time: Yes Total Critical Care Time: 35 Attestation: Approximately 35 minutes of critical care time was spent on patient including direct patient care, management a potentially the severe morbidity associated condition, interpretation and medical data, documentation in, all outside of any procedures. Discharge Plan Discharge Clinical Impression: Crohn disease, Abdominal pain Patient Disposition: Admitted As Inpatient
[2022-10-04 17:04] LABS: Alanine Aminotransferase 21 U/L (0-40); Albumin Level 4.5 g/dL (3.5-5.0); Alkaline Phosphatase 61 U/L (39-117); Aspartate Amino Transferase 25 U/L (5-37); Bilirubin Direct 0.3 mg/dL (0.0-0.5); Blood Urea Nitrogen 10 mg/dL (9-16); C Reactive Protein 0.18 mg/dL (< or = 0.50); Calcium 10.2 mg/dL (8.4-10.2); Chloride 107 mmol/L (96-108); Creatinine Clr Calc Pharmacy 111.7; Estimated Glomerular Filt Rate > 60; Glucose Random 132 mg/dL (60-115); Lipase 15 U/L (8-78); Magnesium 1.6 mg/dL (1.6-2.6); Potassium 4.1 mmol/L (3.3-5.1); Sodium 140 mmol/L (135-145); Total Protein 8.4 g/dL (6.5-8.0)
[2022-10-04 17:18] LABS: Bilirubin Total 0.9 mg/dL (0.0-1.0)
[2022-10-04 18:03] VITALS: BP 137/83; PULSE 70; RESP 24; TEMP 35.9; O2SAT 98
[2022-10-04] MEDS: Ondansetron ODT 4 MG TAB.RAPDIS TRANSLINGU (18:42)
[2022-10-04] MEDS: Metoclopramide HCl 10 MG/2 ML VIAL IVPUSH (18:50)
[2022-10-04] MEDS: HYDROmorphone HCl 1 MG/ML SYRINGE IVPUSH ×2 (18:50→22:21)
[2022-10-04] MEDS: 0.9 % Sodium Chloride 1,000 ML 999 ML IV (18:51)
[2022-10-04 18:57] LABS: Hemoglobin 13.3 g/dl (14.0-18.0); Mean Corpuscular Volume 86.8 fL (80.0-98.0); PLT CLUMP 1; Red Cell Distribution Width 12.2 % (11.0-16.0); SCAN SMEAR FLAG 1
[2022-10-04 18:59] LABS: Basophils Percent Auto 0.2 % (0-2); Eosinophils Absolute Auto 0.1 X10*3/uL (0.0-0.4); Eosinophils Percent Auto 0.3 % (0-4); Hematocrit 40.1 % (42.0-52.0); Imm Gran Abs Auto 0.06 X10*3/uL (0.00-0.03); Imm Gran Pct Auto 0.3 % (0.0-0.4); Lymphocytes Absolute Auto 1.9 X10*3/uL (1.2-4.9); MANUAL DIFF FLAG SCAN; Mean Corpuscular HGB Conc 33.2 g/dl (31.0-36.0); Mean Corpuscular Hemoglobin 28.8 pg (27.0-33.0); Mean Platelet Volume 12.7 fL (9.4-12.4); Monocytes Absolute Auto 1.6 X10*3/uL (0.1-1.2); Monocytes Percent Auto 9.1 % (2-11); Neutrophils Absolute Auto 13.6 x10*3/uL (2.0-8.3); Neutrophils Percent Auto 79.1 % (45-73); Red Blood Count 4.62 X10*6/uL (4.60-5.80)
[2022-10-04 19:26] LABS: White Blood Count 17.4 X10*3/uL (4.8-10.8)
[2022-10-04 19:27] LABS: Platelet Count 246 X10*3/uL (160-400); SLIDE REVIEW VERIFIED
--- NOTE | 2022-10-04 19:27 | PHA.MEDREC ---
Pharmacy Consult ? Medication Reconciliation Pharmacy has completed the medication reconciliation. Pt states that he is currently only on remicade which is due 10/17/22, pt unsure of dose
[2022-10-04 19:46] LABS: Erythrocyte Sedimentation Rate 25 MM/HR (0-15)
[2022-10-04] MEDS: iohexoL 350 MG/ML 100 ML INFUS..BTL 85 ML IV (19:46)
[2022-10-04 19:50] VITALS: PULSE 62; RESP 18; TEMP 36.4; O2SAT 98
--- NOTE | 2022-10-04 19:53 | PC.NURSE ---
[facility] care of patient at 1915. Patient alert and oriented in no acute distress, vss, skin warm pink and dry. returned from imaging at 194. Radiologist Tech reported possible infiltration of IV stating it was warm to touch. Upon assessment this RN noted no redness, warmth at IV site. Patient reports no pain although he did experience discomfort after receiving IV contrast. Will continue to monitor site. Patietn endorsing 7/10 pain and is requesting medications for pain. RN to speak with provider. Patient reports he is not able to provide a urine sample at this time.
--- NOTE | 2022-10-04 19:53 | MHC.EDTECH ---
Pt aware we need UA sample. He states at this time he can not urinate. Nancy Contreras aware SG.
--- NOTE | 2022-10-04 21:26 | PM.IMHP ---
History of Present Illness Date of Service: 10/04/22 Chief Complaint: Abdominal pain This is a 41-year-old male with pertinent history of Crohn's disease, history of multiple hospitalizations/ER visit due to partial SBO who presents to the emergency department for evaluation of abdominal pain. Patient states he states started having generalized abdominal discomfort on the day of presentation. It was progressive, nonradiating, constant and associated with nausea and multiple episodes of nonbloody emesis. Patient states that it feels like Crohn's flare. He denies fever, chills, diarrhea, chest discomfort, palpitations, shortness of breath, changes in urinary habits. Unable to tolerate p.o. intake due to abdominal pain and nausea. In the emergency department, imaging concerning for acute colitis and partial SBO Review of Systems Constitutional: Constitutional: Reports no additional constitutional complaints Cardiovascular: Cardiovascular: Reports no additional cardiovascular complaints Respiratory: Respiratory: Reports no additional respiratory complaints Gastrointestinal: Gastrointestinal: Reports abdominal pain, Reports nausea and Reports vomiting Genitourinary: Genitourinary: Reports no additional male genitourinary complaints Musculoskeletal: Musculoskeletal: Reports no additional musculoskeletal complaints [facility] Medical History Anemia Anxiety Crohn disease GERD (gastroesophageal reflux disease) High risk medication use Low vitamin D level Pituitary macroadenoma Family History Mother Breast cancer Surgical History H/O colonoscopy History of esophagogastroduodenoscopy (EGD) History of ileostomy History of partial surgical removal of colon Social History Household Members: Family Housing: Apartment Do you presently have visiting nurse or other home services: No Alcohol intake: never Patient Tobacco Use Status: Never used Tobacco e-Cigarette/Vaping Use: Never Used Second Hand Smoke Exposure: No Substance Use Type: Marijuana Advance Directives: No Advance Directives Information Provided: Yes Advance Directives Date on File: 07/17/20 service: No Current occupational status: disabled Meds Allergies Allergy/AdvReac Type Severity Reaction Status Date / Time No Known Allergies Allergy Verified 10/04/22 16:12 [No Known Allergies*] Active Medications: Current Medications Acetaminophen (Acetaminophen Supp 650 Mg Supp.Rect) 650 mg [place] Q6H PRN PRN Reason: Pain, Mild (Pain Scale 1-3) Hydromorphone HCl (Hydromorphone Hcl 1 Mg/Ml Syringe) 1 mg IVPUSH Q2H PRN; Protocol PRN Reason: Pain, Severe (Pain Scale 7-10) Hydromorphone HCl (Hydromorphone Hcl 1 Mg/Ml Syringe) 0.5 mg IVPUSH Q4H PRN; Protocol PRN Reason: Pain, Severe (Pain Scale 7-10) Piperacillin Sod/Tazobactam (Sod 3.375 gm/ Sodium Chloride) 50 mls @ 100 mls/hr IV ONCE ONE Stop: 10/04/22 21:37 Ondansetron HCl (Ondansetron Hcl 4 Mg/2 Ml Vial) 4 mg IVPUSH Q8H PRN PRN Reason: Nausea and Vomiting Pharmacy Consult (Consult Rx Perform Med Rec) 1 each MISCELLANE ONCE PRN PRN Reason: Consult order Sodium Chloride (0.9 % Sodium Chloride Flush 3 Ml Syringe) 3 ml IVFLUSH [facility] Home Medications Medication Instructions Recorded Confirmed Last Taken Type infliximab 100 mg intravenous mg IV Q8W 05/09/20 06/11/22 05/01/22 History solution (Remicade) Physical Exam Vital Signs and Narrative: Vital Signs: Last Vital Signs Temp 97.5 F 10/04/22 19:50 Pulse 62 10/04/22 19:50 Resp 18 10/04/22 19:50 BP 137/83 10/04/22 18:03 Pulse Ox 98 10/04/22 19:50 O2 Del Method Room Air 10/04/22 19:50 BMI result Body Mass Index 31.6 Middle-aged male lying in bed in mild distress Neck supple, no JVD Regular rate and rhythm, S1-S2 heard Regular breath sounds bilaterally, no wheezing or crackles appreciated Abdomen with generalized tenderness to palpation, no guarding, no rigidity, no rebound tenderness Patient is awake, alert and oriented to self, place, time and person ; no focal motor deficit Psych: Normal mood No pedal edema Results Labs 10/04/22 18:35 10/04/22 16:36 Labs: Laboratory Results - last 24 hr 10/04/22 10/04/22 10/04/22 16:36 18:35 18:35 MCV 86.8 MCH 28.8 MCHC 33.2 RDW 12.2 Plt Count 246 MPV 12.7 H Immature Gran % (Auto) 0.3 Neut % (Auto) 79.1 H Lymph % (Auto) 11.0 L [place] % (Auto) 9.1 Eos % (Auto) 0.3 Baso % (Auto) 0.2 Lymph # (Auto) 1.9 [place] # (Auto) 1.6 H Eos # (Auto) 0.1 Baso # (Auto) 0.0 Abs Immat Gran (auto) 0.06 H Absolute Neuts (auto) 13.6 H Absolute Nucleated RBC 0.000 Nucleated RBC % (auto) 0.0 Smear Tech's Comments VERIFIED ESR 25 H Estim Creat Clear Calc 111.7 Estimated GFR > 60 Random Glucose 132 H Calcium 10.2 Magnesium 1.6 Total Bilirubin 0.9 Direct Bilirubin 0.3 AST 25 ALT 21 Alkaline Phosphatase 61 C-Reactive Protein 0.18 Total Protein 8.4 H Albumin 4.5 Lipase 15 Imaging Radiologist's Impressions: Impressions Abdomen/Pelvis CT 10/04/22 19:49 IMPRESSION: Acute colitis of the proximal right colon. Dilated fluid-filled loops of small bowel and small bowel feces sign in the left mid abdomen and right lower quadrant questionable for partial small bowel obstructions. Small left renal stones. Fleischner guidelines were followed. Assessment and Plan (1) Abdominal pain: Status: Acute Plan This is a 41-year-old male with pertinent history of Crohn's disease, history of multiple hospitalizations/ER visit due to partial SBO who presents to the emergency department for evaluation of abdominal pain. #. Abdominal pain due to partial SBO. Imaging with acute colitis. Concerning for Crohn's flare. Dr. Song, GI was consulted from the ER. Will initiate patient on Solu-Medrol and empiric IV antibiotics. Also consulting General surgery. Pain control with IV opioids p.r.n. Will keep patient NPO. Ordered NG tube to suction Med rec pending DVT prophylaxis: Mechanical NPO Full code Admit as inpatient and will require two night minimum hospital stay for treatment of partial SBO. Specialist consult pending Time Spent With Patient Time: Total time managing care of this patient today ____ minutes. Quality Stroke Does the patient have a stroke diagnosis?: No VTE Prior VTE?: No VTE Risk Level:: Medical - moderate - high VTE Device Contraindication: N/A - Device Ordered VTE Drug Contraindication: Treatment Not Indicated
[2022-10-04 21:28] LABS: Carbon Dioxide 17 mmol/L (22-29)
[2022-10-04] MEDS: Piperacillin Sodium/Tazobactam 4.5 GM in 0.9 % Sodium Chloride 100 ML IV (22:12)
[2022-10-04] MEDS: methylPREDNISolone Sod Succ 125 MG/2 ML VIAL 60 MG IVPUSH (22:14)
[2022-10-04 23:03] VITALS: BP 137/71; PULSE 50; RESP 15; TEMP 36.4; O2SAT 96
[2022-10-04 23:33] VITALS: BP 103/59; PULSE 54; RESP 18; TEMP 36.9; O2SAT 96
[2022-10-05] MEDS: 0.9 % Sodium Chloride Flush 3 ML SYRINGE IVFLUSH ×2 (00:41→07:35)
[2022-10-05] MEDS: HYDROmorphone HCl 1 MG/ML SYRINGE IVPUSH (01:57)
[2022-10-05 02:09] LABS: Appearance Urine Clear; Color Urine Yellow; Glucose Urine UA Negative (Negative); Leukocyte Esterase Urine Negative (Negative); Nitrite Urine Negative (Negative); Urine Blood Negative (Negative); Urine Ketones Trace mg/dL (Negative); Urine Protein Negative (Neg-Trace)
[2022-10-05 04:00] VITALS: BP 102/63; PULSE 55; RESP 16; TEMP 36.8; O2SAT 97
[2022-10-05 04:43] LABS: MANUAL DIFF FLAG NO
[2022-10-05 04:46] LABS: Basophils Percent Auto 0.1 % (0-2); Hematocrit 35.4 % (42.0-52.0); Hemoglobin 11.5 g/dl (14.0-18.0); Imm Gran Abs Auto 0.03 X10*3/uL (0.00-0.03); Imm Gran Pct Auto 0.3 % (0.0-0.4); Lymphocytes Absolute Auto 1.2 X10*3/uL (1.2-4.9); Lymphocytes Percent Auto 11.2 % (20-40); Mean Corpuscular HGB Conc 32.5 g/dl (31.0-36.0); Mean Corpuscular Hemoglobin 28.9 pg (27.0-33.0); Mean Corpuscular Volume 88.9 fL (80.0-98.0); Mean Platelet Volume 11.7 fL (9.4-12.4); Monocytes Absolute Auto 0.1 X10*3/uL (0.1-1.2); Monocytes Percent Auto 0.7 % (2-11); Neutrophils Absolute Auto 9.1 x10*3/uL (2.0-8.3); Neutrophils Percent Auto 87.7 % (45-73); Platelet Count 210 X10*3/uL (160-400); Red Blood Count 3.98 X10*6/uL (4.60-5.80); Red Cell Distribution Width 12.4 % (11.0-16.0); White Blood Count 10.3 X10*3/uL (4.8-10.8)
[2022-10-05 05:01] LABS: Anion Gap 14 (12-20); Blood Urea Nitrogen 11 mg/dL (9-16); Calcium 9.2 mg/dL (8.4-10.2); Carbon Dioxide 24 mmol/L (22-29); Chloride 105 mmol/L (96-108); Creatinine Clr Calc Pharmacy 101.7; Estimated Glomerular Filt Rate > 60; Glucose Random 142 mg/dL (60-115); Potassium 4.6 mmol/L (3.3-5.1); Sodium 138 mmol/L (135-145)
[2022-10-05] MEDS: methylPREDNISolone Sod Succ 40 MG/ML VIAL 20 MG IVPUSH (05:15)
[2022-10-05] MEDS: Piperacillin Sodium/Tazobactam 4.5 GM in 0.9 % Sodium Chloride 100 ML IV (05:15)
--- NOTE | 2022-10-05 07:35 | PC.NURSE ---
Alert and oriented. Denies abdominal pain that this time. continues to decline NG tube, stating this happens 2-3 times a year for past 8 years. IV flushed without pain or discomfort.
--- NOTE | 2022-10-05 07:35 | PM.CNGS ---
History of Present Illness Consult details Consult date: 10/05/22 Requesting physician: Donte iTrado Narrative: 41-year-old male patient with a known history of Crohn's disease, s/p ileocecal resection performed at [facility], with history of multiple admissions for small-bowel obstruction returning today with complaints of abdominal pain, nausea and vomiting. The symptoms started yesterday any subsequently presented to the emergency department for further evaluation. Pain was noted diffusely throughout his abdomen. Workup in the emergency department revealed abdominal distension and tenderness. CT abdomen and pelvis revealed distended loops of small bowel down to the anastomosis in the ileocecal region. Findings were suggestive of a small-bowel obstruction. This morning he feels much improved with no further abdominal pain, nausea or vomiting. He reports his bowels are moving normally. Review of Systems Review of Systems: Yes all other systems are reviewed and are negative Gastrointestinal: Gastrointestinal: Reports abdominal pain, Denies constipation, Denies diarrhea, Reports loose stools, Reports nausea and Reports vomiting PMFSH Past Medical History Medical History Anemia Anxiety Crohn disease GERD (gastroesophageal reflux disease) High risk medication use Low vitamin D level Pituitary macroadenoma Family History Family History Mother Breast cancer Surgical History Surgical History H/O colonoscopy History of esophagogastroduodenoscopy (EGD) History of ileostomy History of partial surgical removal of colon Social History Social History Household Members: Family Housing: Apartment Do you presently have visiting nurse or other home services: No Alcohol intake: never Patient Tobacco Use Status: Never used Tobacco e-Cigarette/Vaping Use: Never Used Second Hand Smoke Exposure: No Substance Use Type: Marijuana Advance Directives: No Advance Directives Information Provided: Yes Advance Directives Date on File: 07/17/20 Nutrition Risks: Acute nausea or vomiting x1 week service: No Current occupational status: disabled Meds Allergies Allergy/AdvReac Type Severity Reaction Status Date / Time No Known Allergies Allergy Verified 10/04/22 16:12 [No Known Allergies*] Active Medications: Current Medications Acetaminophen (Acetaminophen Supp 650 Mg Supp.Rect) 650 mg MD Q6H PRN PRN Reason: Pain, Mild (Pain Scale 1-3) Hydromorphone HCl (Hydromorphone Hcl 1 Mg/Ml Syringe) 1 mg IVPUSH Q2H PRN; Protocol PRN Reason: Pain, Severe (Pain Scale 7-10) Last Admin: 10/05/22 01:57 Dose: 1 mg Hydromorphone HCl (Hydromorphone Hcl 1 Mg/Ml Syringe) 0.5 mg IVPUSH Q4H PRN; Protocol PRN Reason: Pain, Severe (Pain Scale 7-10) Piperacillin Sod/Tazobactam (Sod 4.5 gm/ Sodium Chloride) 100 mls @ 200 mls/hr IV Q6H [facility] Last Admin: 10/05/22 05:15 Dose: 200 mls/hr Methylprednisolone Sodium Succinate (Methylprednisolone Sod Succ 40 Mg/Ml Vial) 20 mg IVPUSH Q8H [facility] Last Admin: 10/05/22 05:15 Dose: 20 mg Ondansetron HCl (Ondansetron Hcl 4 Mg/2 Ml Vial) 4 mg IVPUSH Q8H PRN PRN Reason: Nausea and Vomiting Pharmacy Consult (Consult Rx Perform Med Rec) 1 each MISCELLANE ONCE PRN PRN Reason: Consult order Sodium Chloride (0.9 % Sodium Chloride Flush 3 Ml Syringe) 3 ml IVFLUSH QSHIFT [facility] Last Admin: 10/05/22 07:35 Dose: 3 ml Home Medications Medication Instructions Recorded Confirmed Last Taken Type infliximab 100 mg intravenous mg IV Q8W 05/09/20 06/11/22 05/01/22 History solution (Remicade) Physical Exam Vital Signs: Vital Signs: Last Vital Signs Temp 98.2 F 10/05/22 04:00 Pulse 55 10/05/22 04:00 Resp 16 10/05/22 04:00 BP 102/63 10/05/22 04:00 Pulse Ox 97 10/05/22 04:00 O2 Del Method Room Air 10/05/22 04:00 BMI result Body Mass Index 31.6 Const: General: no acute distress and well developed Nutritional Appearance: average body habitus and well nourished Orientation/consciousness: patient oriented x3 Limitations: no limitations HEENT: Head: Yes normocephalic and Yes atraumatic Resp: Effort & Inspection: normal respiratory effort, no audible wheezes, no cough and no respiratory distress GI: Inspection: Yes normal to inspection Palpation (GI): Soft to palpation, nontender, no guarding and not rigid Percussion: Yes tympanic to percussion Auscultation: normal bowel sounds Rectal Exam - Male: Yes deferred Skin: General skin exam: no rashes or lesions noted Neuro: General: patient oriented x3 Extrem: General: Yes normal to inspection Results Labs 10/05/22 04:34 10/05/22 04:34 Labs: Abnormal lab results 10/04/22 10/04/22 10/04/22 Range/Units 16:36 18:35 18:35 WBC 17.4 H (4.8-10.8) X10*3/uL RBC (4.60-5.80) X10*6/uL Hgb 13.3 L (14.0-18.0) g/dl Hct 40.1 L (42.0-52.0) % MPV 12.7 H (9.4-12.4) fL Neut % (Auto) 79.1 H (45-73) % Lymph % (Auto) 11.0 L (20-40) % [place] % (Auto) (2-11) % [place] # (Auto) 1.6 H (0.1-1.2) X10*3/uL Abs Immat Gran (auto) 0.06 H (0.00-0.03) X10*3/uL Absolute Neuts (auto) 13.6 H (2.0-8.3) x10*3/uL ESR 25 H (0-15) MM/HR Carbon Dioxide 17 L (22-29) mmol/L Random Glucose 132 H (60-115) mg/dL Total Protein 8.4 H (6.5-8.0) g/dL 10/05/22 10/05/22 Range/Units 04:34 04:34 WBC (4.8-10.8) X10*3/uL RBC 3.98 L (4.60-5.80) X10*6/uL Hgb 11.5 L (14.0-18.0) g/dl Hct 35.4 L (42.0-52.0) % MPV (9.4-12.4) fL Neut % (Auto) 87.7 H (45-73) % Lymph % (Auto) 11.2 L (20-40) % [place] % (Auto) 0.7 L (2-11) % [place] # (Auto) (0.1-1.2) X10*3/uL Abs Immat Gran (auto) (0.00-0.03) X10*3/uL Absolute Neuts (auto) 9.1 H (2.0-8.3) x10*3/uL ESR (0-15) MM/HR Carbon Dioxide (22-29) mmol/L Random Glucose 142 H (60-115) mg/dL Total Protein (6.5-8.0) g/dL Short CBC 10/04/22 10/05/22 Range/Units 18:35 04:34 WBC 17.4 H 10.3 (4.8-10.8) X10*3/uL Hgb 13.3 L 11.5 L (14.0-18.0) g/dl Hct 40.1 L 35.4 L (42.0-52.0) % Plt Count 246 210 (160-400) X10*3/uL BMP 10/04/22 10/05/22 16:36 04:34 Sodium 140 138 Potassium 4.1 4.6 Chloride 107 105 Carbon Dioxide 17 L 24 BUN 10 11 Creatinine 1.02 1.12 Calcium 10.2 9.2 D Liver Function 10/04/22 Range/Units 16:36 Total Bilirubin 0.9 (0.0-1.0) mg/dL Direct Bilirubin 0.3 (0.0-0.5) mg/dL AST 25 (5-37) U/L ALT 21 (0-40) U/L Alkaline Phosphatase 61 (39-117) U/L Albumin 4.5 (3.5-5.0) g/dL Urine 10/05/22 Range/Units 01:58 Urine Color Yellow Urine Appearance Clear Urine pH 6.0 (5.0-9.0) Ur Specific [place] 1.010 (1.005-1.025) Urine Protein Negative (Neg-Trace) mg/dL Urine Glucose (UA) Negative (Negative) mg/dL All other labs normal. Imaging Abdomen CT scan report/results: image reviewed CT scan - pelvis: image reviewed Assessment and Plan (1) Crohn disease: Status: Acute (2) Small bowel obstruction: Status: Resolved Plan 41-year-old male patient with a known history of Crohn's disease and previous ileocecal resection returning with a small-bowel obstruction of 1 day duration. This morning he feels much improved with decreased pain and no further nausea or vomiting. His abdomen is soft and nondistended without tenderness. There is still tympany to percussion which may be chronic. Recommend starting clear liquids and advance as tolerated. No surgical intervention anticipated. Time Spent With Patient Time: Total time managing care of this patient today ____ minutes. Procedures Date of Service Date of Service: 10/05/22
--- NOTE | 2022-10-05 07:47 | PC.NURSE ---
Alert and oriented. Denies pain. States she doesn't know what her son is coming to pick her up. oob to bedside commode without assist.
--- NOTE | 2022-10-05 08:04 | PC.NURSE ---
Multiple attempts to reach blair Lam at [phone] unsuccessful at this time
--- NOTE | 2022-10-05 08:19 | PC.NURSE ---
Patient requesting to be discharged. Does not want to be admitted.. States knows his body and he feels as though he is safe to gom home. Educated on risks of being discharged with partial SBO, patient states this has happened to him 2-3 times for the past 8 years and he knows what to watch out for.
--- NOTE | 2022-10-05 08:25 | PC.NURSE ---
Hospitalist notified, stating okay for patient to leave ama, ama formed with patient and witness. Patient instructed to return if symptoms return. Patient verbalized understanding
--- NOTE | 2022-10-05 08:30 | P.DS_ITS ---
DS: Providers Provider Date of Service: 10/05/22 Date of admission: 10/04/22 21:23 Primary care physician: Unknown Physician Consults: 10/04/22 21:22 Consult to Gastroenterology Routine Consulting Provider: Kenneth Song Reason for consultation: ?crohns flare Consult to General Surgery [place]ine Consulting [place] [facility] [place] [facility] Reason for consultation: partial sbo DS: Diagnosis Discharge Diagnosis (1) Crohn disease: Status: Acute (2) Small bowel obstruction: Status: Resolved DS: Summary Hospital Course Hospital Course: Patient has history of Crohn's disease and was admitted overnight with abdominal pain related to partial small-bowel obstruction patient was made NPO overnight, he was evaluated by Dr. Romero from surgery this morning and his diet was to be advanced slowly started with a clear liquid diet movement after that patient decided that he wanted to leave against medical advice he was advised against this. Of sound mind, he was aware of the risks of complication from abdominal pain including worsening bowel obstruction, perforation, sepsis and even . He proceeded to sign out against medical advice and advised to return if to ED or call 911 with any health issue Final diagnosis: Crohn's disease, partial small-bowel obstruction. Time Spent with Patient Time attestation: Total time managing care of this patient today ____ minutes. Discharge coordination time: Less than 30 minutes Quality: Safe Use of Opioids Does Pt have an Active Cancer Diagnosis on the Problem List?: No Quality: Stroke Does the patient have a stroke diagnosis?: No Physical Exam Vital Signs: Vital Signs: Last Vital Signs Temp 98.2 F 10/05/22 04:00 Pulse 55 10/05/22 04:00 Resp 16 10/05/22 04:00 BP 102/63 10/05/22 04:00 Pulse Ox 97 10/05/22 04:00 O2 Del Method Room Air 10/05/22 04:00 BMI result Body Mass Index 31.6 Const: Other: pt was already in [address] about to leave, alert and oriented x 3 and unable to do full exam DS: Data Data Completed and Pending Labs on day of discharge: Laboratory Results - last 24 hr 10/04/22 10/04/22 10/04/22 16:36 18:35 18:35 WBC 17.4 H RBC 4.62 Hgb 13.3 L Hct 40.1 L MCV 86.8 MCH 28.8 MCHC 33.2 RDW 12.2 Plt Count 246 MPV 12.7 H Immature Gran % (Auto) 0.3 Neut % (Auto) 79.1 H Lymph % (Auto) 11.0 L Barton % (Auto) 9.1 Eos % (Auto) 0.3 Baso % (Auto) 0.2 Lymph # (Auto) 1.9 Barton # (Auto) 1.6 H Eos # (Auto) 0.1 Baso # (Auto) 0.0 Abs Immat Gran (auto) 0.06 H Absolute Neuts (auto) 13.6 H Absolute Nucleated RBC 0.000 Nucleated RBC % (auto) 0.0 Smear Tech's Comments VERIFIED ESR 25 H Sodium 140 Potassium 4.1 Chloride 107 Carbon Dioxide 17 L Anion Gap TNP BUN 10 Creatinine 1.02 Estim Creat Clear Calc 111.7 Estimated GFR > 60 Random Glucose 132 H Calcium 10.2 Magnesium 1.6 Total Bilirubin 0.9 Direct Bilirubin 0.3 AST 25 ALT 21 Alkaline Phosphatase 61 C-Reactive Protein 0.18 Total Protein 8.4 H Albumin 4.5 Lipase 15 Urine Color Urine Appearance Urine pH Ur Specific [place] Urine Protein Urine Glucose (UA) Urine Ketones Urine Blood Urine Nitrite Ur Leukocyte Esterase 10/05/22 10/05/22 10/05/22 01:58 04:34 04:34 WBC 10.3 RBC 3.98 L Hgb 11.5 L Hct 35.4 L MCV 88.9 MCH 28.9 MCHC 32.5 RDW 12.4 Plt Count 210 MPV 11.7 Immature Gran % (Auto) 0.3 Neut % (Auto) 87.7 H Lymph % (Auto) 11.2 L Barton % (Auto) 0.7 L Eos % (Auto) 0.0 Baso % (Auto) 0.1 Lymph # (Auto) 1.2 Barton # (Auto) 0.1 Eos # (Auto) 0.0 Baso # (Auto) 0.0 Abs Immat Gran (auto) 0.03 Absolute Neuts (auto) 9.1 H Absolute Nucleated RBC 0.000 Nucleated RBC % (auto) 0.0 Smear Tech's Comments ESR Sodium 138 Potassium 4.6 Chloride 105 Carbon Dioxide 24 Anion Gap 14 BUN 11 Creatinine 1.12 Estim Creat Clear Calc 101.7 Estimated GFR > 60 Random Glucose 142 H Calcium 9.2 D Magnesium Total Bilirubin Direct Bilirubin AST ALT Alkaline Phosphatase C-Reactive Protein Total Protein Albumin Lipase Urine Color Yellow Urine Appearance Clear Urine pH 6.0 Ur Specific [place] 1.010 Urine Protein Negative Urine Glucose (UA) Negative Urine Ketones Trace Urine Blood Negative Urine Nitrite Negative Ur Leukocyte Esterase Negative Discharge Plan Discharge Anticipated Discharge Date/Time: 10/05/22 08:27 Patient Disposition: Left Against Medical Advice Discharge Diagnosis: partial bowel obstruction Referrals: Physician,Unknown J [Primary Care Provider] - 1 Week Discharge Medications: Continued Remicade 100 mg recon soln IV Q8W Rx Instructions: NEXT DOSE: 10/17/2022 Discharge Orders: Discharge Order (Routine); Ordered 10/05/22 Ordered By: Willy Mlsherif Diet: Advance to usual diet Activity on Discharge: As tolerated Care Plan Goals: left ama Health Concerns: Left AMA Plan of Treatment: Left AMA Assessment: Left AMA
--- NOTE | 2022-10-05 08:51 | MHC.CM.ED ---
Patient left AMA before being seen by case management.
== END 2022-10-05 09:00 | disposition left against medical advice (07) | DRG 387 ==
LOC: HO.ED 21:09 → HO.EDOVER 23:15
PROVIDERS: Physician Assistant; Admitting Provider Student in an Organized Health Care Education/Training Program; Emergency Provider Emergency Medicine; PCP Internal Medicine; Visit Provider Internal Medicine
DX: K50.812 Crohn's disease of both small and large intestine with intestinal obstruction (principal); K21.9 Gastro-esophageal reflux disease without esophagitis; Z79.620 Long term (current) use of immunosuppressive biologic
CPT/HCPCS: 36415; 74177; 80048; 80076; 81003; 83690; 83735; 85025; 85652; 86140; 87040; 99284; J1170; J2543; J2550; J2765; J2920; J2930; Q9967

== ENCOUNTER → 2022-10-04 16:38 | Outpatient (BNV) | payer MEDICARE, BC, MEDICAID, SELFPAY | PROVIDERS: Emergency Provider Emergency Medicine; Visit Provider Student in an Organized Health Care Education/Training Program | DX: K50.90 Crohn's disease, unspecified, without complications (principal); K56.609 Unspecified intestinal obstruction, unspecified as to partial versus complete obstruction; R10.9 Unspecified abdominal pain; Z53.29 Procedure and treatment not carried out because of patient's decision for other reasons | CPT/HCPCS: 99222; 99238 ==

== ENCOUNTER → 2022-10-04 21:23 | Outpatient (BNV) | payer MEDICARE, BC, MEDICAID, SELFPAY | PROVIDERS: Admitting Provider Student in an Organized Health Care Education/Training Program; Emergency Provider Emergency Medicine; Visit Provider Surgery | DX: K50.90 Crohn's disease, unspecified, without complications (principal); K56.609 Unspecified intestinal obstruction, unspecified as to partial versus complete obstruction | CPT/HCPCS: 99223 ==

== ENCOUNTER 2022-11-17 02:12 | Emergency (ER) | payer MEDICARE, BC, MEDICAID, SELFPAY ==
--- NOTE | ~2022-11-17 | CT_ITS ---
EXAMINATION: CT ABDOMEN AND PELVIS WITHOUT CONTRAST CLINICAL INFORMATION: Pain. History of Crohn's disease. COMPARISON: 10/04/2022. TECHNIQUE: Multidetector volumetric imaging was performed from the superior aspect of the liver through the pubic symphysis. Sagittal and coronal reformatted images were obtained on the technologist's workstation. This CT examination was performed using dose optimization techniques as appropriate, variously including the following: *Automated exposure control *Adjustment of mA and/or kV according to patient size (this includes techniques or standardized protocols for targeted exams where dose is matched to indication/reason for exam; i.e. extremities or head) *Use of iterative reconstruction technique DLP: 623.59 mGy-cm FINDINGS: LUNG BASES: The visualized lung bases are unremarkable. LIVER, GALLBLADDER, AND BILIARY TREE: The liver is normal in size, shape, and attenuation. No focal hepatic lesion or biliary ductal dilatation is present. The gallbladder is unremarkable with no evidence of radiopaque gallstones, gallbladder wall thickening, or obvious pericholecystic inflammatory changes. PANCREAS: Unremarkable. SPLEEN: Unremarkable. ADRENAL GLANDS: Unremarkable. KIDNEYS AND URETERS: The kidneys are normal in size, shape, and attenuation. There are stable calcifications lower pole left kidney. No perinephric stranding. There is no hydronephrosis BLADDER: Unremarkable GASTROINTESTINAL TRACT: There are distended/mildly dilated mid small bowel loops measuring up to 3.4 cm extending to the level of an apparent enteroenteric anastomosis. The bowel beyond the anastomosis is of normal caliber. ABDOMINAL WALL: There is a small umbilical hernia containing fat. LYMPH NODES: Normal. VASCULAR: Unremarkable. PELVIC VISCERA: Unremarkable. OSSEOUS STRUCTURES: Unremarkable. CT/CT abdomen pelvis wo IV con IMPRESSION: Dilated mid small bowel loops to the level of an enteroenteric anastomosis. An early or partial small bowel obstruction is considered. A similar finding was seen previously. Fleischner guidelines were followed.
[2022-11-17 02:28] VITALS: BP 138/93; PULSE 69; RESP 18; TEMP 36.8; O2SAT 100; BMI 30.8
--- NOTE | 2022-11-17 02:52 | ED.ABDPAIN ---
HPI - Abdominal Pain General Chief Complaint: Abdominal Pain Stated Complaint: stomach/abdominal pain, n/v Time Seen by Provider: 11/17/22 02:51 Source: patient Mode of arrival: ambulatory Limitations: no limitations History of Present Illness HPI narrative: Patient's history of Crohn disease since 2004 multiple surgeries nearly hospital on Remicade for last 3 years used to be on Humira before had a SBO on 08/08 comes as been having diffuse abdominal pain with diarrhea and nausea since last night Related Data Home Medications Medication Instructions Recorded Confirmed infliximab 100 mg intravenous mg IV Q8W 05/09/20 06/11/22 solution (Remicade) Previous Rx's Medication Instructions Recorded prednisone 20 mg tablet 40 mg PO DAILY #10 tabs 11/17/22 Allergies Allergy/AdvReac Type Severity Reaction Status Date / Time No Known Allergies Allergy Verified 11/17/22 02:31 [No Known Allergies*] Review of Systems Review of Systems Yes all other systems are reviewed and are negative PMFSH Past Medical History Medical History Anemia Anxiety Crohn disease GERD (gastroesophageal reflux disease) High risk medication use Low vitamin D level Pituitary macroadenoma Surgical History H/O colonoscopy History of esophagogastroduodenoscopy (EGD) History of ileostomy History of partial surgical removal of colon Family History Family History Mother Breast cancer Social History Social History Household Members: Family Housing: Apartment Do you presently have visiting nurse or other home services: No Alcohol intake: never Patient Tobacco Use Status: Never used Tobacco Smoked in Last 30 Days: No e-Cigarette/Vaping Use: Never Used Second Hand Smoke Exposure: No Use of substances other than those prescribed or required for medical reasons: No Substance Use Type: Marijuana Advance Directives: No Advance Directives Information Provided: No Advance Directives Date on File: 07/17/20 service: No Current occupational status: disabled Physical Exam ED Vital Signs: Vital Signs - 24 hr 11/17/22 02:28 11/17/22 03:40 Temperature 98.2 F 98.0 F Pulse Rate 69 55 Respiratory Rate 18 14 Blood Pressure 138/93 H 129/86 Pulse Oximetry 100 96 Oxygen Delivery Method Room Air Room Air BMI result Body Mass Index 30.8 Appearance: Alert. Oriented X3. No acute distress. Eyes: PERRLA, No Nystagmus ENT: Pharynx normal. Oral Mucosa moist Neck: Normal inspection. Neck supple. CVS: Normal heart rate and rhythm. Pulses normal. Respiratory: No respiratory distress. Equal air entry bilateral, no wheezing/rales/rhonchi Abdomen: Soft and nontender. Bowel sounds are present, no mass palpable, no CVA tenderness Skin: Skin warm and dry. Normal skin color. Normal skin turgor. Extremities: No lower extremity edema. No calf tenderness Neuro: Oriented X 3. No motor deficit. No sensory deficit.No cerebellar signs , cranial nerves II-XII intact Medical Decision Making Medical Decision Making MDM Narrative: Patient with Crohn disease flare up CT scan showed narrowing of the lida enteric anastomosis similar to that in the past with dilated small bowels more suggestive of partial ileus same as seen in 10/04 CT scan patient does not want to stay in the hospital as a feeling better and not throwing up has seen records management clerk plan to have Botox injection at the site of the stricture will discharge patient home advised to have clear fluids take prednisone for now and follow with records management clerk Differential Diagnosis Differential Diagnoses: The differential diagnosis associated with the presentation includes Partial bowel obstruction/SBO/colitis Admission/Observation Consideration of admission/observation: Escalation of care including admission/observation considered Lab Data [facility] Lab Attestation statement: I reviewed the patient's lab results. 11/17/22 02:55 11/17/22 02:55 Labs: Lab Results 11/17/22 11/17/22 Range/Units 02:55 02:55 WBC 10.1 (4.8-10.8) X10*3/uL RBC 4.17 L (4.60-5.80) X10*6/uL Hgb 12.1 L (14.0-18.0) g/dl Hct 36.0 L (42.0-52.0) % MCV 86.3 (80.0-98.0) fL MCH 29.0 (27.0-33.0) pg MCHC 33.6 (31.0-36.0) g/dl RDW 12.0 (11.0-16.0) % Plt Count 259 (160-400) X10*3/uL MPV 11.1 (9.4-12.4) fL Immature Gran % (Auto) 0.3 (0.0-0.4) % Neut % (Auto) 53.9 (45-73) % Lymph % (Auto) 33.3 (20-40) % Summers % (Auto) 8.8 (2-11) % Eos % (Auto) 3.1 (0-4) % Baso % (Auto) 0.6 (0-2) % Lymph # (Auto) 3.4 (1.2-4.9) X10*3/uL Summers # (Auto) 0.9 (0.1-1.2) X10*3/uL Eos # (Auto) 0.3 (0.0-0.4) X10*3/uL Baso # (Auto) 0.1 (0.0-0.2) X10*3/uL Abs Immat Gran (auto) 0.03 (0.00-0.03) X10*3/uL Absolute Neuts (auto) 5.4 (2.0-8.3) x10*3/uL Absolute Nucleated RBC 0.000 (0.0-0.012) X10*3/uL Nucleated RBC % (auto) 0.0 (0.0-0.2) /100WBC Sodium 139 (135-145) mmol/L Potassium 3.8 (3.3-5.1) mmol/L Chloride 107 (96-108) mmol/L Carbon Dioxide 20 L (22-29) mmol/L Anion Gap 16 (12-20) BUN 12 (9-16) mg/dL Creatinine 0.87 (0.5-1.4) mg/dL Estim Creat Clear Calc 128.2 Estimated GFR > 60 Random Glucose 108 (60-115) mg/dL Calcium 9.7 (8.4-10.2) mg/dL Total Bilirubin 0.5 (0.0-1.0) mg/dL Direct Bilirubin 0.2 (0.0-0.5) mg/dL AST 28 (5-37) U/L ALT 23 (0-40) U/L Alkaline Phosphatase 70 (39-117) U/L Total Protein 8.2 H (6.5-8.0) g/dL Albumin 4.2 (3.5-5.0) g/dL Lipase 25 (8-78) U/L Radiology Impression Discussion of test interpretation with radiology: I have reviewed the radiologist's reading. Radiologist Impression: [address] [address] [address] Scan Report Signed Patient: Toño Whalen MR#: [id number] : 1980 Acct:[id number] Age/Sex: 42 / M ADM Date: 11/17/22 Loc: HO.ED Attending Dr: Ordering Physician: Jose Antonio Hilliard MD Date of Service: 11/17/22 Procedure(s): CT abdomen pelvis wo IV con Accession Number(s): [id number] cc: Emilia Leija MD; Jose Antonio Hilliard MD~ EXAMINATION: CT ABDOMEN AND PELVIS WITHOUT CONTRAST? CLINICAL INFORMATION: Pain. History of Crohn's disease.? COMPARISON: 10/04/2022. TECHNIQUE: Multidetector volumetric imaging was performed from the superior aspect of the liver through the pubic symphysis. Sagittal and coronal reformatted images were obtained on the technologist's workstation.? This CT examination was performed using dose optimization techniques as appropriate, variously including the following: *Automated exposure control *Adjustment of mA and/or kV according to patient size (this includes techniques or standardized protocols for targeted exams where dose is matched to indication/reason for exam; i.e. extremities or head) *Use of iterative reconstruction technique DLP: 623.59 mGy-cm FINDINGS: LUNG BASES: The visualized lung bases are unremarkable.? LIVER, GALLBLADDER, AND BILIARY TREE: The liver is normal in size, shape, and attenuation. No focal hepatic lesion or biliary ductal dilatation is present. The gallbladder is unremarkable with no evidence of radiopaque gallstones, gallbladder wall thickening, or obvious pericholecystic inflammatory changes.? PANCREAS: Unremarkable.? SPLEEN: Unremarkable.? ADRENAL GLANDS: Unremarkable.? KIDNEYS AND URETERS: The kidneys are normal in size, shape, and attenuation. There are stable calcifications lower pole left kidney. No perinephric stranding.? There is no hydronephrosis BLADDER: Unremarkable GASTROINTESTINAL TRACT: There are distended/mildly dilated mid small bowel loops measuring up to 3.4 cm extending to the level of an apparent enteroenteric anastomosis. The bowel beyond the anastomosis is of normal caliber.? ABDOMINAL WALL: There is a small umbilical hernia containing fat.? LYMPH NODES: Normal. VASCULAR: Unremarkable. PELVIC VISCERA: Unremarkable.? OSSEOUS STRUCTURES: Unremarkable.? CT/CT abdomen pelvis wo IV con IMPRESSION: Dilated mid small bowel loops to the level of an enteroenteric anastomosis. An early or partial small bowel obstruction is considered. A similar finding was seen previously. ? Fleischner guidelines were followed Medications Administered Discontinued Medications Generic Name Dose Route Start Last Admin Trade Name Freq PRN Reason Stop Dose Admin Sodium Chloride 1,000 mls @ 999 mls/hr 11/17/22 03:06 11/17/22 03:14 Ns IV 11/17/22 04:06 999 mls/hr .Q1H1M ONE Administration Methylprednisolone Sodium Succinate 125 mg 11/17/22 03:15 11/17/22 03:24 Methylprednisolone Sod Succ 125 Mg/2 Ml Vial IVPUSH 11/17/22 03:16 125 mg ONCE ONE Administration Morphine Sulfate 4 mg 11/17/22 03:06 11/17/22 03:14 Morphine Sulfate 4 Mg/Ml Cartridge IVPUSH 11/17/22 03:07 4 mg ONCE ONE Administration Protocol Ondansetron HCl 4 mg 11/17/22 03:06 11/17/22 03:14 Ondansetron Hcl 4 Mg/2 Ml Vial IVPUSH 11/17/22 03:07 4 mg ONCE ONE Administration Discharge Plan Discharge Clinical Impression: Crohn disease Patient Disposition: Home, Self-Care Instructions: Crohn Disease (ED) Additional Instructions: have clear fluids advance as tolerated report to the ER if vomiting or worsening of the pain prednisone as advised follow-up with records management clerk Prescriptions: New prednisone 20 mg tablet 40 mg PO DAILY Qty: 10 0RF No Action Remicade 100 mg recon soln IV Q8W Rx Instructions: NEXT DOSE: 10/17/2022
[2022-11-17 02:58] LABS: MANUAL DIFF FLAG NO
[2022-11-17 03:01] LABS: Basophils Absolute Auto 0.1 X10*3/uL (0.0-0.2); Basophils Percent Auto 0.6 % (0-2); Eosinophils Absolute Auto 0.3 X10*3/uL (0.0-0.4); Eosinophils Percent Auto 3.1 % (0-4); Hemoglobin 12.1 g/dl (14.0-18.0); Imm Gran Abs Auto 0.03 X10*3/uL (0.00-0.03); Imm Gran Pct Auto 0.3 % (0.0-0.4); Lymphocytes Absolute Auto 3.4 X10*3/uL (1.2-4.9); Lymphocytes Percent Auto 33.3 % (20-40); Mean Corpuscular HGB Conc 33.6 g/dl (31.0-36.0); Mean Corpuscular Volume 86.3 fL (80.0-98.0); Mean Platelet Volume 11.1 fL (9.4-12.4); Monocytes Absolute Auto 0.9 X10*3/uL (0.1-1.2); Monocytes Percent Auto 8.8 % (2-11); Neutrophils Absolute Auto 5.4 x10*3/uL (2.0-8.3); Neutrophils Percent Auto 53.9 % (45-73); Platelet Count 259 X10*3/uL (160-400); Red Blood Count 4.17 X10*6/uL (4.60-5.80); White Blood Count 10.1 X10*3/uL (4.8-10.8)
[2022-11-17] MEDS: ondansetron HCL 4 MG/2 ML VIAL IVPUSH (03:14)
[2022-11-17] MEDS: Morphine Sulfate 4 MG/ML CARTRIDGE IVPUSH (03:14)
[2022-11-17] MEDS: 0.9 % Sodium Chloride 1,000 ML 999 ML IV (03:14)
[2022-11-17 03:18] LABS: Alanine Aminotransferase 23 U/L (0-40); Albumin Level 4.2 g/dL (3.5-5.0); Alkaline Phosphatase 70 U/L (39-117); Anion Gap 16 (12-20); Aspartate Amino Transferase 28 U/L (5-37); Bilirubin Direct 0.2 mg/dL (0.0-0.5); Bilirubin Total 0.5 mg/dL (0.0-1.0); Blood Urea Nitrogen 12 mg/dL (9-16); Calcium 9.7 mg/dL (8.4-10.2); Carbon Dioxide 20 mmol/L (22-29); Chloride 107 mmol/L (96-108); Creatinine Clr Calc Pharmacy 128.2; Estimated Glomerular Filt Rate > 60; Glucose Random 108 mg/dL (60-115); Lipase 25 U/L (8-78); Potassium 3.8 mmol/L (3.3-5.1); Sodium 139 mmol/L (135-145); Total Protein 8.2 g/dL (6.5-8.0)
[2022-11-17] MEDS: methylPREDNISolone Sod Succ 125 MG/2 ML VIAL IVPUSH (03:24)
[2022-11-17 03:40] VITALS: BP 129/86; PULSE 55; RESP 14; TEMP 36.7; O2SAT 96
== END 2022-11-17 05:47 | disposition home or self-care (01) ==
PROVIDERS: Emergency Provider Internal Medicine; PCP Internal Medicine
DX: K50.90 Crohn's disease, unspecified, without complications (principal); R11.2 Nausea with vomiting, unspecified; Z79.899 Other long term (current) drug therapy
CPT/HCPCS: 36415; 74176; 80053; 82248; 83690; 85025; 96374; 96375; 99284; J2270; J2405; J2930

== ENCOUNTER 2022-12-01 11:15 | Outpatient (AMB) | payer MEDICARE, BC, MEDICAID, SELFPAY ==
--- NOTE | 2022-12-01 11:15 | MHC.OFFVIS ---
Intake Intake Visit Reasons: 4-5 month fu Intake Note: Toño presents as a telehealth today. CC: States that his stomach has not been feeling right. He denies irregular bowel movemements - says acid reflux here and there. 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 He went to ED 11/17/22 with pain,--mild dilated small bowel loops, INTERIM: He has been having gerda umbilical pains on and off more frequently no nausea, or vomiting cant say if food worsens pain passing stool, gas, having diarrhea, norm for him no blood in the stool no joint swelling, or pain no mouth ulcers or sore last dose of remicade 6 weeks ago he feels remicade not working as well as before EXAM: GENERAL: The patient is well developed and nontoxic. 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 check lactoferrin to see if inflammation is present as well as c diff, GI panel, check remicade level and for Ab [facility] Medical History Anemia Anxiety Crohn disease GERD (gastroesophageal reflux disease) High risk medication use Low vitamin D level Pituitary macroadenoma Surgical History H/O colonoscopy History of esophagogastroduodenoscopy (EGD) History of ileostomy History of partial surgical removal of colon Family History Mother Breast cancer Social History Household Members: Family Housing: Apartment Do you presently have visiting nurse or other home services: No Alcohol intake: never Patient Tobacco Use Status: Never used Tobacco e-Cigarette/Vaping Use: Never Used Second Hand Smoke Exposure: No Substance Use Type: Marijuana Advance Directives Date on File: 07/17/20 service: No Current occupational status: disabled Assessment & Plan Assessment & Plan (1) Abdominal pain: Code(s): R10.9 - Unspecified abdominal pain (2) Crohn disease: Code(s): K50.90 - Crohn's disease, unspecified, without complications (3) High risk medication use: Comment: Remicade infusions. Code(s): Z79.899 - Other intermediate manager (current) drug therapy Orders: Orders Prom[employer] ANSER IFX Today R10.9 - Unspecified abdominal pain, Z79.899 - Other intermediate manager (current) drug therapy CDiff Gene PCR Today K50.90 - Crohn's disease, unspecified, without complications, R10.9 - Unspecified abdominal pain GI Panel Today K50.90 - Crohn's disease, unspecified, without complications, R10.9 - Unspecified abdominal pain, R19.7 - Diarrhea, unspecified Giardia Ag Stool EIA Today K50.90 - Crohn's disease, unspecified, without complications, R10.9 - Unspecified abdominal pain Medications: New sodium,potassium,mag sulfates 17.5-3.13-1.6 gram (Suprep Bowel Prep Kit) DILUTE; drink 1/2 at 6-8 pm and half at 11 PM- 1AM 354 mL 0RF budesonide ER 9 mg (3 x 3 mg) PO DAILY 90 ea 1RF Telehealth Telehealth Location of provider rendering services: practice address Location of patient: address on file Patient Identification confirmed using: Name, : Yes Telehealth method: video Patient verbally consented to treatment: Yes Patient verbally consented to billing insurance company: Yes Patient informed of any privacy concerns related to visit: Yes Minutes spent on Phone/Video with Pt.: 11 Coding Level of Care Code Tele Est Pt Level 3 (15716) Diagnoses Abdominal pain R10.9 Crohn disease K50.90 High risk medication use Z79.899
== END 2022-12-01 14:19 | disposition home or self-care (01) ==
LOC: HO.HGI 11:15
PROVIDERS: PCP Internal Medicine; Visit Provider Internal Medicine Gastroenterology
DX: K50.90 Crohn's disease, unspecified, without complications (principal); Z79.620 Long term (current) use of immunosuppressive biologic; R10.9 Unspecified abdominal pain
CPT/HCPCS: 99213

== ENCOUNTER → 2022-12-01 11:15 | Outpatient (BNVA) | payer MEDICARE, BC, MEDICAID, SELFPAY | PROVIDERS: PCP Internal Medicine; Visit Provider Internal Medicine Gastroenterology ==

== ENCOUNTER 2022-12-19 11:57 | Emergency (ER) | payer MEDICARE, BC, MEDICAID, SELFPAY ==
--- NOTE | ~2022-12-19 | XR_ITS ---
EXAMINATION: XR ABDOMEN KUB CLINICAL INDICATION: Abdominal pain COMPARISON: CT of the abdomen and pelvis November 2022 TECHNIQUE: Supine of the abdomen. FINDINGS: The bowel gas pattern is normal with no evidence of ileus or obstruction. Surgical staple lines in the right lower quadrant and pelvis. No free air. Calcifications projecting over the lower pole the left kidney suggestive of small stones. Bony structures are unremarkable. XR/XR KUB IMPRESSION: Normal bowel gas pattern. Left renal stones.
--- NOTE | ~2022-12-19 | CT_ITS ---
EXAMINATION: CT ABDOMEN AND PELVIS WITHOUT CONTRAST CLINICAL INFORMATION: Possible obstruction. Abdomen pain COMPARISON: Portions of a previous CT 11/17/22 TECHNIQUE: Multidetector volumetric imaging was performed from the superior aspect of the liver through the pubic symphysis. Sagittal and coronal reformatted images were obtained on the technologist's workstation. This CT examination was performed using dose optimization techniques as appropriate, variously including the following: *Automated exposure control *Adjustment of mA and/or kV according to patient size (this includes techniques or standardized protocols for targeted exams where dose is matched to indication/reason for exam; i.e. extremities or head) *Use of iterative reconstruction technique DLP: 531 mGy-cm FINDINGS: LUNG BASES: No suspicious abnormality in the visualized lung bases. The esophagus is not well evaluated but wall thickening could be present LIVER, GALLBLADDER, AND BILIARY TREE: No suspicious abnormality in the liver. No opaque gallstone. No biliary dilation. PANCREAS: No suspicious abnormality SPLEEN: Within normal limits ADRENAL GLANDS: Normal KIDNEYS AND URETERS: There is no dilation of the urinary collecting system on either side. There are small nonobstructing lower pole left renal calculi. The largest measures 0.5 cm and is 10.2 cm from the skin No ureteral calculus BLADDER: The bladder is moderately distended. No focal abnormality. GASTROINTESTINAL TRACT: Anastomotic suture in the sigmoid region. There is possible submucosal thickening in the distal colon. Anastomotic suture in the right lower quadrant. There is anastomotic suture in the right mid abdomen with some dilated semisolid filled loops of bowel in the right lower abdomen. The stomach is mildly distended. The dilated fluid-filled loops demonstrated on 11/17/22 have improved. There is no evidence of high-grade small bowel obstruction. ABDOMINAL WALL: Evidence of previous surgery. Small fat-containing ventral hernia. Some of the bowel loops are closely approximated to the deep aspect of the abdominal wall. Fat protrudes into the inguinal canal on each side. LYMPH NODES: There are no enlarged abdominal or pelvic lymph nodes. There is no free intraperitoneal fluid VASCULAR: There is no abdominal aortic aneurysm. PELVIC VISCERA: No suspicious abnormality OSSEOUS STRUCTURES: No suspicious focal lesion CT/CT abdomen pelvis wo IV con IMPRESSION: The previously dilated fluid-filled small bowel loops have resolved. There is possible submucosal thickening in the descending colon which is nonspecific. Evidence of extensive previous surgery. No abscess or pneumoperitoneum. Fleischner guidelines were followed.
[2022-12-19 12:03] VITALS: BP 157/93; PULSE 56; RESP 20; TEMP 36.2; O2SAT 99; BMI 30.6
--- NOTE | 2022-12-19 12:05 | ED_ITS ---
HPI - General Adult General Chief complaint: Abdominal Pain Stated complaint: Chrons flare Time Seen by Provider: 12/19/22 12:00 Source: patient Mode of arrival: ambulatory History of Present Illness HPI narrative: This is a 42-year-old male with history and clinical presentation of having developed some mild abdominal discomfort last night and then states a got much worse today with some mild nausea but no vomiting, no diarrhea and no urinary symptoms. Related Data Home Medications Medication Instructions Recorded Confirmed infliximab 100 mg intravenous mg IV Q8W 05/09/20 06/11/22 solution (Remicade) Previous Rx's Medication Instructions Recorded prednisone 20 mg tablet 40 mg (2 x 20 mg) PO DAILY #10 tabs 11/17/22 budesonide 3 mg 9 mg (3 x 3 mg) PO DAILY #90 ea 12/01/22 capsule,delayed,extended release sodium,potassium,mag sulfates 17.5 See Rx Instructions PO .COMPLEX 12/01/22 gram-3.13 gram-1.6 gram oral soln #354 mL (Suprep Bowel Prep Kit) ondansetron 4 mg disintegrating 4 mg PO Q8H PRN nausea and 12/19/22 tablet vomiting #7 tabs Allergies Allergy/AdvReac Type Severity Reaction Status Date / Time No Known Allergies Allergy Verified 12/19/22 12:03 [No Known Allergies*] Review of Systems 2 Review of Systems: Pertinent positives and negatives as stated in HPI [facility] Past Medical History Source: nursing notes reviewed Medical History Low vitamin D level Anemia Anxiety Pituitary macroadenoma High risk medication use GERD (gastroesophageal reflux disease) Crohn disease Surgical History History of ileostomy History of partial surgical removal of colon History of esophagogastroduodenoscopy (EGD) H/O colonoscopy Family History Family History Mother Breast cancer Social History Social History Household Members: Family Housing: Apartment Do you presently have visiting nurse or other home services: No Alcohol intake: never Patient Tobacco Use Status: Never used Tobacco e-Cigarette/Vaping Use: Never Used Second Hand Smoke Exposure: No Substance Use Type: Marijuana Advance Directives: No Advance Directives Information Provided: No Advance Directives Date on File: 07/17/20 service: No Current occupational status: disabled Physical Exam ED Vital Signs: Vital Signs - 24 hr 12/19/22 12:03 12/19/22 18:08 Temperature 97.2 F 98.3 F Pulse Rate 56 58 Respiratory Rate 20 18 Blood Pressure 157/93 H 132/96 H Pulse Oximetry 99 98 Oxygen Delivery Method Room Air Room Air BMI result Body Mass Index 30.6 VITAL SIGNS: Reviewed. GENERAL: Well developed, well nourished, in no acute distress. HEAD: Normocephalic/atraumatic EYES: PERRLA, EOMI EARS: Ext canals without abnormality NOSE: Nares patent bilateral OROPHARYNX: no oral lesions noted, posterior pharynx clear NECK: Supple, no adenopathy LUNGS: Normal breath sounds. No adventitious sounds or accessory muscle use. SpO2<99> CARDIOVASCULAR: Regular rate and rhythm without noted murmurs ABDOMEN: Soft, non-tender, non-distended with bowel sounds. MUSCULOSKELETAL: No tenderness, deformities, or effusions noted on gross inspection. EXTREMITIES: No cyanosis, clubbing or edema. SKIN: Inspection of the skin reveals no rashes NEUROLOGIC: Alert and oriented x 4. Strength and sensation to light touch were grossly intact x 4. Course Course Course Narrative: This is an RME: Additional HPI, ROS, PE not included below will be deferred to primary provider. 41-year-old male history of complicated Crohn's disease, colectomy, small-bowel obstruction is taking Remicade every 8 weeks to control his Crohn's disease, presented today with diffuse abdominal pain x1 day similar to his previous Crohn's disease flare last BM 20 minutes ago has been having N & V. Plan- labs, ua, esr, crp, liapse will likely need CT abd and pelvis Medications Administered Discontinued Medications Generic Name Dose Route Start Last Admin Trade Name Freq PRN Reason Stop Dose Admin Dicyclomine HCl 10 mg 12/19/22 14:16 12/19/22 14:30 Dicyclomine Hcl 10 Mg Capsule PO 12/19/22 14:17 Not Given ONCE ONE Sodium Chloride 1,000 mls @ 999 mls/hr 12/19/22 15:15 12/19/22 17:18 Ns IV 12/19/22 16:15 Infused .Q1H1M SANGITA Infusion Ketorolac Tromethamine 15 mg 12/19/22 14:31 12/19/22 14:44 Ketorolac Tromethamine 15 Mg/Ml Vial IM 12/19/22 14:32 15 mg ONCE ONE Administration Morphine Sulfate 4 mg 12/19/22 12:04 12/19/22 13:33 Morphine Sulfate 4 Mg/Ml Cartridge IVPUSH 12/19/22 12:05 Not Given ONCE ONE Protocol Morphine Sulfate 2 mg 12/19/22 15:09 12/19/22 15:18 Morphine Sulfate 2 Mg/Ml Cartridge IVPUSH 12/19/22 15:10 2 mg ONCE ONE Administration Protocol Ondansetron HCl 4 mg 12/19/22 12:04 12/19/22 13:34 Ondansetron Hcl 4 Mg/2 Ml Vial IVPUSH 12/19/22 12:05 Not Given ONCE ONE Ondansetron HCl 4 mg 12/19/22 14:31 12/19/22 14:44 Ondansetron Odt 4 Mg Tab.Rapdis TRANSLINGU 12/19/22 14:32 4 mg ONCE ONE Administration Medical Decision Making Medical Decision Making MDM Narrative: 42-year-old male with history and clinical presentation, DDX: Crohn's flare, SBO, constipation, UTI I reviewed all investigations and hematologic indices are negative for leukocytosis or left shift, no change in the chronically stable normocytic anemia and no thrombocytopenia. ESR is chronically stable at 23. Chemistry indices are negative for MIREYA, electrolyte or liver enzyme abnormalities. CRP is within normal limits. KUB demonstrates normal bowel gas pattern. 1410: I discussed the case with Dr. Mackenzie briefly who recommends a trial of dicyclomine which has been ordered. Otherwise, I did discuss with the patient the possibility that this is related with constipation for which she should begin taking [id number] MiraLax to ensure soft and easy stools. 1432: Pt refusing Bentyl, offering translingual Zofran and IM Toradol. 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 Differential Diagnosis Differential Diagnoses: The differential diagnosis associated with the presentation includes Please see the discussion above Admission/Observation Consideration of admission/observation: Escalation of care including admission/observation considered Please see the discussion above Consult Healthcare Provider Management of the patient was discussed with: Lending Consultant Please see the discussion above Lab Data MDM Lab Attestation statement: I reviewed the patient's lab results. Please see the discussion above 12/19/22 12:34 12/19/22 12:34 Labs: Lab Results 12/19/22 Range/Units 12:34 WBC 9.1 (4.8-10.8) X10*3/uL RBC 4.24 L (4.60-5.80) X10*6/uL Hgb 12.4 L (14.0-18.0) g/dl Hct 37.7 L (42.0-52.0) % MCV 88.9 (80.0-98.0) fL MCH 29.2 (27.0-33.0) pg MCHC 32.9 (31.0-36.0) g/dl RDW 12.0 (11.0-16.0) % Plt Count 260 (160-400) X10*3/uL MPV 11.6 (9.4-12.4) fL Immature Gran % (Auto) 0.2 (0.0-0.4) % Neut % (Auto) 56.0 (45-73) % Lymph % (Auto) 30.8 (20-40) % [place] % (Auto) 10.2 (2-11) % Eos % (Auto) 2.5 (0-4) % Baso % (Auto) 0.3 (0-2) % Lymph # (Auto) 2.8 (1.2-4.9) X10*3/uL [place] # (Auto) 0.9 (0.1-1.2) X10*3/uL Eos # (Auto) 0.2 (0.0-0.4) X10*3/uL Baso # (Auto) 0.0 (0.0-0.2) X10*3/uL Abs Immat Gran (auto) 0.02 (0.00-0.03) X10*3/uL Absolute Neuts (auto) 5.1 (2.0-8.3) x10*3/uL Absolute Nucleated RBC 0.000 (0.0-0.012) X10*3/uL Nucleated RBC % (auto) 0.0 (0.0-0.2) /100WBC ESR 23 H (0-15) MM/HR Sodium 138 (135-145) mmol/L Potassium 4.0 (3.3-5.1) mmol/L Chloride 106 (96-108) mmol/L Carbon Dioxide 23 (22-29) mmol/L Anion Gap 13 (12-20) BUN 10 (9-16) mg/dL Creatinine 0.84 (0.5-1.4) mg/dL Estim Creat Clear Calc 132.4 Estimated GFR > 60 Random Glucose 93 (60-115) mg/dL Calcium 9.9 (8.4-10.2) mg/dL Total Bilirubin 0.7 (0.0-1.0) mg/dL AST 23 (5-37) U/L ALT 19 (0-40) U/L Alkaline Phosphatase 58 (39-117) U/L C-Reactive Protein 0.18 (< or = 0.50) mg/dL Total Protein 7.9 (6.5-8.0) g/dL Albumin 4.4 (3.5-5.0) g/dL Lipase 42 (8-78) U/L Radiology Impression Discussion of test interpretation with radiology: I have reviewed the radiologist's reading. Radiologist Impression: Please see the discussion above External Record Review External record reviewed: Outpatient record, Prior outpatient labs and Prior outpatient radiology Critical Care Time Critical Care Time Critical Care Time: Yes Total Critical Care Time: 30 Attestation: I personally attest to this time spent taking care of the patient. Discharge Plan Discharge Clinical Impression: Abdominal discomfort, Nausea Patient Disposition: Home, Self-Care Instructions: Abdominal Pain (ED) Additional Instructions: 1. Resume all home medications as prescribed. 2. I have given you a prescription for Zofran to help control the nausea. 3. Please follow-up with Dr. Mackenzie by calling the office 1st thing in the morning and setting up an appointment for re-evaluation and further outpatient management. Your workup today was negative for any evidence of obstruction/partial obstruction/infection. Return to the ER for any worsening symptoms. Prescriptions: New ondansetron 4 mg tablet,disintegrating 4 mg PO Q8H PRN (Reason: nausea and vomiting) Qty: 7 0RF No Action prednisone 20 mg tablet 40 mg PO DAILY Qty: 10 0RF Remicade 100 mg recon soln IV Q8W Rx Instructions: NEXT DOSE: 10/17/2022 budesonide 3 mg capsule,delayed,extend.release 9 mg PO DAILY Qty: 90 1RF sodium,potassium,mag sulfates [Suprep Bowel Prep Kit] 17.5-3.13-1.6 gram recon soln See Rx Instructions PO .COMPLEX Qty: 354 0RF Rx Instructions: DILUTE; drink 1/2 at 6-8 pm and half at 11 PM- 1AM Referrals: Emilia Leija MD [Primary Care Provider] - Jacob Mackenzie MD [Physician] -
[2022-12-19 12:41] LABS: MANUAL DIFF FLAG NO
[2022-12-19 12:43] LABS: Basophils Percent Auto 0.3 % (0-2); Eosinophils Absolute Auto 0.2 X10*3/uL (0.0-0.4); Eosinophils Percent Auto 2.5 % (0-4); Hematocrit 37.7 % (42.0-52.0); Hemoglobin 12.4 g/dl (14.0-18.0); Imm Gran Abs Auto 0.02 X10*3/uL (0.00-0.03); Imm Gran Pct Auto 0.2 % (0.0-0.4); Lymphocytes Absolute Auto 2.8 X10*3/uL (1.2-4.9); Lymphocytes Percent Auto 30.8 % (20-40); Mean Corpuscular HGB Conc 32.9 g/dl (31.0-36.0); Mean Corpuscular Hemoglobin 29.2 pg (27.0-33.0); Mean Corpuscular Volume 88.9 fL (80.0-98.0); Mean Platelet Volume 11.6 fL (9.4-12.4); Monocytes Absolute Auto 0.9 X10*3/uL (0.1-1.2); Monocytes Percent Auto 10.2 % (2-11); Neutrophils Absolute Auto 5.1 x10*3/uL (2.0-8.3); Platelet Count 260 X10*3/uL (160-400); Red Blood Count 4.24 X10*6/uL (4.60-5.80); White Blood Count 9.1 X10*3/uL (4.8-10.8)
[2022-12-19 13:11] LABS: Alanine Aminotransferase 19 U/L (0-40); Albumin Level 4.4 g/dL (3.5-5.0); Alkaline Phosphatase 58 U/L (39-117); Anion Gap 13 (12-20); Aspartate Amino Transferase 23 U/L (5-37); Bilirubin Total 0.7 mg/dL (0.0-1.0); Blood Urea Nitrogen 10 mg/dL (9-16); C Reactive Protein 0.18 mg/dL (< or = 0.50); Calcium 9.9 mg/dL (8.4-10.2); Carbon Dioxide 23 mmol/L (22-29); Chloride 106 mmol/L (96-108); Creatinine Clr Calc Pharmacy 132.4; Estimated Glomerular Filt Rate > 60; Glucose Random 93 mg/dL (60-115); Lipase 42 U/L (8-78); Sodium 138 mmol/L (135-145); Total Protein 7.9 g/dL (6.5-8.0)
[2022-12-19 13:39] LABS: Erythrocyte Sedimentation Rate 23 MM/HR (0-15)
[2022-12-19] MEDS: Ketorolac Tromethamine 15 MG/ML VIAL IM (14:44)
[2022-12-19] MEDS: Ondansetron ODT 4 MG TAB.RAPDIS TRANSLINGU (14:44)
--- NOTE | 2022-12-19 15:00 | PC.NURSE ---
Assumed care of patient at 1500, pt appears uncomfortable on stretcher reporting 10/10 pain. Pt reports last bowel movement was this morning at 10am. No other changes in bowel habit. Per patient he has a colonoscopy in 1 month.
[2022-12-19] MEDS: Morphine Sulfate 2 MG/ML CARTRIDGE IVPUSH (15:18)
[2022-12-19] MEDS: 0.9 % Sodium Chloride 1,000 ML 999 ML IV (15:24)
[2022-12-19 18:08] VITALS: BP 132/96; PULSE 58; RESP 18; TEMP 36.8; O2SAT 98
--- NOTE | 2022-12-19 18:21 | PC.NURSE ---
continuing to await CT scan. This RN called CT, they stated they will call the radiologist
== END 2022-12-19 19:33 | disposition home or self-care (01) ==
PROVIDERS: Physician Assistant; Emergency Provider Student in an Organized Health Care Education/Training Program; PCP Internal Medicine
DX: R10.9 Unspecified abdominal pain (principal); R11.0 Nausea; F12.90 Cannabis use, unspecified, uncomplicated; Z79.899 Other long term (current) drug therapy
CPT/HCPCS: 36415; 74018; 74176; 80053; 83690; 85025; 85652; 86140; 96361; 96372; 96374; 99284; 99285; J1885; J2270

== ENCOUNTER 2023-01-18 08:43 | Day surgery (SDC) | payer MEDICARE, BC, MEDICAID, SELFPAY ==
[2023-01-15 20:17] VITALS: BMI 30.1
--- NOTE | 2023-01-17 12:06 | HO.ANESPROP2 ---
Documented by User: Cassidy Dominguez NP 01/17/23 12:08 HPI - Anesthesia Eval Consult details Narrative: 42yo M for Colonoscopy with Balloon Dilation, Kenalog Injection Crohn's s/p resection PMFSH Active Problems Active Problems: All Active Problems (Updated 01/15/23 @ 20:15 by Naz Ortiz RN) Abdominal pain (Acute) Low vitamin D level (Acute) Anemia (Acute) Crohn disease (Acute) High risk medication use (Acute) GERD (gastroesophageal reflux disease) (Acute) Past Medical History Medical History History of blood transfusion Low vitamin D level Anemia Anxiety Pituitary macroadenoma High risk medication use GERD (gastroesophageal reflux disease) Crohn disease Family History Family History Mother Breast cancer Surgical History Surgical History History of ileostomy History of partial surgical removal of colon History of esophagogastroduodenoscopy (EGD) H/O colonoscopy Social History Social History Household Members: Family Housing: Apartment Do you presently have visiting nurse or other home services: No Alcohol intake: never Patient Tobacco Use Status: Never used Tobacco e-Cigarette/Vaping Use: Never Used Second Hand Smoke Exposure: No Use of substances other than those prescribed or required for medical reasons: Yes Substance Use Type: Marijuana Substance Use Frequency: Daily Are you DNR?: No Advance Directives: No Advance Directives Information Provided: Yes Advance Directives on File: No Advance Directives Date on File: 07/17/20 Recently lost weight without trying: No Nutrition Risks: No Nutritional Risk service: No Current occupational status: disabled Meds Allergies Allergy/AdvReac Type Severity Reaction Status Date / Time No Known Allergies Allergy Verified 01/18/23 09:24 [No Known Allergies*] Home Medications Medication Instructions Recorded Confirmed Last Taken Type infliximab 100 mg intravenous 100 mg IV Q8W 05/09/20 01/18/23 05/01/22 History solution (Remicade) omeprazole 20 mg capsule,delayed 20 mg PO DAILY 01/15/23 01/18/23 Unknown History release Exam Exam Date and Time: January 17, 2023 1206 Height,Weight and Vital Signs: Height 5 ft 10 in Weight 95.254 kg Pertinent Lab Results Pertinent Lab Results: Laboratory Tests 12/19/22 12:34 WBC 9.1 Hgb 12.4 L Hct 37.7 L Plt Count 260 Sodium 138 Potassium 4.0 Chloride 106 Carbon Dioxide 23 BUN 10 Creatinine 0.84 Narrative Narrative: EKG 05/2022 Vent. Rate : 081 BPM Atrial Rate : 081 BPM P-R Int : 202 ms QRS Dur : 088 ms QT Int : 358 ms P-R-T Axes : 037 -18 013 degrees QTc Int : 415 ms Normal sinus rhythm Normal ECG When compared with ECG of 20-JUN-2016 10:06, Inverted T waves have replaced nonspecific T wave abnormality in Inferior leads Nonspecific T wave abnormality now evident in Anterior leads Assessment and Plan Assessment Anesthesia Assessment: Chart Reviewed Documented by User: Amena Pyle MD 01/18/23 09:44 PMFSH Past Medical History Medical History History of blood transfusion Low vitamin D level Anemia Anxiety Pituitary macroadenoma High risk medication use GERD (gastroesophageal reflux disease) Crohn disease Family History Family History Mother Breast cancer Family history of problems with anesthesia: No Surgical History Surgical History History of ileostomy History of partial surgical removal of colon History of esophagogastroduodenoscopy (EGD) H/O colonoscopy History of Problems with Anesthesia: No Social History Social History Household Members: Family Housing: Apartment Do you presently have visiting nurse or other home services: No Alcohol intake: never Patient Tobacco Use Status: Never used Tobacco e-Cigarette/Vaping Use: Never Used Second Hand Smoke Exposure: No Use of substances other than those prescribed or required for medical reasons: Yes Substance Use Type: Marijuana Substance Use Frequency: Daily Are you DNR?: No Advance Directives: No Advance Directives Information Provided: Yes Advance Directives on File: No Advance Directives Date on File: 07/17/20 Recently lost weight without trying: No Nutrition Risks: No Nutritional Risk service: No Current occupational status: disabled Meds Allergies Allergy/AdvReac Type Severity Reaction Status Date / Time No Known Allergies Allergy Verified 01/18/23 09:24 [No Known Allergies*] Home Medications Medication Instructions Recorded Confirmed Last Taken Type infliximab 100 mg intravenous 100 mg IV Q8W 05/09/20 01/18/23 05/01/22 History solution (Remicade) omeprazole 20 mg capsule,delayed 20 mg PO DAILY 01/15/23 01/18/23 Unknown History release Exam Airway Mallampati Class: II TM Dist: >3cm Neck ROM: Full Heart: rrr Lungs: cta Assessment and Plan Assessment Anesthesia Assessment: Anesthesia Plan Discussed and Smoking Cess. Discussed (aniyah) Final Anesthetic Review Family History of Problems with Anesthesia: No History of Problems with Anesthesia: No NPO: Yes ASA Class: III Final Preanesthetic Review: No Changes in Pt Med Stat, Consent Obtained/Reviewed and Anes Risks/Benef Reviewed Patient Risk: Intermediate Procedure Risk: Low Anesthetic Plan Anesthetic Plan: MAC: Disposition: Standard PACU
[2023-01-18 09:20] VITALS: BP 136/85; PULSE 70; RESP 16; TEMP 36.3; O2SAT 99
--- NOTE | 2023-01-18 09:37 | MHC.SHP ---
Pre-Procedural Eval Section A Date of Service: 01/18/23 Section B Chief Complaint: Crohn's disease, unspecified, without complication Relevant Family History (Specify if Yes): No Relevant Social History: None Present Medications: see Short Stay Collaborative assessment Medical History: Significant History (History of blood transfusion Low vitamin D level Anemia Anxiety Pituitary macroadenoma High risk medication use GERD (gastroesophageal reflux disease) Crohn disease) History of Previous Operations: Relevant previous surgery/procedure and date(s) (History of ileostomy History of partial surgical removal of colon History of esophagogastroduodenoscopy (EGD) H/O colonoscopy) Allergies: Allergies Allergy/AdvReac Type Severity Reaction Status Date / Time No Known Allergies Allergy Verified 01/18/23 09:24 [No Known Allergies*] Review of Systems Sugical H&P ROS: Negative: Constitution, Cardiovascular, Respiratory, Neurological, Psychiatric, Hem-Onc, Allergic/Immunologic, Gastrointestinal, Genitourinary, Musculoskeletal, Integumentary, Endocrine and Eyes/Ears/Nose/Throat Exam Surgical H&P Exam: Normal: HEENT, Normal: Heart, Normal: Lungs, Normal: Extremities, Normal: Abdomen, Normal: Skin and Normal: Neurological Plan Diagnosis/Plan: Unchanged I have reviewed the history and physical and performed a pertinent physical examination on my patient. No changes have occurred unless specified. Plan for dilation of stricture, kenalog injection and chromoendoscopy. Stool samples Time Spent With Patient Time: Total time managing care of this patient today ____ minutes.
[2023-01-18] MEDS: Lactated Ringers 1,000 ML 100 ML IVCONT (10:10)
--- NOTE | 2023-01-18 11:10 | W.PM.OPN ---
Operative Note Operative Note Date of Service: 01/18/23 Narrative: Operative Information Procedure Description: Colonoscopy Indication: crohns disease, stricture Anesthesia: MAC COLONOSCOPY Instrument: Olympus variable stiffness pediatric scope 190L Colonoscopy Monitoring: Vital signs and clinical assessment, continuous EKG monitoring, Pulse oximetry, Carbon Dioxide monitoring and blood pressure monitoring were done throughout the procedure. Colon withdrawal time was 20 minutes. Procedure: The patient was placed in the left lateral decubitis position and pre-procedure medications were administered. After a digital rectal examination of the ano-rectum, the video colonoscope was inserted into the rectum and advanced through the colon to the cecum/TI. The colonoscope was slowly withdrawn in a retrograde panoramic fashion and the colon mucosa was carefully examined including a retroflexed view of the rectum. Findings and interventions are described below. Procedure Difficulty: moderate Findings: ileo-colonic anastomosis--granularity and mild inflammation noted on colonic side, bx taken, also retained staple noted with surrounding erythema, so this was removed, the erlinda terminal ileum was entered and dilated to 14 mm with resistance felt and then 40 mg of kenalog was injected around the area. There was sharpy angulation so could not really advance the scope took deeply into the small bowel Chromoendoscopy was then performed. Radnom bx also take from right colon, transverse, left and rectum Ascending Colon: normal Transverse Colon -normal Descending Colon:normal Sigmoid Colon: normal Rectum: Retroflexion with small internal hemorrhoids, grade I Anorectum - normal Colon preparation: [place] Bowel Preparation Scale Right colon; 2 Transverse colon: 2 Left colon; 2 (0 = Unprepared colon segment with mucosa not seen due to solid stool that cannot be cleared. 1 = Portion of mucosa of the colon segment seen, but other areas of the colon segment not well seen due to staining, residual stool and/or opaque liquid. 2 = Minor amount of residual staining, small fragments of stool and/or opaque liquid, but mucosa of colon segment seen well. 3 = Entire mucosa of colon segment seen well with no residual staining, small fragments of stool or opaque liquid) Impression and Post Procedure Diagnosis: small bowel stricture mild colitis foreign body internal hemorrhoids Plan: High fiber diet leaflet Avoid straining at stool, epsom salts and sitz bath, anusol supps or cream Repeat Colonoscopy in 1-2 years or earlier if clinically indicated await stool samples, might have to change remicade Above findings were reviewed with the patient and relevant handouts were provided if indicated.
[2023-01-18 11:15] VITALS: BP 103/41; PULSE 68; RESP 18; TEMP 36.1; O2SAT 99
[2023-01-18 11:30] VITALS: BP 108/64; PULSE 58; RESP 16; O2SAT 99
[2023-01-18 11:45] VITALS: BP 106/72; PULSE 71; RESP 16; O2SAT 99
[2023-01-18 11:57] LABS: CDiff Gene PCR NEGATIVE (Negative)
[2023-01-18 11:59] VITALS: BP 122/85; PULSE 52; RESP 16; TEMP 36.2; O2SAT 98
[2023-01-18 15:07] LABS: Adenovirus F 40/41 Not Detected (Not Detect.); Astrovirus Not Detected (Not Detect.); Campylobacter Not Detected (Not Detect.); Cryptosporidium Not Detected (Not Detect.); Cyclospora cayetanensis Not Detected (Not Detect.); E. coli EAEC Not Detected (Not Detect.); E. coli EPEC Not Detected (Not Detect.); E. coli ETEC Not Detected (Not Detect.); E. coli STEC Not Detected (Not Detect.); Entamoeba histolytica Not Detected (Not Detect.); Giardia lamblia Not Detected (Not Detect.); Norovirus GI/GII Not Detected (Not Detect.); Plesiomonas shigelloides Not Detected (Not Detect.); Rotavirus A Not Detected (Not Detect.); Salmonella Not Detected (Not Detect.); Sapovirus Not Detected (Not Detect.); Shigella sp./EIEC Not Detected (Not Detect.); Vibrio Not Detected (Not Detect.); Vibrio Cholerae Not Detected (Not Detect.); Yersinia enterocolitica Not Detected (Not Detect.)
[2023-01-24 17:38] LABS: Lactoferrin, Fecal, Quant. <6.25 mcg/mL (<7.25)
== END 2023-01-18 12:47 | disposition home or self-care (01) ==
PROVIDERS: PCP Internal Medicine; Visit Provider Internal Medicine Gastroenterology
PROC: 0D7E8ZZ Dilation of Large Intestine, Via Natural or Artificial Opening Endoscopic (ICD-10-PCS; CPT 45380; principal; 2023-01-18 10:40)
DX: K52.9 Noninfective gastroenteritis and colitis, unspecified (principal); K64.0 First degree hemorrhoids; K63.89 Other specified diseases of intestine; K56.699 Other intestinal obstruction unspecified as to partial versus complete obstruction; K56.2 Volvulus; M79.5 Residual foreign body in soft tissue; K50.90 Crohn's disease, unspecified, without complications; R10.33 Periumbilical pain; D64.9 Anemia, unspecified; K21.9 Gastro-esophageal reflux disease without esophagitis; E55.9 Vitamin D deficiency, unspecified; D35.2 Benign neoplasm of pituitary gland; F12.90 Cannabis use, unspecified, uncomplicated; Z79.899 Other long term (current) drug therapy
CPT/HCPCS: 45380; 45381; 45386; 83631; 87493; 87507; 88305; C1726; J2250; J3301

== ENCOUNTER → 2023-01-18 08:43 | Outpatient (BNV) | payer MEDICARE, BC, MEDICAID, SELFPAY | PROVIDERS: PCP Internal Medicine; Visit Provider Internal Medicine Gastroenterology | DX: K52.9 Noninfective gastroenteritis and colitis, unspecified (principal); T18.4XXA Foreign body in colon, initial encounter; K56.690 Other partial intestinal obstruction; K64.0 First degree hemorrhoids | CPT/HCPCS: 45379; 45380; 45381; 45386 ==

== ENCOUNTER 2023-06-02 09:28 | Outpatient (REF) | payer MEDICARE, BC, MEDICAID, SELFPAY | END 2023-06-02 09:29 | disposition home or self-care (01) | LOC: HO.LAB 09:28 | PROVIDERS: PCP Internal Medicine; Visit Provider Internal Medicine Gastroenterology | DX: K50.90 Crohn's disease, unspecified, without complications (principal); R10.9 Unspecified abdominal pain; R19.7 Diarrhea, unspecified; Z79.899 Other long term (current) drug therapy | CPT/HCPCS: 36415; 80230; 82542 ==

== ENCOUNTER 2023-06-04 10:29 | Outpatient (AMB) | payer MEDICARE, BC, MEDICAID, SELFPAY ==
--- NOTE | 2023-06-04 11:05 | A.OFFVIS_ITS ---
Intake Vital Signs 06/04/23 11:07 Height 5 ft 10 in Weight 216 lb 0.848 oz BMI 31.0 BP 140/91 H Blood Pressure Location Lt brachial Position Sitting Pulse 61 Intake Visit Reasons: 4 month follow up rs from 04/09 Intake Note: Toño presents in the office as a follow up. CC: no concerns at this time. 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 2011 He has been on remicade for 2-3 yrs with q 6 wk dosing, having been on humira before this. He went to ED 11/17/22 with pain,--mild dilated small bowel loops, colonoscopy: 02/08-- active inflammation around anasotmosis, stricture dilated INTERIM: diet is good no flare ups stool has been normal no blood in stool mild abdominal pain at baseline around prior stoma site no joint swelling, or pain no mouth ulcers or sore EXAM: GENERAL: The patient is well developed and nontoxic. VITAL SIGNS:see workflow HEENT: Nonicteric sclerae, PERRLA, EOMI. Oropharynx clear. Moist mucous membranes. Conjunctivae appear well perfused. No thyroid mass. CHEST: Chest wall is nontender. HEART: Regular rate and rhythm without murmurs. LUNGS: Clear to auscultation bilaterally. ABDOMEN: Soft, positive bowel sounds, nontender, no organomegaly.no flank tenderness SKIN: No rash, no excessive bruising, petechiae, or purpura. NEUROLOGIC: Cranial nerves II-XII intact without motor/sensory deficit. Psych: normal affect A/P: 1/ Crohns with surgeries, probable fibor tic stricture at the anastomosis - dilated and injected with kenalog, better than before 2/ SBO--related to 1/ above PLAN: 1/ colonoscopy with possible repeat ball oon dilation and kenalog, chromoendoscopy in Jan 2024 2/ recheck labs and TB, remicade titer i s pending [facility] Medical History History of blood transfusion Low vitamin D level Anemia Anxiety Pituitary macroadenoma High risk medication use GERD (gastroesophageal reflux disease) Crohn disease Surgical History History of ileostomy History of partial surgical removal of colon History of esophagogastroduodenoscopy (EGD) H/O colonoscopy Family History Mother Breast cancer Social History Household Members: Family Housing: Apartment Do you presently have visiting nurse or other home services: No Alcohol intake: never Patient Tobacco Use Status: Never used Tobacco e-Cigarette/Vaping Use: Never Used Second Hand Smoke Exposure: No Substance Use Type: Marijuana Advance Directives Date on File: 07/17/20 service: No Current occupational status: disabled Physical Exam Vital Signs: Last Vital Signs Pulse 61 06/04/23 11:07 BP 140/91 H 06/04/23 11:07 BMI result Body Mass Index 31.0 Assessment & Plan Assessment & Plan (1) Crohn disease: Code(s): K50.90 - Crohn's disease, unspecified, without complications Plan: A/P: 1/ Crohns with surgeries, probable fibortic stricture at the anastomosis - dilated and injected with kenalog, better than before 2/ SBO--related to 1/ above PLAN: 1/ colonoscopy with possible repeat balloon dilation and kenalog, chromoendoscopy in Jan 2024 2/ recheck labs and TB, remicade titer is pending Orders: Orders Complete Blood Count Auto Diff Today K50.90 - Crohn's disease, unspecified, without complications Comprehensive Met. Panel Today K50.90 - Crohn's disease, unspecified, without complications, K75.81 - Nonalcoholic steatohepatitis (MARRERO) C Reactive Protein Today K50.90 - Crohn's disease, unspecified, without complications T Spot TB Today K50.90 - Crohn's disease, unspecified, without complications Coding Level of Care Code Est Pt Level 3 (15219) Diagnoses Crohn disease K50.90
[2023-06-04 11:07] VITALS: BP 140/91; PULSE 61; BMI 31.0
== END 2023-06-04 11:24 | disposition home or self-care (01) ==
PROVIDERS: PCP Internal Medicine; Visit Provider Internal Medicine Gastroenterology
DX: K50.90 Crohn's disease, unspecified, without complications (principal)
CPT/HCPCS: 99213

== ENCOUNTER → 2023-06-04 10:29 | Outpatient (BNVA) | payer MEDICARE, BC, MEDICAID, SELFPAY | PROVIDERS: PCP Internal Medicine; Visit Provider Internal Medicine Gastroenterology | DX: K50.90 Crohn's disease, unspecified, without complications (principal) | CPT/HCPCS: 99212 ==

== ENCOUNTER 2023-09-06 07:49 | Emergency (ER) | payer MEDICARE, BC, MEDICAID, SELFPAY ==
--- NOTE | ~2023-09-06 | CT_ITS ---
EXAMINATION: CT ABDOMEN AND PELVIS WITHOUT CONTRAST CLINICAL INFORMATION: Left flank pain COMPARISON: CT abdomen pelvis 12/19/2022 TECHNIQUE: Multidetector volumetric imaging was performed from the superior aspect of the liver through the pubic symphysis. Sagittal and coronal reformatted images were obtained on the technologist's workstation. This CT examination was performed using dose optimization techniques as appropriate, variously including the following: *Automated exposure control *Adjustment of mA and/or kV according to patient size (this includes techniques or standardized protocols for targeted exams where dose is matched to indication/reason for exam; i.e. extremities or head) *Use of iterative reconstruction technique DLP: 599 mGy-cm FINDINGS: LUNG BASES: The visualized lung bases are unremarkable. Some mild bronchial thickening is present. LIVER, GALLBLADDER, AND BILIARY TREE: The liver is borderline in size at 17.3 cm with normal attenuation and shape. No focal hepatic lesion or biliary ductal dilatation is present. The gallbladder is unremarkable with no evidence of radiopaque gallstones, gallbladder wall thickening, or obvious pericholecystic inflammatory changes. PANCREAS: Unremarkable. SPLEEN: Mild splenomegaly at 12.6 cm in maximal transverse dimension. Small 0.6 cm splenic hypodensities seen, almost always benign. ADRENAL GLANDS: Unremarkable. KIDNEYS AND URETERS: Left: There is an obstructing 8 x 4 x 2 mm proximal ureteral calculus with associated left-sided hydronephrosis and perirenal stranding. This stone measures 671 Hounsfield units and is 14 cm from the posterior axillary line. There is a single intrarenal 3 mm nonobstructing stone in the lower pole calyx. No renal masses are seen. The ureter distal to the obstructing stone is unremarkable. Right: The right kidney is normal aside from the presence of a 2 mm punctate nonobstructing upper pole calculus. The right ureter is normal. BLADDER: Some submucosal fat is seen in the bladder otherwise unremarkable. GASTROINTESTINAL TRACT: A sigmoid anastomosis is present along with anastomoses in the right colon.. No evidence of obstruction. There are colonic diverticula without diverticulitis. The small and large bowel are otherwise unremarkable. The appendix is not seen but there is no evidence of appendicitis evidence of appendicitis. ABDOMINAL WALL: There is a tiny periumbilical hernia seen containing only fat along with small bilateral inguinal hernias containing only fat. There is an epigastric midline hernia seen 5.4 cm above the umbilicus containing only fat. LYMPH NODES: No retroperitoneal lymphadenopathy. VASCULAR: Unremarkable. PELVIC VISCERA: Mild BPH. Seminal vesicles appear normal OSSEOUS STRUCTURES: Unremarkable. There is a hemangioma present in the T10 vertebral body. CT/CT abdomen pelvis wo IV con IMPRESSION: 1. Obstructing 8 x 4 x 2 mm proximal left ureteral calculus with associated hydronephrosis. 2. Bilateral nonobstructing intrarenal calculi. 3. Incidental note made of borderline hepatomegaly, mild splenomegaly, colonic anastomoses, colonic diverticulosis without diverticulitis, mild BPH and other findings described above. Fleischner guidelines were followed.
[2023-09-06 07:53] VITALS: BP 119/70; PULSE 60; RESP 16; TEMP 36; O2SAT 98; BMI 30.8
--- NOTE | 2023-09-06 08:04 | ED_ITS ---
HPI - Male Genitourinary General Chief complaint: Abdominal Pain Stated complaint: Kidney stone? Time Seen by Provider: 09/06/23 08:03 Source: patient and RN notes reviewed Mode of arrival: ambulatory Limitations: no limitations History of Present Illness ED Provider: Yissel Salazar PA-C HPI Narrative: This is a 42-year-old male, with a history of Crohn's disease, and kidney stones, who presents emergency department with complaints of acute onset of left flank pain which started at 1:00 a.m. this morning. He states that the pain woke him up from sleep. He endorses nausea and 2 episodes of vomiting. He also reports difficulty urinating, states that he is straining and only urinating in small amounts. He states that his pain is similar to the kidney stones he has had in the past. He denies any surgical intervention for kidney stone removal. He states that he has had no hematuria or dysuria. He reports that he had low- grade fever yesterday, otherwise denies fevers, chills, body aches, chest pain, shortness of breath, diarrhea or constipation. No other complaints or concerns at this time. Onset (ago): hour(s) Duration: constant Relieving factors: none Exacerbating factors: none Associated symptoms: Reports fever and nausea/vomiting Related Data Home Medications ?Medication ?Instructions ?Recorded ?Confirmed infliximab 100 mg intravenous 100 mg IV Q8W 05/09/20 01/18/23 solution (Remicade) omeprazole 20 mg capsule,delayed 20 mg PO DAILY 01/15/23 01/18/23 release Previous Rx's ?Medication ?Instructions ?Recorded budesonide 3 mg 9 mg (3 x 3 mg) PO DAILY #90 ea 12/01/22 capsule,delayed,extended release ondansetron 4 mg disintegrating 4 mg PO Q8H PRN nausea and 12/19/22 tablet vomiting #7 tabs sodium,potassium,mag sulfates 17.5 See Rx Instructions PO .COMPLEX 06/19/23 gram-3.13 gram-1.6 gram oral soln #354 mL (Suprep Bowel Prep Kit) acetaminophen 500 mg tablet 1,000 mg (2 x 500 mg) PO Q6H PRN 09/06/23 (Tylenol Extra Strength) pain #30 tabs ketorolac 10 mg tablet 10 mg PO Q6H PRN pain 5 days #14 09/06/23 tabs morphine 15 mg immediate release 15 mg PO Q6H PRN severe pain #10 09/06/23 tablet tabs ondansetron 4 mg disintegrating 4 mg PO Q8H PRN nausea and 09/06/23 tablet vomiting #14 tabs prednisone 20 mg tablet 20 mg PO DAILY 3 days #3 tabs 09/06/23 Allergies Allergy/AdvReac Type Severity Reaction Status Date / Time No Known Allergies Allergy Verified 09/06/23 08:36 [No Known Allergies*] Review of Systems 2 Review of Systems: Yes all other systems are reviewed and are negative Constitutional: Constitutional: Reports as per [facility] Past Medical History Attestation statement: The following information was validated with the patient. Medical History History of blood transfusion Low vitamin D level Anemia Anxiety Pituitary macroadenoma High risk medication use GERD (gastroesophageal reflux disease) Crohn disease Surgical History History of ileostomy History of partial surgical removal of colon History of esophagogastroduodenoscopy (EGD) H/O colonoscopy Family History Family History Mother Breast cancer Social History Social History Household Members: Family Housing: Apartment Do you presently have visiting nurse or other home services: No Alcohol intake: never Patient Tobacco Use Status: Never used Tobacco e-Cigarette/Vaping Use: Never Used Second Hand Smoke Exposure: No Substance Use Type: Marijuana Advance Directives Date on File: 07/17/20 service: No Current occupational status: disabled Physical Exam 2 Vital Signs: Vital Signs: Last Vital Signs Temp 97.8 F 09/06/23 14:38 Pulse 48 L 09/06/23 14:38 Resp 14 09/06/23 14:38 BP 127/80 09/06/23 14:38 Pulse Ox 97 09/06/23 14:38 O2 Del Method Room Air 09/06/23 14:38 BMI result Body Mass Index 34.1 Const: General: cooperative, comfortable and no acute distress O rientation/consciousness: patient oriented x3 Limitations: no limitations HEENT: Head: Yes normal to inspection, Yes normocephalic and Yes atraumatic Ears: hearing grossly normal bilaterally General nose exam: Normal external nose present Face and sinus: Yes normal facial exam Mouth: Normal oral and palatal mucosa present, oropharynx normal and moist mucous membranes Throat: Yes posterior oropharynx normal Eyes: General: appearance normal, both eyes and all related structures E yelids: Yes eyelids normal Conjunctivae: conjunctivae normal Sclerae: s clerae normal Pupils: Equal, round and reactive pupils present EOM: EOMs intact bilaterally Neck: Neck: Yes normal visual inspection, Yes full ROM and Yes no lymphadenopathy Lymphatic: no lymphadenopathy noted Chest: Chest palpation & inspection: normal inspection of the chest Resp: Effort & Inspection: normal respiratory effort and able to speak in complete sentences Auscultation: clear to auscultation bilaterally, no crackles, no rales, no rhonchi and no wheezes Cardio: Rate: regular rate Rhythm: regular rhythm Heart sounds: S1 normal heart sound present and S2 normal heart sound present GI: Other: Abdomen is soft, nontender, nondistended Inspection: Yes normal to inspection Back/Spine/Pelvis: Other: Left CVA tenderness Skin: General skin exam: no rashes or lesions noted Trauma: no lacerations or abrasions Wounds: no wounds Neuro: General: patient oriented x3 and moves all extremities Cranial nerves: Yes Equal, round and reactive pupils present Extrem: General: Yes normal to inspection Right upper extremity: normal to inspection Left upper extremity: normal to inspection Right lower extremity: normal to inspection Left lower extremity: normal to inspection Course Reevaluation(s) Reevaluation #1: Awaiting CT scan, pain and nausea has been moderately alleviated with Zofran and IV Toradol awaiting CT results. Time: 10:00 Reevaluation #2: CT scan revealing an obstructing 8x 4x2 obstructing proximal left ureter calculus with associated hydronephrosis. Labs return he does have a drop in his H&H to 9.2/28.9 typical sits around 11 and 36. Pt declines rectal examination for stool occult testing. Creatinine bumped to 1.19, typical around 0.9. Given patient has MIREYA with obstructing proximal left ureter stone, consult was sent to Dr. Page pending recommendations. Time: 10:36 Reevaluation #3: Spoke to Dr. Page, who recommends as long as patient remains comfortable with pain management and symptoms he may be treated outpatient. He will likely need shockwave lithotripsy. Recommends Zofran, Toradol, and prednisone. Does not recommend Flomax at this time. Time: 11:49 Additional Reevaluation(s): we were awaiting UA, pt's pain return and was medicated with morphine 4mg IV. Patient is feeling much better. Given strict return precautions. He understands and agrees with plan. Patient stable for discharge. Medications Administered Discontinued Medications Generic Name Dose Route Start Last Admin Trade Name Freq PRN Reason Stop Dose Admin Sodium Chloride 1,000 mls @ 999 mls/hr 09/06/23 08:15 09/06/23 11:16 Ns IV 09/06/23 09:15 Infused .Q1H1M ONE Infusion Sodium Chloride 1,000 mls @ 999 mls/hr 09/06/23 10:38 09/06/23 11:16 Ns IV 09/06/23 11:38 999 mls/hr .Q1H1M ONE Administration Ketorolac Tromethamine 30 mg 09/06/23 08:14 09/06/23 09:06 Ketorolac Tromethamine 30 Mg/Ml Vial IVPUSH 09/06/23 08:15 30 mg ONCE ONE Administration Morphine Sulfate 4 mg 09/06/23 13:45 09/06/23 13:56 Morphine Sulfate 4 Mg/Ml Cartridge IVPUSH 09/06/23 13:46 4 mg ONCE ONE Administration Protocol Ondansetron HCl 4 mg 09/06/23 08:14 09/06/23 09:06 Ondansetron Hcl 4 Mg/2 Ml Vial IVPUSH 09/06/23 08:15 4 mg ONCE ONE Administration Medical Decision Making Medical Decision Making [facility] Narrative: This is a 42-year-old male, with a history of Crohn's disease, anemia, and kidney stones, who presents emergency department with complaints of acute onset left flank pain which started at 1:00 a.m. this morning. On arrival, vital signs within normal limits. He is nontoxic-appearing and speaking in full sentences. He is alert and oriented x4. Patient has a history of kidney stones in symptoms feel similar. He has left-sided CVA tenderness. DDX pylenonephritis, obstructive uropathy, hydronephrosis, UTI. Plan: Labs, UA, CT abd/pelvis, zofran & toradol. Differential Diagnosis Differential Diagnoses: The differential diagnosis associated with the presentation includes see above Admission/Observation Consideration of admission/observation: Escalation of care including admission/observation considered Lab Data MDM Lab Attestation statement: I reviewed the patient's lab results. No leukocytosis, H&H lower than usual, 9.2/28.9, typical at 30 increase in creatinine to 1.19, typical is around 0.9. 09/06/23 08:22 09/06/23 08:22 Labs: Lab Results 09/06/23 09/06/23 Range/Units 08:22 12:52 WBC 7.3 (4.8-10.8) X10*3/uL RBC 3.54 L (4.60-5.80) X10*6/uL Hgb 9.2 L D (14.0-18.0) g/dl Hct 28.9 L D (42.0-52.0) % MCV 81.6 (80.0-98.0) fL MCH 26.0 L (27.0-33.0) pg MCHC 31.8 (31.0-36.0) g/dl RDW 13.0 (11.0-16.0) % Plt Count 237 (160-400) X10*3/uL MPV 11.4 (9.4-12.4) fL Immature Gran % (Auto) 0.3 (0.0-0.4) % Neut % (Auto) 58.8 (45-73) % Lymph % (Auto) 25.8 (20-40) % Armstrong % (Auto) 11.7 H (2-11) % Eos % (Auto) 2.7 (0-4) % Baso % (Auto) 0.7 (0-2) % Lymph # (Auto) 1.9 (1.2-4.9) X10*3/uL Armstrong # (Auto) 0.9 (0.1-1.2) X10*3/uL Eos # (Auto) 0.2 (0.0-0.4) X10*3/uL Baso # (Auto) 0.1 (0.0-0.2) X10*3/uL Abs Immat Gran (auto) 0.02 (0.00-0.03) X10*3/uL Absolute Neuts (auto) 4.3 (2.0-8.3) x10*3/uL Absolute Nucleated RBC 0.000 (0.0-0.012) X10*3/uL Nucleated RBC % (auto) 0.0 (0.0-0.2) /100WBC Sodium 140 (135-145) mmol/L Potassium 3.9 (3.3-5.1) mmol/L Chloride 107 (96-108) mmol/L Carbon Dioxide 25 (22-29) mmol/L Anion Gap 12 (12-20) BUN 14 (9-16) mg/dL Creatinine 1.19 (0.5-1.4) mg/dL Estim Creat Clear Calc 98.3 Estimated GFR > 60 Random Glucose 90 (60-115) mg/dL Calcium 9.2 D (8.4-10.2) mg/dL Magnesium 1.7 (1.6-2.6) mg/dL Total Bilirubin 0.8 (0.0-1.0) mg/dL AST 20 (5-37) U/L ALT 11 (0-40) U/L Alkaline Phosphatase 53 (39-117) U/L Total Protein 7.5 (6.5-8.0) g/dL Albumin 4.1 (3.5-5.0) g/dL Lipase 17 (8-78) U/L Urine Color Yellow Urine Appearance Clear Urine pH 5.5 (5.0-9.0) Ur Specific Fulton >= 1.030 H (1.005-1.025) Urine Protein Trace (Neg-Trace) mg/dL Urine Glucose (UA) Negative (Negative) mg/dL Urine Ketones 15 (Negative) mg/dL Urine Blood Small (1+) H (Negative) Urine Nitrite Negative (Negative) Ur Leukocyte Esterase Negative (Negative) Urine RBC 11-20 H (0-2) /HPF Urine WBC 0-5 (0-5) /HPF Ur Squamous Epith Cells 0-2 (0-2) /HPF Urine Bacteria None Seen (None Seen) Hyaline Casts 0-2 (0-2) /LPF Radiology Impression Discussion of test interpretation with radiology: I have reviewed the radiologist's reading. Radiologist Impression: CT/CT abdomen pelvis wo IV con IMPRESSION: 1. Obstructing 8 x 4 x 2 mm proximal left ureteral calculus with associated hydronephrosis. 2. Bilateral nonobstructing intrarenal calculi. 3. Incidental note made of borderline hepatomegaly, mild splenomegaly, colonic anastomoses, colonic diverticulosis without diverticulitis, mild BPH and other findings described above. Discharge Plan Discharge Clinical Impression: Ureteral stone with hydronephrosis, Anemia Patient Disposition: Still a Patient Instructions: Hydronephrosis (ED), Ureteral Stones (ED) Additional Instructions: You were seen in the emergency department, your CT scan reveals an obstructing left kidney stone. You likely will need surgery to have this removed. The urologist Dr. Page, recommended that you can follow-up outpatient given your symptoms were controlled in the emergency room. You need to call their office today to make an appointment. I am prescribing you several medications. Take prednisone for the next 3 days. Take Toradol as needed for pain. DO NOT EXCEED 4 TABLETS PER DAY. Take Zofran as needed for nausea. You may take morphine as needed for severe pain only. Please be advised that this can cause drowsiness, do not drink alcohol or drive while taking this medication. Please be advised that this can cause addicting habits, please only take as needed. Drink plenty of fluids get plenty of rest. If any new or worsening symptoms occur including but not limited to severe left- sided flank pain, fevers, intractable nausea or vomiting, please return for re- evaluation. Please follow up with your PCP as you need to have your blood repeated as your blood work is revealing a low blood count. Prescriptions: New prednisone 20 mg tablet 20 mg PO DAILY 3 Days Qty: 3 0RF ketorolac 10 mg tablet 10 mg PO Q6H PRN (Reason: pain) 5 Days Qty: 14 0RF Rx Instructions: DO NOT EXCEED 4 TABLETS PER DAY ondansetron 4 mg tablet,disintegrating 4 mg PO Q8H PRN (Reason: nausea and vomiting) Qty: 14 0RF morphine 15 mg tablet 15 mg PO Q6H PRN (Reason: severe pain) Qty: 10 0RF Rx Instructions: Partial Fill upon patient request. acetaminophen [Tylenol Extra Strength] 500 mg tablet 1,000 mg PO Q6H PRN (Reason: pain) Qty: 30 0RF No Action sodium,potassium,mag sulfates [Suprep Bowel Prep Kit] 17.5-3.13-1.6 gram recon soln See Rx Instructions PO .COMPLEX Qty: 354 0RF Rx Instructions: DILUTE; drink 1/2 at 6-8 pm and half at 11 PM- 1AM omeprazole 20 mg Capsule,Delayed Release(Dr/Ec) 20 mg PO DAILY ondansetron 4 mg tablet,disintegrating 4 mg PO Q8H PRN (Reason: nausea and vomiting) Qty: 7 0RF Remicade 100 mg recon soln 100 mg IV Q8W Rx Instructions: NEXT DOSE: 10/17/2022 budesonide 3 mg capsule,delayed,extend.release 9 mg PO DAILY Qty: 90 1RF Referrals: [facility] [Provider Group] Stand Alone Forms: Work/School Release Interventions: ED Discharge Assessment Last Done: 09/06/23 14:38 Discharge Date/Time: 09/06/23 14:39 Print Language: Senegalese
[2023-09-06 08:26] LABS: MANUAL DIFF FLAG NO
[2023-09-06 08:34] VITALS: BP 125/83; PULSE 52; RESP 14; TEMP 36.9; O2SAT 98; BMI 34.1
[2023-09-06 08:37] LABS: Basophils Absolute Auto 0.1 X10*3/uL (0.0-0.2); Basophils Percent Auto 0.7 % (0-2); Eosinophils Absolute Auto 0.2 X10*3/uL (0.0-0.4); Eosinophils Percent Auto 2.7 % (0-4); Hematocrit 28.9 % (42.0-52.0); Imm Gran Abs Auto 0.02 X10*3/uL (0.00-0.03); Imm Gran Pct Auto 0.3 % (0.0-0.4); Lymphocytes Absolute Auto 1.9 X10*3/uL (1.2-4.9); Lymphocytes Percent Auto 25.8 % (20-40); Mean Corpuscular HGB Conc 31.8 g/dl (31.0-36.0); Mean Corpuscular Volume 81.6 fL (80.0-98.0); Mean Platelet Volume 11.4 fL (9.4-12.4); Monocytes Absolute Auto 0.9 X10*3/uL (0.1-1.2); Monocytes Percent Auto 11.7 % (2-11); Neutrophils Absolute Auto 4.3 x10*3/uL (2.0-8.3); Neutrophils Percent Auto 58.8 % (45-73); Platelet Count 237 X10*3/uL (160-400); Red Blood Count 3.54 X10*6/uL (4.60-5.80); White Blood Count 7.3 X10*3/uL (4.8-10.8)
[2023-09-06 08:39] VITALS: BP 125/83; PULSE 59; RESP 14; TEMP 36.9; O2SAT 97
[2023-09-06 08:40] LABS: Hemoglobin 9.2 g/dl (14.0-18.0)
[2023-09-06 08:42] LABS: Alanine Aminotransferase 11 U/L (0-40); Albumin Level 4.1 g/dL (3.5-5.0); Alkaline Phosphatase 53 U/L (39-117); Anion Gap 12 (12-20); Aspartate Amino Transferase 20 U/L (5-37); Bilirubin Total 0.8 mg/dL (0.0-1.0); Blood Urea Nitrogen 14 mg/dL (9-16); Calcium 9.2 mg/dL (8.4-10.2); Carbon Dioxide 25 mmol/L (22-29); Chloride 107 mmol/L (96-108); Creatinine Clr Calc Pharmacy 98.3; Estimated Glomerular Filt Rate > 60; Glucose Random 90 mg/dL (60-115); Lipase 17 U/L (8-78); Magnesium 1.7 mg/dL (1.6-2.6); Potassium 3.9 mmol/L (3.3-5.1); Sodium 140 mmol/L (135-145); Total Protein 7.5 g/dL (6.5-8.0)
[2023-09-06] MEDS: ondansetron HCL 4 MG/2 ML VIAL IVPUSH (09:06)
[2023-09-06] MEDS: Ketorolac Tromethamine 30 MG/ML VIAL IVPUSH (09:06)
[2023-09-06] MEDS: 0.9 % Sodium Chloride 1,000 ML 999 ML IV ×2 (09:08→11:16)
--- NOTE | 2023-09-06 09:16 | PC.NURSE ---
Pt presents with c/o L abd/flank pain, 09/25. Pt is A&Ox3 and calm and cooperative. Afebrile and VSS. Medicated with Toradol and Zofran per MAR and fluids initiated. Pt is resting in bed watching TV, call powell within reach.
[2023-09-06 12:16] VITALS: BP 122/84; PULSE 62; RESP 14; TEMP 36.7; O2SAT 100
[2023-09-06 12:58] LABS: Appearance Urine Clear; Color Urine Yellow; Glucose Urine UA Negative (Negative); Leukocyte Esterase Urine Negative (Negative); Nitrite Urine Negative (Negative); PH 5.5 (5.0-9.0); Specific Gravity - Urine >= 1.030 (1.005-1.025); UMIC TRIGGER UACC YES; Urine Blood Small (1+) (Negative); Urine Ketones 15 mg/dL (Negative); Urine Protein Trace mg/dL (Neg-Trace)
[2023-09-06 13:33] LABS: Bacteria Urine None Seen (None Seen); Hyaline Casts Urine 0-2 /LPF (0-2); Squamous Epithelial Cell Urine 0-2 /HPF (0-2); WBC Urine 0-5 /HPF (0-5)
--- NOTE | 2023-09-06 13:41 | PC.NURSE ---
Pt reports increasing pain 09/25, Yissel BRAXTON aware. Fluids continue to infuse. No facial grimace or visible distress at this time
[2023-09-06] MEDS: Morphine Sulfate 4 MG/ML CARTRIDGE IVPUSH (13:56)
[2023-09-06 14:38] VITALS: BP 127/80; PULSE 48; RESP 14; TEMP 36.6; O2SAT 97
== END 2023-09-06 14:39 | disposition still patient (30) ==
PROVIDERS: Physician Assistant Medical; Emergency Provider Emergency Medicine; PCP Internal Medicine
DX: N13.2 Hydronephrosis with renal and ureteral calculous obstruction (principal); R11.2 Nausea with vomiting, unspecified
CPT/HCPCS: 36415; 74176; 80053; 81001; 81003; 83690; 83735; 85025; 96361; 96374; 96375; 99284; 99285; J1885; J2270; J2405

== ENCOUNTER 2023-10-04 13:59 | Emergency (ER) | payer MEDICARE, BC, MEDICAID, SELFPAY ==
[2023-10-04] VITALS (7 sets, daily range): BP systolic 111–129; BP diastolic 67–87; PULSE 58–75; RESP 16–20; TEMP 36.5–36.9; O2SAT 96–98; BMI 30.8
--- NOTE | 2023-10-04 | ECG_ITS ---
Test Reason : CP Blood Pressure : / mmHG Vent. Rate : 069 BPM Atrial Rate : 069 BPM P-R Int : 148 ms QRS Dur : 100 ms QT Int : 360 ms P-R-T Axes : 022 -24 021 degrees QTc Int : 385 ms Normal sinus rhythm RSR' or QR pattern in V1 suggests right ventricular conduction delay Borderline ECG When compared with ECG of 10-JUN-2022 23:01, RSR' pattern in V1 is now Present Referred By: Generic ED Physician Electronically Signed By:MONY PINON MD
--- NOTE | ~2023-10-04 | XR_ITS ---
EXAMINATION: XR CHEST CLINICAL INFORMATION: Chest pain COMPARISON: Chest radiograph from 05/26/2018 TECHNIQUE: Frontal view of the chest was obtained. FINDINGS: Hazy reticular opacities of the bilateral lung edward, left greater than right, and mild bronchial thickening may reflect evolving infectious/inflammatory etiology. Left basilar radiopacity may reflect atelectasis though infectious/inflammatory etiology not excluded. No pneumothorax. Trachea is midline. Cardiac mediastinal silhouette is not enlarged. No large pleural effusion. Osseous structures are intact. Soft tissues are unremarkable. XR/XR chest 1V IMPRESSION: 1. Hazy reticular opacities of the bilateral lung edward, left greater than right, and mild bronchial thickening may reflect evolving infectious/inflammatory etiology. 2. Left basilar radiopacity may reflect atelectasis though infectious/inflammatory etiology not excluded.
--- NOTE | ~2023-10-04 | CT_ITS ---
EXAMINATION: CT ANGIOGRAM OF THE CHEST WITH AND WITHOUT CONTRAST (CT PULMONARY ANGIOGRAM FOR PE) CLINICAL INFORMATION: Dyspnea, question PE COMPARISON: CT abdomen pelvis 09/06/2023 chest radiograph from earlier in the same day TECHNIQUE: Prior to contrast administration, noncontrast localization images were obtained. Subsequently, multidetector volumetric imaging was performed from the thoracic inlet to below the diaphragms following the administration of 85 mL Omnipaque 350 intravenous contrast. No contrast reaction reported Sagittal, coronal, and MIP oblique sagittal reformatted images were obtained on the CT workstation, uploaded to PACS, and reviewed. This CT examination was performed using dose optimization techniques as appropriate, variously including the following: *Automated exposure control *Adjustment of mA and/or kV according to patient size (this includes techniques or standardized protocols for targeted exams where dose is matched to indication/reason for exam; i.e. extremities or head) *Use of iterative reconstruction technique Total exam dose-length product 358 mGy-cm FINDINGS: QUALITY OF STUDY/CONTRAST BOLUS: Satisfactory. PULMONARY ARTERIES: No pulmonary emboli. THORACIC AORTA: No aneurysm. LUNG: Left lower lobe and to a lesser extent left upper lobe consolidative and centrilobular tree-in-bud opacities most concerning for pneumonia. Scattered areas of atelectasis in the right lung without consolidation. PLEURA: No pleural effusion or pneumothorax. MEDIASTINUM: The heart is mildly enlarged. No pericardial effusion. No mediastinal lymphadenopathy. Thyroid unremarkable. No evidence of septal bowing or right heart strain. CORONARY ARTERY CALCIFICATION: None visualized on this study. CHEST WALL/AXILLA: No axillary or internal mammary lymphadenopathy. OSSEOUS STRUCTURES: No acute or suspicious osseous abnormality. UPPER ABDOMEN: Unremarkable. No reflux of contrast into the hepatic veins to suggest elevated right heart pressures. CT/CT angio chest PE protocol IMPRESSION: 1. No pulmonary embolism. 2. Left lower lobe and to a lesser extent left upper lobe consolidative and centrilobular tree-in-bud opacities concerning for pneumonia. VTE: negative.
[2023-10-04 14:19] LABS: MANUAL DIFF FLAG NO
[2023-10-04 14:23] LABS: Basophils Percent Auto 0.4 % (0-2); Eosinophils Absolute Auto 0.3 X10*3/uL (0.0-0.4); Eosinophils Percent Auto 3.2 % (0-4); Hematocrit 29.2 % (42.0-52.0); Hemoglobin 9.2 g/dl (14.0-18.0); Imm Gran Abs Auto 0.03 X10*3/uL (0.00-0.03); Imm Gran Pct Auto 0.4 % (0.0-0.4); Lymphocytes Absolute Auto 2.2 X10*3/uL (1.2-4.9); Lymphocytes Percent Auto 27.7 % (20-40); Mean Corpuscular HGB Conc 31.5 g/dl (31.0-36.0); Mean Corpuscular Hemoglobin 25.4 pg (27.0-33.0); Mean Corpuscular Volume 80.7 fL (80.0-98.0); Monocytes Percent Auto 12.5 % (2-11); Neutrophils Absolute Auto 4.5 x10*3/uL (2.0-8.3); Neutrophils Percent Auto 55.8 % (45-73); Platelet Count 279 X10*3/uL (160-400); Red Blood Count 3.62 X10*6/uL (4.60-5.80); White Blood Count 8.1 X10*3/uL (4.8-10.8)
[2023-10-04 14:36] LABS: Alanine Aminotransferase 8 U/L (0-40); Albumin Level 3.9 g/dL (3.5-5.0); Alkaline Phosphatase 66 U/L (39-117); Anion Gap 12 (12-20); Aspartate Amino Transferase 12 U/L (5-37); Bilirubin Direct 0.1 mg/dL (0.0-0.5); Bilirubin Total 0.3 mg/dL (0.0-1.0); Blood Urea Nitrogen 14 mg/dL (9-16); Calcium 9.3 mg/dL (8.4-10.2); Carbon Dioxide 27 mmol/L (22-29); Chloride 105 mmol/L (96-108); Estimated Glomerular Filt Rate > 60; Glucose Random 98 mg/dL (60-115); Magnesium 1.9 mg/dL (1.6-2.6); Potassium 3.9 mmol/L (3.3-5.1); Sodium 140 mmol/L (135-145); Total Protein 7.8 g/dL (6.5-8.0)
[2023-10-04 14:44] LABS: Troponin-I High Sensitivity < 2.7 ng/L (<3.5-35.0)
[2023-10-04 15:00] LABS: Influenza A PCR NEGATIVE (Negative); Influenza B PCR NEGATIVE (Negative); Resp Syncy Virus RNA Qual PCR NEGATIVE (Negative); SARS COV2 PCR INHOUSE NEGATIVE (Negative)
--- NOTE | 2023-10-04 16:42 | PC.NURSE ---
Pt. on potline monitor at this time.
--- NOTE | 2023-10-04 17:00 | ED_ITS ---
HPI - General Adult General Chief complaint: Dizziness Stated complaint: Chest pain, dizziness Time Seen by Provider: 10/04/23 16:38 History of Present Illness HPI narrative: Patient is a 42-year-old male with no significant cardiac risk factors. Presents today with having chest pain. Patient's chest pain is mid chest on both sides not associated with any diaphoresis. Patient has no history of diabetes, hypertension, high cholesterol, smoking, mi. patient is from home. No coughing or congestion or upper respiratory symptoms. No diaphoresis. Fairly constant. Nothing specifically makes it worse or better. Related Data Home Medications ?Medication ?Instructions ?Recorded ?Confirmed infliximab 100 mg intravenous 100 mg IV Q8W 05/09/20 01/18/23 solution (Remicade) omeprazole 20 mg capsule,delayed 20 mg PO DAILY 01/15/23 01/18/23 release Previous Rx's ?Medication ?Instructions ?Recorded budesonide 3 mg 9 mg (3 x 3 mg) PO DAILY #90 ea 12/01/22 capsule,delayed,extended release ondansetron 4 mg disintegrating 4 mg PO Q8H PRN nausea and 12/19/22 tablet vomiting #7 tabs sodium,potassium,mag sulfates 17.5 See Rx Instructions PO .COMPLEX 06/19/23 gram-3.13 gram-1.6 gram oral soln #354 mL (Suprep Bowel Prep Kit) acetaminophen 500 mg tablet 1,000 mg (2 x 500 mg) PO Q6H PRN 09/06/23 (Tylenol Extra Strength) pain #30 tabs ketorolac 10 mg tablet 10 mg PO Q6H PRN pain 5 days #14 09/06/23 tabs morphine 15 mg immediate release 15 mg PO Q6H PRN severe pain #10 09/06/23 tablet tabs ondansetron 4 mg disintegrating 4 mg PO Q8H PRN nausea and 09/06/23 tablet vomiting #14 tabs prednisone 20 mg tablet 20 mg PO DAILY 3 days #3 tabs 09/06/23 doxycycline hyclate 100 mg capsule 100 mg PO BID cough 7 days #14 caps 10/04/23 Allergies Allergy/AdvReac Type Severity Reaction Status Date / Time No Known Allergies Allergy Verified 10/04/23 14:02 [No Known Allergies*] Review of Systems 2 Review of Systems: Positive chest pain Yes all other systems are reviewed and are negative PMFSH Past Medical History Attestation statement: The following information was validated with the patient. Medical History History of blood transfusion Low vitamin D level Anemia Anxiety Pituitary macroadenoma High risk medication use GERD (gastroesophageal reflux disease) Crohn disease Surgical History History of ileostomy History of partial surgical removal of colon History of esophagogastroduodenoscopy (EGD) H/O colonoscopy Family History Family History Mother Breast cancer Social History Social History Household Members: Family Housing: Apartment Do you presently have visiting nurse or other home services: No Alcohol intake: never Patient Tobacco Use Status: Never used Tobacco Smoked in Last 30 Days: No e-Cigarette/Vaping Use: Never Used Second Hand Smoke Exposure: No Use of substances other than those prescribed or required for medical reasons: Yes Substance Use Type: Marijuana Substance Use Frequency: Occasionally Advance Directives: No Advance Directives Information Provided: No Advance Directives Date on File: 07/17/20 service: No Current occupational status: disabled Physical Exam ED Vital Signs: Vital Signs - 24 hr 10/04/23 14:00 10/04/23 16:44 10/04/23 17:39 Temperature 97.7 F 98.5 F Pulse Rate 73 75 70 Respiratory Rate 20 16 19 Blood Pressure 111/67 116/79 120/80 Pulse Oximetry 97 98 96 Oxygen Delivery Method Room Air Room Air Room Air 10/04/23 19:37 10/04/23 22:00 Temperature 98.4 F 98.0 F Pulse Rate 67 58 Respiratory Rate 17 16 Blood Pressure 126/87 125/87 Pulse Oximetry 97 98 Oxygen Delivery Method Room Air Room Air BMI result Body Mass Index 30.8 Appearance: Alert. Oriented X3. No acute distress. Eyes: Pupils equal, round and reactive to light. ENT: Pharynx normal. Neck: Normal inspection. Neck supple. No lymph nodes noted. No crepitus CVS: Normal heart rate and rhythm. Pulses normal. Normal S1 and S2 Respiratory: No respiratory distress. Breath sounds normal. No Wheezing. No rales Abdomen: Soft and nontender. No rigidity. No distention. good BS x4 Skin: Skin warm and dry. Normal skin color. Normal skin turgor. Extremities: No lower extremity edema. Neurovascular intact to all extremities. No Lacerations. No Rash Neuro: Oriented X 3. No motor deficit. No sensory deficit. Moving all extermities. No slurred speech Medications Administered Discontinued Medications Generic Name Dose Route Start Last Admin Trade Name Julia PRN Reason Stop Dose Admin Aspirin 324 mg 10/04/23 16:57 10/04/23 17:40 Aspirin 81 Mg Tab.Chew PO 10/04/23 16:58 324 mg ONCE ONE Administration Iohexol 85 ml 10/04/23 20:22 10/04/23 20:23 Iohexol 350 Mg/Ml 100 Ml Infus..Btl IV 10/04/23 20:23 85 ml ONCE ONE Administration Procedures Procedure Narrative Procedure Narrative: I was asked to help with intravenous access after several unsuccessful attempts. I used ultrasound guidance to place a 2.5 inch peripheral IV in the left upper arm. There was good blood return and the line flushed well post procedure. There were no complications Medical Decision Making Medical Decision Making MDM Narrative: 42-year-old male presents today with having dizziness lightheadedness shortness of breath. Chest pain. Mild coughing. Patient's troponin was grossly negative. Patient's D-dimer was positive. A CTA of the chest was done. There is positive for having what appears to be infiltrates consistent with pneumonia. BNP is normal. There is no evidence for congestive heart failure. White count is normal. Patient well-appearing awake alert BNP is normal curb 65 score is low will start patient on outpatient antibiotics doxycycline. Follow-up on an outpatient basis. In stable condition. Differential Diagnosis Differential Diagnoses: The differential diagnosis associated with the presentation includes Admission/Observation Consideration of admission/observation: Escalation of care including admission/observation considered Lab Data [facility] Lab Attestation statement: I reviewed the patient's lab results. 10/04/23 14:16 10/04/23 14:16 Labs: Lab Results 10/04/23 10/04/23 10/04/23 Range/Units 14:12 14:16 17:34 WBC 8.1 (4.8-10.8) X10*3/uL RBC 3.62 L (4.60-5.80) X10*6/uL Hgb 9.2 L (14.0-18.0) g/dl Hct 29.2 L (42.0-52.0) % MCV 80.7 (80.0-98.0) fL MCH 25.4 L (27.0-33.0) pg MCHC 31.5 (31.0-36.0) g/dl RDW 14.0 (11.0-16.0) % Plt Count 279 (160-400) X10*3/uL MPV 11.0 (9.4-12.4) fL Immature Gran % (Auto) 0.4 (0.0-0.4) % Neut % (Auto) 55.8 (45-73) % Lymph % (Auto) 27.7 (20-40) % [place] % (Auto) 12.5 H (2-11) % Eos % (Auto) 3.2 (0-4) % Baso % (Auto) 0.4 (0-2) % Lymph # (Auto) 2.2 (1.2-4.9) X10*3/uL [place] # (Auto) 1.0 (0.1-1.2) X10*3/uL Eos # (Auto) 0.3 (0.0-0.4) X10*3/uL Baso # (Auto) 0.0 (0.0-0.2) X10*3/uL Abs Immat Gran (auto) 0.03 (0.00-0.03) X10*3/uL Absolute Neuts (auto) 4.5 (2.0-8.3) x10*3/uL Absolute Nucleated RBC 0.000 (0.0-0.012) X10*3/uL Nucleated RBC % (auto) 0.0 (0.0-0.2) /100WBC D-Dimer High Sensitivty 411 NG/ML Sodium 140 (135-145) mmol/L Potassium 3.9 (3.3-5.1) mmol/L Chloride 105 (96-108) mmol/L Carbon Dioxide 27 (22-29) mmol/L Anion Gap 12 (12-20) BUN 14 (9-16) mg/dL Creatinine 0.97 (0.5-1.4) mg/dL Estim Creat Clear Calc 115.0 Estimated GFR > 60 Random Glucose 98 (60-115) mg/dL Calcium 9.3 (8.4-10.2) mg/dL Magnesium 1.9 (1.6-2.6) mg/dL Total Bilirubin 0.3 (0.0-1.0) mg/dL Direct Bilirubin 0.1 (0.0-0.5) mg/dL AST 12 (5-37) U/L ALT 8 (0-40) U/L Alkaline Phosphatase 66 (39-117) U/L Troponin I High Sens < 2.7 (<3.5-35.0) ng/L B-Natriuretic Peptide 15 (<100) pg/mL Total Protein 7.8 (6.5-8.0) g/dL Albumin 3.9 (3.5-5.0) g/dL Influenza Type A (PCR) NEGATIVE (Negative) Influenza Type B (PCR) NEGATIVE (Negative) RSV RNA Qual (PCR) NEGATIVE (Negative) SARS-CoV-2 RNA (RT-PCR) NEGATIVE (Negative) Independent Interpretation I performed an independent interpretation of an: EKG (Sinus heart rate is 70 RI QRS QTC within normal limits there is no acute ST segment elevation.) Radiology Impression Discussion of test interpretation with radiology: I have reviewed the radiologist's reading. External Record Review External record reviewed: Inpatient record Discharge Plan Discharge Clinical Impression: Pneumonia Patient Disposition: Home, Self-Care Instructions: Pneumonia (ED) Prescriptions: New doxycycline hyclate 100 mg capsule 100 mg PO BID 7 Days Qty: 14 0RF No Action sodium,potassium,mag sulfates [Suprep Bowel Prep Kit] 17.5-3.13-1.6 gram recon soln See Rx Instructions PO .COMPLEX Qty: 354 0RF Rx Instructions: DILUTE; drink 1/2 at 6-8 pm and half at 11 PM- 1AM omeprazole 20 mg Capsule,Delayed Release(Dr/Ec) 20 mg PO DAILY ondansetron 4 mg tablet,disintegrating 4 mg PO Q8H PRN (Reason: nausea and vomiting) Qty: 7 0RF prednisone 20 mg tablet 20 mg PO DAILY 3 Days Qty: 3 0RF ketorolac 10 mg tablet 10 mg PO Q6H PRN (Reason: pain) 5 Days Qty: 14 0RF Rx Instructions: DO NOT EXCEED 4 TABLETS PER DAY ondansetron 4 mg tablet,disintegrating 4 mg PO Q8H PRN (Reason: nausea and vomiting) Qty: 14 0RF morphine 15 mg tablet 15 mg PO Q6H PRN (Reason: severe pain) Qty: 10 0RF Rx Instructions: Partial Fill upon patient request. acetaminophen [Tylenol Extra Strength] 500 mg tablet 1,000 mg PO Q6H PRN (Reason: pain) Qty: 30 0RF Remicade 100 mg recon soln 100 mg IV Q8W Rx Instructions: NEXT DOSE: 10/17/2022 budesonide 3 mg capsule,delayed,extend.release 9 mg PO DAILY Qty: 90 1RF Referrals: Emilia Leija MD [Primary Care Provider] - 10/08/23 Print Language: Romanian
[2023-10-04] MEDS: Aspirin 81 MG TAB.CHEW 324 MG PO (17:40)
[2023-10-04 17:47] LABS: B Type Natriuretic Peptide 15 pg/mL (<100)
[2023-10-04 17:49] LABS: D Dimer High Sensitivity 411 NG/ML
[2023-10-04] MEDS: iohexoL 350 MG/ML 100 ML INFUS..BTL 85 ML IV (20:23)
[2023-10-04] MEDS: Doxycycline Monohydrate 100 MG CAPSULE PO (23:44)
== END 2023-10-04 23:48 | disposition home or self-care (01) ==
PROVIDERS: Emergency Provider Emergency Medicine Emergency Medical Services; PCP Internal Medicine
DX: J18.9 Pneumonia, unspecified organism (principal); R42 Dizziness and giddiness; R07.89 Other chest pain; Z79.899 Other long term (current) drug therapy; Z03.818 Encounter for observation for suspected exposure to other biological agents ruled out
CPT/HCPCS: 0241U; 36415; 71045; 71275; 80048; 80076; 83735; 83880; 84484; 85025; 85379; 93005; 99284; 99285; Q9967

== ENCOUNTER → 2023-10-04 14:04 | Outpatient (BNV) | payer BC, SELFPAY | PROVIDERS: Emergency Provider Emergency Medicine Emergency Medical Services; PCP Internal Medicine; Visit Provider Internal Medicine Cardiovascular Disease | DX: R07.9 Chest pain, unspecified (principal) | CPT/HCPCS: 93010 ==

== ENCOUNTER 2023-10-07 07:33 | Emergency (ER) | payer MEDICARE, BC, SELFPAY ==
[2023-10-07 07:42] VITALS: BP 126/93; PULSE 65; RESP 16; TEMP 35.9; O2SAT 98; BMI 30.8
== END 2023-10-07 08:15 | disposition left against medical advice (07) ==
PROVIDERS: Emergency Provider Emergency Medicine; PCP Internal Medicine
DX: R51.9 Headache, unspecified (principal); R07.89 Other chest pain; I10 Essential (primary) hypertension
CPT/HCPCS: 96360; 99281; 99284

== ENCOUNTER 2023-12-31 17:22 | Emergency (ER) | payer BC, SELFPAY | END 2023-12-31 18:17 | disposition left against medical advice (07) | LOC: HO.ED 18:14 | PROVIDERS: Emergency Provider Emergency Medicine; PCP Internal Medicine | DX: N23 Unspecified renal colic (principal) ==

== ENCOUNTER 2024-02-05 20:18 | Emergency (ER) | payer BC, SELFPAY ==
[2024-02-05 20:43] VITALS: BP 122/86; PULSE 64; RESP 16; TEMP 36.9; O2SAT 98; BMI 30.1
--- NOTE | 2024-02-05 20:45 | ED.WOUNDLAC ---
HPI - Wound/Laceration General Chief Complaint: Wound/Laceration Stated Complaint: L hand lac Time Seen by Provider: 02/05/24 23:12 Source: patient Mode of arrival: ambulatory Limitations: no limitations History of Present Illness ED Provider: jonathan MERCER narrative: Patient apparently got superficial laceration on the dorsum of the left hand from boxer knife while open the package no other injury last tetanus more than 10 years Related Data Home Medications ?Medication ?Instructions ?Recorded ?Confirmed infliximab 100 mg intravenous 100 mg IV Q8W 05/09/20 01/18/23 solution (Remicade) omeprazole 20 mg capsule,delayed 20 mg PO DAILY 01/15/23 01/18/23 release Previous Rx's ?Medication ?Instructions ?Recorded budesonide 3 mg 9 mg (3 x 3 mg) PO DAILY #90 ea 12/01/22 capsule,delayed,extended release ondansetron 4 mg disintegrating 4 mg PO Q8H PRN nausea and 12/19/22 tablet vomiting #7 tabs sodium,potassium,mag sulfates 17.5 See Rx Instructions PO .COMPLEX 06/19/23 gram-3.13 gram-1.6 gram oral soln #354 mL (Suprep Bowel Prep Kit) acetaminophen 500 mg tablet 1,000 mg (2 x 500 mg) PO Q6H PRN 09/06/23 (Tylenol Extra Strength) pain #30 tabs ketorolac 10 mg tablet 10 mg PO Q6H PRN pain 5 days #14 09/06/23 tabs morphine 15 mg immediate release 15 mg PO Q6H PRN severe pain #10 09/06/23 tablet tabs ondansetron 4 mg disintegrating 4 mg PO Q8H PRN nausea and 09/06/23 tablet vomiting #14 tabs prednisone 20 mg tablet 20 mg PO DAILY 3 days #3 tabs 09/06/23 doxycycline hyclate 100 mg capsule 100 mg PO BID cough 7 days #14 caps 10/04/23 Allergies Allergy/AdvReac Type Severity Reaction Status Date / Time No Known Allergies Allergy Verified 02/05/24 20:46 [No Known Allergies*] Review of Systems Review of Systems: Yes all other systems are reviewed and are negative PMFSH Past Medical History Medical History Pneumonia History of blood transfusion Low vitamin D level Anemia Anxiety Pituitary macroadenoma High risk medication use GERD (gastroesophageal reflux disease) Crohn disease Surgical History History of ileostomy History of partial surgical removal of colon History of esophagogastroduodenoscopy (EGD) H/O colonoscopy Family History Family History Mother Breast cancer Social History Social History Household Members: Family Housing: Apartment Do you presently have visiting nurse or other home services: No Alcohol intake: never Patient Tobacco Use Status: Never used Tobacco e-Cigarette/Vaping Use: Never Used Second Hand Smoke Exposure: No Substance Use Type: Marijuana Advance Directives: No Advance Directives Information Provided: Yes Advance Directives Date on File: 07/17/20 service: No Current occupational status: disabled Physical Exam Vital Signs: Vital Signs: Last Vital Signs Temp 98.1 F 02/05/24 22:38 Pulse 59 02/05/24 22:38 Resp 20 02/05/24 22:38 BP 122/73 02/05/24 22:38 Pulse Ox 99 02/05/24 22:38 O2 Del Method Room Air 02/05/24 22:38 BMI result Body Mass Index 30.1 Extrem: Hand/finger images: 1. 2.5 cm long laceration tendons intact neurovascular intact Course Course Course Narrative: This is a Rapid Medical Examination (RME) performed by Jarek Vazquez PA-C in triage. Full HPI, ROS, assessment and treatment plan per primary provider in the Main ED. 43-year-old right-hand dominant male presents the ER for evaluation of a 2 cm linear laceration sustained on the dorsum of the left hand while using a knife to open a can. unknown tdap status. mild oozing on arrival. FROM of the digits, good hand grasp. Plan: lac repair Medications Administered Discontinued Medications Generic Name Dose Route Start Last Admin Trade Name Freq PRN Reason Stop Dose Admin Bacitracin 1 appl 02/05/24 23:46 02/05/24 23:48 Bacitracin Oint 0.9 Gm Packet TOPICAL 02/05/24 23:47 1 appl ONCE ONE Administration Protocol Diphtheria/Tetanus/Acell Pertussis 0.5 ml 11/19/24 20:45 02/05/24 23:07 Diphth,Pertus(Acell),Tet Adult 0.5 Ml Syringe IM 02/05/24 20:46 0.5 ml .ONCE ONE Administration Lidocaine HCl 5 ml 02/05/24 23:18 02/05/24 23:34 Lidocaine Hcl 1 % Mpf 5 Ml Vial INFILTRATI 02/05/24 23:19 5 ml ONCE ONE Administration Medical Decision Making Medical Decision Making MDM Narrative: Patient has superficial laceration deeper tissues received tetanus shot in the ER sutured with nice approximately Procedures Laceration Laceration 1: Site: hand Side (If applicable): left Size (cm): 2 Description: linear Depth: simple, single layer Local Anesthetic: lidocaine 1% Amount of anesthesia used (mL): 2 Pre-repair: wound explored and deep structures intact Skin layer closed with: nylon Size (cm): 5-0 Number of sutures: 6 Technique: simple, interrupted Discharge Plan Discharge Clinical Impression: Laceration Patient Disposition: Home, Self-Care Instructions: Laceration (ED) Additional Instructions: Local care as advised stitches removal in 7-10 days Prescriptions: No Action sodium,potassium,mag sulfates [Suprep Bowel Prep Kit] 17.5-3.13-1.6 gram recon soln See Rx Instructions PO .COMPLEX Qty: 354 0RF Rx Instructions: DILUTE; drink 1/2 at 6-8 pm and half at 11 PM- 1AM omeprazole 20 mg Capsule,Delayed Release(Dr/Ec) 20 mg PO DAILY ondansetron 4 mg tablet,disintegrating 4 mg PO Q8H PRN (Reason: nausea and vomiting) Qty: 7 0RF prednisone 20 mg tablet 20 mg PO DAILY 3 Days Qty: 3 0RF ketorolac 10 mg tablet 10 mg PO Q6H PRN (Reason: pain) 5 Days Qty: 14 0RF Rx Instructions: DO NOT EXCEED 4 TABLETS PER DAY ondansetron 4 mg tablet,disintegrating 4 mg PO Q8H PRN (Reason: nausea and vomiting) Qty: 14 0RF morphine 15 mg tablet 15 mg PO Q6H PRN (Reason: severe pain) Qty: 10 0RF Rx Instructions: Partial Fill upon patient request. acetaminophen [Tylenol Extra Strength] 500 mg tablet 1,000 mg PO Q6H PRN (Reason: pain) Qty: 30 0RF doxycycline hyclate 100 mg capsule 100 mg PO BID 7 Days Qty: 14 0RF Remicade 100 mg recon soln 100 mg IV Q8W Rx Instructions: NEXT DOSE: 10/17/2022 budesonide 3 mg capsule,delayed,extend.release 9 mg PO DAILY Qty: 90 1RF Print Language: [place]
[2024-02-05 22:38] VITALS: BP 122/73; PULSE 59; RESP 20; TEMP 36.7; O2SAT 99
[2024-02-05] MEDS: Diphth,Pertus(ACell),Tet Adult 0.5 ML SYRINGE IM (23:07)
[2024-02-05] MEDS: Lidocaine HCl 1 % MPF 5 ML VIAL INFILTRATI (23:34)
[2024-02-05] MEDS: Bacitracin Oint 0.9 GM PACKET 1 APPL TOPICAL (23:48)
[2024-02-06 00:12] VITALS: BP 122/73; PULSE 59; RESP 20; TEMP 36.7; O2SAT 99
== END 2024-02-06 | disposition home or self-care (01) ==
PROVIDERS: Emergency Provider Internal Medicine; PCP Internal Medicine
DX: S61.412A Laceration without foreign body of left hand, initial encounter (principal); W45.8XXA Other foreign body or object entering through skin, initial encounter; Y93.89 Activity, other specified; Y92.9 Unspecified place or not applicable; Y99.9 Unspecified external cause status; Z23 Encounter for immunization
CPT/HCPCS: 12001; 90471; 90715; 99283; 99284; J2003

== ENCOUNTER 2024-04-27 04:45 | Emergency (ER) | payer BC, SELFPAY ==
--- NOTE | ~2024-04-27 | CT_ITS ---
CLINICAL HISTORY: Right renal colic CT abdomen and pelvis without contrast Comparison: CT/RI/SR - CT ABDOMEN PELVIS WO IV CON - 09/06/23 09:[address]/RI/SR - CT ABDOMEN PELVIS WO IV CON - 12/19/22 16:32 EDT Findings: No consolidation or effusion. The liver, gallbladder, spleen, pancreas and adrenal glands are unremarkable. Left-sided hydroureteronephrosis with perinephric edema caused by a 5 x 6 x 11 mm stone in the mid left ureter. The distal left ureter is decompressed. Additional nonobstructing 5 mm left lower pole stone. 2 mm nonobstructing right upper pole stone. No bowel obstruction, pneumoperitoneum, or pneumatosis. Evidence of prior partial colonic resection in the pelvis. Findings suggest right hemicolectomy. Small bowel anastomosis in the right lower quadrant. Pelvic contents unremarkable. Appendix is absent. Prior ventral hernia repair with mesh. Above the level of the mesh there is a fat containing ventral hernia best seen on image 37 of series 3. No fluid collections or adenopathy. No acute fracture. IMPRESSION: Mid left ureteral stone measuring 5 x 6 x 11 mm causing upstream moderate hydroureteronephrosis and perinephric edema. Additional nonobstructing bilateral renal stones. This document has been electronically signed by: France Berg MD on 04/27/2024 06:54:41
[2024-04-27 04:49] VITALS: BP 146/97; PULSE 63; RESP 18; TEMP 36.7; O2SAT 98; BMI 31.8
[2024-04-27 05:11] LABS: Basophils Percent Auto 0.2 % (0-2); Eosinophils Absolute Auto 0.3 X10*3/uL (0.0-0.4); Eosinophils Percent Auto 2.7 % (0-4); Hematocrit 29.7 % (42.0-52.0); Hemoglobin 9.6 g/dl (14.0-18.0); Imm Gran Abs Auto 0.03 X10*3/uL (0.00-0.03); Imm Gran Pct Auto 0.3 % (0.0-0.4); Lymphocytes Absolute Auto 2.3 X10*3/uL (1.2-4.9); Lymphocytes Percent Auto 23.9 % (20-40); MANUAL DIFF FLAG NO; Mean Corpuscular HGB Conc 32.3 g/dl (31.0-36.0); Mean Corpuscular Hemoglobin 26.6 pg (27.0-33.0); Mean Corpuscular Volume 82.3 fL (80.0-98.0); Mean Platelet Volume 11.4 fL (9.4-12.4); Monocytes Absolute Auto 1.3 X10*3/uL (0.1-1.2); Monocytes Percent Auto 13.2 % (2-11); Neutrophils Absolute Auto 5.8 x10*3/uL (2.0-8.3); Neutrophils Percent Auto 59.7 % (45-73); Platelet Count 227 X10*3/uL (160-400); Red Blood Count 3.61 X10*6/uL (4.60-5.80); White Blood Count 9.6 X10*3/uL (4.8-10.8)
--- OUTSIDE RECORDS SUMMARY | 2024-04-27 05:12 | XMS_ITS | Clinical Summary ---
Author Organization [employer] Address [address] [facility] [address] [place] [address] Care Team Providers Care Mold Mechanic Name Role Phone Emilia Leija MD Primary Care Provider Allergies No known active allergies Medications inFLIXimab (Remicade) 100 MG injection Infuse 100 mg into a venous catheter every 8 (eight) weeks. Active sildenafil (Viagra) 25 MG tablet Take 1 tablet (25 mg) by mouth if needed each day for erectile dysfunction. 10 tablet 3 3 Active fluticasone (Flonase) 50 MCG/ACT nasal spray Administer 1-2 sprays into each nostril in the morning for 14 days. Shake gently. Before first use, prime pump. After use, clean tip and replace cap. 16 g 3 Active Blood Pressure kitIndications:Pr imary hypertension To check the BP daily 1 kit 3 Active amLODIPine (Norvasc) 5 MG tabletIndications :Primary hypertension Take 1 tablet (5 mg) by mouth Once per day. 30 tablet 11 4 10/11/19 25 Active Active Problems Problem Noted Date Diagnosed Date Acute sinusitis 11/10/2022 Assessment & Plan (11/10/2022 10:34 PM EDT): One wk of Sx of sinusitis, now w greenish discharge and worsening facial pressure, as well as mild L TM erythema. Afebrile. COVID and flu test done today, neg. -Start Augmentin BID for 7 d. -[place] nasal spray PRN. -Flonase for 10-14 d. -Explained he shouldn't use Sudafed for >2 d. -Alarm signs and Sx explained. Elevated blood pressure reading 11/10/2022 Assessment & Plan (11/10/2022 10:36 PM EDT): Noted today elevated diastolic BP at 98, as well as at previous apt in 06/2022, BP was 142/92. -Advise pt to f u w PCP in 4 wk to monitor BP. Partial small bowel obstruction 06/22/2022 Crohn's disease of ileum, unspecified complicati on 07/26/2020 Overview (06/22/2022): Last Assessment & Plan: Feeling generally better. Seen by Dr Borja. Tolerated a low fiber diet for lunch. Cont IVF until the bag finishes. PRN Zofran PRN Dilaudid for pain Cont Solumedrol 60mg daily while in house and then at d/c transition to prednisone 30mg daily with a 5 mg /week taper. He should follow up with his GI Dr Arellano at [facility] after d/c. Follow up Fecal calprotectin ordered as well as CDiff testing as these can exacerbate crohns. Protein-calorie malnutrition, severe 01/10/2016 Crohn's disease of colon with abscess 12/16/2015 Anxiety 12/17/2012 Crohn's disease with abscess 12/17/2012 Immunizations Name Administration Dates Next Due Influenza, Injectable, MDCK, preservative free 0 04/07/2015 Influenza, Split (incl. purified surface antigen ) 12/17/2012 Social History Tobacco Use Types Packs/Day Years Used Date Smoking Tobacco: Never Passive Smoke Exposure: Never Smokeless Tobacco: Never Tobacco Cessation:Counseling Given: Not Answered Depression Answer Date Recorded Patient Health Questionnaire-9 Score 0 06/30/2022 Housing Stability Answer Date Recorded What is your housing situation today? Not on colt e 01/03/[address] you li ve. Do you have problems with any of the following? None of the above 01/03/2023 Food Insecurity Answer Date Recorded Within the past 12 months, y ou worried that your food would run out before you got money to buy more: Never True 01/03/2023 Within the past 12 months,th e food you bought just didn't last and you didn't have enough money to get more: Never True Transportation Answer Date Recorded In the past 12 months, has l ack of transportation kept you from medical appts, meetings, work or from getting things needed for daily living? No 01/03/2023 Utilities Answer Date Recorded In the past 12 months, has t he electric, gas, oil or water company threatened to shut off services in your home? No 01/03/2023 Depression Answer Date Recorded Patient Health Questionnaire-2 Score 0 06/30/2022 Sex and Gender Information Value Date Recorded Sex Assigned at Male 01/16/2022 10:22 AM EDT Legal Sex Male 10:22 AM EDT Gender Identity Male 01/16/2022 10:22 AM EDT Sexual Orientation Straight 01/16/2022 10 :22 AM EDT Last Filed Vital Signs Vital Sign Reading Time Taken Comments Blood Pressure 142/94 10/11/2023 9:05 AM EDT Pulse 88 10/11/2023 9:05 AM EDT Temperature 37.1 ??C (98.7 ??F) 10/11/2023 9:05 AM ED T Respiratory Rate 20 10/11/2023 9:05 AM EDT Oxygen Saturation 99% 10/11/2023 9:05 AM EDT Inhaled Oxygen Concentration - - Weight 96.2 kg (212 lb) 10/11/2023 9:05 AM EDT Height 177.8 cm (5' 10 ) 10/11/2023 9:05 AM EDT Body Mass Index 30.42 10/11/2023 9:05 AM EDT Plan of Treatment Health Maintenance Due Date Last Done Comments HIV Screening 1979 Lipid Panel 1979 Alcohol/Substance Use Screening 1991 Family Planning (PISQ) 10/12/1994 DTaP/Tdap/Td Vaccines (1 - Tdap) 10/12/1998 Hepatitis B Vaccines (1 of 3 - 19+ 3-dose series) 10/12/1998 Depression Screening 07/01/2023 06/30/2022, 06/30/2022 SDOH Screening 07/01/2023 06/30/2022 COVID-19 Vaccine (3 - 2023-2 5 season) 2023 03/09/2021, 02/09/2021 Influenza Vaccine (#1) 2023 6, 12/17/2012 Tobacco Screening 10/10/2024 10/11/2023 Zoster Vaccines (1 of 2) 10/12/2029 RSV Patients and Patients Aged 60 years or older (1 - 1-dose 75+ series) 10/12/2054 Hepatitis C Screening Completed 10/31/2021 HIB Vaccines Aged Out No longer eligi ble based on patient's age to complete this topic HPV Vaccines Aged Out No longer eligi ble based on patient's age to complete this topic Hepatitis A Vaccines Aged Out No long er eligible based on patient's age to complete this topic IPV Vaccines Aged Out No longer eligi ble based on patient's age to complete this topic Meningococcal Vaccine Aged Out No carl amy eligible based on patient's age to complete this topic Pneumococcal Vaccine: Pediatrics (0 to 5 Years) and At-Risk Patients (6 to 49) Years) Aged Out No longer eligible b ased on patient's age to complete this topic RSV under 20 months Aged Out No longe r eligible based on patient's age to complete this topic Rotavirus Vaccines Aged Out No longer eligible based on patient's age to complete this topic Procedures Procedure Name Priority Date/Time Associated Diagnosis Comments ROBERT HISTORICAL HEPATITIS A,B,C PROFILE Routine 10/31/2021 10:58 AM EDT from Last 3 Months or Most Recently Relevant to Health Maintenance Results * Hepatitis A,B,C Profile (10/31/2021 10:58 AM EDT) Hepatitis B Core Antibody Nonreactive Nonreactive [facility] Hepatitis B Surface Antibody NONREACTIVE Nonreactive [facility] Comment:Nonreactive: < 8.00 mIU/mL Hepatitis B Surface Antigen Negative Negative [facility] Hepatitis C Antibody Nonreactive Nonreactive [facility] Comment: Antibodies to HCV not detected; does not exclude early acute HCV infection. 10/31/2021 10:5 8 AM EDT us Historical Provider HISTORICAL/NON ORDERABLE LABS Final Result Performing Organization Address City/State/[facility] Co de Phone Number [facility] [address] from Last 3 Months or Most Recently Relevant to Health Maintenance Insurance MEDICARE [facility] HMO Care Teams Mold Mechanic Relationship Specialty Start Date End Date Emilia Leija MD [address] [place] [id number] PCP - General Internal Medicine 09/21/11
--- OUTSIDE RECORDS SUMMARY | 2024-04-27 05:12 | XMS_ITS | Encounter Summary ---
Author Organization [employer] Address [address] [facility] 7 [place] [address] Care Team Providers Care Security Team Lead Name Role Phone Emilia Leija MD Primary Care Provider [phone] Reason for Visit * Reason Onset Date Comments Hospital Follow-up 06/20/2022 Encounter Details Date Type Department Care Team ([facility] st Contact Info) Description 06/20/2022 Telephone [facility] [address] [place] [address] Emilia Leija MD [address] [place], [place] [phone] Hospital Follow-up Social History Tobacco Use Types Packs/Day Years Used Date Smoking Tobacco: Never Assessed Depression Answer Date Recorded Patient Health Questionnaire-9 [...] Orientation Straight 01/16/2022 10 :22 AM EDT COVID-19 Exposure Response Date Recorded In the last 10 days, have yo u been in contact with someone who was confirmed or suspected to have Coronavirus/COVID-19? No / Unsure 06/22/2022 9:39 AM EDT documented as of this encounter Miscellaneous Notes * Telephone Encounter - Mela Valentin - 06/20/2022 11:55 AM EDT Patient calling for HDF follow up appointment. 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 Please contact at [phone] documented in this encounter Plan of Treatment Not on file documented as of this encounter Visit Diagnoses Not on filedocumented in this encounter Care Teams Security Team Lead Relationship Specialty Start Date End Date Emilia Leija MD [address] [place] [id number] PCP - General Internal Medicine 09/21/11 documented as of this encounter
[2024-04-27 05:38] LABS: Alanine Aminotransferase 18 U/L (0-40); Albumin Level 3.9 g/dL (3.5-5.0); Alkaline Phosphatase 71 U/L (39-117); Anion Gap 14 (12-20); Aspartate Amino Transferase 27 U/L (5-37); Bilirubin Total 0.4 mg/dL (0.0-1.0); Blood Urea Nitrogen 16 mg/dL (9-16); Calcium 8.7 mg/dL (8.4-10.2); Carbon Dioxide 24 mmol/L (22-29); Chloride 108 mmol/L (96-108); Creatinine Clr Calc Pharmacy 90.3; Estimated Glomerular Filt Rate > 60; Glucose Random 100 mg/dL (60-115); Lipase 31 U/L (8-78); Potassium 3.6 mmol/L (3.3-5.1); Sodium 142 mmol/L (135-145); Total Protein 7.8 g/dL (6.5-8.0)
--- NOTE | 2024-04-27 05:41 | ED.PSYCH ---
HPI - Psych General Chief Complaint: Abdominal Pain Stated Complaint: uro gen male, kidney stones Time Seen by Provider: 04/27/24 05:33 Source: patient Mode of arrival: ambulatory Limitations: no limitations History of Present Illness ED Provider: HPI Narrative: Patient's history of kidney stone noticed pain in the right flank area since yesterday evening got worse prior to arrival with nausea and vomiting no gross hematuria lost the patient was here was 09/09 Related Data Home Medications ?Medication ?Instructions ?Recorded ?Confirmed infliximab 100 mg intravenous 100 mg IV Q8W 05/09/20 01/18/23 solution (Remicade) omeprazole 20 mg capsule,delayed 20 mg PO DAILY 01/15/23 01/18/23 release Previous Rx's ?Medication ?Instructions ?Recorded budesonide 3 mg 9 mg (3 x 3 mg) PO DAILY #90 ea 12/01/22 capsule,delayed,extended release ondansetron 4 mg disintegrating 4 mg PO Q8H PRN nausea and 12/19/22 tablet vomiting #7 tabs sodium,potassium,mag sulfates 17.5 See Rx Instructions PO .COMPLEX 06/19/23 gram-3.13 gram-1.6 gram oral soln #354 mL (Suprep Bowel Prep Kit) acetaminophen 500 mg tablet 1,000 mg (2 x 500 mg) PO Q6H PRN 09/06/23 (Tylenol Extra Strength) pain #30 tabs ketorolac 10 mg tablet 10 mg PO Q6H PRN pain 5 days #14 09/06/23 tabs morphine 15 mg immediate release 15 mg PO Q6H PRN severe pain #10 09/06/23 tablet tabs ondansetron 4 mg disintegrating 4 mg PO Q8H PRN nausea and 09/06/23 tablet vomiting #14 tabs prednisone 20 mg tablet 20 mg PO DAILY 3 days #3 tabs 09/06/23 doxycycline hyclate 100 mg capsule 100 mg PO BID cough 7 days #14 caps 10/04/23 ondansetron 4 mg disintegrating 4 mg PO Q6-8H PRN nausea and 04/27/24 tablet vomiting #7 tabs oxycodone 5 mg tablet 5 mg PO Q6H PRN pain #20 tabs 04/27/24 tamsulosin 0.4 mg capsule (Flomax) 0.4 mg PO BEDTIME #10 caps 04/27/24 Allergies Allergy/AdvReac Type Severity Reaction Status Date / Time No Known Allergies Allergy Verified 04/27/24 04:51 [No Known Allergies*] Review of Systems Review of Systems: Yes all other systems are reviewed and are negative [facility] Past Medical History Medical History Pneumonia History of blood transfusion Low vitamin D level Anemia Anxiety Pituitary macroadenoma High risk medication use GERD (gastroesophageal reflux disease) Crohn disease Surgical History History of ileostomy History of partial surgical removal of colon History of esophagogastroduodenoscopy (EGD) H/O colonoscopy Family History Family History Mother Breast cancer Social History Social History Household Members: Family Housing: Apartment Do you presently have visiting nurse or other home services: No Alcohol intake: never Patient Tobacco Use Status: Never used Tobacco Smoked in Last 30 Days: Yes e-Cigarette/Vaping Use: Never Used Second Hand Smoke Exposure: No Use of substances other than those prescribed or required for medical reasons: Yes Substance Use Type: Marijuana Advance Directives: No Advance Directives Information Provided: Yes Advance Directives Date on File: 07/17/20 service: No Current occupational status: disabled Physical Exam Vital Signs: Vital Signs: Last Vital Signs Temp 98.1 F 04/27/24 04:49 Pulse 63 04/27/24 04:49 Resp 18 04/27/24 04:49 BP 146/97 H 04/27/24 04:49 Pulse Ox 98 04/27/24 04:49 O2 Del Method Room Air 04/27/24 04:49 BMI result Body Mass Index 31.8 Appearance: Alert. Oriented X3. In moderate distress Eyes: PERRLA, No Nystagmus ENT: Pharynx normal. Oral Mucosa moist Neck: Normal inspection. Neck supple. CVS: Normal heart rate and rhythm. Pulses normal. Respiratory: No respiratory distress. Equal air entry bilateral, no wheezing/rales/rhonchi Abdomen: Soft and nontender. Bowel sounds are present, no mass palpable, right CVA tenderness Skin: Skin warm and dry. Normal skin color. Normal skin turgor. Extremities: No lower extremity edema. No calf tenderness Neuro: Oriented X 3. No motor deficit. Medications Administered Discontinued Medications Generic Name Dose Route Start Last Admin Trade Name Julia PRN Reason Stop Dose Admin Sodium Chloride 1,000 mls @ 999 mls/hr 04/27/24 05:33 04/27/24 05:54 Ns IV 04/27/24 06:33 999 mls/hr .Q1H1M ONE Administration Ketorolac Tromethamine 30 mg 04/27/24 05:33 04/27/24 05:54 Ketorolac Tromethamine 30 Mg/Ml Vial IVPUSH 04/27/24 05:34 30 mg ONCE ONE Administration Morphine Sulfate 4 mg 04/27/24 05:33 04/27/24 05:54 Morphine Sulfate 4 Mg/Ml Cartridge IVPUSH 04/27/24 05:34 4 mg ONCE ONE Administration Protocol Ondansetron HCl 4 mg 04/27/24 05:33 04/27/24 05:54 Ondansetron Hcl 4 Mg/2 Ml Vial IVPUSH 04/27/24 05:34 4 mg ONCE ONE Administration Medical Decision Making Medical Decision Making [facility] Narrative: Patient with 5 x 6 x 11 mm stone in left mid ureter with hydronephrosis patient patient is feeling much better at this time will give another pain medication disposition according to Pain patient's will like to follow up as outpatient Differential Diagnosis Differential Diagnoses: The differential diagnosis associated with the presentation includes Obstructive kidney stone Lab Data [facility] Lab Attestation statement: I reviewed the patient's lab results. 04/27/24 05:07 04/27/24 05:07 Labs: Lab Results 04/27/24 Range/Units 05:07 WBC 9.6 (4.8-10.8) X10*3/uL RBC 3.61 L (4.60-5.80) X10*6/uL Hgb 9.6 L (14.0-18.0) g/dl Hct 29.7 L (42.0-52.0) % MCV 82.3 (80.0-98.0) fL MCH 26.6 L (27.0-33.0) pg MCHC 32.3 (31.0-36.0) g/dl RDW 14.0 (11.0-16.0) % Plt Count 227 (160-400) X10*3/uL MPV 11.4 (9.4-12.4) fL Immature Gran % (Auto) 0.3 (0.0-0.4) % Neut % (Auto) 59.7 (45-73) % Lymph % (Auto) 23.9 (20-40) % [place] % (Auto) 13.2 H (2-11) % Eos % (Auto) 2.7 (0-4) % Baso % (Auto) 0.2 (0-2) % Lymph # (Auto) 2.3 (1.2-4.9) X10*3/uL [place] # (Auto) 1.3 H (0.1-1.2) X10*3/uL Eos # (Auto) 0.3 (0.0-0.4) X10*3/uL Baso # (Auto) 0.0 (0.0-0.2) X10*3/uL Abs Immat Gran (auto) 0.03 (0.00-0.03) X10*3/uL Absolute Neuts (auto) 5.8 (2.0-8.3) x10*3/uL Absolute Nucleated RBC 0.000 (0.0-0.012) X10*3/uL Nucleated RBC % (auto) 0.0 (0.0-0.2) /100WBC Sodium 142 (135-145) mmol/L Potassium 3.6 (3.3-5.1) mmol/L Chloride 108 (96-108) mmol/L Carbon Dioxide 24 (22-29) mmol/L Anion Gap 14 (12-20) BUN 16 (9-16) mg/dL Creatinine 1.24 (0.5-1.4) mg/dL Estim Creat Clear Calc 90.3 Estimated GFR > 60 Random Glucose 100 (60-115) mg/dL Calcium 8.7 D (8.4-10.2) mg/dL Total Bilirubin 0.4 (0.0-1.0) mg/dL AST 27 (5-37) U/L ALT 18 (0-40) U/L Alkaline Phosphatase 71 (39-117) U/L Total Protein 7.8 (6.5-8.0) g/dL Albumin 3.9 (3.5-5.0) g/dL Lipase 31 (8-78) U/L Independent Interpretation I performed an independent interpretation of an: CT Scan Radiology Impression Discussion of test interpretation with radiology: I have reviewed the radiologist's reading. Radiologist Impression: o consolidation or effusion. The liver, gallbladder, spleen, pancreas and adrenal glands are unremarkable. Left-sided hydroureteronephrosis with perinephric edema caused by a 5 x 6 x 11 mm stone in the mid left ureter. The distal left ureter is decompressed. Additional nonobstructing 5 mm left lower pole stone. 2 mm nonobstructing right upper pole stone. No bowel obstruction, pneumoperitoneum, or pneumatosis. Evidence of prior partial colonic resection in the pelvis. Findings suggest right hemicolectomy. Small bowel anastomosis in the right lower quadrant. Pelvic contents unremarkable. Appendix is absent. Prior ventral hernia repair with mesh. Above the level of the mesh there is a fat containing ventral hernia best seen on image 37 of series 3. No fluid collections or adenopathy. No acute fracture. IMPRESSION: Mid left ureteral stone measuring 5 x 6 x 11 mm causing upstream moderate hydroureteronephrosis and perinephric edema. Additional nonobstructing bilateral renal stones. This document has been electronically signed by: France Berg MD on 04/27/2024 06:54:41 Discharge Plan Discharge Clinical Impression: Calculus of left ureter Patient Disposition: Home, Self-Care Instructions: Ureteral Stones (ED) Additional Instructions: Drink plenty of fluids Pain medication as prescribed Follow with urologist Report to the ER if worsening of the pain Prescriptions: New oxycodone 5 mg tablet 5 mg PO Q6H PRN (Reason: pain) Qty: 20 0RF Rx Instructions: Partial Fill upon patient request. tamsulosin [Flomax] 0.4 mg capsule 0.4 mg PO BEDTIME Qty: 10 0RF ondansetron 4 mg tablet,disintegrating 4 mg PO Q6-8H PRN (Reason: nausea and vomiting) Qty: 7 0RF No Action sodium,potassium,mag sulfates [Suprep Bowel Prep Kit] 17.5-3.13-1.6 gram recon soln See Rx Instructions PO .COMPLEX Qty: 354 0RF Rx Instructions: DILUTE; drink 1/2 at 6-8 pm and half at 11 PM- 1AM omeprazole 20 mg Capsule,Delayed Release(Dr/Ec) 20 mg PO DAILY ondansetron 4 mg tablet,disintegrating 4 mg PO Q8H PRN (Reason: nausea and vomiting) Qty: 7 0RF prednisone 20 mg tablet 20 mg PO DAILY 3 Days Qty: 3 0RF ketorolac 10 mg tablet 10 mg PO Q6H PRN (Reason: pain) 5 Days Qty: 14 0RF Rx Instructions: DO NOT EXCEED 4 TABLETS PER DAY ondansetron 4 mg tablet,disintegrating 4 mg PO Q8H PRN (Reason: nausea and vomiting) Qty: 14 0RF morphine 15 mg tablet 15 mg PO Q6H PRN (Reason: severe pain) Qty: 10 0RF Rx Instructions: Partial Fill upon patient request. acetaminophen [Tylenol Extra Strength] 500 mg tablet 1,000 mg PO Q6H PRN (Reason: pain) Qty: 30 0RF doxycycline hyclate 100 mg capsule 100 mg PO BID 7 Days Qty: 14 0RF Remicade 100 mg recon soln 100 mg IV Q8W Rx Instructions: NEXT DOSE: 10/17/2022 budesonide 3 mg capsule,delayed,extend.release 9 mg PO DAILY Qty: 90 1RF Referrals: Jagdish Flores MD [Physician] - 2 days Print Language: Mongolian
[2024-04-27] MEDS: ondansetron HCL 4 MG/2 ML VIAL IVPUSH (05:54)
[2024-04-27] MEDS: 0.9 % Sodium Chloride 1,000 ML 999 ML IV (05:54)
[2024-04-27] MEDS: Morphine Sulfate 4 MG/ML CARTRIDGE IVPUSH ×2 (05:54→07:27)
[2024-04-27] MEDS: Ketorolac Tromethamine 30 MG/ML VIAL IVPUSH (05:54)
[2024-04-27] MEDS: Tamsulosin HCL 0.4 MG CAPSULE PO (07:26)
[2024-04-27 07:27] VITALS: RESP 18
[2024-04-27 08:09] VITALS: BP 138/85; PULSE 62; RESP 18; TEMP 36.6; O2SAT 94
[2024-04-27 08:55] VITALS: BP 138/85; PULSE 62; RESP 18; TEMP 36.6; O2SAT 94
== END 2024-04-27 08:55 | disposition home or self-care (01) ==
PROVIDERS: Emergency Provider Internal Medicine; PCP Internal Medicine
DX: N20.1 Calculus of ureter (principal); R10.9 Unspecified abdominal pain; R11.2 Nausea with vomiting, unspecified; Z79.899 Other long term (current) drug therapy
CPT/HCPCS: 36415; 74176; 80053; 83690; 85025; 96374; 96375; 96376; 99284; J1885; J2270; J2405

== ENCOUNTER → 2024-04-27 05:34 | Outpatient (BNV) | payer BC, SELFPAY | PROVIDERS: Emergency Provider Internal Medicine; PCP Internal Medicine; Visit Provider Radiology Diagnostic Radiology | DX: N23 Unspecified renal colic (principal) | CPT/HCPCS: 74176 ==

== ENCOUNTER 2024-08-07 09:12 | Emergency (ER) | payer MEDICARE, BC, SELFPAY ==
--- NOTE | ~2024-08-07 | CT_ITS ---
EXAMINATION: CT ABDOMEN AND PELVIS WITH CONTRAST CLINICAL INFORMATION: Chronic's disease. Right lower quadrant pain. COMPARISON: April 27, 2024. TECHNIQUE: Multidetector volumetric images were obtained from the superior aspect of the liver through the pubic symphysis following administration 85 mL of Omnipaque 350 intravenous contrast. Sagittal and coronal reformatted images were obtained on the technologist's workstation. Oral contrast: No This CT examination was performed using dose optimization techniques as appropriate, variously including the following: *Automated exposure control *Adjustment of mA and/or kV according to patient size (this includes techniques or standardized protocols for targeted exams where dose is matched to indication/reason for exam; i.e. extremities or head) *Use of iterative reconstruction technique. DLP: 634 mg centimeter. FINDINGS: LUNG BASES: No acute airspace disease. LIVER, GALLBLADDER, AND BILIARY TREE: Liver measures 15 cm with a focal fatty infiltration adjacent to the falciform ligament. Portal veins and hepatic veins and intrahepatic portion of the IVC are patent. No intrahepatic biliary ductal dictation. No focal mass. No pericholecystic fluid collection or gallbladder wall thickening. Common bile duct measures 3 mm. PANCREAS: No focal mass. No peripancreatic fluid collection. No main pancreatic ductal dilatation. SPLEEN: 8 cm. No focal lesion. ADRENAL GLANDS: No nodular lesion. KIDNEYS AND URETERS: Right kidney: 1 mm calculus in the upper pole pelvicalyceal system. No hydronephrosis. No gross renal mass. Probable duplicated collecting system the distal ureters are not identified. Left kidney: There is a cluster of 9 mm and 5 mm cylindrical shaped calculi in the distal left ureter near the vesicoureteral junction resulting in moderate dilatation of the left ureter and the pelvicalyceal system. There is likely duplicated collecting system. Multifocal hypodensities in the renal parenchyma likely cysts. Slight decreased enhancement pattern of the renal parenchyma involving the lower pole and midportion. No gross renal mass. BLADDER: Fluid-filled. GASTROINTESTINAL TRACT: Sutures at the distal ileal lobes without fecal material and air-fluid levels in the proximal segment to the anastomotic site. There is a collapsed appearance of the distal ileal loops with questionable concentric wall thickening. Postsurgical changes in the right hemicolon. Status post appendectomy. Postsurgical changes of the rectosigmoid colon. There is a collapsed appearance of the left hemicolon with abundant stool throughout the large intestine. No ascites. No pneumoperitoneum. No pneumatosis intestinalis. No peripheral enhancing fluid collections, peritoneal cavity. No gross enteroenteric fistula. ABDOMINAL WALL: Fat-containing epigastric hernia. Diastases abdominal rectus muscles. The umbilical region with small fat-containing umbilical hernia and protrusion of small bowel loops segment. LYMPH NODES: Prominent mesenteric lymph nodes. VASCULAR: No aneurysm or dissection abdominal aorta. No gross plaque. PELVIC VISCERA: Prostate gland is not enlarged. OSSEOUS STRUCTURES: No acute fracture or listhesis. No fractures in the bony pelvis or the coxofemoral joint. No lytic or blastic lesions. CT/CT abdomen pelvis w IV con IMPRESSION: Partial/intermittent distal small bowel obstruction at the suture site. Cluster of 9 mm and 5 mm obstructing calculi distal left ureter resulting in moderate hydronephrosis and decreased enhancement pattern of the mid portions lower pole left kidney. 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 Nonobstructing calculus, right kidney. Fleischner guidelines were followed. Electronically signed by: Fabian Mcdowell MD 08/07/2024 11:34 AM EDT
[2024-08-07 09:14] VITALS: BP 130/92; PULSE 64; RESP 18; TEMP 36.6; O2SAT 99; BMI 31.3
--- NOTE | 2024-08-07 09:18 | ED.ABDPAIN ---
HPI - Abdominal Pain General Chief Complaint: Abdominal Pain Stated Complaint: Abd pain Time Seen by Provider: 08/07/24 09:18 Source: patient Mode of arrival: ambulatory Limitations: no limitations History of Present Illness ED Provider: Arvin Henry PA-C HPI narrative: 43-year-old male with past medical history of Crohn's disease currently on Remicade Q8 weeks hx of iliostomy with reversal (2014), anemia, GERD, pituitary macroadenoma, presents to the ED due to RLQ pain. Patient reports pain began around 3 am this morning (08/07) and is similar to Chron's flares that he has experienced in the past. States the pain is associated with nausea but has not vomited. Denies fever, chills, black/tarry stool, gross blood in stool, diarrhea, chest pain, SOB. MD elicited complaint: abdominal pain Pertinent past history: other (chrons disease ) Pain Consistency: constant Location: RLQ Severity: similar to previous episodes Quality: aching Radiation: none Migration to: no migration Exacerbating factors: nothing Relieving factors: nothing Context: history of similar episodes Associated symptoms: nausea Related Data Home Medications ?Medication ?Instructions ?Recorded ?Confirmed infliximab 100 mg intravenous 100 mg IV Q8W 05/09/20 01/18/23 solution (Remicade) omeprazole 20 mg capsule,delayed 20 mg PO DAILY 01/15/23 01/18/23 release Previous Rx's ?Medication ?Instructions ?Recorded budesonide 3 mg 9 mg (3 x 3 mg) PO DAILY #90 ea 12/01/22 capsule,delayed,extended release ondansetron 4 mg disintegrating 4 mg PO Q8H PRN nausea and 12/19/22 tablet vomiting #7 tabs sodium,potassium,mag sulfates 17.5 See Rx Instructions PO .COMPLEX 06/19/23 gram-3.13 gram-1.6 gram oral soln #354 mL (Suprep Bowel Prep Kit) acetaminophen 500 mg tablet 1,000 mg (2 x 500 mg) PO Q6H PRN 09/06/23 (Tylenol Extra Strength) pain #30 tabs ketorolac 10 mg tablet 10 mg PO Q6H PRN pain 5 days #14 09/06/23 tabs morphine 15 mg immediate release 15 mg PO Q6H PRN severe pain #10 06/20/24 tablet tabs ondansetron 4 mg disintegrating 4 mg PO Q8H PRN nausea and 09/06/23 tablet vomiting #14 tabs prednisone 20 mg tablet 20 mg PO DAILY 3 days #3 tabs 09/06/23 doxycycline hyclate 100 mg capsule 100 mg PO BID cough 7 days #14 caps 10/04/23 ibuprofen 400 mg tablet 400 mg PO Q6H PRN pain #14 tabs 04/27/24 ondansetron 4 mg disintegrating 4 mg PO Q6-8H PRN nausea and 04/27/24 tablet vomiting #7 tabs oxycodone 5 mg tablet 5 mg PO Q6H PRN pain #20 tabs 04/27/24 tamsulosin 0.4 mg capsule (Flomax) 0.4 mg PO BEDTIME #10 caps 04/27/24 Allergies Allergy/AdvReac Type Severity Reaction Status Date / Time No Known Allergies Allergy Verified 08/07/24 09:16 [No Known Allergies*] Review of Systems Review of Systems CONST: Negative for fever, body aches and chills. HENT: Negative for neck pain/stiffness, headache, congestion, sore throat, swelling. EYES: Negative for discharge/pain or vision changes. RESP: Negative for cough/hemoptysis and shortness of breath. CV: Negative chest pain, difficulty breathing, palpitations. ABD: POS RLQ pain, nausea. Negative vomiting. : Negative increase frequency, dysuria, blood in urine or stool. MUSC: Negative for muscle aches, edema. SKIN: Negative rash, lesions/sores. NEURO: Negative headache, dizziness, weakness. Yes all other systems are reviewed and are negative [facility] Past Medical History Attestation statement: The following information was validated with the patient. Source: old records reviewed and nursing notes reviewed Medical History Pneumonia History of blood transfusion Low vitamin D level Anemia Anxiety Pituitary macroadenoma High risk medication use GERD (gastroesophageal reflux disease) Crohn disease Surgical History History of ileostomy History of partial surgical removal of colon History of esophagogastroduodenoscopy (EGD) H/O colonoscopy Family History Family History Mother Breast cancer Social History Social History Household Members: Family Housing: Apartment Do you presently have visiting nurse or other home services: No Alcohol intake: never Patient Tobacco Use Status: Never used Tobacco e-Cigarette/Vaping Use: Never Used Second Hand Smoke Exposure: No Substance Use Type: Marijuana Advance Directives: No Advance Directives Information Provided: Yes Advance Directives Date on File: 07/17/20 service: No Current occupational status: disabled Physical Exam ED Vital Signs: Vital Signs - 24 hr 08/07/24 09:14 08/07/24 09:57 Temperature 97.9 F Pulse Rate 64 Respiratory Rate 18 16 Blood Pressure 130/92 H Pulse Oximetry 99 Oxygen Delivery Method Room Air BMI result Body Mass Index 31.3 Const General: cooperative and no acute distress Medical Decision Making Medical Decision Making MDM Narrative: 43-year-old male with past medical history of Crohn's disease currently on Remicade Q8 weeks hx of iliostomy with reversal (2014), anemia, GERD, pituitary macroadenoma, presents to the ED due to RLQ pain. Patient states this pain is similar to Chron's flares he has had in the past. VSS. In no acute distress, non-toxic appearing. Labs reveal elevated ESR at 37, otherwise unremarkable. Patient is nauseous and in moderate pain. Will give IV fluids, 4mg ondansetron, and 4mg of morphine for pain control. CT of abdomen and pelvis with IV contrast reveal partial/intermittent distal SBO. There are also a cluster of 9-5mm obstructive calculi of distal L ureter with moderate hydronephrosis. Course 12:28- Surgery consult placed with Dr. Zapien due to partial/intermittent distal SBO who is sending surgical PA for evaluation. Patient states he has an appointment with [facility] urology on 08/26. I still consulted Dr. Flores for recommendations on evaluation of obstructive renal calculi. Patient is is moderate pain, will give another 4mg of morphine for pain management while awaiting surgical evaluation. Vital signs continue to be stable at this time. 12:58- Surgical PA states they are going to admit the patient to their service for management of SBO. 13:05- Patient states he does not want to be admitted to the hospital for care. This was discussed with Eliu Chowdhury PA-C on the surgical team. He is comfortable with patient doing PO challenge of clear fluids to see if he is able to tolerate. If patient is able to tolerate without nausea, or vomiting, he is able to D/C home. 14:01- Patient is tolerating clear fluids without nausea, or vomiting. Patient is still requesting to D/C home and does not want to be admitted to surgical service. Surgical PA is in agreement that patient is safe for D/C home since he is tolerating PO. Patient is A&O x3 and is in understanding of his condition, counseled on strict return precautions. Differential Diagnosis Differential Diagnoses: The differential diagnosis associated with the presentation includes Crohn's flare gastritis diverticulosis SBO Ileus Admission/Observation Consideration of admission/observation: Escalation of care including admission/observation considered Consult Healthcare Provider Management of the patient was discussed with: Sales Counselor (Surgery who will admit to their service) Lab Data MDM Lab Attestation statement: I reviewed the patient's lab results. 08/07/24 09:45 08/07/24 09:45 Labs: Lab Results 08/07/24 Range/Units 09:45 WBC 7.3 (4.8-10.8) X10*3/uL RBC 4.00 L (4.60-5.80) X10*6/uL Hgb 10.7 L (14.0-18.0) g/dl Hct 33.5 L (42.0-52.0) % MCV 83.8 (80.0-98.0) fL MCH 26.8 L (27.0-33.0) pg MCHC 31.9 (31.0-36.0) g/dl RDW 14.3 (11.0-16.0) % Plt Count 236 (160-400) X10*3/uL MPV 11.6 (9.4-12.4) fL Immature Gran % (Auto) 0.3 (0.0-0.4) % Neut % (Auto) 56.3 (45-73) % Lymph % (Auto) 30.2 (20-40) % [place] % (Auto) 9.8 (2-11) % Eos % (Auto) 3.0 (0-4) % Baso % (Auto) 0.4 (0-2) % Lymph # (Auto) 2.2 (1.2-4.9) X10*3/uL [place] # (Auto) 0.7 (0.1-1.2) X10*3/uL Eos # (Auto) 0.2 (0.0-0.4) X10*3/uL Baso # (Auto) 0.0 (0.0-0.2) X10*3/uL Abs Immat Gran (auto) 0.02 (0.00-0.03) X10*3/uL Absolute Neuts (auto) 4.1 (2.0-8.3) x10*3/uL Absolute Nucleated RBC 0.000 (0.0-0.012) X10*3/uL Nucleated RBC % (auto) 0.0 (0.0-0.2) /100WBC ESR 37 H (0-15) MM/HR Sodium 142 (135-145) mmol/L Potassium 4.2 (3.3-5.1) mmol/L Chloride 108 (96-108) mmol/L Carbon Dioxide 26 (22-29) mmol/L Anion Gap 12 (12-20) BUN 15 (9-16) mg/dL Creatinine 1.08 (0.5-1.4) mg/dL Estim Creat Clear Calc 102.9 Estimated GFR > 60 Random Glucose 90 (60-115) mg/dL Calcium 9.2 (8.4-10.2) mg/dL Magnesium 1.6 (1.6-2.6) mg/dL Total Bilirubin 0.6 (0.0-1.0) mg/dL AST 27 (5-37) U/L ALT 15 (0-40) U/L Alkaline Phosphatase 55 (39-117) U/L C-Reactive Protein 0.29 (< or = 0.50) mg/dL Total Protein 7.9 (6.5-8.0) g/dL Albumin 4.2 (3.5-5.0) g/dL Lipase 23 (8-78) U/L Independent Interpretation I performed an independent interpretation of an: CT Scan Radiology Impression Discussion of test interpretation with radiology: I have reviewed the radiologist's reading. Radiologist Impression: FINDINGS: LUNG BASES: No acute airspace disease. LIVER, GALLBLADDER, AND BILIARY TREE: Liver measures 15 cm with a focal fatty infiltration adjacent to the falciform ligament. Portal veins and hepatic veins and intrahepatic portion of the IVC are patent. No intrahepatic biliary ductal dictation. No focal mass. No pericholecystic fluid collection or gallbladder wall thickening. Common bile duct measures 3 mm. PANCREAS: No focal mass. No peripancreatic fluid collection. No main pancreatic ductal dilatation. SPLEEN: 8 cm. No focal lesion. ADRENAL GLANDS: No nodular lesion. KIDNEYS AND URETERS: Right kidney: 1 mm calculus in the upper pole pelvicalyceal system. No hydronephrosis. No gross renal mass. Probable duplicated collecting system the distal ureters are not identified. Left kidney: There is a cluster of 9 mm and 5 mm cylindrical shaped calculi in the distal left ureter near the vesicoureteral junction resulting in moderate dilatation of the left ureter and the pelvicalyceal system. There is likely duplicated collecting system. Multifocal hypodensities in the renal parenchyma likely cysts. Slight decreased enhancement pattern of the renal parenchyma involving the lower pole and midportion. No gross renal mass. BLADDER: Fluid-filled. GASTROINTESTINAL TRACT: Sutures at the distal ileal lobes without fecal material and air-fluid levels in the proximal segment to the anastomotic site. There is a collapsed appearance of the distal ileal loops with questionable concentric wall thickening. Postsurgical changes in the right hemicolon. Status post appendectomy. Postsurgical changes of the rectosigmoid colon. There is a collapsed appearance of the left hemicolon with abundant stool throughout the large intestine. No ascites. No pneumoperitoneum. No pneumatosis intestinalis. No peripheral enhancing fluid collections, peritoneal cavity. No gross enteroenteric fistula. ABDOMINAL WALL: Fat-containing epigastric hernia. Diastases abdominal rectus muscles. The umbilical region with small fat-containing umbilical hernia and protrusion of small bowel loops segment. LYMPH NODES: Prominent mesenteric lymph nodes. VASCULAR: No aneurysm or dissection abdominal aorta. No gross plaque. PELVIC VISCERA: Prostate gland is not enlarged. OSSEOUS STRUCTURES: No acute fracture or listhesis. No fractures in the bony pelvis or the coxofemoral joint. No lytic or blastic lesions. CT/CT abdomen pelvis w IV con IMPRESSION: Partial/intermittent distal small bowel obstruction at the suture site. Cluster of 9 mm and 5 mm obstructing calculi distal left ureter resulting in moderate hydronephrosis and decreased enhancement pattern of the mid portions lower pole left kidney. 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 Nonobstructing calculus, right kidney. Fleischner guidelines were followed. Electronically signed by: Fabian Mcdowell MD 08/07/2024 11:34 AM External Record Review External record reviewed: Inpatient record, Office record and Outpatient record Chronic Conditions Patient?s care impacted by: Other (Crohn's disease) Medications Administered Discontinued Medications Generic Name Dose Route Start Last Admin Trade Name Freq PRN Reason Stop Dose Admin Lactated Ringer's 1,000 mls @ 999 mls/hr 08/07/24 09:30 08/07/24 10:58 Lr IV 08/07/24 10:30 Infused .Q1H1M SANGITA Infusion Iohexol 100 ml 08/07/24 10:30 08/07/24 10:31 Iohexol 350 Mg/Ml 100 Ml Infus..Btl IV 08/07/24 10:31 85 ml ONCE ONE Administration Morphine Sulfate 4 mg 08/07/24 09:27 08/07/24 09:57 Morphine Sulfate 4 Mg/Ml Cartridge IVPUSH 08/07/24 09:28 4 mg ONCE ONE Administration Protocol Morphine Sulfate 4 mg 08/07/24 12:28 08/07/24 13:01 Morphine Sulfate 4 Mg/Ml Cartridge IVPUSH 08/07/24 12:29 4 mg ONCE ONE Administration Protocol Ondansetron HCl 4 mg 08/07/24 09:33 08/07/24 09:57 Ondansetron Hcl 4 Mg/2 Ml Vial IVPUSH 08/07/24 09:34 4 mg ONCE ONE Administration Discharge Plan Discharge Clinical Impression: SBO (small bowel obstruction) Abdominal pain Qualifiers: Abdominal location: right lower quadrant Qualified Code(s): R10.31 - Right lower quadrant pain Patient Disposition: Home, Self-Care Instructions: Abdominal Pain (ED), Acute Nausea and Vomiting (ED) Additional Instructions: you were evaluated in the emergency department today for right lower quadrant abdominal pain, and nausea. Your lab work showed an elevated inflammatory marker called ESR suggesting an acute inflammatory processes going on. Your CT abdomen pelvis revealed a partial/ intermittent distal small-bowel obstruction , and a cluster of 9mm - 5 mm obstructing kidney stones in your left ureter with hydronephrosis meaning that the urine can not completely drain from the kidney. You were evaluated by the surgical team who recommended admission to their service for close observation, but you refused admission. The surgical team stated that you were safe for discharge home if you were able to tolerate clear fluids. You also stated that you have a follow-up with [facility] Urology Dr. Flores to address your kidney stones. You were medicated with IV fluids, 2 doses of 4 mg morphine for pain, and 4 mg of Zofran for nausea which relieved her symptoms. You were given kelly malka in the department to test if you were able to tolerate clear fluids by mouth, you were able to tolerate these fluids without any nausea or vomiting. Please follow-up with your PCP to ensure improvement. Please follow-up with urology for evaluation of obstructing kidney stones. Please return to the emergency department if you experience fever over 100.4?, worsening nausea, worsening vomiting, worsening abdominal pain, inability to have a bowel movement, inability to pass gas, blood in the vomit, black/ tarry/bloody stool, increased diarrhea, or any other new, worsening, concerning symptoms Prescriptions: No Action sodium,potassium,mag sulfates [Suprep Bowel Prep Kit] 17.5-3.13-1.6 gram recon soln See Rx Instructions PO .COMPLEX Qty: 354 0RF Rx Instructions: DILUTE; drink 1/2 at 6-8 pm and half at 11 PM- 1AM oxycodone 5 mg tablet 5 mg PO Q6H PRN (Reason: pain) Qty: 20 0RF Rx Instructions: Partial Fill upon patient request. tamsulosin [Flomax] 0.4 mg capsule 0.4 mg PO BEDTIME Qty: 10 0RF ondansetron 4 mg tablet,disintegrating 4 mg PO Q6-8H PRN (Reason: nausea and vomiting) Qty: 7 0RF ibuprofen 400 mg tablet 400 mg PO Q6H PRN (Reason: pain) Qty: 14 0RF omeprazole 20 mg Capsule,Delayed Release(Dr/Ec) 20 mg PO DAILY ondansetron 4 mg tablet,disintegrating 4 mg PO Q8H PRN (Reason: nausea and vomiting) Qty: 7 0RF prednisone 20 mg tablet 20 mg PO DAILY 3 Days Qty: 3 0RF ketorolac 10 mg tablet 10 mg PO Q6H PRN (Reason: pain) 5 Days Qty: 14 0RF Rx Instructions: DO NOT EXCEED 4 TABLETS PER DAY ondansetron 4 mg tablet,disintegrating 4 mg PO Q8H PRN (Reason: nausea and vomiting) Qty: 14 0RF morphine 15 mg tablet 15 mg PO Q6H PRN (Reason: severe pain) Qty: 10 0RF Rx Instructions: Partial Fill upon patient request. acetaminophen [Tylenol Extra Strength] 500 mg tablet 1,000 mg PO Q6H PRN (Reason: pain) Qty: 30 0RF doxycycline hyclate 100 mg capsule 100 mg PO BID 7 Days Qty: 14 0RF Remicade 100 mg recon soln 100 mg IV Q8W Rx Instructions: NEXT DOSE: 10/17/2022 budesonide 3 mg capsule,delayed,extend.release 9 mg PO DAILY Qty: 90 1RF Print Language: Kiswahili
[2024-08-07 09:49] LABS: MANUAL DIFF FLAG NO
[2024-08-07 09:52] LABS: Basophils Percent Auto 0.4 % (0-2); Eosinophils Absolute Auto 0.2 X10*3/uL (0.0-0.4); Hematocrit 33.5 % (42.0-52.0); Hemoglobin 10.7 g/dl (14.0-18.0); Imm Gran Abs Auto 0.02 X10*3/uL (0.00-0.03); Imm Gran Pct Auto 0.3 % (0.0-0.4); Lymphocytes Absolute Auto 2.2 X10*3/uL (1.2-4.9); Lymphocytes Percent Auto 30.2 % (20-40); Mean Corpuscular HGB Conc 31.9 g/dl (31.0-36.0); Mean Corpuscular Hemoglobin 26.8 pg (27.0-33.0); Mean Corpuscular Volume 83.8 fL (80.0-98.0); Mean Platelet Volume 11.6 fL (9.4-12.4); Monocytes Absolute Auto 0.7 X10*3/uL (0.1-1.2); Monocytes Percent Auto 9.8 % (2-11); Neutrophils Absolute Auto 4.1 x10*3/uL (2.0-8.3); Neutrophils Percent Auto 56.3 % (45-73); Platelet Count 236 X10*3/uL (160-400); Red Cell Distribution Width 14.3 % (11.0-16.0); White Blood Count 7.3 X10*3/uL (4.8-10.8)
[2024-08-07 09:57] VITALS: RESP 16
[2024-08-07] MEDS: Morphine Sulfate 4 MG/ML CARTRIDGE IVPUSH ×2 (09:57→13:01)
[2024-08-07] MEDS: ondansetron HCL 4 MG/2 ML VIAL IVPUSH (09:57)
[2024-08-07] MEDS: Lactated Ringers 1,000 ML 999 ML IV (09:57)
[2024-08-07 10:09] LABS: Alanine Aminotransferase 15 U/L (0-40); Albumin Level 4.2 g/dL (3.5-5.0); Alkaline Phosphatase 55 U/L (39-117); Anion Gap 12 (12-20); Aspartate Amino Transferase 27 U/L (5-37); Bilirubin Total 0.6 mg/dL (0.0-1.0); Blood Urea Nitrogen 15 mg/dL (9-16); C Reactive Protein 0.29 mg/dL (< or = 0.50); Calcium 9.2 mg/dL (8.4-10.2); Carbon Dioxide 26 mmol/L (22-29); Chloride 108 mmol/L (96-108); Creatinine Clr Calc Pharmacy 102.9; Estimated Glomerular Filt Rate > 60; Glucose Random 90 mg/dL (60-115); Lipase 23 U/L (8-78); Magnesium 1.6 mg/dL (1.6-2.6); Potassium 4.2 mmol/L (3.3-5.1); Sodium 142 mmol/L (135-145); Total Protein 7.9 g/dL (6.5-8.0)
[2024-08-07 10:27] LABS: Erythrocyte Sedimentation Rate 37 MM/HR (0-15)
[2024-08-07] MEDS: iohexoL 350 MG/ML 100 ML INFUS..BTL IV (10:31)
--- NOTE | 2024-08-07 13:25 | P.CONGS_ITS ---
History of Present Illness Consult details Consult date: 08/07/24 Reason for consult: abdominal pain Narrative: 43 year old male with a history of previous PSBO, chrons disease, s/p illeostomy with reversal, s/p ileocecectomy and sigmoid resection with diverting loop ileostomy, seen in consult for RLQ abdominal pain. Patient states he began experiencing significant RLQ abdominal pain that woke him up this morning. Patient states he has had previous SBO in the past and this feels very similar. Currently denies nausea, vomiting, fever, chills. Pain is currently well controlled on morphine in the ED. Last bowel movement was yesterday. He denies passing flatus. He reports that he typically experiences Chrons flares related to diet and yesterday ate pistachios which he thinks started a flare up. Patients labs drawn in ED show no leukocytosis. Patient has elevated ESR. CT abdomen shows partial/intermittent distal small bowel obstruction at the suture site. Review of Systems 2 Review of Systems: Yes all other systems are reviewed and are negative Constitutional: Constitutional: Denies chills and Denies fever(s) Gastrointestinal: Gastrointestinal: Reports abdominal pain (RLQ), Denies nausea and Denies vomiting PMFSH Past Medical History Medical History Pneumonia History of blood transfusion Low vitamin D level Anemia Anxiety Pituitary macroadenoma High risk medication use GERD (gastroesophageal reflux disease) Crohn disease Family History Family History Mother Breast cancer Surgical History Surgical History History of ileostomy History of partial surgical removal of colon History of esophagogastroduodenoscopy (EGD) H/O colonoscopy Social History Social History Household Members: Family Housing: Apartment Do you presently have visiting nurse or other home services: No Alcohol intake: never Patient Tobacco Use Status: Never used Tobacco e-Cigarette/Vaping Use: Never Used Second Hand Smoke Exposure: No Substance Use Type: Marijuana Advance Directives: No Advance Directives Information Provided: Yes Advance Directives Date on File: 07/17/20 service: No Current occupational status: disabled Meds Allergies Allergy/AdvReac Type Severity Reaction Status Date / Time No Known Allergies Allergy Verified 08/07/24 09:16 [No Known Allergies*] Home Medications ?Medication ?Instructions ?Recorded ?Confirmed ?Last Taken ?Type infliximab 100 mg intravenous 100 mg IV Q8W 05/09/20 01/18/23 05/01/22 History solution (Remicade) omeprazole 20 mg capsule,delayed 20 mg PO DAILY 01/15/23 01/18/23 Unknown History release Physical Exam 2 Vital Signs: Vital Signs: Last Vital Signs Temp 97.9 F 08/07/24 09:14 Pulse 64 08/07/24 09:14 Resp 16 08/07/24 09:57 BP 130/92 H 08/07/24 09:14 Pulse Ox 99 08/07/24 09:14 O2 Del Method Room Air 08/07/24 09:14 BMI result Body Mass Index 31.3 Const: General: no acute distress, alert and awake O rientation/consciousness: patient oriented x3 Resp: Effort & Inspection: normal respiratory effort and able to speak in complete sentences GI: Inspection: No distended and Yes scar Palpation (GI): Soft to palpation and Tenderness to palpation present (GI) (generalized tenderness, focal point in RLQ) Percussion: Yes normal to percussion Neuro: General: patient oriented x3 Results Labs 08/07/24 09:45 08/07/24 09:45 Labs: Abnormal lab results 08/07/24 Range/Units 09:45 RBC 4.00 L (4.60-5.80) X10*6/uL Hgb 10.7 L (14.0-18.0) g/dl Hct 33.5 L (42.0-52.0) % MCH 26.8 L (27.0-33.0) pg ESR 37 H (0-15) MM/HR Short CBC 08/07/24 Range/Units 09:45 WBC 7.3 (4.8-10.8) X10*3/uL Hgb 10.7 L (14.0-18.0) g/dl Hct 33.5 L (42.0-52.0) % Plt Count 236 (160-400) X10*3/uL BMP 08/07/24 09:45 Sodium 142 Potassium 4.2 Chloride 108 Carbon Dioxide 26 BUN 15 Creatinine 1.08 Calcium 9.2 Liver Function 08/07/24 Range/Units 09:45 Total Bilirubin 0.6 (0.0-1.0) mg/dL AST 27 (5-37) U/L ALT 15 (0-40) U/L Alkaline Phosphatase 55 (39-117) U/L Albumin 4.2 (3.5-5.0) g/dL All other labs normal. Assessment and Plan (1) Abdominal pain: Qualifiers: Abdominal location: right lower quadrant Qualified Code(s): R10.31 - Right lower quadrant pain Status: Acute Plan 43-year-old male with a history of previous PSBO, chrons disease, s/p illeostomy with reversal, s/p ileocecectomy and sigmoid resection with diverting loop ileostomy, seen in consult for RLQ abdominal pain. Patient states pain feels similar to previous symptoms of SBO. he is currently denying nausea/vomiting. Last BM yesterday, denies currently passing flatus. CT performed, images and report reviewed, showing Partial/intermittent distal small bowel obstruction at the suture site. Abdomen at this time is relatively benign, aside from generalized tenderness with a focus on the RLQ. Labs show no evidence of leukocytosis. Elevations in ESR suggestive of chrons flare. Plan to admit patient for observation and further management clinically. Patient states he does not wish to be admitted because he does not want to take a bed from someone because he feels he now knows what is happening and that he can manage on his own at home. Patient will trial clear liquids in the ED, if his symptoms do not worsen he plans to leave AMA. He feels confident that if his syptoms return after discharge that he will return for reevaluation. Procedures Date of Service Date of Service: 08/07/24
[2024-08-07 14:11] VITALS: BP 130/87; PULSE 57; RESP 15; TEMP 36.7; O2SAT 99
[2024-08-07 14:49] VITALS: BP 130/87; PULSE 57; RESP 15; TEMP 36.7; O2SAT 99
== END 2024-08-07 14:49 | disposition home or self-care (01) ==
PROVIDERS: Emergency Provider Emergency Medicine; PCP Internal Medicine
DX: K56.609 Unspecified intestinal obstruction, unspecified as to partial versus complete obstruction (principal); R10.31 Right lower quadrant pain; K50.90 Crohn's disease, unspecified, without complications; K21.9 Gastro-esophageal reflux disease without esophagitis; Z79.899 Other long term (current) drug therapy
CPT/HCPCS: 36415; 74177; 80053; 83690; 83735; 85025; 85652; 86140; 96361; 96374; 96375; 96376; 99284; J2270; J2405; J7120; Q9967

== ENCOUNTER → 2024-08-07 09:27 | Outpatient (BNV) | payer MEDICARE, BC, SELFPAY | PROVIDERS: Emergency Provider Emergency Medicine; PCP Internal Medicine; Visit Provider Radiology Diagnostic Radiology | DX: K56.690 Other partial intestinal obstruction (principal); N13.2 Hydronephrosis with renal and ureteral calculous obstruction | CPT/HCPCS: 74177 ==

== ENCOUNTER → 2024-08-07 09:28 | Outpatient (BNV) | payer MEDICARE, BC, SELFPAY | PROVIDERS: Emergency Provider Emergency Medicine; PCP Internal Medicine | DX: R10.31 Right lower quadrant pain (principal) | CPT/HCPCS: 99283 ==

== ENCOUNTER 2024-08-14 14:50 | Outpatient (REF) | payer MEDICARE, BC, SELFPAY ==
--- OUTSIDE RECORDS SUMMARY | 2024-08-14 14:55 | XMS_ITS | Clinical Summary ---
Author Organization [employer] Address [address] [facility] [address] [place] [address] Care Team Providers Care Dental Billing Specialist Name Role Phone Emilia Leija MD Primary Care Provider [phone] Allergies No known active allergies Medications inFLIXimab [...] 30 tablet 11 4 10/11/19 25 Active triamcinolone (Kenalog) 0.1 % creamIndications: Flexural atopic dermatitis in adult Apply topically 2 times daily. 45 g 2 5 Active amLODIPine (Norvasc) 5 MG tabletIndications :Primary hypertension Take 1 tablet (5 mg) by mouth Once per day. 30 tablet 11 5 08/15/19 26 Active Active Problems Problem Noted Date Diagnosed Date Nephrolithiasis 08/14/2024 Acute sinusitis 11/10/2022 Assessment & Plan (11/10/2022 10:34 PM EDT): One wk of Sx of sinusitis, now w greenish discharge and worsening facial pressure, as well as mild L TM erythema. Afebrile. COVID and flu test done today, neg. -Start Augmentin BID for 7 d. -Volta nasal spray PRN. -Flonase for 10-14 d. [...] up with his GI Dr Arellano at [facility] after d/c. Follow up Fecal calprotectin ordered as well as CDiff testing as these can exacerbate crohns. Protein-calorie malnutrition, severe 01/10/2016 Crohn's disease of colon with abscess 12/16/2015 Anxiety 12/17/2012 Crohn's disease with abscess 12/17/2012 Encounters Date Type Department Care Team Description 08/14/2024 2:00 PM EDT Office Visit [facility] [address] [place] [address] Emilia Leija MD Crohn's disease of colon with abscess (CMS/HCC) (Primary Dx); Anxiety; Nephrolithiasis; Flexural atopic dermatitis in adult; Primary hypertension; Dietary counseling; Exercise counseling; Class 1 obesity due to excess calories with serious comorbidity and body mass index (BMI) of 31.0 to 31.9 in adult 08/14/2024 Travel 08/13/2024 Travel 08/07/2024 Orders Only GENERIC EXTERNAL DATA DEPARTMENT Provider, Generic External Data 08/05/2024 Telephone [facility] [address] [place] [address] [phone] Emilia Leija MD Referral from Last 3 Months Immunizations Immunization Administration Dates Next Due Influenza, Injectable, MDCK, preservative free 0 04/07/2015 Influenza, Split (incl. purified surface antigen ) 12/17/2012 Social History Tobacco Use Types Packs/Day Years Used Date Smoking Tobacco: Never Passive Smoke Exposure: Never Smokeless Tobacco: Never Tobacco Cessation:Counseling Given: Not Answered Depression Answer Date Recorded Patient Health Questionnaire-9 Score 4 08/14/2024 Patient Health Questionnaire-9 Score 4 08/14/2024 Last PHQ-9: Questionnaire Data Not on file 0 08/14/2024 Housing Stability Answer Date Recorded What is your housing situation today? I have viktoria barbara 08/14/[address] you li ve. Do you have problems with any of the following? None of the above 08/14/2024 Food Insecurity Answer Date Recorded Within the past 12 months, y ou worried that your food would run out before you got money to buy more: Never True 08/14/2024 Within the past 12 months,th e food you bought just didn't last and you didn't have enough money to get more: Never True Transportation Answer Date Recorded In the past 12 months, has l ack of transportation kept you from medical appts, meetings, work or from getting things needed for daily living? No 08/14/2024 Utilities Answer Date Recorded In the past 12 months, has t he electric, gas, oil or water company threatened to shut off services in your home? No 08/14/2024 Depression Answer Date Recorded Patient Health Questionnaire-2 Score 1 08/14/2024 Internet Access Answer Date Recorded Internet Access Q1 Yes 08/14/2024 Internet Access Q2 Not on file 08/14/2024 Sex and Gender Information Value Date Recorded Sex Assigned at Male 01/16/2022 10:22 AM EDT Legal Sex Male 10:22 AM EDT Gender Identity Male 01/16/2022 10:22 AM EDT Sexual Orientation Straight 01/16/2022 10 :22 AM EDT Last Filed Vital Signs Vital Sign Reading Time Taken Comments Blood Pressure 134/92 08/14/2024 2:14 PM EDT Pulse 58 08/14/2024 2:14 PM EDT Temperature 36.8 ??C (98.2 ??F) 08/14/2024 2:14 PM ED T Respiratory Rate 16 08/14/2024 2:14 PM EDT Oxygen Saturation 98% 08/14/2024 2:14 PM EDT Inhaled Oxygen Concentration - - Weight 98.9 kg (218 lb) 08/14/2024 2:14 PM EDT Height 177.8 cm (5' 10 ) 08/14/2024 2:14 PM EDT Body Mass Index 31.28 08/14/2024 2:14 PM EDT Plan of Treatment Upcoming Encounters Date Type Department Care Team ([facility] st Contact Info) Description 11/12/2024 4:00 PM EDT Office Visit [facility] [address] [place] [address] Emilia Leija MD [address] [place] [address] Health Maintenance Due Date Last Done Comments Lipid Panel 1980 Alcohol/Substance Use Screening 1991 Family Planning (PISQ) 10/12/1994 Hepatitis B Vaccines (1 of 3 - 19+ 3-dose series) 10/12/1998 COVID-19 Vaccine (3 - 2023-2 5 season) 2023 03/09/2021, 02/09/2021 Influenza Vaccine (#1) 2023 6, 12/17/2012 Disability Screening 08/13/2025 08/13/2024 Depression Screening 08/14/2025 08/14/2024, 08/14/2024 SDOH Screening 08/14/2025 08/14/2024 Tobacco Screening 08/14/2025 08/14/2024 Zoster Vaccines (1 of 2) 10/12/2029 DTaP/Tdap/Td Vaccines (2 - T d or Tdap) 02/04/2034 02/05/2024 RSV Patients and Patients Aged 60 years or older (1 - 1-dose 75+ series) 10/12/2054 Hepatitis C Screening Completed 10/31/2021 HIB Vaccines Aged Out No longer eligi ble based on patient's age to complete this topic HIV Screening Discontinued HPV Vaccines Aged Out No longer eligi ble based on patient's age to complete this topic Hepatitis A Vaccines Aged Out No long er eligible based on patient's age to complete this topic IPV Vaccines Aged Out No longer eligi ble based on patient's age to complete this topic Meningococcal B Vaccine Aged Out No l onger eligible based on patient's age to complete this topic Meningococcal Vaccine Aged Out No carl amy eligible based on patient's age to complete this topic Pneumococcal Vaccine: Pediatrics (0 to 5 Years) and At-Risk Patients (6 to 49) Years) Aged Out No longer eligible based on patient's age to complete this topic RSV under 20 months Aged Out No longe r eligible based on patient's age to complete this topic Rotavirus Vaccines Aged Out No longer eligible based on patient's age to complete this topic Procedures Procedure Name Priority Date/Time Associated Diagnosis Comments CT ABDOMEN PELVIS W CONTRAST Routine 08/07/2024 10:23 AM EDT SED RATE BY MODIFIED WESTERGREN Routine 08/07/2024 9:45 AM EDT LIPASE Routine 08/07/2024 9:45 AM EDT C-REACTIVE PROTEIN Routine 08/07/2024 9: 45 AM EDT MAGNESIUM Routine 08/07/2024 9:45 AM EDT COMPREHENSIVE METABOLIC PANEL Routine 08/07/2024 9:45 AM EDT CBC WITH AUTO DIFFERENTIAL Routine 08/07/2024 9:45 AM EDT ZZZ HISTORICAL HEPATITIS A,B,C PROFILE Routine 10/31/2021 10:58 AM EDT from Last 3 Months or Most Recently Relevant to Health Maintenance Results * CT Abdomen Pelvis w/ Contrast (08/07/2024 10:23 AM EDT) Anatomical Region Laterality Modality Body, Pelvis, Abdomen Computed T omography 08/07/2024 10:2 3 AM EDT Narrative 08/07/2024 11:36 AM EDT ? [facility] ?[address] ?[place] [address] ? CT Scan Report ? Signed ? Patient: Koby,Toño ?MR#: [id number] ?? 4 ? : 1980 ?Acct:[id number] ? Age/Sex: 43 / M ?ADM Date: 08/07/24 ? Loc: HO.ED ? Attending Dr: ? Ordering Physician: Arvin Henry PA-C ?? Date of Service: 08/07/24 ?? Procedure(s): CT abdomen pelvis w IV con ?? Accession Number(s): [id number] ? cc: Arvin Henry PA-C; Emilia Leija MD ? Report Number: ?? [id number]: Total DLP = ??634.00 mGy-cm ?? EXAMINATION: ?? CT ABDOMEN AND PELVIS WITH CONTRAST ? CLINICAL INFORMATION: ?? Chronic's disease. Right lower quadrant pain. ? COMPARISON: ?? April 27, 2024. ? TECHNIQUE: ?? Multidetector volumetric images were obtained from the superior aspect ?? of the liver through the pubic symphysis following administration 85 mL ?? of Omnipaque 350 intravenous contrast. Sagittal and coronal reformatted ?? images were obtained on the technologist's workstation. ? Oral contrast: No ? This CT examination was performed using dose optimization techniques as ?? appropriate, variously including the following: ?? *Automated exposure control ?? *Adjustment of mA and/or kV according to patient size (this includes ?? techniques or standardized protocols for targeted exams where dose is ?? matched to indication/reason for exam; i.e. extremities or head) ?? *Use of iterative reconstruction technique. ?? DLP: 634 mg centimeter. ? FINDINGS: ?? LUNG BASES: No acute airspace disease. ? LIVER, GALLBLADDER, AND BILIARY TREE: Liver measures 15 cm with a focal ?? fatty infiltration adjacent to the falciform ligament. Portal veins and ?? hepatic veins and intrahepatic portion of the IVC are patent. No ?? intrahepatic biliary ductal dictation. No focal mass. No ?? pericholecystic fluid collection or gallbladder wall thickening. Common ?? bile duct measures 3 mm. ? PANCREAS: No focal mass. No peripancreatic fluid collection. No main ?? pancreatic ductal dilatation. ? SPLEEN: 8 cm. No focal lesion. ? ADRENAL GLANDS: No nodular lesion. ? KIDNEYS AND URETERS: ? Right kidney: ?? 1 mm calculus in the upper pole pelvicalyceal system. No ?? hydronephrosis. No gross renal mass. Probable duplicated collecting ?? system the distal ureters are not identified. ? Left kidney: ?? There is a cluster of 9 mm and 5 mm cylindrical shaped calculi in the ?? distal left ureter near the vesicoureteral junction resulting in ?? moderate dilatation of the left ureter and the pelvicalyceal system. ?? There is likely duplicated collecting system. ?? Multifocal hypodensities in the renal parenchyma likely cysts. Slight ?? decreased enhancement pattern of the renal parenchyma involving the ?? lower pole and midportion. ?? No gross renal mass. ? BLADDER: Fluid-filled. ? GASTROINTESTINAL TRACT: ? Sutures at the distal ileal lobes without fecal material and air-fluid ?? levels in the proximal segment to the anastomotic site. There is a ?? collapsed appearance of the distal ileal loops with questionable ?? concentric wall thickening. ?? Postsurgical changes in the right hemicolon. Status post appendectomy. ?? Postsurgical changes of the rectosigmoid colon. There is a collapsed ?? appearance of the left hemicolon with abundant stool throughout the ?? large intestine. ?? No ascites. ?? No pneumoperitoneum. No pneumatosis intestinalis. ?? No peripheral enhancing fluid collections, peritoneal cavity. No gross ?? enteroenteric fistula. ? ABDOMINAL WALL: Fat-containing epigastric hernia. Diastases abdominal ?? rectus muscles. The umbilical region with small fat-containing ?? umbilical hernia and protrusion of small bowel loops segment. ? LYMPH NODES: Prominent mesenteric lymph nodes. ? VASCULAR: No aneurysm or dissection abdominal aorta. No gross plaque. ? PELVIC VISCERA: Prostate gland is not enlarged. ? OSSEOUS STRUCTURES: No acute fracture or listhesis. No fractures in the ?? bony pelvis or the coxofemoral joint. No lytic or blastic lesions. ? CT/CT abdomen pelvis w IV con ?? IMPRESSION: ?? Partial/intermittent distal small bowel obstruction at the suture site. ?? Cluster of 9 mm and 5 mm obstructing calculi distal left ureter ?? resulting in moderate hydronephrosis and decreased enhancement pattern ?? of the mid portions lower pole left kidney. ?? 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 ?? Nonobstructing calculus, right kidney. ? Fleischner guidelines were followed. ? Electronically signed by: ??Fabian Mcdowell MD ??08/07/2024 11:34 AM ?? EDT RP ? Dictated By: ?Fabian Patrick MD ? Signed By: ?<Electronically signed by Fabian Ding MD in OV> ? 08/07/24 1134 ? DD/ 1023 ? TD/TT: 08/07/24 1050 ? Bacteriologist Soil: ? Procedure Note Tory Miles - 08/07/[address] [place] [address] [address] Scan Report Signed Patient: Toño WhalenMR#: [id number] 4 : 1980Acct:[id number] Age/Sex: 43 / MADM Date: 08/07/24 Loc: HO.ED Attending Dr: Ordering Physician: Arvin Henry PA-C Date of Service: 08/07/24 Procedure(s): CT abdomen pelvis w IV con Accession Number(s): [id number] cc: Arvin Henry PA-C; Emilia Leija MD Report Number: [id number]: Total DLP = 634.00 mGy-cm EXAMINATION: CT ABDOMEN AND PELVIS WITH CONTRAST CLINICAL INFORMATION: Chronic's disease. Right lower quadrant pain. COMPARISON: April 27, 2024. TECHNIQUE: Multidetector volumetric images were obtained from the superior aspect of the liver through the pubic symphysis following administration 85 mL of Omnipaque 350 intravenous contrast. Sagittal and coronal reformatted images were obtained on the technologist's workstation. Oral contrast: No This CT examination was performed using dose optimization techniques as appropriate, variously including the following: *Automated exposure control *Adjustment of mA and/or kV according to patient size (this includes techniques or standardized protocols for targeted exams where dose is matched to indication/reason for exam; i.e. extremities or head) *Use of iterative reconstruction technique. DLP: 634 mg centimeter. FINDINGS: LUNG BASES: No acute airspace disease. LIVER, GALLBLADDER, AND BILIARY TREE: Liver measures 15 cm with a focal fatty infiltration adjacent to the falciform ligament. Portal veins and hepatic veins and intrahepatic portion of the IVC are patent. No intrahepatic biliary ductal dictation. No focal mass. No pericholecystic fluid collection or gallbladder wall thickening. Common bile duct measures 3 mm. PANCREAS: No focal mass. No peripancreatic fluid collection. No main pancreatic ductal dilatation. SPLEEN: 8 cm. No focal lesion. ADRENAL GLANDS: No nodular lesion. KIDNEYS AND URETERS: Right kidney: 1 mm calculus in the upper pole pelvicalyceal system. No hydronephrosis. No gross renal mass. Probable duplicated collecting system the distal ureters are not identified. Left kidney: There is a cluster of 9 mm and 5 mm cylindrical shaped calculi in the distal left ureter near the vesicoureteral junction resulting in moderate dilatation of the left ureter and the pelvicalyceal system. There is likely duplicated collecting system. Multifocal hypodensities in the renal parenchyma likely cysts. Slight decreased enhancement pattern of the renal parenchyma involving the lower pole and midportion. No gross renal mass. BLADDER: Fluid-filled. GASTROINTESTINAL TRACT: Sutures at the distal ileal lobes without fecal material and air-fluid levels in the proximal segment to the anastomotic site. There is a collapsed appearance of the distal ileal loops with questionable concentric wall thickening. Postsurgical changes in the right hemicolon. Status post appendectomy. Postsurgical changes of the rectosigmoid colon. There is a collapsed appearance of the left hemicolon with abundant stool throughout the large intestine. No ascites. No pneumoperitoneum. No pneumatosis intestinalis. No peripheral enhancing fluid collections, peritoneal cavity. No gross enteroenteric fistula. ABDOMINAL WALL: Fat-containing epigastric hernia. Diastases abdominal rectus muscles. The umbilical region with small fat-containing umbilical hernia and protrusion of small bowel loops segment. LYMPH NODES: Prominent mesenteric lymph nodes. VASCULAR: No aneurysm or dissection abdominal aorta. No gross plaque. PELVIC VISCERA: Prostate gland is not enlarged. OSSEOUS STRUCTURES: No acute fracture or listhesis. No fractures in the bony pelvis or the coxofemoral joint. No lytic or blastic lesions. CT/CT abdomen pelvis w IV con IMPRESSION: Partial/intermittent distal small bowel obstruction at the suture site. Cluster of 9 mm and 5 mm obstructing calculi distal left ureter resulting in moderate hydronephrosis and decreased enhancement pattern of the mid portions lower pole left kidney. 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 Nonobstructing calculus, right kidney. Fleischner guidelines were followed. Electronically signed by: Fabian Mcdowell MD 08/07/2024 11:34 AM EDT Dictated By: Fabian Patrick MD Signed By: <Electronically signed by Fabian Ding MDin OV> 08/07/24 1134 DD/ 1023 TD/TT: 08/07/24 1050 Bacteriologist Soil: [facility] External Provider IMG CT PROCEDURES Edited Result - Final * (ABNORMAL) CBC auto differential (08/07/2024 9:45 AM EDT) White Blood Count 7.3 4.8 - 10.8 X10*3/uL [facility] Red Blood Count 4.00(L) 4.60 - 5.80 X10*6/uL [facility] Hemoglobin 10.7(L) 14.0 - 18.0 g/dl [facility] Hematocrit 33.5(L) 42.0 - 52.0 % [facility] Mean Corpuscular Volume 83.8 80.0 - 98.0 fL [facility] Mean Corpuscular Hemoglobin 26.8(L) 27.0 - 33.0 pg [facility] Mean Corpuscular HGB Conc 31.9 31.0 - 36.0 g/dl [facility] Red Cell Distribution Width 14.3 11.0 - 16.0 % [facility] Platelet Count 236 160 - 400 X10*3/uL [facility] Mean Platelet Volume 11.6 9.4 - 12.4 fL [facility] Neutrophils Percent Auto 56.3 45 - 73 % [facility] Imm Gran Pct Auto 0.3 0.0 - 0.4 % [facility] Lymphocytes Percent Auto 30.2 20 - 40 % [facility] Monocytes Percent Auto 9.8 2 - 11 % [facility] Eosinophils Percent Auto 3.0 0 - 4 % [facility] Basophils Percent Auto 0.4 0 - 2 % [facility] NRBC Pct Auto 0.0 0.0 - 0.2 /100WBC [facility] Neutrophils Absolute Auto 4.1 2.0 - 8.3 x10*3/uL [facility] Imm Gran Abs Auto 0.02 0.00 - 0.03 X10*3/uL [facility] Lymphocytes Absolute Auto 2.2 1.2 - 4.9 X10*3/uL [facility] Monocytes Absolute Auto 0.7 0.1 - 1.2 X10*3/uL [facility] Eosinophils Absolute Auto 0.2 0.0 - 0.4 X10*3/uL [facility] Basophils Absolute Auto 0.0 0.0 - 0.2 X10*3/uL [facility] NRBC Abs Auto 0.000 0.0 - 0.012 X10*3/uL [facility] 08/07/2024 9:45 AM EDT 08/07/2024 9:48 AM EDT us Generic External Data Provider LAB BLOOD ORDERAB LES Final Result [facility] [address] [place], [place] [phone] * (ABNORMAL) Sed Rate by Modified Westergren (08/07/2024 9:45 AM EDT) Erythrocyte Sedimentation Rate 37(H) 0 - 15 MM/HR [facility] Comment:Patients with polycy themia and many hemoglobin abnormalitiesmay have depressed sed rates whereas patients with anemiamay have elevated sed rates. 08/07/2024 9:45 AM EDT 08/07/2024 9:48 AM EDT Generic External Data Provider LAB BLOOD ORDERAB LES Final Result Performing Organization Address [facility] Co de Phone Number [facility] [address] [place] [phone] * C-reactive Protein (08/07/2024 9:45 AM EDT) Pathologist [facility] C Reactive Protein 0.29 < or = 0.50 mg/dL [facility] 08/07/2024 9:45 AM EDT 08/07/2024 9:48 AM EDT Generic External Data Provider LAB BLOOD ORDERAB LES Final Result Performing Organization Address [facility] Co de Phone Number [facility] [address] [place] [phone] * Magnesium (08/07/2024 9:45 AM EDT) Pathologist [facility] Magnesium 1.6 1.6 - 2.6 mg/dL [facility] 08/07/2024 9:45 AM EDT 08/07/2024 9:48 AM EDT Generic External Data Provider LAB BLOOD ORDERAB LES Final Result Performing Organization Address [facility] Co de Phone Number [facility] [address] [place] [phone] * Lipase (08/07/2024 9:45 AM EDT) Lipase 23 8 - 78 U/L [facility] 08/07/2024 9:45 AM EDT 08/07/2024 9:48 AM EDT us Generic External Data Provider LAB BLOOD ORDERAB LES Final Result [facility] [address] [place] [phone] * Comprehensive Metabolic Panel (08/07/2024 9:45 AM EDT) Sodium 142 135 - 145 mmol/L [facility] Potassium 4.2 3.3 - 5.1 mmol/L [facility] Chloride 108 96 - 108 mmol/L [facility] Carbon Dioxide 26 22 - 29 mmol/L [facility] Anion Gap 12 12 - 20 [facility] Urea Nitrogen (BUN) 15 9 - 16 mg/dL [facility] Creatinine, Serum 1.08 0.5 - 1.4 mg/dL [facility] Creatinine Clr Calc Pharmacy 102.9 [facility] Comment:eGFR (calculated fro m the MDRD study equation) and eCrCl(calculated from the Cockcroft-Gault equation) are based ondifferent parameters and may not yield comparable results.If eCrCl result is absurd, please check patient'sheight/weight. Estimated Glomerular Filt Rate >60 [facility] Comment:Chronic Kidney Disea se: Estimated GFR < 60 mL/min/1.19d9Bqdehl Kidney Disease: Estimated GFR < 15 mL/min/1.73m2 Glucose 90 60 - 115 mg/dL [facility] Calcium 9.2 8.4 - 10.2 mg/dL [facility] Bilirubin, Total 0.6 0.0 - 1.0 mg/dL [facility] Aspartate Amino Transferase 27 5 - 37 U/L [facility] Alanine Aminotransferase 15 0 - 40 U/L [facility] Total Protein 7.9 6.5 - 8.0 g/dL [facility] Albumin Level 4.2 3.5 - 5.0 g/dL [facility] Alkaline Phosphatase 55 39 - 117 U/L [facility] 08/07/2024 9:45 AM EDT 08/07/2024 9:48 AM EDT us Generic External Data Provider LAB BLOOD ORDERAB LES Final Result Performing Organization Address City/[facility]/ZIP Co de Phone Number [facility] [address] [place] [phone] * Hepatitis A,B,C Profile (10/31/2021 10:58 AM [...] HCV infection. 10/31/2021 10:5 8 AM EDT Historical Provider MD HISTORICAL/NON ORDERABLE LABS Final Result Performing Organization Address City/[facility]/ZIP Co de Phone Number [facility] [address] from Last 3 Months or Most Recently Relevant to Health Maintenance Insurance [place] [address] [place] [phone] [facility] HMO Care Teams Dental Billing Specialist Relationship Specialty Start Date End Date Emilia Leija MD [address] [place] [phone] PCP - General Internal Medicine 09/21/11
[2024-08-14 18:06] LABS: Alanine Aminotransferase 19 U/L (0-40); Albumin Level 4.5 g/dL (3.5-5.0); Alkaline Phosphatase 58 U/L (39-117); Anion Gap 10 (12-20); Aspartate Amino Transferase 28 U/L (5-37); Bilirubin Total 0.4 mg/dL (0.0-1.0); Blood Urea Nitrogen 11 mg/dL (9-16); Calcium 9.5 mg/dL (8.4-10.2); Carbon Dioxide 27 mmol/L (22-29); Chloride 106 mmol/L (96-108); Cholesterol 148 mg/dL (<200); Estimated Glomerular Filt Rate > 60; Glucose Random 90 mg/dL (60-115); HDL Cholesterol 54 mg/dL (>40); LDL Cholesterol Calculated 73 mg/dL (<100); Sodium 139 mmol/L (135-145); Total Protein 8.3 g/dL (6.5-8.0); Triglycerides 107 mg/dL (<150)
[2024-08-14 18:21] LABS: TSH reflex Free T4 0.83 uIU/mL (0.32-4.0)
== END 2024-08-14 14:51 | disposition home or self-care (01) ==
LOC: HO.CHCLDS 14:50
PROVIDERS: Visit Provider Internal Medicine
DX: I10 Essential (primary) hypertension (principal)
CPT/HCPCS: 36415; 80053; 80061; 84443

== ENCOUNTER 2024-08-26 14:20 | Outpatient (AMB) | payer BC, SELFPAY ==
--- NOTE | 2024-08-26 14:33 | A.OFFVIS_ITS ---
Intake Visit Reasons: kidney stones Intake Note: Patient is present for KIDNEY STONES Urology Medication:TAMSULOSIN Antibiotic Allergy:NONE Blood Thinner:NONE Plug Cutter Required: No Allergies No Known Allergies [No Known Allergies*] Allergy (Verified 08/26/24 14:33) HPI Comments Details: Toño is a pleasant male. He is a patient of Dr. Small. He seen for the following urologic conditions - nephrolithiasis Had been previous patient Recently seen in emergency room Had left lower quadrant pain Imaging - CT There is a cluster of 9 mm and 5 mm cylindrical shaped calculi in the distal left ureter near the vesicoureteral junction resulting in moderate dilatation of the left ureter and the pelvicalyceal system. Stone cluster has not pass Recommend ureteroscopy with laser lithotripsy PFSH Medical History Pneumonia History of blood transfusion Low vitamin D level Anemia Anxiety Pituitary macroadenoma High risk medication use GERD (gastroesophageal reflux disease) Crohn disease Surgical History History of ileostomy History of partial surgical removal of colon History of esophagogastroduodenoscopy (EGD) H/O colonoscopy Family History Mother Breast cancer Social History Household Members: Family Housing: Apartment Do you presently have visiting nurse or other home services: No Alcohol intake: never Patient Tobacco Use Status: Never used Tobacco e-Cigarette/Vaping Use: Never Used Second Hand Smoke Exposure: No Substance Use Type: Marijuana Advance Directives Date on File: 07/17/20 service: No Current occupational status: disabled Review of Systems Const Denies chills and Denies fever(s) Card Reports no additional complaints and Denies syncope Resp Denies cough GI Denies abdominal pain and Denies heartburn Reports as per HPI and Denies change in libido Neuro Denies syncope Psych Denies change in libido Endo Denies change in libido Physical Exam Const General: cooperative, healthy appearing, comfortable and no acute distress Orientation/consciousness: patient oriented x3 HEENT Face and sinus: Yes normal facial exam Mouth: moist mucous membranes Neck Neck: Yes normal visual inspection, Yes full ROM and Yes trachea midline Chest Chest palpation & inspection: normal inspection of the chest Resp Effort & Inspection: normal respiratory effort, able to speak in complete sentences and no respiratory distress GI Inspection: Yes normal to inspection Back/Spine/Pelvis Cervical Spine: normal cervical lordosis Thoracic/Lumbar Spine: thoracic and lumbar spine normal to inspection Skin General skin exam: no rashes or lesions noted Neuro General: patient oriented x3, gait normal, tone normal and moves all extremities Extrem General: Yes normal to inspection and Yes capillary refill normal Results AMB Urinalysis, Automated UA Leukoctes 0 Nyasia/uL Last Edit by MIKAELA Moran on 08/26/24 14:49 UA Nitrite Negative Last Edit by Romel Young CCM on 08/26/24 14:49 UA Urobilinogen 0.2 mg/dL Last Edit by Romel Young CCM on 08/26/24 14:4 9 UA Protein 15 mg/dL Last Edit by Romel Young CCM on 08/26/24 14:49 UA pH 6.0 Last Edit by Romel Young CCM on 08/26/24 14:49 UA Blood 25 Wyatt/uL Last Edit by Romel Young CCM on 08/26/24 14:49 UA Specific [place] 1.030 Last Edit by MIKAELA Moran on 08/26/24 14: 49 UA Ketone Negative Last Edit by Romel Young CCM on 08/26/24 14:49 UA Bilirubin 0 mg/dL Last Edit by Romel Young CCM on 08/26/24 14:49 UA Glucose 0 mg/dL Last Edit by Romel Young [facility] on 08/26/24 14:49 Results Reviewed Results Reviewed: Laboratory Last Values Urine pH (Auto) 6.0 08/26/24 14:49 Specific [place] (Auto) 1.030 08/26/24 14:49 Urine Protein (Auto) 15 mg/dL 08/26/24 14:49 Glucose (UA)(Auto) 0 mg/dL 08/26/24 14:49 Urine Ketones (Auto) Negative 08/26/24 14:49 Urine Blood (Auto) 25 Wyatt/uL 08/26/24 14:49 Urine Nitrite (Auto) Negative 08/26/24 14:49 Urine Bilirubin (Auto) 0 mg/dL 08/26/24 14:49 Urine Urobilinogen (Auto) 0.2 mg/dL 08/26/24 14:49 Leukocyte Esterase (Auto) 0 Nyasia/uL 08/26/24 14:49 Assessment & Plan Assessment & Plan (1) Ureteric stone: Code(s): N20.1 - Calculus of ureter Category: Medical Plan Ureteroscopy We discussed the nature of the decision and reasonable alternatives for performing ureteroscopy. Options such as medical therapy were discussed. Interventions include chemical dissolution, ESWL, ureteroscopy with laser lithotripsy and stent placement, PCNL. The relative uncertainties and benefits related to each alternate procedure were adequately discussed. General surgical risks including, but not limited to - pain, bleeding, infection, myocardial infarction, pulmonary embolus, deep vein thrombosis and cerebrovascular accident which may result in further hospitalization were discussed. Full disclosure of the procedure as well as all major risks, benefits and complications were discussed including but not limited to damage to the urethra, bladder and kidney infection, damage to the ureter, stent migration or malposition, scarring to the renal pelvis, remnant stone fragments, subsequent stone passage with need for secondary procedures. The overall secondary procedure rate is approximately 10-15%. The overall clearance rate is approximately 90-95%. Success of the procedure in the short-term does not necessarily guarantee that long-term success will be maintained. Suitable follow up will need to be maintained. The patient showed understanding of discussion and wishes to proceed with - cystoscopy, retrograde, ureteroscopy, possible lithotripsy/stone basketing and stent on the left side Orders: Orders AMB Urinalysis Automated Today Z13.9 - Encounter for screening, unspecified Patient Instructions: This note is constructed using voice recognition software. While every effort has been made to ensure accuracy industrial methods consultant errors may have been included. Imaging studies, laboratory and physical exam results were discussed and reviewed in detail. No major barriers to patient understanding were identified. An opportunity to ask questions regarding the treatment plan was provided. All questions were answered. The patient expressed understanding and agreement with the above treatment plan. The patient is aware they should contact our office by phone for worsening of their current condition or the appearance of new urologic symptoms. Compliance is encouraged with any medications and followup testing that is ordered. It is a privilege to participate in the urologic care of your patient. If you have any questions or concerns regarding treatment for the above conditions, or other urologic issues, please do not hesitate to contact me. The office telephone contact is [phone]. Sincerely, Dr Jagdish Flores MD, [facility] - Urology Compassionate Specialist Care for the Genitourinary System Coding Level of Care Code New Pt Level 4 (08255) Diagnoses Ureteric stone N20.1
--- OUTSIDE RECORDS SUMMARY | 2024-08-26 17:18 | XMS_ITS | Clinical Summary ---
Author Organization [employer] Address [address] [place] [address] Care Team Providers Care Ledge Man Name Role Phone Emilia Leija MD Primary Care Provider [phone] Allergies No known active allergies Medications inFLIXimab (Remicade) 100 MG injection Infuse 100 mg into a venous catheter every 8 (eight) weeks. Active Blood Pressure kitIndications: Primary hypertension To check the BP daily 1 kit 12/15/19 23 Active triamcinolone (Kenalog) 0.1 % creamIndication s:Flexural atopic dermatitis in adult Apply topically 2 times daily. 45 g 2 08/15/19 25 Active amLODIPine (Norvasc) 5 MG tabletIndicatio ns:Primary hypertension Take 1 tablet (5 mg) by mouth Once per day. 30 tablet 11 08/15/19 25 026 Active sildenafil (Viagra) 25 MG tablet Take 1 tablet (25 mg) by mouth if needed each day for erectile dysfunction. 10 tablet 3 07/01/19 23 025 Discontinued(T herapy completed) fluticasone (Flonase) 50 MCG/ACT nasal spray Administer 1-2 sprays into each nostril in the morning for 14 days. Shake gently. Before first use, prime pump. After use, clean tip and replace cap. 16 g 11/11/19 23 025 Discontinued amLODIPine (Norvasc) 5 MG tabletIndicatio ns:Primary hypertension Take 1 tablet (5 mg) by mouth Once per day. 30 tablet 11 10/11/19 24 025 Discontinued(T herapy completed) Active Problems Problem Noted Date Diagnosed Date Nephrolithiasis 08/14/2024 Acute sinusitis 11/10/2022 Assessment & Plan (11/10/2022 10:34 PM EDT): One wk of Sx of sinusitis, now w greenish discharge and worsening facial pressure, as well as mild L TM erythema. Afebrile. COVID and flu test done today, neg. -Start Augmentin BID for 7 d. -[place] nasal spray PRN. -Flonase for 10-14 d. [...] up with his GI Dr Arellano at [facility] after d/c. Follow up Fecal calprotectin ordered as well as CDiff testing as these can exacerbate crohns. Protein-calorie malnutrition, severe 01/10/2016 Crohn's disease of colon with abscess 12/16/2015 Anxiety 12/17/2012 Crohn's disease with abscess 12/17/2012 Encounters Date Type Department Care Team Description 08/14/2024 2:00 PM EDT Office Visit [facility] [address] [place] [address] Emilia Leija MD Crohn's disease of colon with abscess (CMS/HCC) (Primary Dx); Anxiety; Nephrolithiasis; Flexural atopic dermatitis in adult; Primary hypertension; Dietary counseling; Exercise counseling; Class 1 obesity due to excess calories with serious comorbidity and body mass index (BMI) of 31.0 to 31.9 in adult 08/14/2024 Results Follow-Up [facility] [address] [place] [address] Emilia Leija MD Comprehensive Metabolic Panel, Lipid Panel, Standard, TSH W/Reflex to FT4 08/14/2024 Travel 08/13/2024 Travel 08/07/2024 Orders Only GENERIC EXTERNAL DATA DEPARTMENT Provider, Generic External Data 08/05/2024 Telephone [facility] [address] [place] [address] Emilia Leija MD Referral from Last 3 [...] your housing situation today? I have viktoria jimenez 08/14/[address] you li [...] Upcoming Encounters Date Type Department Care Team (Late st Contact Info) Description 11/12/2024 4:00 PM EDT Office Visit [facility] [address] [place] [address] Emilia Leija MD [address] [place] [address] Health Maintenance Due Date Last Done Comments Alcohol/Substance Use Screening 1991 Family Planning (PISQ) 10/12/1994 Hepatitis B Vaccines (1 of 3 - 19+ 3-dose series) 10/12/1998 COVID-19 Vaccine (2023-2 5 season) 2023 03/09/2021, 02/09/2021 Influenza Vaccine (Season Ended) 2024 04/07/2015, 12/17/2012 Disability Screening 08/13/2025 08/13/2024 Depression Screening 08/14/2025 08/14/2024, 08/14/2024 SDOH Screening 08/14/2025 08/14/2024 Tobacco Screening 08/14/2025 08/14/2024 Lipid Panel 08/14/2029 08/14/2024 Zoster Vaccines (1 of 2) 10/12/2029 [...] Procedure Name Priority Date/Time Associated Diagnosis Comments TSH W/REFLEX TO FT4 Routine 08/14/2024 2 :53 PM EDT Primary hypertension LIPID PANEL, STANDARD Routine 08/14/2024 2:53 PM EDT Primary hypertension COMPREHENSIVE METABOLIC PANEL Routine 08/14/2024 2:53 PM EDT Primary hypertension CT ABDOMEN PELVIS W CONTRAST Routine 08/07/2024 [...] Recently Relevant to Health Maintenance Results * TSH W/Reflex to FT4 (08/14/2024 2:53 PM EDT) TSH reflex Free T4 0.83 0.32 - 4.0 uIU/mL [facility] Blood Venous blood specimen / Unknown 08/14/2024 2:53 PM EDT 08/14/2024 5:33 PM EDT us Emilia Leija MD LAB BLOOD ORDERABLES Final Result [facility] [address] [place] [phone] * Lipid Panel, Standard (08/14/2024 2:53 PM EDT) Triglycerides 107 <150 mg/dL [facility] Comment:Desirable Triglyceri de: less than 150 mg/dLBorderline High Triglyceride 150-199 mg/dLHigh Triglyceride: 200-499 mg/dLVery High Triglyceride: greater than or equal to 5OO mg/dL Cholesterol 148 <200 mg/dL [facility] Comment:Desirable Cholestero l: less than 200 mg/dLBorderline High Cholesterol: 200-239 mg/dLHigh Cholesterol: greater than 239 mg/dL LDL Cholesterol Calculated 73 <100 mg/dL [facility] Comment:Desirable LDL: less than 100 mg/dLNear Optimal/Above Optimal LDL: 110- 129 mg/dLBorderline High LDL: 130-159 mg/dLHigh LDL: 160-189 mg/dLVery High LDL: greater than or equal to 190 mg/dL HDL Cholesterol 54 >40 mg/dL [facility] Comment:Desirable HDL: great er than 40 mg/dL Note: This HDL assay may give artificially low results in patients with liver disease. Blood Venous blood specimen / Unknown 08/14/2024 2:53 PM EDT 08/14/2024 5:33 PM EDT us Emilia Leija MD LAB BLOOD ORDERABLES Final Result [facility] [address] [place] [phone] * (ABNORMAL) Comprehensive Metabolic Panel (08/14/2024 2:53 PM EDT) Only the most recent of2 resultswithin the time period is included. Sodium 139 135 - 145 mmol/L [facility] Potassium 4.0 3.3 - 5.1 mmol/L [facility] Chloride 106 96 - 108 mmol/L [facility] Carbon Dioxide 27 22 - 29 mmol/L [facility] Anion Gap 10(L) 12 - 20 [facility] Urea Nitrogen (BUN) 11 9 - 16 mg/dL [facility] Creatinine, Serum 1.08 0.5 - 1.4 mg/dL [facility] Estimated Glomerular Filt Rate >60 [facility] Comment:Chronic Kidney Disea se: Estimated GFR < 60 mL/min/1.30l2Lqxbke Kidney Disease: Estimated GFR < 15 mL/min/1.73m2 Glucose 90 60 - 115 mg/dL [facility] Calcium 9.5 8.4 - 10.2 mg/dL [facility] Bilirubin, Total 0.4 0.0 - 1.0 mg/dL [facility] Aspartate Amino Transferase 28 5 - 37 U/L [facility] Alanine Aminotransferase 19 0 - 40 U/L [facility] Total Protein 8.3(H) 6.5 - 8.0 g/dL [facility] Albumin Level 4.5 3.5 - 5.0 g/dL [facility] Alkaline Phosphatase 58 39 - 117 U/L [facility] Blood Venous blood specimen / Unknown 08/14/2024 2:53 PM EDT 08/14/2024 5:33 PM EDT us Emilia Leija MD LAB BLOOD ORDERABLES Final Result [facility] [address] [place] [phone] * CT Abdomen Pelvis w/ Contrast (08/07/2024 10:23 AM EDT) Anatomical Region Laterality Modality Body, Pelvis, Abdomen Computed T omography 08/07/2024 10:2 3 AM EDT Narrative 08/07/2024 11:36 AM EDT ? [facility] ?[address] ?[place] [address] ? [address] Scan Report ? Signed ? Patient: Koby,Toño ?MR#: [id number] ?? 4 ? : 1980 ?Acct:[id number] ? Age/Sex: 43 / M ?ADM Date: 08/07/24 ? Loc: HO.ED ? Attending Dr: ? Ordering Physician: Arvin Henry PA-C ?? Date of Service: 08/07/24 ?? Procedure(s): CT abdomen pelvis w IV con ?? Accession Number(s): [id number] ? cc: Arvin Henry PA-C; Emilia Leija MD ? Report Number: ?? [id number]: Total DLP = ??634.00 mGy-cm ?? EXAMINATION: [...] DD/ 1023 ? TD/TT: 08/07/24 1050 ? Employer Relations Representative: ? Procedure Note Donotuseinterpreter, Image - 08/07/[address] [address] [place] Scan Report Signed Patient: Chintan Whalen#: [id number] 4 : 1980Acct:[id number] Age/Sex: 43 / MADM Date: 08/07/24 Loc: HO.ED Attending Dr: Ordering Physician: Arvin Henry PA-C Date of Service: 08/07/24 Procedure(s): CT abdomen pelvis w IV con Accession Number(s): [id number] cc: Arvin Henry PA-C; Emilia Leija MD Report Number: [id number]: Total DLP = 634.00 mGy-cm EXAMINATION: CT [...] 08/07/24 1134 DD/ 1023 TD/TT: 08/07/24 1050 Employer Relations Representative: us [facility] External Provider IMG CT PROCEDURES Edited Result - Final * (ABNORMAL) CBC auto differential (08/07/2024 9:45 AM EDT) White Blood Count 7.3 4.8 - 10.8 X10*3/uL [facility] Red Blood Count 4.00(L) 4.60 - 5.80 X10*6/uL [facility] Hemoglobin 10.7(L) 14.0 - 18.0 g/dl [facility] Hematocrit 33.5(L) 42.0 - 52.0 % [facility] Mean Corpuscular Volume 83.8 80.0 - 98.0 fL [facility] Mean Corpuscular Hemoglobin 26.8(L) 27.0 - 33.0 pg [facility] Mean Corpuscular HGB Conc 31.9 31.0 - 36.0 g/dl [facility] Red Cell Distribution Width 14.3 11.0 - 16.0 % [facility] Platelet Count 236 160 - 400 X10*3/uL [facility] Mean Platelet Volume 11.6 9.4 - 12.4 fL [facility] Neutrophils Percent Auto 56.3 45 - 73 % [facility] Imm Gran Pct Auto 0.3 0.0 - 0.4 % [facility] Lymphocytes Percent Auto 30.2 20 - 40 % [facility] Monocytes Percent Auto 9.8 2 - 11 % [facility] Eosinophils Percent Auto 3.0 0 - 4 % [facility] Basophils Percent Auto 0.4 0 - 2 % [facility] NRBC Pct Auto 0.0 0.0 - 0.2 /100WBC [facility] Neutrophils Absolute Auto 4.1 2.0 - 8.3 x10*3/uL [facility] Imm Gran Abs Auto 0.02 0.00 - 0.03 X10*3/uL [facility] Lymphocytes Absolute Auto 2.2 1.2 - 4.9 X10*3/uL [facility] Monocytes Absolute Auto 0.7 0.1 - 1.2 X10*3/uL [facility] Eosinophils Absolute Auto 0.2 0.0 - 0.4 X10*3/uL [facility] Basophils Absolute Auto 0.0 0.0 - 0.2 X10*3/uL [facility] NRBC Abs Auto 0.000 0.0 - 0.012 X10*3/uL [facility] 08/07/2024 9:45 AM EDT 08/07/2024 9:48 AM EDT us Generic External Data Provider LAB BLOOD ORDERAB LES Final Result Performing Organization Address City/[facility]/ZIP Co de Phone Number [facility] [address] [place] [phone] * (ABNORMAL) Sed Rate by Modified Torren (08/07/2024 9:45 AM EDT) Erythrocyte Sedimentation Rate 37(H) 0 - 15 MM/HR [facility] Comment:Patients with polycy themia and many hemoglobin abnormalitiesmay have depressed sed rates whereas patients with anemiamay have elevated sed rates. 08/07/2024 9:45 AM EDT 08/07/2024 9:48 AM EDT us Generic External Data Provider LAB BLOOD ORDERAB LES Final Result Performing Organization Address [facility]/ZIP Co de Phone Number [facility] [address] [place] [phone] * C-reactive Protein (08/07/2024 9:45 AM EDT) C Reactive Protein 0.29 < or = 0.50 mg/dL [facility] 08/07/2024 9:45 AM EDT 08/07/2024 9:48 AM EDT us Generic External Data Provider LAB BLOOD ORDERAB LES Final Result Performing Organization Address [facility]/ZIP Co de Phone Number [facility] [address] [place] [phone] * Magnesium (08/07/2024 9:45 AM EDT) Magnesium 1.6 1.6 - 2.6 mg/dL [facility] 08/07/2024 9:45 AM EDT 08/07/2024 9:48 AM EDT us Generic External Data Provider LAB BLOOD ORDERAB LES Final Result [facility] [address] [place] [phone] * Lipase (08/07/2024 9:45 AM EDT) Lipase 23 8 - 78 U/L [facility] 08/07/2024 9:45 AM EDT 08/07/2024 9:48 AM EDT Generic External Data Provider LAB BLOOD ORDERAB LES Final Result Performing Organization Address [facility]/ZIP Co de Phone Number [facility] [address] [place] [phone] * Hepatitis A,B,C Profile (10/31/2021 10:58 [...] 10:5 8 AM EDT us Historical Provider MD HISTORICAL/NON ORDERABLE LABS Final Result [facility] Anywhere [address] from Last 3 Months or Most Recently Relevant to Health Maintenance Insurance [place] [id number] [facility] HMO Care Teams Ledge Man Relationship Specialty Start Date End Date Emilia Leija MD [address] [place] [phone] PCP - General Internal Medicine 09/21/11
== END 2024-08-26 15:09 | disposition home or self-care (01) ==
LOC: HO.HUSH 14:21
PROVIDERS: PCP Internal Medicine; Visit Provider Urology
DX: Z13.9 Encounter for screening, unspecified (principal); N20.1 Calculus of ureter
CPT/HCPCS: 99204

== ENCOUNTER → 2024-08-26 14:20 | Outpatient (BNVA) | payer BC, SELFPAY | PROVIDERS: PCP Internal Medicine; Visit Provider Urology | DX: N20.1 Calculus of ureter (principal) | CPT/HCPCS: 81003 ==

== ENCOUNTER 2024-09-23 07:33 | Day surgery (SDC) | payer BC, MEDICARE, MEDICAID, SELFPAY ==
--- OUTSIDE RECORDS SUMMARY | 2024-09-18 11:55 | XMS_ITS | Clinical Summary ---
Author Organization [employer] Address [address] [place] [address] Care Team Providers Care [employer] Architect Name Role Phone Emilia Leija MD Primary Care Provider [phone] Allergies No known active allergies Medications inFLIXimab (Remicade) 100 MG injection Infuse 100 mg into a venous catheter every 8 (eight) weeks. Active Blood Pressure kitIndications:Pr imary hypertension To check the BP daily 1 kit 3 Active triamcinolone (Kenalog) 0.1 % creamIndications: Flexural [...] neg. -Start Augmentin BID for 7 d. -[place] nasal spray PRN. -Flonase for 10-14 d. [...] up with his GI Dr Arellano at [facility] after d/c. Follow up Fecal calprotectin ordered as well as CDiff testing as these can exacerbate crohns. Protein-calorie malnutrition, severe 01/10/2016 Crohn's disease of colon with abscess 12/16/2015 Anxiety 12/17/2012 Crohn's disease with abscess 12/17/2012 Encounters Date Type Department Care Team Description 08/14/2024 2:00 PM EDT Office Visit [facility] [address] [place] [address] Emilia Leija MD Crohn's disease of colon with abscess (CMS/HCC) (Primary Dx); Anxiety; Nephrolithiasis; Flexural atopic dermatitis in adult; Primary hypertension; Dietary counseling; Exercise counseling; Class 1 obesity due to excess calories with serious comorbidity and body mass index (BMI) of 31.0 to 31.9 in adult 08/14/2024 Results Follow-Up [facility] [address] [place] [address] Emilia Leija MD Comprehensive Metabolic Panel, Lipid Panel, Standard, TSH W/Reflex to FT4 08/14/2024 Travel 08/13/2024 Travel 08/07/2024 Orders Only GENERIC EXTERNAL DATA DEPARTMENT Provider, Generic External Data 08/05/2024 Telephone [facility] [address] [place] [address] Emilia Leija MD Referral from Last 3 [...] 58 08/14/2024 2:14 PM EDT Temperature 36.8 C (98.2 F) 08/14/2024 2:14 PM EDT Respiratory Rate 16 08/14/2024 2:14 PM EDT Oxygen Saturation 98% 08/14/2024 2:14 PM EDT Inhaled Oxygen Concentration - - Weight 98.9 kg (218 lb) 08/14/2024 2:14 PM EDT Height 177.8 cm (5' 10 ) 08/14/2024 2:14 PM EDT Body Mass Index 31.28 08/14/2024 2:14 PM EDT Plan of Treatment Upcoming Encounters Date Type Department Care Team ([facility] st Contact Info) Description 11/12/2024 4:00 PM EDT Office Visit [facility] [address], [place] [phone] Emilia Leija MD [address] [place], [place] [phone] Health Maintenance Due Date Last Done Comments [...] Years) and At-Risk Patients (6 to 49) Years Aged Out No longer eligible based on [...] Free T4 0.83 0.32 - 4.0 uIU/mL [facility] Blood Venous blood specimen / Unknown 08/14/2024 2:53 PM EDT 08/14/2024 5:33 PM EDT us Emilia Leija MD LAB BLOOD ORDERABLES Final Result [facility] [address] [place] [phone] * Lipid Panel, Standard (08/14/2024 2:53 PM EDT) Triglycerides 107 <150 mg/dL [facility] Comment:Desirable Triglyceri de: less than 150 mg/dLBorderline High Triglyceride 150-199 mg/dLHigh Triglyceride: 200-499 mg/dLVery High Triglyceride: greater than or equal to 5OO mg/dL Cholesterol 148 <200 mg/dL [facility] Comment:Desirable Cholestero l: less than 200 mg/dLBorderline High Cholesterol: 200-239 mg/dLHigh Cholesterol: greater than 239 mg/dL LDL Cholesterol Calculated 73 <100 mg/dL [facility] Comment:Desirable LDL: less than 100 mg/dLNear Optimal/Above Optimal LDL: 110- 129 mg/dLBorderline High LDL: 130-159 mg/dLHigh LDL: 160-189 mg/dLVery High LDL: greater than or equal to 190 mg/dL HDL Cholesterol 54 >40 mg/dL [facility] Comment:Desirable HDL: great er than 40 mg/dL Note: This HDL assay may give artificially low results in patients with liver disease. Blood Venous blood specimen / Unknown 08/14/2024 2:53 PM EDT 08/14/2024 5:33 PM EDT us Emilia Leija MD LAB BLOOD ORDERABLES Final Result [facility] [address] [place] [phone] * (ABNORMAL) Comprehensive Metabolic Panel (08/14/2024 2:53 PM EDT) Only the most recent of2 resultswithin the time period is included. Sodium 139 135 - 145 mmol/L [facility] Potassium 4.0 3.3 - 5.1 mmol/L [facility] Chloride 106 96 - 108 mmol/L [facility] Carbon Dioxide 27 22 - 29 mmol/L [facility] Anion Gap 10(L) 12 - 20 [facility] Urea Nitrogen (BUN) 11 9 - 16 mg/dL [facility] Creatinine, Serum 1.08 0.5 - 1.4 mg/dL [facility] Estimated Glomerular Filt Rate >60 [facility] Comment:Chronic Kidney Disea se: Estimated GFR < 60 mL/min/1.52a6Giylag Kidney Disease: Estimated GFR < 15 mL/min/1.73m2 Glucose 90 60 - 115 mg/dL [facility] Calcium 9.5 8.4 - 10.2 mg/dL [facility] Bilirubin, Total 0.4 0.0 - 1.0 mg/dL [facility] Aspartate Amino Transferase 28 5 - 37 U/L [facility] Alanine Aminotransferase 19 0 - 40 U/L [facility] Total Protein 8.3(H) 6.5 - 8.0 g/dL [facility] Albumin Level 4.5 3.5 - 5.0 g/dL [facility] Alkaline Phosphatase 58 39 - 117 U/L [facility] Blood Venous blood specimen / Unknown 08/14/2024 2:53 PM EDT 08/14/2024 5:33 PM EDT us Emilia Leija MD LAB BLOOD ORDERABLES Final Result [facility] [address] [place] [phone] * CT Abdomen Pelvis w/ Contrast (08/07/2024 10:23 AM EDT) Anatomical Region Laterality Modality Body, Pelvis, Abdomen Computed T omography 08/07/2024 10:2 3 AM EDT Narrative 08/07/2024 11:36 AM EDT [address] [address] [address] Scan Report Signed Patient: Toño Whalen MR#: [id number] 4 : 1980 Acct:[id number] Age/Sex: 43 / M ADM Date: 08/07/24 Loc: HO.ED Attending Dr: Ordering Physician: Arvin Henry PA-C Date of Service: 08/07/24 Procedure(s): CT abdomen pelvis w IV con Accession Number(s): [id number] cc: Arvin Henry PA-C; Emilia Leija MD Report Number: [id number]: Total DLP = 634.00 mGy-cm EXAMINATION: CT [...] Signed By: <Electronically signed by Fabian Ding MD in OV> 08/07/24 1134 DD/ 1023 TD/TT: 08/07/24 1050 Credit Underwriter: Procedure Note Donotuseinterpreter, Image - 08/07/[address] [address] [address] Scan Report Signed Patient: Chintan Whalen#: [id number] 4 : 1980Acct:[id number] Age/Sex: 43 / MADM Date: 08/07/24 Loc: HO.ED Attending Dr: Ordering Physician: Arvin Henry PA-C Date of Service: 08/07/24 Procedure(s): CT abdomen pelvis w IV con Accession Number(s): [id number] cc: Arvin Henry PA-C; Emilia Leija MD Report Number: [id number]: Total DLP = 634.00 mGy-cm EXAMINATION: CT [...] Fabian Mcdowell MD 08/07/2024 11:34 AM EDT RP Dictated By: Fabian Patrick MD Signed By: <Electronically signed by Fabian Ding MDin OV> 08/07/24 1134 DD/ 1023 TD/TT: 08/07/24 1050 Credit Underwriter: [facility] External Provider IMG CT PROCEDURES Edited Result - Final * (ABNORMAL) CBC auto differential (08/07/2024 9:45 AM EDT) White Blood Count 7.3 4.8 - 10.8 X10*3/uL [facility] Red Blood Count 4.00(L) 4.60 - 5.80 X10*6/uL [facility] Hemoglobin 10.7(L) 14.0 - 18.0 g/dl [facility] Hematocrit 33.5(L) 42.0 - 52.0 % [facility] Mean Corpuscular Volume 83.8 80.0 - 98.0 fL [facility] Mean Corpuscular Hemoglobin 26.8(L) 27.0 - 33.0 pg [facility] Mean Corpuscular HGB Conc 31.9 31.0 - 36.0 g/dl [facility] Red Cell Distribution Width 14.3 11.0 - 16.0 % [facility] Platelet Count 236 160 - 400 X10*3/uL [facility] Mean Platelet Volume 11.6 9.4 - 12.4 fL [facility] Neutrophils Percent Auto 56.3 45 - 73 % [facility] Imm Gran Pct Auto 0.3 0.0 - 0.4 % [facility] Lymphocytes Percent Auto 30.2 20 - 40 % [facility] Monocytes Percent Auto 9.8 2 - 11 % [facility] Eosinophils Percent Auto 3.0 0 - 4 % [facility] Basophils Percent Auto 0.4 0 - 2 % [facility] NRBC Pct Auto 0.0 0.0 - 0.2 /100WBC [facility] Neutrophils Absolute Auto 4.1 2.0 - 8.3 x10*3/uL [facility] Imm Gran Abs Auto 0.02 0.00 - 0.03 X10*3/uL [facility] Lymphocytes Absolute Auto 2.2 1.2 - 4.9 X10*3/uL [facility] Monocytes Absolute Auto 0.7 0.1 - 1.2 X10*3/uL [facility] Eosinophils Absolute Auto 0.2 0.0 - 0.4 X10*3/uL [facility] Basophils Absolute Auto 0.0 0.0 - 0.2 X10*3/uL [facility] NRBC Abs Auto 0.000 0.0 - 0.012 X10*3/uL [facility] 08/07/2024 9:45 AM EDT 08/07/2024 9:48 AM EDT Generic External Data Provider LAB BLOOD ORDERAB LES Final Result Performing Organization Address [facility] Co de Phone Number [facility] [address] [place] [phone] * (ABNORMAL) Sed Rate by Modified Torren (08/07/2024 9:45 AM EDT) [facility] Erythrocyte Sedimentation Rate 37(H) 0 - 15 MM/HR [facility] Comment:Patients with polycy themia and many hemoglobin abnormalitiesmay have depressed sed rates whereas patients with anemiamay have elevated sed rates. 08/07/2024 9:45 AM EDT 08/07/2024 9:48 AM EDT Generic External Data Provider LAB BLOOD ORDERAB LES Final Result Performing Organization Address [facility] Co de Phone Number [facility] [address] [place] [phone] * C-reactive Protein (08/07/2024 9:45 AM EDT) [facility] C Reactive Protein 0.29 < or = 0.50 mg/dL [facility] 08/07/2024 9:45 AM EDT 08/07/2024 9:48 AM EDT Generic External Data Provider LAB BLOOD ORDERAB LES Final Result Performing Organization Address [facility] Co de Phone Number [facility] [address] [place] [phone] * Magnesium (08/07/2024 9:45 AM EDT) [facility] Magnesium 1.6 1.6 - 2.6 mg/dL [facility] 08/07/2024 9:45 AM EDT 08/07/2024 9:48 AM EDT Generic External Data Provider LAB BLOOD ORDERAB LES Final Result Performing Organization Address [facility] de Phone Number [facility] [address] [place] [phone] * Lipase (08/07/2024 9:45 AM EDT) [facility] Lipase 23 8 - 78 U/L [facility] 08/07/2024 9:45 AM EDT 08/07/2024 9:48 AM EDT Generic External Data Provider LAB BLOOD ORDERAB LES Final Result Performing Organization Address [facility] de Phone Number [facility] [address] [place] [phone] * Hepatitis A,B,C Profile (10/31/2021 10:58 AM EDT) [facility] Hepatitis B Core Antibody Nonreactive Nonreactive [facility] [...] Historical Provider HISTORICAL/NON ORDERABLE LABS Final Result [facility] [address] from Last 3 Months or Most Recently Relevant to Health Maintenance Insurance [place] [phone] [facility] H[employer] Care Teams [employer] Architect Relationship Specialty Start Date End Date Emilia Leija MD [address] [place] [phone] PCP - General Internal Medicine 09/21/11
--- NOTE | 2024-09-22 10:25 | HO.ANESPROP2 ---
Documented by User: Cassidy Dominguez NP 09/22/24 10:25 HPI - Anesthesia Eval Consult details Narrative: 43yo M for Left Cystoscopy, Ureteroroscopy, Retro, Laser with stent placement PMFSH Active Problems Active Problems: All Active Problems Ureteric stone (Acute) Abdominal pain (Acute) Low vitamin D level (Acute) Anemia (Acute) Crohn disease (Acute) High risk medication use (Acute) GERD (gastroesophageal reflux disease) (Acute) Past Medical History Medical History HTN (hypertension) Pneumonia History of blood transfusion Low vitamin D level Anemia Anxiety Pituitary macroadenoma High risk medication use GERD (gastroesophageal reflux disease) Crohn disease Family History Family History Mother Breast cancer Family history of problems with anesthesia: No Surgical History Surgical History History of ileostomy History of partial surgical removal of colon History of esophagogastroduodenoscopy (EGD) H/O colonoscopy History of Problems with Anesthesia: No Social History Social History Household Members: Family Housing: Apartment Do you presently have visiting nurse or other home services: No Alcohol intake: never Patient Tobacco Use Status: Never used Tobacco e-Cigarette/Vaping Use: Never Used Second Hand Smoke Exposure: No Use of substances other than those prescribed or required for medical reasons: Yes Substance Use Type: Marijuana Substance Use Type Other:: smoked Qpm--last used 09/22 Substance Use Frequency: Daily Are you DNR?: No Advance Directives: No Advance Directives Information Provided: Yes Advance Directives Date on File: 07/17/20 service: No Current occupational status: disabled Meds Allergies Allergy/AdvReac Type Severity Reaction Status Date / Time No Known Allergies (No Known Allergy Verified 09/23/24 07:45 Allergies*) Home Medications ?Medication ?Instructions ?Recorded ?Confirmed ?Last Taken ?Type infliximab 100 mg intravenous 100 mg IV Q8W 05/09/20 09/23/24 05/01/22 History solution (Remicade) omeprazole 20 mg capsule,delayed 20 mg PO DAILY PRN Heartburn 10/30/23 07/08/25 Unknown History release amlodipine 5 mg tablet 5 mg PO DAILY 09/23/24 09/23/24 Unknown History Assessment and Plan Final Anesthetic Review Family History of Problems with Anesthesia: No History of Problems with Anesthesia: No Documented by User: Amena Pyle MD 09/23/24 08:55 PMFSH Past Medical History Medical History HTN (hypertension) Pneumonia History of blood transfusion Low vitamin D level Anemia Anxiety Pituitary macroadenoma High risk medication use GERD (gastroesophageal reflux disease) Crohn disease Family History Family History Mother Breast cancer Surgical History Surgical History History of ileostomy History of partial surgical removal of colon History of esophagogastroduodenoscopy (EGD) H/O colonoscopy Social History Social History Household Members: Family Housing: Apartment Do you presently have visiting nurse or other home services: No Alcohol intake: never Patient Tobacco Use Status: Never used Tobacco e-Cigarette/Vaping Use: Never Used Second Hand Smoke Exposure: No Use of substances other than those prescribed or required for medical reasons: Yes Substance Use Type: Marijuana Substance Use Type Other:: smoked Qpm--last used 09/22 Substance Use Frequency: Daily Are you DNR?: No Advance Directives: No Advance Directives Information Provided: Yes Advance Directives Date on File: 07/17/20 service: No Current occupational status: disabled Meds Allergies Allergy/AdvReac Type Severity Reaction Status Date / Time No Known Allergies (No Known Allergy Verified 09/23/24 07:45 Allergies*) Home Medications ?Medication ?Instructions ?Recorded ?Confirmed ?Last Taken ?Type infliximab 100 mg intravenous 100 mg IV Q8W 05/09/20 09/23/24 05/01/22 History solution (Remicade) omeprazole 20 mg capsule,delayed 20 mg PO DAILY PRN Heartburn 01/15/23 09/23/24 Unknown History release amlodipine 5 mg tablet 5 mg PO DAILY 09/23/24 09/23/24 Unknown History Exam Airway Mallampati Class: II TM Dist: >3cm Neck ROM: Full Heart: rrr Lungs: cta Assessment and Plan Assessment Anesthesia Assessment: Anesthesia Plan Discussed and Chart Reviewed Final Anesthetic Review NPO: Yes ASA Class: III Final Preanesthetic Review: No Changes in Pt Med Stat, Meds/Allgs Chart Reviewed, Consent Obtained/Reviewed and Anes Risks/Benef Reviewed Patient Risk: Intermediate Procedure Risk: Low Anesthetic Plan Anesthetic Plan: GA Disposition: Standard PACU
--- NOTE | ~2024-09-23 | FL_ITS ---
EXAMINATION: FL GUIDANCE ONLY HISTORY: stone left COMPARISON: Correlation is made with a CT of the abdomen and pelvis with contrast dated 08/07/2024. TECHNIQUE: Fluoroscopy time: 22.2 seconds. Cumulative Dose: 8.23 mGy. Images: 5. FINDINGS: Fluoroscopic spot films demonstrate opacification of the distal left ureter. Multiple filling defects are identified corresponding to the calculi noted on CT. The final images demonstrate placement of a nephroureteral stent. FL/FL guidance in OR IMPRESSION: Fluoroscopy during procedure. Please see procedure report for additional information. Electronically signed by: Malachi Stephens MD 09/23/2024 10:51 AM EDT
[2024-09-23 07:47] VITALS: BP 116/77; PULSE 67; RESP 15; TEMP 36.3; O2SAT 96
[2024-09-23] MEDS: Lactated Ringers 1,000 ML 100 ML IVCONT (08:01)
--- NOTE | 2024-09-23 08:50 | P.HPSUR_ITS ---
Pre-Procedural Eval Section A - 24 Hr Update-Section A only Date of Service: 09/23/24 The patient is an INPATIENT: No The patient has been examined within 24 hours of the surgical procedure. The History & Physical has been completed within 30 days and I have reviewed it.: Yes Section B - Complete if H&P > 30 days Chief Complaint: Calculus of ureter Allergies: Allergies Allergy/AdvReac Type Severity Reaction Status Date / Time No Known Allergies (No Known Allergy Verified 09/23/24 07:45 Allergies*) Plan Diagnosis/Plan: Unchanged I have reviewed the history and physical and performed a pertinent physical examination on my patient. No changes have occurred unless specified. Plan for Cystoscopy, left ureteroscopy, possible laser lithotripsy, possible ureteral stent. Risks discussed included but not limited to, possible need to repeat procedure if stone is not completely fragmented, Irritative voiding s ymptoms, bladder spasms, urgency, blood in urine. Time Spent With Patient Time: Total time managing care of this patient today ____ minutes.
--- NOTE | 2024-09-23 08:50 | P.OP_ITS ---
Operative Note Operative Note Date of Service: 09/23/24 Narrative: PreOperative Diagnosis:?? Left ureteral stones, left hydronephrosis Post Operative Diagnosis:?? Left ureteral stones, complete duplex right ureters Procedure: - Cystoscopy, left retrograde, left ureteroscopy laser lithotripsy stent insertion, 6 [place] by 22-32 cm Surgeon:?Dr Radha Tellez Anesthesia:? General Findings: 2 distal ureteral stones left ureter Procedure: After informed consent was verified the patient was brought to the operating placed on the OR table in supine position.? General Anesthesia was administered per protocol.? The patient was placed in lithotomy position, prepped and draped in the usual sterile fashion.? Safety pause time-out and side of surgery confirmed.? Antibiotics confirmed. 2% lidocaine jelly 10 mL was passed transurethrally. [place] sounds were needed to pass the 22 [place] cystoscope, the meatus was dilated from a 6 [place] to a 26 [place] A 22 [place] cystoscope was inserted transurethrally, the bulbous urethra was within normal limits. The prostatic urethra was nonobstructive. The bladder was visualized.? A right trigone noted to ureteral orifices, the left trigone a single ureteral orifice was visualized. An open-ended ureteral catheter was passed into the left ureteral orifice and a retrograde examination was performed. There was a filling defect in the distal ureter and dilatation of the proximal ureter. A guidewire was passed through the ureteral catheter into the kidney. The balloon dilator size 12 fr x 4 cm was passed over the guide-wire the balloon was inflated to 6-8 mmHg and the intramural ureter was dilated for 30 seconds. The balloon was deflated and removed. The cystoscope was removed, leaving the guidewire in place which was used as the safety and was attached to the draping. The semi rigid ureteroscope was passed transurethrally into the left ureter to t he level of the stones in the distal ureter. Laser lithotripsy of the stone was done using the 365 fiber with a alternating pulsating and dusting setting. There was good fragmentation of the stone. The 0 degree basket was passed through the ureteroscope, stone fragment(s) removed and sent for analysis. The ureteroscope was removed. The cystoscope was passed over the safety guidewire. A? 6 [place] by 22-32 cm stent was placed into the ureter and renal pelvis under a combination of fluoroscopy and direct visualization. The bladder was emptied.? The rigid cystoscope was removed. ?Belladonna suppository was placed per rectum. The patient tolerated the procedure well and was brought to the recovery room in stable condition. Complications: None Drains: Ureteral stent as dictated above
[2024-09-23 10:39] VITALS: BP 118/79; PULSE 74; RESP 18; TEMP 36.2; O2SAT 91
[2024-09-23 10:44] VITALS: BP 110/75; PULSE 67; RESP 18; O2SAT 94
[2024-09-23 10:49] VITALS: BP 116/74; PULSE 64; RESP 13; O2SAT 96
[2024-09-23 10:54] VITALS: BP 113/81; PULSE 59; RESP 12; O2SAT 99
[2024-09-23 11:17] VITALS: BP 119/83; PULSE 58; RESP 14; TEMP 36.1; O2SAT 15
== END 2024-09-23 12:16 | disposition home or self-care (01) ==
PROVIDERS: PCP Internal Medicine; Visit Provider Urology
PROC: (CPT 52356; principal; 2024-09-23 09:40)
DX: N20.1 Calculus of ureter (principal); Q62.5 Duplication of ureter; K50.90 Crohn's disease, unspecified, without complications; D64.9 Anemia, unspecified; D35.2 Benign neoplasm of pituitary gland; E55.9 Vitamin D deficiency, unspecified; K21.9 Gastro-esophageal reflux disease without esophagitis; F41.9 Anxiety disorder, unspecified; Z87.01 Personal history of pneumonia (recurrent); Z86.2 Personal history of diseases of the blood and blood-forming organs and certain disorders involving the immune mechanism; Z93.2 Ileostomy status; Z90.49 Acquired absence of other specified parts of digestive tract; Z79.620 Long term (current) use of immunosuppressive biologic; Z79.899 Other long term (current) drug therapy
CPT/HCPCS: 52356; 82365; 88300; C1726; C1758; C1769; C2617; J0690; J1885; J2003; J2704; J3010; Q9967

== ENCOUNTER → 2024-09-23 07:33 | Outpatient (BNV) | payer BC, MEDICARE, MEDICAID, SELFPAY | PROVIDERS: PCP Internal Medicine; Visit Provider Urology | DX: N20.1 Calculus of ureter (principal) | CPT/HCPCS: 52356; 74420 ==

== ENCOUNTER 2024-09-26 00:06 | Inpatient (IN) | payer MEDICARE, BC, MEDICAID, SELFPAY ==
--- NOTE | ~2024-09-26 | CT_ITS ---
CLINICAL HISTORY: R abd pain, hx crohns, sbo, renal stones CT abdomen and pelvis with contrast Comparison: CT/CO/SR - CT ABDOMEN PELVIS W IV CON - 08/07/24 10:23 EDT Findings: CT abdomen: Lung bases are clear. No acute bony lesions. Heart size is unchanged. No focal hepatic lesions. Main portal vein is patent. Spleen, pancreas, gallbladder, and adrenal glands are unremarkable. Interval placement of a left double-J ureteral stent. Proximal loop is within the left renal pelvis. Distal loop is within the urinary bladder. Left hydronephrosis is no longer evident. Small amount of air is seen within the intrarenal collecting system. Unchanged 1 cm cyst within the left kidney. There is appropriate enhancement of the left kidney. No stones are seen along the course of the left ureteral stent. Appropriate enhancement of the right kidney. No right-sided hydronephrosis. Moderate fluid distention of the stomach. Fluid-filled dilated small bowel loops are seen within the central abdomen extending into the lower abdomen upper pelvis measuring up to 5 cm in transverse measurement. Small-bowel air-fluid levels are seen. The most dilated loop of bowel is seen at the level of the suture material within the right lower quadrant. Small bowel loops proximal to this are dilated with air-fluid levels. No free air. CT pelvis: Postsurgical change of the sigmoid colon. Colon is decompressed. Scattered diverticuli within the colon without findings of diverticulitis. Surgical change of the level of the cecum. Wall thickening of the distal ileum and terminal ileum with areas of creeping fat. Distal small bowel is decompressed. Fat containing bilateral inguinal hernias. IMPRESSION: 1. Small-bowel obstruction with transition point at the suture line in the right abdomen. Additional sequelae of Crohn's disease including wall thickening and creeping fat involving the distal ileum and terminal ileum. No findings of perforation or abscess at this time. Surgical consultation suggested. 2. Interval resolution of the left hydronephrosis and left ureteral calculi with placement of a left double-J ureteral stent. This document has been electronically signed by: Harry Yanez MD on 09/26/2024 04:59:57
[2024-09-26 00:40] VITALS: BP 142/96; PULSE 64; RESP 16; TEMP 36.4; O2SAT 98; BMI 31.6
[2024-09-26 00:54] LABS: Hematocrit 32.1 % (42.0-52.0); Hemoglobin 10.7 g/dl (14.0-18.0); Imm Gran Abs Auto 0.02 X10*3/uL (0.00-0.03); Imm Gran Pct Auto 0.2 % (0.0-0.4); Lymphocytes Absolute Auto 3.1 X10*3/uL (1.2-4.9); MANUAL DIFF FLAG NO; Mean Corpuscular HGB Conc 33.3 g/dl (31.0-36.0); Mean Corpuscular Hemoglobin 28.1 pg (27.0-33.0); Mean Corpuscular Volume 84.3 fL (80.0-98.0); NRBC Abs Auto 0.000 X10*3/uL (0.0-0.012); NRBC Pct Auto 0.0 /100WBC (0.0-0.2); Platelet Count 207 X10*3/uL (160-400); Red Blood Count 3.81 X10*6/uL (4.60-5.80); White Blood Count 8.1 X10*3/uL (4.8-10.8)
[2024-09-26 01:47] LABS: Alanine Aminotransferase 36 U/L (0-40); Albumin Level 4.3 g/dL (3.5-5.0); Alkaline Phosphatase 72 U/L (39-117); Anion Gap 11 (12-20); Aspartate Amino Transferase 37 U/L (5-37); Blood Urea Nitrogen 16 mg/dL (9-16); Calcium 9.0 mg/dL (8.4-10.2); Carbon Dioxide 28 mmol/L (22-29); Chloride 106 mmol/L (96-108); Creatinine Clr Calc Pharmacy 100.5; Estimated Glomerular Filt Rate > 60; Lipase 26 U/L (8-78); Potassium 4.3 mmol/L (3.3-5.1); Sodium 141 mmol/L (135-145); Total Protein 7.6 g/dL (6.5-8.0)
--- NOTE | 2024-09-26 02:37 | ED_ITS ---
HPI - Abdominal Pain General Chief Complaint: Abdominal Pain Stated Complaint: abd pain Time Seen by Provider: 09/26/24 02:05 Source: patient Mode of arrival: ambulatory Limitations: no limitations History of Present Illness ED Provider: Dr. Selma Goetz HPI narrative: Patient comes to the emergency room complaining of abdominal pain nausea and vomiting. Patient states that he has history of a recent lithotripsy that was done a week ago here. However, patient states that he has no blood in the urine, no dysuria, no flank pain. Patient complaining of mostly abdominal pain. Patient states that he has history of Crohn's with history of colostomy with reversal. Patient states that he has had multiple small-bowel obstructions and he believes he has an obstruction today. Patient states that he has been vomiting quite a bit. Patient was able to move his bowels earlier today while he was in the waiting room. However, patient states that it was minimal. Related Data Home Medications ?Medication ?Instructions ?Recorded ?Confirmed infliximab 100 mg intravenous 100 mg IV Q8W 05/09/20 0 09/23/24 solution (Remicade) omeprazole 20 mg capsule,delayed 20 mg PO DAILY PRN He artburn 01/15/23 09/23/24 release amlodipine 5 mg tablet 5 mg PO DAILY 09/23/2409/23 Previous Rx's ?Medication ?Instructions ?Recorded sodium,potassium,mag sulfates 17.5 See Rx Instructions PO .COMPLEX 06/19/23 gram-3.13 gram-1.6 gram oral soln #354 mL (Suprep Bowel Prep Kit) acetaminophen 500 mg tablet 1,000 mg (2 x 500 mg) PO Q 6H PRN 09/06/23 (Tylenol Extra Strength) pain #30 tabs ketorolac 10 mg tablet 10 mg PO Q6H PRN pain 5 days #14 09/06/23 tabs morphine 15 mg immediate release 15 mg PO Q6H PRN artis re pain #10 09/06/23 tablet tabs ibuprofen 400 mg tablet 400 mg PO Q6H PRN pain #14 t abs 04/27/24 ondansetron 4 mg disintegrating 4 mg PO Q6-8H PRN naus ea and 04/27/24 tablet vomiting #7 tabs oxycodone 5 mg tablet 5 mg PO Q6H PRN pain #20 tab s 04/27/24 tamsulosin 0.4 mg capsule (Flomax) 0.4 mg PO BEDTIME # 10 caps 04/27/24 oxycodone 5 mg tablet 5 mg PO .[id number] PRN pain #1 0 tabs 09/23/24 phenazopyridine 200 mg tablet 200 mg PO .B.i.d. PRN Ur inary 09/23/24 (Pyridium) burning, pain with urination #24 tabs solifenacin 5 mg tablet (Vesicare) 5 mg PO BEDTIME PRN bladder spasms 09/23/24 #20 tabs Allergies Allergy/AdvReac Type Severity Reaction Status Date / Time No Known Allergies (No Known Allergy Verified 09/26/24 00:42 Allergies*) Review of Systems Review of Systems Constitutional : No Weight loss, No Fever, No Chills, No Night Sweats, No Fatigue, No Malaise ENT/Mouth : No Hearing loss, No Ear Pain, No Nasal Congestion, No Sinus Pain, No Hoarseness, No sore throat, No Rhinorrhea, No Swallowing Difficulty Eyes: No Eye Pain, No Swelling, No Redness, No Foreign Body, No Discharge, No Vision Changes Cardiovascular : No Chest Pain, No SOB, No Dyspnea on Exertion, No Orthopnea, No Edema, No Palpitations Respiratory : No Cough, No Sputum, No Wheezing, No Smoke Exposure, No Dyspnea Gastrointestinal : Complaining of nausea and vomiting, no diarrhea, no constipation, complaining of severe abdominal pain mostly on the right. Patient believes he has a small bowel obstruction Genitourinary : no irregular bleeding, No Dysuria, No Urinary Frequency, No Hematuria, No Urinary Incontinence, No Urgency, No Flank Pain, No Urinary Flow Changes, No Hesitancy Musculoskeletal : No joint pain, No Myalgias, No Joint Swelling Skin : No Skin Lesions, No rash Neuro : No Weakness, No Numbness, No Paresthesias, No Loss of Consciousness, No Dizziness, No Headache Psych : No Anxiety/Panic, No Depression, No SI/HI/AH/VH, No Social Issues, Heme/Lymph: No Bruising, No Bleeding,No Lymphadenopathy Endocrine : No Polyuria, No Polydipsia, No Temperature Intolerance PMFSH Past Medical History Medical History HTN (hypertension) Pneumonia History of blood transfusion Low vitamin D level Anemia Anxiety Pituitary macroadenoma High risk medication use GERD (gastroesophageal reflux disease) Crohn disease Surgical History History of ileostomy History of partial surgical removal of colon History of esophagogastroduodenoscopy (EGD) H/O colonoscopy Family History Family History Mother Breast cancer Social History Social History Household Members: Family Housing: Apartment Do you presently have visiting nurse or other home services: No Alcohol intake: never Patient Tobacco Use Status: Never used Tobacco e-Cigarette/Vaping Use: Never Used Second Hand Smoke Exposure: No Substance Use Type: Marijuana Advance Directives: No Advance Directives Date on File: 07/17/20 Do you have a plan to hurt others: No Plan service: No Current occupational status: disabled Physical Exam ED Vital Signs: Vital Signs - 24 hr 09/26/24 00:40 09/26/24 03:14 Temperature 97.5 F Pulse Rate 64 53 Respiratory Rate 16 20 Blood Pressure 142/96 H 143/89 H Pulse Oximetry 98 96 Oxygen Delivery Method Room Air Room Air BMI result Body Mass Index 31.6 Const Other: Appearance: Alert. Oriented X3. Looks very uncomfortable my vomiting Eyes: Pupils equal, round and reactive to light. ENT: Pharynx normal. Neck: Normal inspection. Neck supple. No lymph nodes noted. No crepitus CVS: Normal heart rate and rhythm. Pulses normal. Normal S1 and S2 Respiratory: No respiratory distress. Breath sounds normal. No Wheezing. No rales Abdomen: Soft , tenderness to palpation in right upper and lower quadrant, mild rebound, no guarding. Vomiting Skin: Skin warm and clammy. Normal skin color. Normal skin turgor. Extremities: No lower extremity edema. No Lacerations. No Rash Neuro: Oriented X 3. No motor deficit. No sensory deficit. Moving all extremities. No slurred speech. CN 2 through 12 grossly intact Psych: calm, cooperative, normal affect Course Course Course Narrative: Patient receiving IV fluids, Zofran and morphine. I discussed with the patient that we need a CT scan with p.o. contrast. However, patient is vomiting quite a bit. Patient states that he does not believe that he can tolerate drinking contrast. After medicating the patient, We attempted giving him a sip of water, patient vomited Medical Decision Making Medical Decision Making [facility] Narrative: My interpretation of labs: No significant abnormality in patient's hematology and chemistry CT scan shows a small bowel obstruction with transition point. Patient states that the last time that he was here, while inserting an NG-tube, they ?broke? his nose, patient refuses to get an NG-tube. Patient was given a dose of morphine and Dilaudid. Patient is still pretty uncomfortable but no longer vomiting. I discussed the above-mentioned with Dr. Romero from General surgery, patient is to be seen this morning Differential Diagnosis Differential Diagnoses: The differential diagnosis associated with the presentation includes (SBO, Crohn's flare, bowel perforation) Admission/Observation Consideration of admission/observation: Escalation of care including admission/observation considered Consult Healthcare Provider Management of the patient was discussed with: Senior Graphic Designer Lab Data [facility] Lab Attestation statement: I reviewed the patient's lab results. 09/26/24 00:49 09/26/24 00:49 Labs: Lab Results 09/26/24 Range/Units 00:49 WBC 8.1 (4.8-10.8) X10*3/uL RBC 3.81 L (4.60-5.80) X10*6/uL Hgb 10.7 L (14.0-18.0) g/dl Hct 32.1 L (42.0-52.0) % MCV 84.3 (80.0-98.0) fL MCH 28.1 (27.0-33.0) pg MCHC 33.3 (31.0-36.0) g/dl RDW 13.5 (11.0-16.0) % Plt Count 207 (160-400) X10*3/uL MPV 11.8 (9.4-12.4) fL Immature Gran % (Auto) 0.2 (0.0-0.4) % Neut % (Auto) 43.8 L (45-73) % Lymph % (Auto) 37.8 (20-40) % [place] % (Auto) 13.3 H (2-11) % Eos % (Auto) 4.4 H (0-4) % Baso % (Auto) 0.5 (0-2) % Lymph # (Auto) 3.1 (1.2-4.9) X10*3/uL [place] # (Auto) 1.1 (0.1-1.2) X10*3/uL Eos # (Auto) 0.4 (0.0-0.4) X10*3/uL Baso # (Auto) 0.0 (0.0-0.2) X10*3/uL Abs Immat Gran (auto) 0.02 (0.00-0.03) X10*3/uL Absolute Neuts (auto) 3.6 (2.0-8.3) x10*3/uL Absolute Nucleated RBC 0.000 (0.0-0.012) X10*3/uL Nucleated RBC % (auto) 0.0 (0.0-0.2) /100WBC Sodium 141 (135-145) mmol/L Potassium 4.3 (3.3-5.1) mmol/L Chloride 106 (96-108) mmol/L Carbon Dioxide 28 (22-29) mmol/L Anion Gap 11 L (12-20) BUN 16 (9-16) mg/dL Creatinine 1.11 (0.5-1.4) mg/dL Estim Creat Clear Calc 100.5 Estimated GFR > 60 Random Glucose 100 (60-115) mg/dL Calcium 9.0 (8.4-10.2) mg/dL Total Bilirubin 0.7 (0.0-1.0) mg/dL Direct Bilirubin 0.2 (0.0-0.5) mg/dL AST 37 (5-37) U/L ALT 36 (0-40) U/L Alkaline Phosphatase 72 (39-117) U/L Total Protein 7.6 (6.5-8.0) g/dL Albumin 4.3 (3.5-5.0) g/dL Lipase 26 (8-78) U/L Independent Interpretation I performed an independent interpretation of an: CT Scan Radiology Impression Discussion of test interpretation with radiology: I have reviewed the radiologist's reading. Radiologist Impression: CT pelvis: Postsurgical change of the sigmoid colon. Colon is decompressed. Scattered diverticuli within the colon without findings of diverticulitis. Surgical change of the level of the cecum. Wall thickening of the distal ileum and terminal ileum with areas of creeping fat. Distal small bowel is decompressed. Fat containing bilateral inguinal hernias. IMPRESSION: 1. Small-bowel obstruction with transition point at the suture line in the right abdomen. Additional sequelae of Crohn's disease including wall thickening and creeping fat involving the distal ileum and terminal ileum. No findings of perforation or abscess at this time. Surgical consultation suggested. 2. Interval resolution of the left hydronephrosis and left ureteral calculi with placement of a left double-J ureteral stent. Medications Administered Discontinued Medications Generic Name Dose Route Start Last Admin Trade Name Freq PRN Reason Stop Dose Admin Sodium Chloride 1,000 mls @ 999 mls/hr 09/26/24 02:35 09/26/24 03:11 Ns IVCONT 09/26/24 03:35 999 mls/hr .Q1H1M ONE Administration Iohexol 85 ml 09/26/24 03:31 09/26/24 03:32 Iohexol 350 Mg/Ml 100 Ml Infus..Btl IV 09/26/24 03:32 85 ml ONCE ONE Administration Morphine Sulfate 4 mg 09/26/24 02:35 09/26/24 03:17 Morphine Sulfate 4 Mg/Ml Cartridge IVPUSH 09/26/24 02:36 4 mg ONCE ONE Administration Protocol Ondansetron HCl 4 mg 09/26/24 02:35 09/26/24 03:17 Ondansetron Hcl 4 Mg/2 Ml Vial IVPUSH 09/26/24 02:36 4 mg ONCE ONE Administration My interpretation of labs: No significant new abnormality in patient's hematology, white blood cell count 8.1, patient is chronically anemic, today 10.7, at baseline, chemistry does not show any acute abnormality, normal LFTs, normal lipase Pending: CT scan Critical Care Time Critical Care Time Critical Care Time: Yes Total Critical Care Time: 60 Attestation: I have personally provided critical care time. Time includes review of lab data, radiology results, discussion with consultants, and monitoring for potential decompensation. Intervention performed as documented. Discharge Plan Discharge Clinical Impression: Complete small bowel obstruction, Nausea & vomiting Patient Disposition: Admitted As Inpatient Print Language: Kyrgyz
[2024-09-26 03:14] VITALS: BP 143/89; PULSE 53; RESP 20; O2SAT 96
[2024-09-26] MEDS: iohexoL 350 MG/ML 100 ML INFUS..BTL 85 ML IV (03:32)
--- NOTE | 2024-09-26 07:26 | P.HPGS_ITS ---
History of Present Illness History of Present Illness Date of Service: 09/26/24 Chief complaint: small bowel obstruction, adhesions Narrative: Toño Whalen is a 43 year old male, s/p ileocecal resection performed at the [facility], and multiple admissions for small bowel obstruction returning today with complaints of abdominal pain in the mid abdomen associated with nausea and vomiting. He reports the symptoms feel similar to his previous episodes of small-bowel obstruction. He presented to the emergency department with pain greater than 10/10 in severity. He underwent evaluation with CT abdomen and pelvis which confirmed small bowel obstruction. He is admitted to the surgical service for further management of the small bowel obstruction. He has requested no NG tube due to a previous difficulty with NG tube placement. He reports a bowel movement last evening which was normal. He has not had any flatus since then. Review of Systems 2 Review of Systems: Yes all other systems are reviewed and are negative PMFSH Past Medical History Medical History HTN (hypertension) Pneumonia History of blood transfusion Low vitamin D level Anemia Anxiety Pituitary macroadenoma High risk medication use GERD (gastroesophageal reflux disease) Crohn disease Family History Family History Mother Breast cancer Surgical History Surgical History History of ileostomy History of partial surgical removal of colon History of esophagogastroduodenoscopy (EGD) H/O colonoscopy Social History Social History Household Members: Family Housing: Apartment Do you presently have visiting nurse or other home services: No Alcohol intake: never Patient Tobacco Use Status: Never used Tobacco Smoked in Last 30 Days: No e-Cigarette/Vaping Use: Never Used Second Hand Smoke Exposure: No Use of substances other than those prescribed or required for medical reasons: No Substance Use Type: Marijuana Advance Directives: No Advance Directives Date on File: 07/17/20 Do you have a plan to hurt others: No Plan service: No Current occupational status: disabled Meds Allergies Allergy/AdvReac Type Severity Reaction Status Date / Time No Known Allergies (No Known Allergy Verified 09/26/24 00:42 Allergies*) Active Medications: Current Medications Calcium Carbonate (Calcium Carbonate 750 Mg Tab.Chew) 750 mg PO Q4H PRN PRN Reason: Heartburn Hydromorphone HCl (Hydromorphone Hcl 0.5 Mg/0.5 Ml Syringe) 0.5 mg IVPUSH Q3H PRN; Protocol PRN Reason: Pain, Severe (Pain Scale 7-10) Acetaminophen (Ofirmev) 1,000 mg in 100 mls @ 400 mls/hr IV Q6H PRN PRN Reason: Pain, Mild (Pain Scale 1-3) Dextrose/Lactated Ringer's (D5lr) 1,000 mls @ 125 mls/hr IVCONT .Q8H SANGITA Magnesium Hydroxide (Milk Of Magnesia 30 Ml Oral.Susp) 30 ml PO DAILY PRN PRN Reason: Constipation Ondansetron HCl (Ondansetron Hcl 4 Mg/2 Ml Vial) 4 mg IVPUSH QID PRN PRN Reason: Nausea Oxycodone HCl (Oxycodone Hcl Immed Release 5 Mg Tablet) 5 mg PO Q6H PRN PRN Reason: Pain, Moderate(Pain Scale 4-6) Sodium Chloride (0.9 % Sodium Chloride Flush 3 Ml Syringe) 3 ml IVFLUSH QSHIFT SANGITA Zolpidem Tartrate (Zolpidem Tartrate 5 Mg Tablet) 5 mg PO BEDTIME PRN PRN Reason: Insomnia Home Medications ?Medication ?Instructions ?Recorded ?Confirmed ?Last Taken ?Type infliximab 100 mg intravenous 100 mg IV Q8W 05/09/20 0 09/23/24 05/01/22 History solution (Remicade) omeprazole 20 mg capsule,delayed 20 mg PO DAILY PRN He artburn 01/15/23 09/23/24 Unknown History release amlodipine 5 mg tablet 5 mg PO DAILY 09/23/2409/23 Unknown History Physical Exam 2 Vital Signs: Vital Signs: Last Vital Signs Temp 97.5 F 09/26/24 00:40 Pulse 53 09/26/24 03:14 Resp 20 09/26/24 03:14 BP 143/89 H 09/26/24 03:14 Pulse Ox 96 09/26/24 03:14 O2 Del Method Room Air 09/26/24 03:14 BMI result Body Mass Index 31.6 Const: General: no acute distress Nutritional Appearance: well nourished Orientation/consciousness: patient oriented x3 Resp: Effort & Inspection: normal respiratory effort, no audible wheezes, no cough and no respiratory distress GI: Inspection: Yes distended Palpation (GI): Soft to palpation, Tenderness to palpation present (GI) in the LLQ, in the RLQ, in the LUQ and in the RUQ; with no rebound tenderness, no guarding and not rigid Percussion: Yes tympanic to percussion Auscultation: Absent bowel sounds Rectal Exam - Male: Yes deferred Abdomen image: 1. Midline incision 2. Ileostomy Skin: General skin exam: no rashes or lesions noted Neuro: General: patient oriented x3 Extrem: General: Yes no clubbing, cyanosis or edema Results Results Labs: Short CBC 09/26/24 Range/Units 00:49 WBC 8.1 (4.8-10.8) X10*3/uL Hgb 10.7 L (14.0-18.0) g/dl Hct 32.1 L (42.0-52.0) % Plt Count 207 (160-400) X10*3/uL BMP 09/26/24 00:49 Sodium 141 Potassium 4.3 Chloride 106 Carbon Dioxide 28 BUN 16 Creatinine 1.11 Calcium 9.0 Liver Function 09/26/24 Range/Units 00:49 Total Bilirubin 0.7 (0.0-1.0) mg/dL Direct Bilirubin 0.2 (0.0-0.5) mg/dL AST 37 (5-37) U/L ALT 36 (0-40) U/L Alkaline Phosphatase 72 (39-117) U/L Albumin 4.3 (3.5-5.0) g/dL Assessment and Plan (1) Crohn disease: Qualifiers: Gastrointestinal tract location: small intestine Digestive disease complication type: without complication Qualified Code(s): K50.00 - Crohn's disease of small intestine without complications Status: Acute (2) Partial obstruction of small intestine: Status: Inactive Plan 43-year-old male patient with a history of Crohn's disease status post resection with ileostomy followed by ileostomy closure. Patient has had numerous previous admissions for small-bowel obstruction in his returned with similar symptoms. His most recent admission was in July of 2024. This morning he feels his pain is improving but he has not passed flatus or moved his bowels since yesterday. He will be admitted to the surgical service for IV hydration and bowel rest. I will hold off on NG tube given his past experience. Patient expressed understanding and agrees with the plan. Quality Stroke Does the patient have a stroke diagnosis?: No VTE Prior VTE?: No VTE Risk Level:: Surgical - moderate VTE Device Contraindication: N/A - Device Ordered VTE Drug Contraindication: Treatment Not Indicated Procedures Date of Service Date of Service: 09/26/24
[2024-09-26] MEDS: Dextrose 5 % and Lactated Ring 1,000 ML 125 ML IVCONT ×3 (08:21→23:16)
[2024-09-26] MEDS: 0.9 % Sodium Chloride Flush 3 ML SYRINGE IVFLUSH ×2 (08:21→23:21)
[2024-09-26 08:24] VITALS: RESP 14
--- NOTE | 2024-09-26 08:26 | PC.NURSE ---
A&O x 3 20G right AC, Patient presents to ED c/o ABD pain rated 10/10 non radiating in RUQ. +bowel sounds. Patient recently had small BM bbut denies flatulence. CT of abdomen revealed small bowel obstruction and additional sequelae of crohns disease. Patient requested no NG tube as he has had difficult placement before. PAtient currently running D5LR @ 125. VSS and up to date. Patient admitted awaiting placement
--- NOTE | 2024-09-26 08:57 | PHA.MEDREC ---
Addendum entered by Cat Monzno RPh 09/26/24 09:22: Reviewed by [facility] ED Original Note: Pharmacy Consult ? Medication Reconciliation Pharmacy has completed the medication reconciliation. Spoke with pt and he confirmed his medications. Pt confirmed he gets Remicade every [address] and states he was suppose to get it this past Sunday 09/24 but had a surgery Saturday 09/23 but confirmed he has a re-scheduled appt 09/29. Pt confirmed he started the Oxycodone,Pyridium and Vesicare after the surgery Sunday.
--- NOTE | 2024-09-26 09:26 | PC.NURSE ---
Patient going to overflow, Report called to Dona PIZANO
[2024-09-26 10:23] VITALS: BP 145/91; PULSE 56; RESP 16; TEMP 36; O2SAT 96
[2024-09-26] MEDS: oxyCODONE HCl Immed Release 5 MG TABLET PO (13:19)
--- NOTE | 2024-09-26 14:42 | MHC.CM.PN ---
PT REPORTS HE LIVES AT HOME WITH HIS DAUGHTER HE IS INDEPENDENT, HAS NO DME AND NO SERVICES HE DECLINES TO COMPLETE A HCP STATING HE THINKS HE HAS ONE PCP: GARY SAM DCP: HOME NO SERVICES VIA PRIVATE TRANSPORT
[2024-09-26 15:28] VITALS: BP 140/80; PULSE 55; RESP 17; TEMP 36.4; O2SAT 94
[2024-09-26 23:49] VITALS: BP 152/90; PULSE 54; RESP 18; TEMP 36.1; O2SAT 96
[2024-09-27] MEDS: oxyCODONE HCl Immed Release 5 MG TABLET PO (02:39)
[2024-09-27 05:33] LABS: MANUAL DIFF FLAG NO
[2024-09-27 05:36] LABS: Hematocrit 33.5 % (42.0-52.0); Hemoglobin 10.6 g/dl (14.0-18.0); Imm Gran Abs Auto 0.02 X10*3/uL (0.00-0.03); Imm Gran Pct Auto 0.3 % (0.0-0.4); Lymphocytes Absolute Auto 2.4 X10*3/uL (1.2-4.9); Mean Corpuscular HGB Conc 31.6 g/dl (31.0-36.0); Mean Corpuscular Hemoglobin 27.5 pg (27.0-33.0); Mean Corpuscular Volume 86.8 fL (80.0-98.0); NRBC Abs Auto 0.000 X10*3/uL (0.0-0.012); NRBC Pct Auto 0.0 /100WBC (0.0-0.2); Platelet Count 188 X10*3/uL (160-400); Red Blood Count 3.86 X10*6/uL (4.60-5.80); White Blood Count 6.9 X10*3/uL (4.8-10.8)
[2024-09-27 05:47] VITALS: RESP 18
[2024-09-27 05:49] LABS: Anion Gap 10 (12-20); Blood Urea Nitrogen 8 mg/dL (9-16); Calcium 8.6 mg/dL (8.4-10.2); Carbon Dioxide 27 mmol/L (22-29); Chloride 105 mmol/L (96-108); Creatinine Clr Calc Pharmacy 126.8; Estimated Glomerular Filt Rate > 60; Potassium 3.6 mmol/L (3.3-5.1); Sodium 138 mmol/L (135-145)
[2024-09-27] MEDS: Dextrose 5 % and Lactated Ring 1,000 ML 125 ML IVCONT ×2 (07:35→16:13)
[2024-09-27] MEDS: 0.9 % Sodium Chloride Flush 3 ML SYRINGE IVFLUSH ×3 (07:36→22:54)
[2024-09-27 07:43] VITALS: BP 151/81; PULSE 53; RESP 18; TEMP 36.1; O2SAT 96
--- NOTE | 2024-09-27 10:07 | PM.PNGS ---
Subjective Subjective Date of Service: 09/27/24 Interval history: Says abdominal pain is much better Describes 1 episode of small vomiting last night but he says that this has because of his migraine Has flatus No fever Physical Exam Vital Signs: Vital Signs: Last Vital Signs Temp 97.0 F 09/27/24 07:43 Pulse 53 09/27/24 07:43 Resp 18 09/27/24 07:43 BP 151/81 H 09/27/24 07:43 Pulse Ox 96 09/27/24 07:43 O2 Del Method Room Air 09/27/24 07:43 BMI result Body Mass Index 31.6 Const: General: comfortable and no acute distress Resp: Effort & Inspection: normal respiratory effort Cardio: Rate: regular rate GI: Palpation (GI): Soft to palpation, not firm, Tenderness to palpation present (GI) (Mild diffuse tenderness) and no guarding Objective Data Active Medications Calcium Carbonate (Calcium Carbonate 750 Mg Tab.Chew) 750 mg PO Q4H PRN PRN Reason: Heartburn Hydromorphone HCl (Hydromorphone Hcl 0.5 Mg/0.5 Ml Syringe) 0.5 mg IVPUSH Q3H PRN; Protocol PRN Reason: Pain, Severe (Pain Scale 7-10) Last Admin: 09/27/24 05:17 Dose: 0.5 mg Documented By: LOIS Acetaminophen (Ofirmev) 1,000 mg in 100 mls @ 400 mls/hr IV Q6H PRN PRN Reason: Pain, Mild (Pain Scale 1-3) Last Infusion: 09/27/24 08:29 Dose: Infused Documented By: AILIN Dextrose/Lactated Ringer's (D5lr) 1,000 mls @ 125 mls/hr IVCONT .Q8H SANGITA Last Admin: 09/27/24 07:35 Dose: 125 mls/hr Documented By: AILIN Magnesium Hydroxide (Milk Of Magnesia 30 Ml Oral.Susp) 30 ml PO DAILY PRN PRN Reason: Constipation Ondansetron HCl (Ondansetron Hcl 4 Mg/2 Ml Vial) 4 mg IVPUSH QID PRN PRN Reason: Nausea Last Admin: 09/27/24 03:55 Dose: 4 mg Documented By: LOIS Oxycodone HCl (Oxycodone Hcl Immed Release 5 Mg Tablet) 5 mg PO Q6H PRN PRN Reason: Pain, Moderate(Pain Scale 4-6) Last Admin: 09/27/24 02:39 Dose: 5 mg Documented By: LOIS Sodium Chloride (0.9 % Sodium Chloride Flush 3 Ml Syringe) 3 ml IVFLUSH QSHIFT [facility] Last Admin: 09/27/24 07:36 Dose: 3 ml Documented By: AILIN Zolpidem Tartrate (Zolpidem Tartrate 5 Mg Tablet) 5 mg PO BEDTIME PRN PRN Reason: Insomnia Labs 09/27/24 05:13 09/27/24 05:13 Labs: Laboratory Results - last 24 hr 09/27/24 05:13 MCV 86.8 MCH 27.5 MCHC 31.6 RDW 13.5 Plt Count 188 MPV 12.2 Immature Gran % (Auto) 0.3 Neut % (Auto) 47.9 Lymph % (Auto) 34.3 [place] % (Auto) 12.2 H Eos % (Auto) 5.0 H Baso % (Auto) 0.3 Lymph # (Auto) 2.4 [place] # (Auto) 0.8 Eos # (Auto) 0.3 Baso # (Auto) 0.0 Abs Immat Gran (auto) 0.02 Absolute Neuts (auto) 3.3 Absolute Nucleated RBC 0.000 Nucleated RBC % (auto) 0.0 Anion Gap 10 L Estim Creat Clear Calc 126.8 Estimated GFR > 60 Random Glucose 104 Calcium 8.6 Procedures Date of Service Date of Service: 09/27/24 Progress Note: A&P Assessment and plan (1) SBO (small bowel obstruction): Status: Inactive Assessment and Plan: Clinically much improved abdomen is soft and benign Passing flatus Looks well overall We will trial on clear liquids today Encouraged ambulation He appears comfortable Time Spent With Patient Time: Total time managing care of this patient today ____ minutes. Quality Stroke Does the patient have a stroke diagnosis?: No VTE Prior VTE?: No VTE Risk Level:: Surgical - moderate VTE Device Contraindication: N/A - Device Ordered VTE Drug Contraindication: Treatment Not Indicated
[2024-09-27 15:39] VITALS: BP 131/72; PULSE 51; RESP 16; TEMP 36.1; O2SAT 96
[2024-09-27 19:47] VITALS: BP 146/87; PULSE 60; RESP 18; TEMP 36; O2SAT 95
[2024-09-28] MEDS: Dextrose 5 % and Lactated Ring 1,000 ML 125 ML IVCONT (00:16)
[2024-09-28 00:55] VITALS: RESP 16
[2024-09-28 00:59] VITALS: BP 158/95; PULSE 61
[2024-09-28 01:25] VITALS: RESP 18
[2024-09-28 07:34] VITALS: BP 136/74; PULSE 52; RESP 16; TEMP 36.6; O2SAT 98
--- NOTE | 2024-09-28 07:46 | PC.NURSE ---
During morning safety check patient stated he wants to go home. I feel better . Encoraged patient to stay for breakfast and attempt solid foods. Declined. Dr. Reyes notified. Patient Instructions given on Bowel Obstruction and encouraged to return to ED with worsening symptoms. Also emphasized following up with PCP. IV removed. Patient has own vehicle to drive self home.
--- NOTE | 2024-09-28 08:44 | PM.EVENT ---
Event Note Date of Service: 09/28/24 Event Note: I was called by the nurse to be informed that the patient was signing out against medical advice He had stated that he felt well and was asymptomatic The patient was advised to wait for me and try regular diet before leaving He insisted on leaving right away and did not want to wait for him earlier Patient no longer in the room on morning rounds Time Spent With Patient Time: Total time managing care of this patient today ____ minutes.
--- NOTE | 2024-09-29 13:29 | PM.DS ---
DS: Providers Provider Date of Service: 09/28/24 Date of admission: 09/26/24 07:32 Date of discharge: 09/28/24 Primary care physician: Emilia Leija MD Attending physician on admission: Yakov Romero Attending physician on discharge: Wesley Reyes DS: Diagnosis Discharge Diagnosis (1) SBO (small bowel obstruction): Status: Inactive DS: Summary Hospital Course Hospital Course: HPI AT ADMISSION: Toño Whalen is a 43 year old male, s/p ileocecal resection performed at the [facility], and multiple admissions for small bowel obstruction returning today with complaints of abdominal pain in the mid abdomen associated with nausea and vomiting. He reports the symptoms feel similar to his previous episodes of small-bowel obstruction. Patient has had numerous previous admissions for small-bowel obstruction with his most recent admission was in July of 2024. He presented to the emergency department with pain greater than 10/10 in severity. He underwent evaluation with CT abdomen and pelvis which confirmed small bowel obstruction. He has requested no NG tube due to a previous difficulty with NG tube placement. He reports a bowel movement last evening which was normal. He has not had any flatus since then. HOSPITAL COURSE: The patient was admitted to the surgical service for further management of the small bowel obstruction. His pain was overall improved however he had not passed flatus or moved his bowels since the day prior. NGT was held, however he was kept NPO for bowel rest and on IVF. The patient had an uneventful hospital course. His symptoms improved and he began to pass flatus. His diet was advanced to clear liquids. The following day, the service was called by the nurse to inform that the patient was signing out against medical advice. He had stated that he felt well and was asymptomatic. The patient was advised to wait for the provider to evaluate him and try regular diet before leaving, he however insisted on leaving right away and did not want to wait. He signed out AMA on 09/29/24. Status at Discharge Functional status at discharge: independent ambulation Overall status at discharge: patient is progressing back to baseline Time Attestation Discharge Coordination Time (in mins): 30 Quality: Safe Use of Opioids Does Pt have an Active Cancer Diagnosis on the Problem List?: No Quality: Stroke Does the patient have a stroke diagnosis?: No Physical Exam Vital Signs: Vital Signs: Last Vital Signs Temp 97.9 F 09/28/24 07:34 Pulse 52 09/28/24 07:34 Resp 16 09/28/24 07:34 BP 136/74 09/28/24 07:34 Pulse Ox 98 09/28/24 07:34 O2 Del Method Room Air 09/28/24 07:34 BMI result Body Mass Index 31.6 Discharge Plan Discharge Patient Disposition: Left Against Medical Advice Discharge Diagnosis: SBO Referrals: Emilia Leija MD [Primary Care Provider, Medical] - 1 Week Discharge Medications: No Action ondansetron 4 mg tablet,disintegrating 4 mg PO Q6-8H PRN (Reason: nausea and vomiting) Qty: 7 0RF amlodipine 5 mg tablet 5 mg PO DAILY solifenacin [Vesicare] 5 mg tablet 5 mg PO BEDTIME PRN (Reason: bladder spasms) Qty: 20 0RF phenazopyridine [Pyridium] 200 mg tablet 200 mg PO BID PRN (Reason: Urinary burning, pain with urination) Rx Instructions: Must administer with a meal oxycodone 5 mg tablet 5 mg PO Q6-8H PRN (Reason: pain) Rx Instructions: Partial Fill upon patient request. omeprazole 20 mg Capsule,Delayed Release(Dr/Ec) 20 mg PO DAILY PRN (Reason: Heartburn) acetaminophen [Tylenol Extra Strength] 500 mg tablet 1,000 mg PO Q6H PRN (Reason: pain) Qty: 30 0RF Remicade 100 mg recon soln 100 mg IV Q8W Rx Instructions: NEXT DOSE: 10/17/2022 Discharge Orders: Discharge Order (Routine); Ordered 09/29/24 Ordered By: Candace Cuevas Print Language: Yi Care Plan Goals: left AMA return to baseline health, resume activities Health Concerns: left AMA SBO, crohns disease Plan of Treatment: left AMA bowel rest, advance diet slowly Assessment: left AMA Patient Instructions: Bowel Obstruction (DC) Discharge Date/Time: 09/28/24 07:46
== END 2024-09-28 07:46 | disposition left against medical advice (07) | DRG 387 ==
LOC: HO.ED 05:15 → HO.EDOVER 07:33 → HO.S3 09:41
PROVIDERS: Admitting Provider Surgery; Emergency Provider Emergency Medicine; PCP Internal Medicine; Visit Provider Surgery
DX: K50.012 Crohn's disease of small intestine with intestinal obstruction (principal); Z79.899 Other long term (current) drug therapy
CPT/HCPCS: 36415; 74177; 80048; 80053; 82248; 83690; 85025; 99284; J0131; J1171; J2270; J2405; Q9967

== ENCOUNTER → 2024-09-26 02:35 | Outpatient (BNV) | payer BC, SELFPAY | PROVIDERS: Emergency Provider Emergency Medicine; PCP Internal Medicine; Visit Provider Radiology Diagnostic Radiology | DX: K56.609 Unspecified intestinal obstruction, unspecified as to partial versus complete obstruction (principal) | CPT/HCPCS: 74177 ==

== ENCOUNTER → 2024-09-26 07:32 | Outpatient (BNV) | payer BC, SELFPAY | PROVIDERS: Admitting Provider Surgery; Emergency Provider Emergency Medicine; PCP Internal Medicine; Visit Provider Surgery | DX: K56.609 Unspecified intestinal obstruction, unspecified as to partial versus complete obstruction (principal) | CPT/HCPCS: 99222; 99232; 99499 ==

== ENCOUNTER 2024-10-17 10:03 | Outpatient (AMB) | payer BC, MEDICAID, SELFPAY ==
--- OUTSIDE RECORDS SUMMARY | 2024-10-17 10:12 | XMS_ITS | Encounter Summary ---
Author Organization [facility] Address [address] [place] [id number] Phone Care Team Providers Care Insurance Broker Name Role Phone Emilia Leija MD Primary Care Pr ovider Encounter Details Date Type Department Care Team (Late st Contact Info) Description 07/26/2020 Procedure Pass [facility], Ct Scan - [address] [address] Social History Tobacco Use Types Packs/Day Years Used Date Smoking Tobacco: Never Smokeless Tobacco: Never Alcohol Use Standard Drinks/Week Comments Not Currently 0 (1 standard drink = 0.6 oz pur e alcohol) Sex and Gender Information Value Date Recorded Sex Assigned at Male 07/26/2020 3:11 PM EDT Legal Sex Male 11:40 AM EDT Gender Identity Male 07/26/2020 3:11 PM EDT Sexual Orientation Choose not to disclose 2020 3:11 PM EDT documented as of this encounter Functional Status * Calculated C-SSRS Risk Score (Lifetime/Recent) Answer Date of Assessment Author No Risk Indicated 07/26/2020 3:13 PM EDT Harry Henderson RN * [place] Suicide Severity Rating Scale (Screener/Recent Self-Report) Question Answer Date of Assessment Author 1. Wish to be (Past 1 Month) No 07/26/2020 3:13 PM EDT Erick Lee RN 2. Non-Specific Active Suici natasha Thoughts (Past 1 Month) No 07/26/2020 3:13 PM EDT Vijay Lee RN 6. Suicidal Behavior (Lifetime) No 3:13 PM EDT Harry Lee RN documented as of this encounter Plan of Treatment Not on file documented as of this encounter Visit Diagnoses Not on filedocumented in this encounter Care Teams Insurance Broker Relationship Specialty Start Date End Date Emilia Leija MD [address] [address] PCP - General Internal Medicine 11/12/15 documented as of this encounter Additional Source Comments The information contained in this document represents components of the legal health record. It is not the complete legal health record.[facility]
--- OUTSIDE RECORDS SUMMARY | 2024-10-17 10:12 | XMS_ITS | Encounter Summary ---
Author Organization [employer] Address [address] [place] [address] 7 [place] [address] Care Team Providers Care Fast Food Sales Assistant Name Role Phone Emilia Leija MD Primary Care Provider [phone] Reason for Visit * Reason Onset Date Comments No Show 10/14/2024 Encounter Details Date Type Department Care Team ([facility] Contact Info) Description 10/14/2024 Telephone [facility] [address], [place] [phone] Emilia Leija MD [address] [place] [address] No Show Social History Tobacco Use Types Packs/Day Years Used Date Smoking Tobacco: Never Passive Smoke Exposure: Never Smokeless Tobacco: Never Depression Answer Date Recorded Patient Health Questionnaire-9 [...] Orientation Straight 01/16/2022 10 :22 AM EDT documented as of this encounter Miscellaneous Notes * Telephone Encounter - Ese Burrell - 10/14/2024 2:55 PM EDT No show 10/14/24 documented in this encounter Plan of Treatment Upcoming Encounters Date Type Department Care Team (Late st Contact Info) Description 11/12/2024 4:00 PM EDT Office Visit [facility] [address] [place] [address] Emilia Leija MD [address] [place] [address] documented as of this encounter Visit Diagnoses Not on filedocumented in this encounter Additional Health Concerns Assessment Noted Time PHQ-9 Depression Total Score: 4 08/15/19 25 2:20 PM EDT documented as of this encounter Care Teams Fast Food Sales Assistant Relationship Specialty Start Date End Date Emilia Leija MD [address] [place] [address] PCP - General Internal Medicine 09/21/11 documented as of this encounter
--- NOTE | 2024-10-17 10:27 | A.OFFVIS_ITS ---
Intake Visit Reasons: Stent removal Intake Note: Patient is present for cysto/stent removal Urology Medication:none Antibiotic Allergy:NONE Blood Thinner:NONE Lot #: [id number] Exp:03/23/27 Vacuum Metalizing Supervisor Required: No Allergies No Known Allergies (No Known Allergies*) Allergy (Verified 10/17/24 10:28) HPI Comments Details: 10/17/24 History of Present Illness - The patient is a 44-year-old male presenting with cystoscopy and stent removal. - comorbidity history of Crohn's disease - History of distal left ureteral stones treated with cystoscopy laser lithotrip sy and stent insertion on 09/23/24. - Stone analysis revealed calcium oxalate 80% and uric acid composition 20%. - Advised to increase fluid intake and use lemon in fluids to increase citrate in the diet - Plan for 24-hour urine collection to assess dietary recommendations. Results - Stone analysis: Calcium oxalate and uric acid stones Plan - Encourage increased fluid and dietary citrate intake to prevent stone formation. - Conduct a 24-hour urine collection to provide dietary recommendations. [facility] Medical History HTN (hypertension) Pneumonia History of blood transfusion Low vitamin D level Anemia Anxiety Pituitary macroadenoma High risk medication use GERD (gastroesophageal reflux disease) Crohn disease Surgical History History of ileostomy History of partial surgical removal of colon History of esophagogastroduodenoscopy (EGD) H/O colonoscopy Family History Mother Breast cancer Social History Household Members: Children Housing: House Do you presently have visiting nurse or other home services: Yes (Infusion [facility]) Alcohol intake: never Patient Tobacco Use Status: Never used Tobacco e-Cigarette/Vaping Use: Never Used Second Hand Smoke Exposure: No Substance Use Type: Marijuana Advance Directives Date on File: 07/17/20 service: No Current occupational status: disabled Review of Systems Const All systems reviewed & are unremarkable except as noted in HPI and below Reports no additional complaints Eyes Reports no additional complaints ENT Reports no additional complaints Card Reports no additional complaints Resp Reports no additional complaints GI Reports no additional complaints Reports as per HPI Musc Reports no additional complaints Skin/Breast Reports system reviewed and no additional complaints, except as documented Neuro Reports no additional complaints Psych Reports no additional complaints Endo Reports no additional complaints Jomar/Lymph Reports no additional complaints Aller/Immun Reports no additional complaints Office Procedures Cystoscopy Consent Discussed risk and benefit or proposed procedure with the patient. Information consent for procedure given to the patient. Discussed technical aspects, risks, benefits and alternatives in full. Addressed all of the patient's questions and concerns regarding the procedure. The patient demonstrated knowledge and understanding. They wish to proceed with this procedure. Preparation The patient was prepped in the usual manner. A track layer head was present and in the room. Genitalia was prepped with betadine solution in a sterile manner. Lidocaine Jelly 2% was placed into the urethra and 16Fr flexible Olympus cystoscope was inserted into the meatus after adequate lubrication. Time out per protocol performed. The flexible cystoscope is passed transurethrally: Cystoscopy findings: mild edema ureteral orifice which is expected, distal end of ureteral stent visualized. The grasping forceps were used and the stent was removed without difficulty. 11815-[id number] with stent removal DISPOSABLE SCOPE URO-G FLEXIBLE SCOPE Procedure code (CPT) selection complete Office Meds lidocaine HCl 2 % mucosal jelly in applicator Performing Provider: Radha Tellez MD [place] [facility] [place] [facility] Administered by: Umberto Stout LPN on 10/17/24 10:58 Dose Route Admin Location Dispensed Lot Number Expiration Date [facility] Emergency Room Orderly 10 mL intra-urethral 20 mL nitrofurantoin monohydrate/macrocrystals 100 mg capsule Performing Provider: Radha Tellez MD [place]forming [place] [facility] [facility] Administered by: Umberto Stout LPN on 10/17/24 10:58 Dose Route Admin Location Dispensed Lot Number Expiration Date [facility] Emergency Room Orderly 100 mg PO 1 cap naproxen 500 mg tablet Performing Provider: Radha Tellez MD Performing Location[place] [facility] [place] [facility] Administered by: Umberto Stout LPN on 10/17/24 10:58 Dose Route Admin Location Dispensed Lot Number Expiration Date [facility] Emergency Room Orderly 500 mg PO 1 tab phenazopyridine 200 mg tablet Performing Provider: Radha Tellez MD Performing Location: [facility] [place] [facility] Administered by: Umberto Stout LPN on 10/17/24 10:58 Dose Route Admin Location Dispensed Lot Number Expiration Date [facility] Emergency Room Orderly 200 mg PO 1 tab Assessment & Plan Assessment & Plan (1) Bilateral kidney stones: Code(s): N20.0 - Calculus of kidney Category: Medical Plan Plan - Encourage increased fluid and dietary citrate intake to prevent stone formation. - Conduct a 24-hour urine collection to provide dietary recommendations. Orders: Orders AMB Cystoscopy Today N20.1 - Calculus of ureter Patient Instructions: The patient had an opportunity to ask questions regarding treatment plan. The patient expressed understanding and agreement with the above treatment plan. The patient is aware they should contact our office by phone for worsening of their current condition or the appearance of new symptoms. Compliance is encouraged with any medications and followup testing that is ordered. It is a privilege to be allowed the opportunity to participate in the urologic care of your patient. If you have any questions or concerns regarding treatment for the above conditions please do not hesitate to contact me. The office telephone contact is [phone]. This note is constructed in part using voice recognition software. While every effort has been made to ensure accuracy veneer joiner errors may have been included. Yours sincerely, Radha Tellez MD Scribe Plan - Not visible on output: Patient was informed and verbally consented to the use of an ambient scribe for clinic note documentation during this visit. Coding Level of Care Code Est Pt Level 3 (68483) Diagnoses Bilateral kidney stones N20.0 CPT Codes Cystoscopy - CPT: 58934-[id number] with stent removal ([id number])
== END 2024-10-17 11:18 | disposition home or self-care (01) ==
LOC: HO.HUSH 10:04
PROVIDERS: PCP Internal Medicine; Visit Provider Urology
DX: N20.2 Calculus of kidney with calculus of ureter (principal)
CPT/HCPCS: 52310

== ENCOUNTER → 2024-10-17 10:03 | Outpatient (BNVA) | payer BC, MEDICAID, SELFPAY | PROVIDERS: PCP Internal Medicine; Visit Provider Urology | DX: N20.0 Calculus of kidney (principal) | CPT/HCPCS: 52310; 81003 ==

== ENCOUNTER 2024-11-28 11:06 | Outpatient (AMB) | payer BC, SELFPAY ==
[2024-11-28 11:11] VITALS: BP 150/88; PULSE 55; BMI 31.3
--- NOTE | 2024-11-28 11:11 | A.OFFVIS_ITS ---
Vital Signs 11/28/24 11:11 Height 5 ft 10 in Weight 218 lb 4.122 oz BMI 31.3 BP 150/88 H Blood Pressure Location Lt brachial Position Sitting Pulse 55 Intake Visit Reasons: f/u continue infusions Intake Note: Toño presents in the office as a follow up to continue his remicade infusions. CC: No concerns at this time. 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 He went to ED 11/17/22 with pain,--mild dilated small bowel loops, colonoscopy: 02/08-- active inflammation around anastomosis, stricture dilated INTERIM: he conts to get remicade q 8 weeks he feels it is working well he also feels better since balloon dilation no flare ups stool has been normal, maybe using toilet less than before, sometimes constipation no blood in stool no abdominal pain no joint swelling, or pain no mouth ulcers or sore he has had urology surgery for kidney stones, and had SBO in 10/10 from eating peanuts EXAM: GENERAL: The patient is well developed and nontoxic. VITAL SIGNS:see workflow HEENT: Nonicteric sclerae, PERRLA, EOMI. Oropharynx clear. Moist mucous mem branes. Conjunctivae appear well perfused. No thyroid mass. CHEST: Chest wall is nontender. HEART: Regular rate and rhythm without murmurs. LUNGS: Clear to auscultation bilaterally. ABDOMEN: Soft, positive bowel sounds, nontender, no organomegaly.no flank tenderness SKIN: No rash, no excessive bruising, petechiae, or purpura. NEUROLOGIC: Cranial nerves II-XII intact without motor/sensory deficit. 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 - dilated and injected with kenalog, better than before 2/ SBO--related to 1/ above PLAN: 1/ colonoscopy with possible repeat balloon dilation and kenalog, overdue, will schedule --will add EGD due to anemia as well 2/ recheck labs and TB, iron and b12 PFSH Medical History HTN (hypertension) Pneumonia History of blood transfusion Low vitamin D level Anemia Anxiety Pituitary macroadenoma High risk medication use GERD (gastroesophageal reflux disease) Crohn disease Surgical History History of ileostomy History of partial surgical removal of colon History of esophagogastroduodenoscopy (EGD) H/O colonoscopy Family History Mother Breast cancer Social History Household Members: Children Housing: House Do you presently have visiting nurse or other home services: Yes (Infusion [id number]) Alcohol intake: never Patient Tobacco Use Status: Never used Tobacco e-Cigarette/Vaping Use: Never Used Second Hand Smoke Exposure: No Substance Use Type: Marijuana Advance Directives Date on File: 07/17/20 service: No Current occupational status: disabled Physical Exam Vital Signs: Last Vital Signs Pulse 55 11/28/24 11:11 BP 150/88 H 11/28/24 11:11 BMI result Body Mass Index 31.3 Assessment & Plan Assessment & Plan (1) Anemia: Code(s): D64.9 - Anemia, unspecified Category: Medical Plan: as above Orders: Orders Complete Blood Count Auto Diff Today D64.9 - Anemia, unspecified Comprehensive Met. Panel Today D64.9 - Anemia, unspecified, K75.81 - Nonalcoholic steatohepatitis (MARRERO) C Reactive Protein Today D64.9 - Anemia, unspecified T Spot TB Today D64.9 - Anemia, unspecified Ferritin Today D64.9 - Anemia, unspecified Vitamin B12 and Folate Today D64.9 - Anemia, unspecified Medications: New sodium,potassium,mag sulfates 17.5-3.13-1.6 gram (Suprep Bowel Prep Kit) DILUTE; drink 1/2 at 6-8 pm and half at 11 PM- 1AM 354 mL 0RF Coding Level of Care Code Est Pt Level 4 (50179) Diagnoses Anemia D64.9
--- OUTSIDE RECORDS SUMMARY | 2024-11-28 13:03 | XMS_ITS | Encounter Summary ---
Author Organization [employer] Address [address] [facility] [address] [place] [address] Care Team Providers Care Customer Resolution Specialist Name Role Phone Emilia Leija MD Primary Care Provider [phone] Reason for Visit * Reason Onset Date Comments Referral 08/05/2024 Encounter Details Date Type Department Care Team ([facility] st Contact Info) Description 08/05/2024 Telephone [facility] [address] [place] [address] Emilia Leija MD [address], [place] [phone] Referral Social History Tobacco Use Types Packs/Day Years [...] encounter Miscellaneous Notes * Telephone Encounter - Wing Elena RN - 08/06/2024 3:10 PM EDT Tc to pt regarding referral. Pt understands he has appt with PCP on 08/14 and will ask for the referral then. * Telephone Encounter - Emelia Alfaro - 08/05/2024 8:09 AM EDT Tc from pt requesting referral to see urologist. Reason: Pt seen recently in ED for kidney stone and flank pain. Fyi.pt has pe appointment with pcp on 08/14. documented in this encounter Plan of Treatment Not on file documented as of this encounter Visit Diagnoses Not on filedocumented in this encounter Additional Health Concerns Assessment Noted Time PHQ-9 Depression Total Score: 0 07/01/19 23 1:54 PM EDT documented as of this encounter Care Teams Customer Resolution Specialist Relationship Specialty Start Date End Date Emilia Leija MD [address] [place] [phone] PCP - General Internal Medicine 09/21/11 documented as of this encounter
--- OUTSIDE RECORDS SUMMARY | 2024-11-28 13:03 | XMS_ITS | Clinical Summary ---
Author Organization [employer] Address [address] [facility] [address] [place] [address] Care Team Providers Care Typewriter Repairer Name Role Phone Emilia Leija MD Primary Care Provider [phone] Allergies No known active allergies Medications inFLIXimab [...] 30 tablet 11 5 08/15/19 26 Active omeprazole OTC (PriLOSEC OTC) 20 MG EC tablet Take 20 mg by mouth if needed each day. Do not crush, chew, or split. Active Active Problems Problem Noted Date Diagnosed Date Nephrolithiasis 08/14/2024 Acute sinusitis 11/10/2022 Assessment & Plan (11/10/2022 10:34 PM EDT): One wk of Sx of sinusitis, now w greenish discharge and worsening facial pressure, as well as mild L TM erythema. Afebrile. COVID and flu test done today, neg. -Start Augmentin BID for 7 d. -Ailey nasal spray PRN. -Flonase for 10-14 d. [...] up with his GI Dr Arellano at [facility] after d/c. Follow up Fecal calprotectin ordered as well as CDiff testing as these can exacerbate crohns. Protein-calorie malnutrition, severe 01/10/2016 Crohn's disease of colon with abscess 12/16/2015 Anxiety 12/17/2012 Crohn's disease with abscess 12/17/2012 Encounters Date Type Department Care Team Description 11/12/2024 Telephone [facility] [address] [place] [address] Emilia Leija MD No Show 11/12/2024 Telephone [facility] [address] [place] [address] Emilia Leija MD 11/11/2024 Telephone [facility] [address] [place] [address] Emilia Leija MD chart prep 10/14/2024 Telephone [facility] [address] [facility] [place] [address] Emilia Leija MD No Show 09/30/2024 Telephone [facility] [address] [place] [address] Emilia Leija MD Hospital Follow-up 09/26/2024 Orders Only GENERIC EXTERNAL DATA DEPARTMENT Provider, Generic External Data 09/23/2024 Orders Only [facility] External Provider, [facility] from Last 3 Months Immunizations Immunization Administration Dates Next Due Influenza, Injectable, MDCK, preservative free 0 04/07/2015 Influenza, Split (incl. purified surface antigen ) 12/17/2012 Tdap 02/05/2024 Social History Tobacco Use Types Packs/Day Years Used Date Smoking Tobacco: Never Passive Smoke Exposure: Never Smokeless Tobacco: Never Tobacco Cessation:Counseling Given: Not Answered Depression Answer Date Recorded Patient Health Questionnaire-9 Score 4 08/14/2024 Patient Health Questionnaire-9 Score 4 08/14/2024 Last PHQ-9: Questionnaire Data Not on file 0 08/14/2024 Housing Stability Answer Date Recorded What is your housing situation today? I have ivktoria jimenez 08/14/[address] you [...] 08/14/2024 2:14 PM EDT Plan of Treatment Health Maintenance Due Date Last Done Comments CT Colonography 1979 Colonoscopy 1980 Colorectal Cancer Screening 1980 FIT DNA/Cologuard 1979 FIT 1979 FOBT 1980 Sigmoidoscopy 1979 Alcohol/Substance Use Screening 1991 Family Planning (PISQ) 10/12/1994 HPV Vaccines (1 - Male 3-dos e series) 10/12/1994 Hepatitis B Vaccines (1 of 3 - 19+ 3-dose series) 10/12/1998 COVID-19 Vaccine (3 - 2024-2 6 season) 2024 03/09/2021, 02/09/2021 Influenza Vaccine (#1) 2024 6, 12/17/2012 Disability Screening 08/13/2025 08/13/2024 Depression [...] to complete this topic HIV Screening Discontinued Hepatitis A Vaccines Aged Out No long [...] Comments CT ABDOMEN PELVIS W CONTRAST Routine 09/26/2024 4:59 AM EDT LIPASE Routine 09/26/2024 12:49 AM EDT HEPATIC FUNCTION PANEL Routine 09/26/2024 12:49 AM EDT COMPREHENSIVE METABOLIC PANEL Routine 09/26/2024 12:49 AM EDT CBC WITH AUTO DIFFERENTIAL Routine 09/26/2024 12:49 AM EDT STONE ANALYSIS W/ IMAGE Routine 09/23/2024 10:29 AM EDT GROSS EXAM WITHOUT SLIDES Routine 09/23/2024 10:28 AM EDT FL GUIDANCE IN OR Routine 09/23/2024 9:1 6 AM EDT LIPID PANEL, STANDARD Routine 08/14/2024 2:53 PM EDT Primary hypertension ZZZ HISTORICAL HEPATITIS A,B,C PROFILE Routine 10/31/2021 10:58 AM EDT from Last 3 Months or Most Recently Relevant to Health Maintenance Results * CT Abdomen Pelvis w/ Contrast (09/26/2024 4:59 AM EDT) Anatomical Region Laterality Modality Body, Pelvis, Abdomen Computed T omography 09/26/2024 4:59 AM EDT Narrative 09/26/2024 5:01 AM EDT [place] [address] [address] Scan Report Signed with Addenda Patient: Toño Whalen MR#: [id number] 4 : 1980 Acct:[id number] Age/Sex: 43 / M ADM Date: 09/26/24 Loc: HO.ED Attending Dr: Ordering Physician: Selma Goetz MD Date of Service: 09/26/24 Procedure(s): CT abdomen pelvis w IV con Accession Number(s): [id number] cc: Emilia Leija MD; Selma Goetz MD Report Number: [id number]: Total DLP = 666.00 mGy-cm ADDENDUM This document has been electronically signed by: Harry Yanez MD on 09/26/2024 04:59:57 ADDENDUM: This report was discussed with Selma Goetz on Sep 26, 2024 05:02:00 EDT. This document has been electronically signed by: Brenda Carson on 09/26/2024 05:02:39 Addendum Dictated By: Harry Yanez MD Addendum Signed By: <Electronically signed by Harry Yanez MD in OV> 09/26/24 050 Addendum Cosigned By: DD/ /10/459 TD/TT: 09/26/2402/10/502 CLINICAL HISTORY: R abd pain, hx crohns, sbo, renal stones CT abdomen and pelvis with contrast Comparison: CT/OH/SR - CT ABDOMEN PELVIS W IV CON - 08/07/24 10:23 EDT Findings: CT abdomen: Lung bases are clear. No acute bony lesions. Heart size is unchanged. No focal hepatic lesions. Main portal vein is patent. Spleen, pancreas, gallbladder, and adrenal glands are unremarkable. Interval placement of a left double-J ureteral stent. Proximal loop is within the left renal pelvis. Distal loop is within the urinary bladder. Left hydronephrosis is no longer evident. Small amount of air is seen within the intrarenal collecting system. Unchanged 1 cm cyst within the left kidney. There is appropriate enhancement of the left kidney. No stones are seen along the course of the left ureteral stent. Appropriate enhancement of the right kidney. No right-sided hydronephrosis. Moderate fluid distention of the stomach. Fluid-filled dilated small bowel loops are seen within the central abdomen extending into the lower abdomen upper pelvis measuring up to 5 cm in transverse measurement. Small-bowel air-fluid levels are seen. The most dilated loop of bowel is seen at the level of the suture material within the right lower quadrant. Small bowel loops proximal to this are dilated with air-fluid levels. No free air. CT pelvis: Postsurgical change of the sigmoid colon. Colon is decompressed. Scattered diverticuli within the colon without findings of diverticulitis. Surgical change of the level of the cecum. Wall thickening of the distal ileum and terminal ileum with areas of creeping fat. Distal small bowel is decompressed. Fat containing bilateral inguinal hernias. IMPRESSION: 1. Small-bowel obstruction with transition point at the suture line in the right abdomen. Additional sequelae of Crohn's disease including wall thickening and creeping fat involving the distal ileum and terminal ileum. No findings of perforation or abscess at this time. Surgical consultation suggested. 2. Interval resolution of the left hydronephrosis and left ureteral calculi with placement of a left double-J ureteral stent. This document has been electronically signed by: Harry Yanez MD on 09/26/2024 04:59:57 Dictated By: Harry Yanez MD Signed By: <Electronically signed by Harry Yanez MD in OV> 09/26/24 0501 DD/ 0459 TD/TT: 09/26/24 0459 Hogshead Head Matcher: Procedure Note Donotuseinterpreter, Image - 09/26/[address] [address] [address] Scan Report Signed with Addenda Patient: Chintan Whalen#: [id number] 4 : 1980Acct:[id number] Age/Sex: 43 / MADM Date: 09/26/24 Loc: HO.ED Attending Dr: Ordering Physician: Selma Goetz MD Date of Service: 09/26/24 Procedure(s): CT abdomen pelvis w IV con Accession Number(s): [id number] cc: Emilia Leija MD; Selma Goetz MD Report Number: [id number]: Total DLP = 666.00 mGy-cm ADDENDUM This document has been electronically signed by: Harry Yanez MD on 09/26/2024 04:59:57 ADDENDUM: This report was discussed with Selma Goetz on Sep 26, 2024 05:02:00 EDT. This document has been electronically signed by: Brenda Carson on 09/26/2024 05:02:39 Addendum Dictated By: Harry Yanez MD Addendum Signed By: <Electronically signed by MD Yoyn in OV> 09/26/24 0504 Addendum Cosigned By: DD/ /10/459 TD/TT: 09/26/2402/10/502 CLINICAL HISTORY: R abd pain, hx crohns, sbo, renal stones CT abdomen and pelvis with contrast Comparison: CT/OH/SR - CT ABDOMEN PELVIS W IV CON - 08/07/24 10:23 EDT Findings: CT abdomen: Lung bases are clear. No acute bony lesions. Heart size is unchanged. No focal hepatic lesions. Main portal vein is patent. Spleen, pancreas, gallbladder, and adrenal glands are unremarkable. Interval placement of a left double-J ureteral stent. Proximal loop is within the left renal pelvis. Distal loop is within the urinary bladder. Left hydronephrosis is no longer evident. Small amount of air is seen within the intrarenal collecting system. Unchanged 1 cm cyst within the left kidney. There is appropriate enhancement of the left kidney. No stones are seen along the course of the left ureteral stent. Appropriate enhancement of the right kidney. No right-sided hydronephrosis. Moderate fluid distention of the stomach. Fluid-filled dilated small bowel loops are seen within the central abdomen extending into the lower abdomen upper pelvis measuring up to 5 cm in transverse measurement. Small-bowel air-fluid levels are seen. The most dilated loop of bowel is seen at the level of the suture material within the right lower quadrant. Small bowel loops proximal to this are dilated with air-fluid levels. No free air. CT pelvis: Postsurgical change of the sigmoid colon. Colon is decompressed. Scattered diverticuli within the colon without findings of diverticulitis. Surgical change of the level of the cecum. Wall thickening of the distal ileum and terminal ileum with areas of creeping fat. Distal small bowel is decompressed. Fat containing bilateral inguinal hernias. IMPRESSION: 1. Small-bowel obstruction with transition point at the suture line in the right abdomen. Additional sequelae of Crohn's disease including wall thickening and creeping fat involving the distal ileum and terminal ileum. No findings of perforation or abscess at this time. Surgical consultation suggested. 2. Interval resolution of the left hydronephrosis and left ureteral calculi with placement of a left double-J ureteral stent. This document has been electronically signed by: Harry Yanez MD on 09/26/2024 04:59:57 Dictated By: Harry Yanez MD Signed By: <Electronically signed by Harry Yanez MD in OV> 09/26/24 0501 DD/ 0459 TD/TT: 09/26/24 0459 Hogshead Head Matcher: [facility] External Provider IMG CT PROCEDURES Edited Result - Final * (ABNORMAL) CBC auto differential (09/26/2024 12:49 AM EDT) White Blood Count 8.1 4.8 - 10.8 X10*3/uL [facility] Red Blood Count 3.81(L) 4.60 - 5.80 X10*6/uL [facility] Hemoglobin 10.7(L) 14.0 - 18.0 g/dl [facility] Hematocrit 32.1(L) 42.0 - 52.0 % [facility] Mean Corpuscular Volume 84.3 80.0 - 98.0 fL [facility] Mean Corpuscular Hemoglobin 28.1 27.0 - 33.0 pg [facility] Mean Corpuscular HGB Conc 33.3 31.0 - 36.0 g/dl [facility] Red Cell Distribution Width 13.5 11.0 - 16.0 % [facility] Platelet Count 207 160 - 400 X10*3/uL [facility] Mean Platelet Volume 11.8 9.4 - 12.4 fL [facility] Neutrophils Percent Auto 43.8(L) 45 - 73 % [facility] Imm Gran Pct Auto 0.2 0.0 - 0.4 % [facility] Lymphocytes Percent Auto 37.8 20 - 40 % [facility] Monocytes Percent Auto 13.3(H) 2 - 11 % [facility] Eosinophils Percent Auto 4.4(H) 0 - 4 % [facility] Basophils Percent Auto 0.5 0 - 2 % [facility] NRBC Pct Auto 0.0 0.0 - 0.2 /100WBC [facility] Neutrophils Absolute Auto 3.6 2.0 - 8.3 x10*3/uL [facility] Imm Gran Abs Auto 0.02 0.00 - 0.03 X10*3/uL [facility] Lymphocytes Absolute Auto 3.1 1.2 - 4.9 X10*3/uL [facility] Monocytes Absolute Auto 1.1 0.1 - 1.2 X10*3/uL [facility] Eosinophils Absolute Auto 0.4 0.0 - 0.4 X10*3/uL [facility] Basophils Absolute Auto 0.0 0.0 - 0.2 X10*3/uL [facility] NRBC Abs Auto 0.000 0.0 - 0.012 X10*3/uL [facility] 09/26/2024 12:4 9 AM EDT 09/26/2024 12:53 AM EDT us Generic External Data Provider LAB BLOOD ORDERAB LES Final Result [facility] [address] [place] [phone] * Lipase (09/26/2024 12:49 AM EDT) Lipase 26 8 - 78 U/L [facility] 09/26/2024 12:4 9 AM EDT 09/26/2024 12:53 AM EDT Generic External Data Provider LAB BLOOD ORDERAB LES Final Result Performing Organization Address [facility] Co de Phone Number [facility] [address] [place] [phone] * Hepatic Function Panel (09/26/2024 12:49 AM EDT) Bilirubin, Direct 0.2 0.0 - 0.5 mg/dL [facility] 09/26/2024 12:4 9 AM EDT 09/26/2024 12:53 AM EDT Generic External Data Provider LAB BLOOD ORDERAB LES Final Result Performing Organization Address [facility] de Phone Number [facility] [address] [place] [phone] * (ABNORMAL) Comprehensive Metabolic Panel (09/26/2024 12:49 AM EDT) Sodium 141 135 - 145 mmol/L [facility] Potassium 4.3 3.3 - 5.1 mmol/L [facility] Chloride 106 96 - 108 mmol/L [facility] Carbon Dioxide 28 22 - 29 mmol/L [facility] Anion Gap 11(L) 12 - 20 [facility] Urea Nitrogen (BUN) 16 9 - 16 mg/dL [facility] Creatinine, Serum 1.11 0.5 - 1.4 mg/dL [facility] Creatinine Clr Calc Pharmacy 100.5 [facility] Comment:eGFR (calculated fro m the MDRD study equation) and eCrCl(calculated from the Cockcroft-Gault equation) are based ondifferent parameters and may not yield comparable results.If eCrCl result is absurd, please check patient'sheight/weight. Estimated Glomerular Filt Rate >60 [facility] Comment:Chronic Kidney Disea se: Estimated GFR < 60 mL/min/1.51g6Jpaxbs Kidney Disease: Estimated GFR < 15 mL/min/1.73m2 Glucose 100 60 - 115 mg/dL [facility] Calcium 9.0 8.4 - 10.2 mg/dL [facility] Bilirubin, Total 0.7 0.0 - 1.0 mg/dL [facility] Aspartate Amino Transferase 37 5 - 37 U/L [facility] Alanine Aminotransferase 36 0 - 40 U/L [facility] Total Protein 7.6 6.5 - 8.0 g/dL [facility] Albumin Level 4.3 3.5 - 5.0 g/dL [facility] Alkaline Phosphatase 72 39 - 117 U/L [facility] 09/26/2024 12:4 9 AM EDT 09/26/2024 12:53 AM EDT us Generic External Data Provider LAB BLOOD ORDERAB LES Final Result [facility] [address] [place] [phone] * Stone Analysis with Image (09/23/2024 10:29 AM EDT) Component 1 SEE NOTE [facility] Comment:Calcium Oxalate [place] hydrate (Whewellite) 80%Uric Acid 20% Stone Weight 0.099 g [facility] Comment:Formalin, surgical g el, tape adhesive or transport mediainterfere with the analytical procedure. Follow up testingwith the UroRisk(R) Panel is suggested for affected samples,if clinically indicated.This test was developed and its analytical performancecharacteristics have been determined by [facility].It has not been cleared or approved by the FDA. This assayhas been validated pursuant to the CLIA regulations and isused for clinical purposes.THIS TEST WAS PERFORMED AT:[employer]/[id number] [id number] PALMER MD,PHD,KENDRA [facility] LFTURET [id number] [facility] 09/23/2024 10:2 9 AM EDT 09/23/2024 12:30 PM EDT [facility] - 10/01/2024 3:20 AM EDT [id number] us Generic External Data Provider LAB BLOOD ORDERAB LES Final Result Performing Organization Address City/State/[facility] Co de Phone Number [facility] [address] [place] [phone] * Gross Exam without slides (09/23/2024 10:28 AM EDT) 09/23/2024 10:2 8 AM EDT 09/23/2024 12:30 PM EDT [facility] - 09/24/2024 11:18 AM EDT ----- ------- Name: Toño Whalen Age/Sex: 43/M : 1980 Unit#: [id number] Attend Dr: Radha Tellez MD Re09/23/24 Status: [facility] Location: [place] Disch: ----- ------- SPEC : [id number] RECD: 09/23/24-9560 STATUS: YAMILEX EPPERSON NUM: [id number] JOSE: 09/23/24-[address] [facility] [address]: Radha Tellez MD ENTERED: 09/23/24-1235 SP TYPE: Surgical OTHR DR: Emilia Leija MD ORDERED: GO Diagnosis Left ureteral stone (removal): Calculus material identified; macroscopic description only. Comment: The entire specimen was sent for chemical analysis. Please see the laboratory portion of the EMR for the outside report from [facility]. Clinical History Pre-Op Dx: Calculus of ureter Post-Op Dx: Left ureteral stone Material Received Left ureteral stone Gross Description Received fresh labeled left ureteral stones are 6 irregular yellow babb calculi measuring 0.2-0.4 cm in greatest dimension which are entirely submitted to [employer] for chemical analysis. No sections taken. ([facility]) IHC S/NG Disclaimer NOTE: Unless otherwise stated, all tissue is formalin-fixed and paraffin-embedded. Some or all of the immunohistochemical tests reported herein may have been developed and their performance characteristics determined by [facility]. They have not been cleared or approved by the U.S. Food and Drug Administration (FDA). However, the FDA has determined that such clearance or approval is not necessary. This laboratory is certified under the Clinical Laboratory Improvement Amendments of 1988 (CLIA) as qualified to perform high complexity clinical laboratory testing. Copies To: aRdha Tellez MD [facility] [address] [place] [address] [address] [place] [address] [email or web address] CONTINUED ON NEXT PAGE ----- ------- Name: Toño Whalen Age/Sex: 43/M : 1980 Unit#: [id number] Attend Dr: Radha Tellez MD Re09/23/24 Status: [facility] Location: [facility] Disch: ----- ------- SPEC : [id number] RECD: 09/23/24 STATUS: YAMILEX EPPERSON NUM: [id number] JOSE: 09/23/[address] [facility] [address]: Radha Tellez MD ENTERED: 09/23/24 SP TYPE: Surgical OTHR DR: Emilia Leija MD ORDERED: GO Copies To: (Continued) Emilia Leija MD [address] [address] ----- ------- Signed (signature on file) Sonia Stewart 09/24/24 1118 ----- ------- END OF REPORT us Generic External Data Provider LAB BLOOD ORDERAB LES Final Result [facility] [address] [place] [phone] * FL Guidance in OR (09/23/2024 9:16 AM EDT) Anatomical Region Laterality Modality X-Ray Angiograph y 09/23/2024 9:16 AM EDT Narrative 09/23/2024 10:54 AM EDT [address] [address] Fluoroscopy Report Signed Patient: Toño Whalen MR#: [id number] 4 : 1980 Acct:[id number] Age/Sex: 43 / M ADM Date: 09/23/24 Loc: HO.[facility] Attending Dr: Radha Tellez MD Ordering Physician: Radha Tellez MD Date of Service: 09/23/24 Procedure(s): FL guidance in OR Accession Number(s): [id number] cc: Radha Tellez MD; Emilia Leija MD EXAMINATION: FL GUIDANCE ONLY HISTORY: stone left COMPARISON: Correlation is made with a CT of the abdomen and pelvis with contrast dated 08/07/2024. TECHNIQUE: Fluoroscopy time: 22.2 seconds. Cumulative Dose: 8.23 mGy. Images: 5. FINDINGS: Fluoroscopic spot films demonstrate opacification of the distal left ureter. Multiple filling defects are identified corresponding to the calculi noted on CT. The final images demonstrate placement of a nephroureteral stent. FL/FL guidance in OR IMPRESSION: Fluoroscopy during procedure. Please see procedure report for additional information. Electronically signed by: Malachi Stephens MD 09/23/2024 10:51 AM EDT Dictated By: Malachi Stephens MD Signed By: <Electronically signed by Malachi Stephens MD in OV> 09/23/24 1051 DD/ 0916 TD/TT: 09/23/24 1025 Hogshead Head Matcher: Procedure Note Dongianainterpreter, Image - 09/23/[address] [address] Fluoroscopy Report Signed Patient: Toño WhalenMR#: [id number] 4 : 1980Acct:[id number] Age/Sex: 43 / MADM Date: 09/23/24 Loc: HO.SSS Attending Dr: Radha Tellez MD Ordering Physician: Radha Tellez MD Date of Service: 09/23/24 Procedure(s): FL guidance in OR Accession Number(s): [id number] cc: Radha Tellez MD; Emilia Leija MD EXAMINATION: FL GUIDANCE ONLY HISTORY: stone left COMPARISON: Correlation is made with a CT of the abdomen and pelvis with contrast dated 08/07/2024. TECHNIQUE: Fluoroscopy time: 22.2 seconds. Cumulative Dose: 8.23 mGy. Images: 5. FINDINGS: Fluoroscopic spot films demonstrate opacification of the distal left ureter. Multiple filling defects are identified corresponding to the calculi noted on CT. The final images demonstrate placement of a nephroureteral stent. FL/FL guidance in OR IMPRESSION: Fluoroscopy during procedure. Please see procedure report for additional information. Electronically signed by: Malachi Stephens MD 09/23/2024 10:51 AM EDT Dictated By: Malachi Stephens MD Signed By: <Electronically signed by Malachi Stephens MD in OV> 09/23/24 1051 DD/ 0916 TD/TT: 09/23/24 1025 Hogshead Head Matcher: us [facility] External Provider IMG IR PROCEDURES Edited Result - Final * Lipid Panel, Standard (08/14/2024 2:53 PM EDT) Triglycerides 107 <150 mg/dL [facility] Comment:Desirable Triglyceri de: less than 150 mg/dLBorderline High Triglyceride 150-199 mg/dLHigh Triglyceride: 200-499 mg/dLVery High Triglyceride: greater than or equal to 5OO mg/dL Cholesterol 148 <200 mg/dL [facility] Comment:Desirable Cholestero l: less than 200 mg/dLBorderline High Cholesterol: 200-239 mg/dLHigh Cholesterol: greater than 239 mg/dL LDL Cholesterol Calculated 73 <100 mg/dL [facility] Comment:Desirable LDL: less than 100 mg/dLNear Optimal/Above Optimal LDL: 110- 129 mg/dLBorderline High LDL: 130-159 mg/dLHigh LDL: 160-189 mg/dLVery High LDL: greater than or equal to 190 mg/dL HDL Cholesterol 54 >40 mg/dL [facility] Comment:Desirable HDL: great er than 40 mg/dL Note: This HDL assay may give artificially low results in patients with liver disease. Blood Venous blood specimen / Unknown 08/14/2024 2:53 PM EDT 08/14/2024 5:33 PM EDT us Emilia Leija MD LAB BLOOD ORDERABLES Final Result Performing Organization Address [facility] Co de Phone Number [facility] [address] [place] [phone] * Hepatitis A,B,C Profile (10/31/2021 10:58 [...] 10/31/2021 10:5 8 AM EDT Historical Provider HISTORICAL/NON ORDERABLE LABS Final Result [facility] [address] from Last 3 Months or Most Recently Relevant to Health Maintenance Insurance MEDICARE [facility] HMO * Guarantor: Toño Whalen Account Type Relation to Patient Date of Phone Billing Address Personal/Family Self [address] [place] [phone] * Guarantor: Toño Whalen Account Type Relation to Patient Date of Phone Billing Address Personal/Family Self [address] [place] [phone] * Guarantor: Toño Whalen Account Type Relation to Patient Date of Phone Billing Address Personal/Family Self [address] [place] [id number] Care Teams Typewriter Repairer Relationship Specialty Start Date End Date Emilia Leija MD [address] [place] [phone] PCP - General Internal Medicine 09/21/11
--- OUTSIDE RECORDS SUMMARY | 2024-11-28 13:03 | XMS_ITS | Clinical Summary ---
Author Organization [facility] Address [address] [address] Phone Care Team Providers Care Neurology Physician Assistant Name Role Phone Emilia Leija MD Primary Care Pr ovider Allergies No known active allergies Medications infliximab (REMICADE IV) Inject into the vein. Active omeprazole (PRILOSEC) 20 MG capsule Take 20 mg by mouth daily. Active ondansetron (ZOFRAN-ODT) 8 MG disintegrating tablet Take 1 tablet (8 mg total) by mouth every 8 (eight) hours as needed for nausea. 5 tablet 1 Active oxyCODONE-acetamino phen (PERCOCET) 5-325 mg per tablet Take 1 tablet by mouth every 6 (six) hours as needed for pain (specific location in comments). Partial fill ok 10 tablet 1 Active Active Problems Problem Noted Date Diagnosed Date Crohn's disease of ileum, unspecified complicati on 07/26/2020 Assessment & Plan (07/27/2020 4:12 PM EDT): Feeling generally better. Seen by Dr Borja. Tolerated a low fiber diet for lunch. Cont IVF until the bag finishes. PRN Zofran PRN Dilaudid for pain Cont Solumedrol 60mg daily while in house and then at d/c transition to prednisone 30mg daily with a 5 mg /week taper. He should follow up with his GI Dr Arellano at [facility] after d/c. Follow up Fecal calprotectin ordered as well as CDiff testing as these can exacerbate crohns. Family History Medical History Relation Comments Breast cancer Mother Relation Status Comments Mother Social History Tobacco Use Types Packs/Day Years Used Date Smoking Tobacco: Never Smokeless Tobacco: Never Alcohol Use Standard Drinks/Week Comments Not Currently 0 (1 standard drink = 0.6 oz pur e alcohol) Education Answer Date Recorded Are you interested in more education? Not on colt e 07/14/2022 Are you concerned about learning? Not on file 07/14/2022 No 07/14/2022 No 07/14/2022 Digital Access Answer Date Recorded No 08/14/2022 No 08/14/2022 No 08/14/2022 Reliable internet access at home? Not on file 08/14/2022 Device with a working camera? Not on file Sex and Gender Information Value Date Recorded Sex Assigned at Male 07/26/2020 3:11 PM EDT Legal Sex Male 11:40 AM EDT Gender Identity Male 07/26/2020 3:11 PM EDT Sexual Orientation Choose not to disclose 2020 3:11 PM EDT Last Filed Vital Signs Vital Sign Reading Time Taken Comments Blood Pressure 126/76 07/28/2020 8:49 AM EDT Pulse 62 07/28/2020 8:49 AM EDT Temperature 36.4 C (97.6 F) 07/28/2020 8:49 AM EDT Respiratory Rate 18 07/28/2020 8:49 AM EDT Oxygen Saturation 93% 07/28/2020 8:49 AM EDT Inhaled Oxygen Concentration - - Weight 85.1 kg (187 lb 9.8 oz) 07/28/2020 6:00 A M EDT Height 177.8 cm (5' 10 ) 07/26/2020 3:12 PM EDT Body Mass Index 26.92 07/26/2020 3:12 PM EDT Plan of Treatment Health Maintenance Due Date Last Done Comments Adult Td,Tdap Booster 1980 LIPID PANEL 1980 COVID-19 VACCINE (#1) 10/12/1984 DEPRESSION SCREENING 1991 HEPATITIS C SCREENING 10/12/1997 HIV ONE-TIME SCREENING (18-6 5 YEARS) 10/12/1997 PNEUMOCOCCAL VACCINES (0-49 years) (1 of 2 - PCV) 10/12/1998 COLOGUARD 10/12/2024 COLONOSCOPY 10/12/2024 COLORECTAL CANCER SCREENING 10/12/2024 FIT TEST 10/12/2024 FOBT 10/12/2024 SIGMOIDOSCOPY 10/12/2024 VIRTUAL COLONOSCOPY 10/12/2024 INFLUENZA VACCINE (#1) 2024 6, 12/17/2012 SMOKING STATUS SCREENING (On ce After 26 Yrs) Completed 07/26/2020 HEPATITIS A VACCINES Aged Out No long er eligible based on patient's age to complete this topic HIB VACCINES Aged Out No longer eligi ble based on patient's age to complete this topic MENINGOCOCCAL VACCINES (ACWY) Aged Out No longer eligible based on patient's age to complete this topic MENINGOCOCCAL VACCINES (B) Aged Out N o longer eligible based on patient's age to complete this topic Medical Devices Not on file Insurance MEDICARE PART A & B [facility]ARE PART A & [facility] MEDIC[facility] PART A & B [employer]IG[employer] PPO [facility] MEDICARE PART A & B C[facility] & B [facility] A & B [place] [address] [place] [address] MEDICARE PART A & B [employer]IGNA PPO HEALTH MEDICARE PART A & B [facility] [place] [address] [place] [address] MEDICARE PART A & B [facility] PPO [facility] Advance Directives For more information, please contact: [phone] (9AM - 5PM [place]/[facility], Sunday-Sunday) * Full Code (Latest Code Status on File) Date Activated Date Inactivated Comments 07/26/2020 11:02 PM Question Answer Comments Code Status Confirmed With: Patient Care Teams Neurology Physician Assistant Relationship Specialty Start Date End Date Emilia Leija MD [address] [place] [address] [place]AVEZ ALCAZAR [address] PCP - General Internal Medicine 11/12/15 Additional Source Comments The information contained in this document represents components of the legal health record. It is not the complete legal health record.[facility]
--- OUTSIDE RECORDS SUMMARY | 2024-11-28 13:03 | XMS_ITS | Encounter Summary ---
Author Organization [facility] Address [address] [facility] [address] [place] [phone] Phone Care Team Providers Care Personal Care Assistant Name Role Phone Emilia Leija MD Primary Care Pr ovider Encounter Details Date Type Department Care Team (Late st Contact Info) Description 07/26/2020 Procedure Pass [facility], Ct Scan - [address] [address] Social History Tobacco Use Types Packs/Day Years [...] 3:13 PM EDT Harry Henderson RN * [place] Suicide Severity Rating Scale (Screener/Recent Self-Report) Question [...] on filedocumented in this encounter Care Teams Personal Care Assistant Relationship Specialty Start Date End Date Emilia Leija MD [address] [address] PCP - General Internal Medicine 11/12/15 documented as of this encounter Additional Source Comments The information contained in this document represents components of the legal health record. It is not the complete legal health record.[facility]
== END 2024-11-28 11:46 | disposition home or self-care (01) ==
PROVIDERS: PCP Internal Medicine; Visit Provider Internal Medicine Gastroenterology
DX: D64.9 Anemia, unspecified (principal)
CPT/HCPCS: 99214

== ENCOUNTER 2025-02-14 17:48 | Emergency (ER) | payer BC, MEDICARE, SELFPAY ==
--- NOTE | ~2025-02-14 | CT_ITS ---
CLINICAL HISTORY: Crohns,SBO?, prior ileocecectomy sigmoid resecti CT abdomen and pelvis with contrast Comparison: CT/SR - ABDOMEN ABD_PELVIS_IV_CONTRAST (ADULT) - 09/26/2024 03:23 AM EDT Findings: The lung bases are clear. The gallbladder and solid organs are within normal limits. No renal stones. Dilated fluid-filled loops of small bowel are present within the inferior abdomen measuring up to 3.7cm diameter. Anastomotic sutures are noted in the distal sigmoid. Sutures noted in the cecum. Possible transition point in the ventral abdominal wall of the right lower quadrant. Appendix not visualized. Urinary bladder and pelvic structures are within normal limits. The bones are intact. IMPRESSION: Small-bowel obstruction. Possible transition point in the right lower quadrant near the ventral abdominal wall. This document has been electronically signed by: Jamie Rai MD, PHD on 02/15/2025 00:26:44
[2025-02-14 17:59] VITALS: BP 144/84; PULSE 67; RESP 20; TEMP 35.9; O2SAT 98; BMI 31.5
--- NOTE | 2025-02-14 18:16 | ED.ABDPAIN ---
HPI - Abdominal Pain General Chief Complaint: Abdominal Pain Stated Complaint: Stomach Pain Time Seen by Provider: 02/14/25 22:34 History of Present Illness ED Provider: Shirley MERCER narrative: The patient is a 44-year-old male with a history of Crohn's disease. He also has a history of kidney stones. He has had surgery for his Crohn's disease in the past. In 2016 at the [facility] he had an ileocecectomy and sigmoid resection with diverting loop ileostomy. Ultimately he has a follow up ileostomy reversal, also with a [facility] clinic. The patient presents to the emergency room today with abdominal pain that started at around 2 PM earlier today. He says he has had nausea and vomiting. Most of his pain is on the right side. He says that this pain feels more like a previous bowel obstruction and more like a problem related to his Crohn's disease than the pain of a kidney stone. No definite fevers. The patient says that since his surgery in 2016 he has had multiple similar episodes of abdominal pain and vomiting. He says that he wants received an NG tube for a possible bowel obstruction and he says that he had at a significant nasal injury as result. He has therefore never allowed an NG tube to be placed since. The patient says that he does not always that hospitalized with the episodes like this. Sometimes his symptoms improve after simply a few hours of pain control. Related Data Home Medications ?Medication ?Instructions ?Recorded ?Confirmed infliximab 100 mg intravenous 100 mg IV Q8W 05/09/20 09/26/24 solution (Remicade) omeprazole 20 mg capsule,delayed 20 mg PO DAILY PRN Heartburn 01/15/23 09/26/24 release amlodipine 5 mg tablet 5 mg PO DAILY 09/23/24 09/26/24 oxycodone 5 mg tablet 5 mg PO Q6-8H PRN pain 09/26/24 09/26/24 triamcinolone acetonide 0.1 % appl topical BID 11/28/24 topical cream Previous Rx's ?Medication ?Instructions ?Recorded acetaminophen 500 mg tablet 1,000 mg (2 x 500 mg) PO Q6H PRN 09/06/23 (Tylenol Extra Strength) pain #30 tabs ondansetron 4 mg disintegrating 4 mg PO Q6-8H PRN nausea and 04/27/24 tablet vomiting #7 tabs sodium,potassium,mag sulfates 17.5 See Rx Instructions PO .COMPLEX 11/28/24 gram-3.13 gram-1.6 gram oral soln #354 mL (Suprep Bowel Prep Kit) Allergies Allergy/AdvReac Type Severity Reaction Status Date / Time No Known Allergies (No Known Allergy Verified 02/14/25 18:01 Allergies*) Review of Systems Review of Systems Yes all other systems are reviewed and are negative PENDING SALE TO [facility] Past Medical History Medical History HTN (hypertension) Pneumonia History of blood transfusion Low vitamin D level Anemia Anxiety Pituitary macroadenoma High risk medication use GERD (gastroesophageal reflux disease) Crohn disease Surgical History History of ileostomy History of partial surgical removal of colon History of esophagogastroduodenoscopy (EGD) H/O colonoscopy Family History Family History Mother Breast cancer Social History Social History Household Members: Children Housing: House Do you presently have visiting nurse or other home services: Yes (Infusion [facility]) Alcohol intake: never Patient Tobacco Use Status: Never used Tobacco e-Cigarette/Vaping Use: Never Used Second Hand Smoke Exposure: No Substance Use Type: Marijuana Advance Directives Date on File: 07/17/20 service: No Current occupational status: disabled Physical Exam ED Vital Signs: Vital Signs - 24 hr 02/14/25 22:54 02/15/25 00:00 02/15/25 04:20 Temperature 98.1 F Pulse Rate 73 73 Respiratory Rate 18 20 20 Blood Pressure 136/87 136/87 Pulse Oximetry 96 96 Oxygen Delivery Method Room Air Room Air BMI result Body Mass Index 31.5 Const Other: The patient is awake and alert. He looked uncomfortable. Orientation/consciousness: patient oriented x3 HENMT Other: The face is symmetrical. Mucous membranes moist. Eyes General: appearance normal, both eyes and all related structures Neck Neck: Yes normal visual inspection and Yes full ROM Resp Effort & Inspection: normal respiratory effort Auscultation: clear to auscultation bilaterally Cardio Rate: regular rate Rhythm: regular rhythm Heart sounds: S1 normal heart sound present and S2 normal heart sound present GI Other: The patient had diffuse abdominal tenderness Skin Other: The skin is dry and unremarkable Neuro General: patient oriented x3, tone normal, moves all extremities, no focal motor deficits and CN's II-XI intact bilaterally Extrem Other: There is no calf swelling or tenderness. No asymmetry. No peripheral edema. Course Course Course Narrative: This is a Rapid Medical Examination (RME) performed by Noemi Baez PA-C in triage. Full HPI, ROS, assessment and treatment plan per primary provider in the Main ED. Hx: 44 yo M hx crohns here w/ right sided abd pain w/ assoc nausea x today. Plan: labs Medical Decision Making Medical Decision Making [facility] Narrative: the patient is a 44-year-old male with a history of Crohn's disease who had fairly significant abdominal surgery in 2016 at the [facility] with a bowel resection. He had an ostomy for awhile which was subsequently reversed. The patient presents with symptoms consistent with a previous episodes of bowel obstructions. He has been hospitalized at this hospital for bowel obstructions in the past. He seems to always refused NG tubes. He also seems to have a history of signing out AMA as soon as he is feeling better. He says that sometimes he gets better after just a few hours of symptom control. A CT scan was done that suggested a bowel obstruction. His labs were unremarkable. He was given IV fluids and IV pain medications. I discussed the results of his CAT scan. He was observed for several hours during which time he was given IV fluids and pain control. Ultimately he felt considerably better and was requesting discharge. He feels that this episode is very similar to previous episodes he has dealt with in the past and he feels comfortable being discharged instead of hospitalized today. He is advised to follow up with his PCP and his certified personal trainer. Lab Data 02/14/25 18:55 02/14/25 18:55 Labs: Lab Results 02/14/25 02/14/25 Range/Units 18:55 18:58 WBC 9.3 (4.8-10.8) X10*3/uL RBC 4.31 L (4.60-5.80) X10*6/uL Hgb 12.6 L (14.0-18.0) g/dl Hct 38.3 L (42.0-52.0) % MCV 88.9 (80.0-98.0) fL MCH 29.2 (27.0-33.0) pg MCHC 32.9 (31.0-36.0) g/dl RDW 12.2 (11.0-16.0) % Plt Count 237 D (160-400) X10*3/uL MPV 11.8 (9.4-12.4) fL Immature Gran % (Auto) 0.2 (0.0-0.4) % Neut % (Auto) 53.9 (45-73) % Lymph % (Auto) 32.2 (20-40) % Rhea % (Auto) 10.0 (2-11) % Eos % (Auto) 3.1 (0-4) % Baso % (Auto) 0.6 (0-2) % Lymph # (Auto) 3.0 (1.2-4.9) X10*3/uL Rhea # (Auto) 0.9 (0.1-1.2) X10*3/uL Eos # (Auto) 0.3 (0.0-0.4) X10*3/uL Baso # (Auto) 0.1 (0.0-0.2) X10*3/uL Abs Immat Gran (auto) 0.02 (0.00-0.03) X10*3/uL Absolute Neuts (auto) 5.0 (2.0-8.3) x10*3/uL Absolute Nucleated RBC 0.000 (0.0-0.012) X10*3/uL Nucleated RBC % (auto) 0.0 (0.0-0.2) /100WBC Sodium 143 (135-145) mmol/L Potassium 4.8 D (3.3-5.1) mmol/L Chloride 106 (96-108) mmol/L Carbon Dioxide 28 (22-29) mmol/L Anion Gap 14 (12-20) BUN 12 (9-16) mg/dL Creatinine 1.11 (0.5-1.4) mg/dL Estim Creat Clear Calc 99.4 Estimated GFR > 60 Random Glucose 97 (60-115) mg/dL Calcium 9.5 D (8.4-10.2) mg/dL Magnesium 1.9 (1.6-2.6) mg/dL Total Bilirubin 0.5 (0.0-1.0) mg/dL AST 33 (5-37) U/L ALT 32 (0-40) U/L Alkaline Phosphatase 66 (39-117) U/L C-Reactive Protein 0.11 (< or = 0.50) mg/dL Total Protein 8.3 H (6.5-8.0) g/dL Albumin 4.8 (3.5-5.0) g/dL Lipase 22 (8-78) U/L Urine Color Yellow Urine Appearance Clear Urine pH 5.5 (5.0-9.0) Ur Specific [place] 1.025 (1.005-1.025) Urine Protein Negative (Neg-Trace) mg/dL Urine Glucose (UA) Negative (Negative) mg/dL Urine Ketones Trace (Negative) mg/dL Urine Blood Negative (Negative) Urine Nitrite Negative (Negative) Ur Leukocyte Esterase Negative (Negative) Medications Administered Discontinued Medications Generic Name Dose Route Start Last Admin Trade Name Freq PRN Reason Stop Dose Admin Droperidol 1.25 mg 02/14/25 22:41 02/14/25 22:53 Droperidol 5 Mg/2 Ml Vial IVPUSH 02/14/25 22:42 1.25 mg ONCE ONE Administration Hydromorphone HCl 1 mg 02/15/25 00:36 02/15/25 00:40 Hydromorphone Hcl 1 Mg/Ml Syringe IVPUSH 02/15/25 00:37 1 mg ONCE ONE Administration Protocol Sodium Chloride 1,000 mls @ 999 mls/hr 02/14/25 22:45 02/15/25 00:07 Ns IV 02/14/25 23:45 Infused .Q1H1M SANGITA Infusion Lactated Ringer's 1,000 mls @ 999 mls/hr 02/15/25 01:00 02/15/25 03:28 Lr IV 02/15/25 02:00 Infused .Q1H1M SANGITA Infusion Iohexol 85 ml 02/14/25 23:19 02/14/25 23:23 Iohexol 350 Mg/Ml 100 Ml Infus..Btl IV 02/14/25 23:20 85 ml ONCE ONE Administration Morphine Sulfate 4 mg 02/14/25 22:41 02/14/25 22:54 Morphine Sulfate 10 Mg/Ml Cartridge IVPUSH 02/14/25 22:42 4 mg ONCE ONE Administration Protocol Discharge Plan Discharge Clinical Impression: Abdominal pain, Partial small bowel obstruction, Crohn's disease Patient Disposition: Home, Self-Care Additional Instructions: Please rest and take it easy. Please continue all of your regular medications. Clear fluids during the day on Sunday. If feeling better after a day you may advanced her diet. Please follow up with your regular doctor and your certified personal trainer. Return to the emergency room if significantly worse. Prescriptions: No Action ondansetron 4 mg tablet,disintegrating 4 mg PO Q6-8H PRN (Reason: nausea and vomiting) Qty: 7 0RF amlodipine 5 mg tablet 5 mg PO DAILY oxycodone 5 mg tablet 5 mg PO Q6-8H PRN (Reason: pain) Rx Instructions: Partial Fill upon patient request. omeprazole 20 mg Capsule,Delayed Release(Dr/Ec) 20 mg PO DAILY PRN (Reason: Heartburn) acetaminophen [Tylenol Extra Strength] 500 mg tablet 1,000 mg PO Q6H PRN (Reason: pain) Qty: 30 0RF Remicade 100 mg recon soln 100 mg IV Q8W Rx Instructions: NEXT DOSE: 10/17/2022 triamcinolone acetonide 0.1 % cream topical BID sodium,potassium,mag sulfates [Suprep Bowel Prep Kit] 17.5-3.13-1.6 gram recon soln See Rx Instructions PO .COMPLEX Qty: 354 0RF Rx Instructions: DILUTE; drink 1/2 at 6-8 pm and half at 11 PM- 1AM Referrals: Emilia Leija MD [Primary Care Provider, Medical] Jacob Mackenzie MD [Physician, Gastroenterology] Interventions: ED Discharge Assessment Last Done: 02/15/25 04:20 Discharge Date/Time: 02/15/25 04:22 Print Language: Tajik
[2025-02-14 19:08] LABS: MANUAL DIFF FLAG NO
[2025-02-14 19:10] LABS: Appearance Urine Clear; Glucose Urine UA Negative (Negative); PH 5.5 (5.0-9.0); Specific Gravity - Urine 1.025 (1.005-1.025)
[2025-02-14 19:11] LABS: Hematocrit 38.3 % (42.0-52.0); Hemoglobin 12.6 g/dl (14.0-18.0); Imm Gran Abs Auto 0.02 X10*3/uL (0.00-0.03); Imm Gran Pct Auto 0.2 % (0.0-0.4); Lymphocytes Absolute Auto 3.0 X10*3/uL (1.2-4.9); Mean Corpuscular HGB Conc 32.9 g/dl (31.0-36.0); Mean Corpuscular Hemoglobin 29.2 pg (27.0-33.0); Mean Corpuscular Volume 88.9 fL (80.0-98.0); NRBC Abs Auto 0.000 X10*3/uL (0.0-0.012); NRBC Pct Auto 0.0 /100WBC (0.0-0.2); Platelet Count 237 X10*3/uL (160-400); Red Blood Count 4.31 X10*6/uL (4.60-5.80); White Blood Count 9.3 X10*3/uL (4.8-10.8)
[2025-02-14 19:28] LABS: Alanine Aminotransferase 32 U/L (0-40); Albumin Level 4.8 g/dL (3.5-5.0); Alkaline Phosphatase 66 U/L (39-117); Anion Gap 14 (12-20); Aspartate Amino Transferase 33 U/L (5-37); Blood Urea Nitrogen 12 mg/dL (9-16); Calcium 9.5 mg/dL (8.4-10.2); Carbon Dioxide 28 mmol/L (22-29); Chloride 106 mmol/L (96-108); Creatinine Clr Calc Pharmacy 99.4; Estimated Glomerular Filt Rate > 60; Lipase 22 U/L (8-78); Magnesium 1.9 mg/dL (1.6-2.6); Potassium 4.8 mmol/L (3.3-5.1); Sodium 143 mmol/L (135-145); Total Protein 8.3 g/dL (6.5-8.0)
--- OUTSIDE RECORDS SUMMARY | 2025-02-14 22:38 | XMS_ITS | Encounter Summary ---
Author Organization [facility] Address [address] [facility] [address] [place] [phone] Phone Care Team Providers Care Liquid Center Assembler Name Role Phone Emilia Leija MD Primary Care Pr ovider Encounter Details Date Type Department Care Team (Late st Contact Info) Description 07/26/2020 Procedure Pass [facility], Ct Scan - [address] [address] Social History Tobacco Use Types Packs/Day Years [...] 3:13 PM EDT Harry Henderson RN * [place] Suicide Severity Rating Scale (Screener/Recent Self-Report) Question [...] on filedocumented in this encounter Care Teams Liquid Center Assembler Relationship Specialty Start Date End Date Emilia Leija MD [address] [address] PCP - General Internal Medicine 11/12/15 documented as of this encounter Additional Source Comments The information contained in this document represents components of the legal health record. It is not the complete legal health record.[facility]
--- OUTSIDE RECORDS SUMMARY | 2025-02-14 22:38 | XMS_ITS | Encounter Summary ---
Author Organization [employer] Address [address] [facility] 7 [place] [address] Care Team Providers Care Gripper Attacher Name Role Phone Emilia Leija MD Primary Care Provider [phone] Reason for Visit * Reason Onset Date Comments Referral 08/05/2024 Encounter Details Date Type Department Care Team ([facility] st Contact Info) Description 08/05/2024 Telephone [facility] [address] [place] [address] Emilia Leija MD [address] [place], [place] [phone] Referral Social History Tobacco Use Types Packs/Day [...] documented as of this encounter Care Teams Gripper Attacher Relationship Specialty Start Date End Date Emilia Leija MD [address] [place] [phone] PCP - General Internal Medicine 09/21/11 documented as of this encounter
--- OUTSIDE RECORDS SUMMARY | 2025-02-14 22:38 | XMS_ITS | Clinical Summary ---
Author Organization [facility] Address [address] [address] Phone Care Team Providers Care Lime Sludge Kiln Operator Name Role Phone Emilia Leija MD Primary [...] up with his GI Dr Arellano at [facility] after d/c. Follow up Fecal calprotectin [...] file Insurance MEDICARE PART A & B [facility] MEDIC[facility] PART A & B [employer]IG[employer] PPO [facility] MEDICARE PART A & B CIGNA PPO [facility] PART A & B [facility] PPO [facility] MED[facility] PART A & B [place] [address] [place] [address] MEDICARE PART A & B [employer]IG[employer] PPO HEALTH MEDICARE PART A & B [facility]PO [place] [address] [place] [address] MEDICARE PART A & B [facility] PPO [facility] Advance Directives For more information, please contact: [phone] (9AM - 5PM [place]/[facility], Sunday-Sunday) * Full Code (Latest Code Status on File) Date Activated Date Inactivated Comments 07/26/2020 11:02 PM Question Answer Comments Code Status Confirmed With: Patient Care Teams Lime Sludge Kiln Operator Relationship Specialty Start Date End Date Emilia Leija MD [address] [place] [address] [place]AVE[place] ALCAZAR [address] PCP - General Internal Medicine 11/12/15 Additional Source Comments The information contained in this document represents components of the legal health record. It is not the complete legal health record.[facility]
--- OUTSIDE RECORDS SUMMARY | 2025-02-14 22:38 | XMS_ITS | Clinical Summary ---
Author Organization [employer] Address [address] [facility] 7t [place] [address] Care Team Providers Care Certified Medical Technician Assistant Name Role Phone Emilia Leija MD Primary Care Provider [phone] Allergies No known active allergies Medications inFLIXimab [...] neg. -Start Augmentin BID for 7 d. -[place] nasal spray PRN. -Flonase for 10-14 d. [...] bowel obstruction 06/22/2022 Crohn's disease of ileum, un specified complication ([facility]/HCC) 07/26/2020 Overview (06/22/2022): Last Assessment & Plan: [...] up with his GI Dr Arellano at [facility] after d/c. Follow up Fecal calprotectin ordered as well as CDiff testing as these can exacerbate crohns. Protein-calorie malnutrition, severe 01/10/2016 Crohn's disease of colon with abscess ([facility]) 12/16/2015 Anxiety 12/17/2012 Crohn's disease with abscess ([facility]) 3 Immunizations Immunization Administration Dates Next Due Influenza, [...] Date Last Done Comments CT Colonography 1979 FIT DNA/Cologuard 1979 FIT 1979 FOBT [...] 08/14/2024 Zoster Vaccines (1 of 2) 10/12/2029 Colonoscopy 01/18/2033 01/18/2023 Colorectal Cancer Screening 01/18/2033 DTaP/Tdap/Td Vaccines (2 - T d or [...] Procedure Name Priority Date/Time Associated Diagnosis Comments LIPID PANEL, STANDARD Routine 08/14/2024 2:53 PM EDT Primary hypertension ZZZ HISTORICAL HEPATITIS A,B,C PROFILE Routine 10/31/2021 10:58 AM EDT from Last 3 Months or Most Recently Relevant to Health Maintenance Results * Lipid Panel, Standard (08/14/2024 2:53 PM EDT) Triglycerides 107 <150 mg/dL [facility] Comment:Desirable Triglyceri de: less than 150 mg/dLBorderline High Triglyceride 150-199 mg/dLHigh Triglyceride: 200-499 mg/dLVery High Triglyceride: greater than or equal to 5OO mg/dL Cholesterol 148 <200 mg/dL [facility] Comment:Desirable Cholestero l: less than 200 mg/dLBorderline High Cholesterol: 200-239 mg/dLHigh Cholesterol: greater than 239 mg/dL LDL Cholesterol Calculated 73 <100 mg/dL [facility] Comment:Desirable LDL: less than 100 mg/dLNear Optimal/Above Optimal LDL: 110- 129 mg/dLBorderline High LDL: 130-159 mg/dLHigh LDL: 160-189 mg/dLVery High LDL: greater than or equal to 190 mg/dL HDL Cholesterol 54 >40 mg/dL [facility] Comment:Desirable HDL: great er than 40 mg/dL Note: This HDL assay may give artificially low results in patients with liver disease. Blood Venous blood specimen / Unknown 08/14/2024 2:53 PM EDT 08/14/2024 5:33 PM EDT Emilia Leija MD LAB BLOOD ORDERABLES Final Result [facility] [address] [place] [phone] * Hepatitis A,B,C Profile (10/31/2021 10:58 [...] Historical Provider HISTORICAL/NON ORDERABLE LABS Final Result [facility] [address] from Last 3 Months or Most Recently Relevant to Health Maintenance Insurance [place] [id number] [facility] HMO Care Teams Certified Medical Technician Assistant Relationship Specialty Start Date End Date Emilia Leija MD [address] [place] [phone] PCP - General Internal Medicine 09/21/11
[2025-02-14 22:54] VITALS: RESP 18
[2025-02-14] MEDS: iohexoL 350 MG/ML 100 ML INFUS..BTL 85 ML IV (23:23)
[2025-02-15] VITALS: BP 136/87; PULSE 73; RESP 20; O2SAT 96
[2025-02-15] MEDS: Lactated Ringers 1,000 ML 999 ML IV (00:56)
[2025-02-15 04:20] VITALS: BP 136/87; PULSE 73; RESP 20; TEMP 36.7; O2SAT 96
== END 2025-02-15 04:22 | disposition home or self-care (01) ==
PROVIDERS: Physician Assistant Medical; Emergency Provider Emergency Medicine; PCP Internal Medicine
DX: K56.600 Partial intestinal obstruction, unspecified as to cause (principal); K50.10 Crohn's disease of large intestine without complications; R11.2 Nausea with vomiting, unspecified; Z79.899 Other long term (current) drug therapy
CPT/HCPCS: 36415; 74177; 80053; 81003; 83690; 83735; 85025; 86140; 96361; 96374; 96375; 99284; 99285; J1171; J1790; J2270; J7120; Q9967

== ENCOUNTER → 2025-02-14 22:53 | Outpatient (BNV) | payer BC, MEDICARE, SELFPAY | PROVIDERS: Emergency Provider Emergency Medicine; PCP Internal Medicine; Visit Provider General Practice | DX: K56.609 Unspecified intestinal obstruction, unspecified as to partial versus complete obstruction (principal) | CPT/HCPCS: 74177 ==

== ENCOUNTER 2025-03-09 13:56 | Emergency (ER) | payer BC, MEDICARE, SELFPAY ==
[2025-03-09 14:00] VITALS: BP 130/84; PULSE 66; RESP 16; TEMP 36.8; O2SAT 99; BMI 30.8
--- NOTE | 2025-03-09 14:03 | ED.GENADULT ---
HPI - General Adult General Chief complaint: Abdominal Pain Stated complaint: Lower ABD Pain Time Seen by Provider: 03/09/25 14:39 Source: patient Mode of arrival: ambulatory Limitations: no limitations History of Present Illness ED Provider: jennifer blanca pa-c HPI narrative: It appears that this is a 44-year-old male that presented to the ED for evaluation of abdominal pain. I can not obtain further history as patient left the ED without completing treatment/ prior to my official interview/exam. Related Data Home Medications ?Medication ?Instructions ?Recorded ?Confirmed infliximab 100 mg intravenous 100 mg IV Q8W 05/09/20 09/26/24 solution (Remicade) omeprazole 20 mg capsule,delayed 20 mg PO DAILY PRN Heartburn 01/15/23 09/26/24 release amlodipine 5 mg tablet 5 mg PO DAILY 09/23/24 09/26/24 oxycodone 5 mg tablet 5 mg PO Q6-8H PRN pain 09/26/24 09/26/24 triamcinolone acetonide 0.1 % appl topical BID 11/28/24 topical cream Previous Rx's ?Medication ?Instructions ?Recorded acetaminophen 500 mg tablet 1,000 mg (2 x 500 mg) PO Q6H PRN 09/06/23 (Tylenol Extra Strength) pain #30 tabs ondansetron 4 mg disintegrating 4 mg PO Q6-8H PRN nausea and 04/27/24 tablet vomiting #7 tabs sodium,potassium,mag sulfates 17.5 See Rx Instructions PO .COMPLEX 11/28/24 gram-3.13 gram-1.6 gram oral soln #354 mL (Suprep Bowel Prep Kit) Allergies Allergy/AdvReac Type Severity Reaction Status Date / Time No Known Allergies (No Known Allergy Verified 03/09/25 14:01 Allergies*) Review of Systems Review of Systems: unable to obtain as patient LWCT. [facility] Past Medical History Source: old records reviewed and nursing notes reviewed Medical History HTN (hypertension) Pneumonia History of blood transfusion Low vitamin D level Anemia Anxiety Pituitary macroadenoma High risk medication use GERD (gastroesophageal reflux disease) Crohn disease Surgical History History of ileostomy History of partial surgical removal of colon History of esophagogastroduodenoscopy (EGD) H/O colonoscopy Family History Family History Mother Breast cancer Social History Social History Household Members: Children Housing: House Do you presently have visiting nurse or other home services: Yes (Infusion [id number]) Alcohol intake: never Patient Tobacco Use Status: Never used Tobacco e-Cigarette/Vaping Use: Never Used Second Hand Smoke Exposure: No Substance Use Type: Marijuana Advance Directives: No Advance Directives Information Provided: Yes Advance Directives Date on File: 07/17/20 service: No Current occupational status: disabled Physical Exam ED Vital Signs: Vital Signs - 24 hr 03/09/25 14:00 Temperature 98.2 F Pulse Rate 66 Respiratory Rate 16 Blood Pressure 130/84 Pulse Oximetry 99 Oxygen Delivery Method Room Air BMI result Body Mass Index 30.8 vital signs stable unable to perform PE as patient left prior to my interview. Course Course Course Narrative: RmE: 44-year-old male history of Crohn's presents to ED for lower abdominal pain and constipation. Patient is concerned for a Crohn's flare-up. Reevaluation(s) Reevaluation #1: I went in to interview/ examin patient and he had left the ED without completing treatment. I have reviewed labs obtained in triage which all appear unremarkable and at patient's baseline. Medical Decision Making Lab Data MDM Lab Attestation statement: I reviewed the patient's lab results. as above. 03/09/25 14:20 03/09/25 14:20 Labs: Lab Results 03/09/25 Range/Units 14:20 WBC 7.5 (4.8-10.8) X10*3/uL RBC 4.13 L (4.60-5.80) X10*6/uL Hgb 12.1 L (14.0-18.0) g/dl Hct 37.1 L (42.0-52.0) % MCV 89.8 (80.0-98.0) fL MCH 29.3 (27.0-33.0) pg MCHC 32.6 (31.0-36.0) g/dl RDW 11.9 (11.0-16.0) % Plt Count 222 (160-400) X10*3/uL MPV 11.5 (9.4-12.4) fL Immature Gran % (Auto) 0.3 (0.0-0.4) % Neut % (Auto) 55.7 (45-73) % Lymph % (Auto) 30.6 (20-40) % [place] % (Auto) 9.7 (2-11) % Eos % (Auto) 3.2 (0-4) % Baso % (Auto) 0.5 (0-2) % Lymph # (Auto) 2.3 (1.2-4.9) X10*3/uL [place] # (Auto) 0.7 (0.1-1.2) X10*3/uL Eos # (Auto) 0.2 (0.0-0.4) X10*3/uL Baso # (Auto) 0.0 (0.0-0.2) X10*3/uL Abs Immat Gran (auto) 0.02 (0.00-0.03) X10*3/uL Absolute Neuts (auto) 4.2 (2.0-8.3) x10*3/uL Absolute Nucleated RBC 0.000 (0.0-0.012) X10*3/uL Nucleated RBC % (auto) 0.0 (0.0-0.2) /100WBC Sodium 141 (135-145) mmol/L Potassium 4.7 (3.3-5.1) mmol/L Chloride 108 (96-108) mmol/L Carbon Dioxide 27 (22-29) mmol/L Anion Gap 11 L (12-20) BUN 11 (9-16) mg/dL Creatinine 1.00 (0.5-1.4) mg/dL Estim Creat Clear Calc 109.2 Estimated GFR > 60 Random Glucose 101 (60-115) mg/dL Calcium 9.9 (8.4-10.2) mg/dL Total Bilirubin 0.7 (0.0-1.0) mg/dL AST 25 (5-37) U/L ALT 19 (0-40) U/L Alkaline Phosphatase 63 (39-117) U/L Total Protein 7.9 (6.5-8.0) g/dL Albumin 4.6 (3.5-5.0) g/dL Lipase 18 (8-78) U/L Critical Care Time Critical Care Time Critical Care Time: No Discharge Plan Discharge Clinical Impression: Abdominal pain Qualifiers: Abdominal location: right lower quadrant Qualified Code(s): R10.31 - Right lower quadrant pain Patient Disposition: Left W/O Completing Treatment Prescriptions: No Action ondansetron 4 mg tablet,disintegrating 4 mg PO Q6-8H PRN (Reason: nausea and vomiting) Qty: 7 0RF amlodipine 5 mg tablet 5 mg PO DAILY oxycodone 5 mg tablet 5 mg PO Q6-8H PRN (Reason: pain) Rx Instructions: Partial Fill upon patient request. omeprazole 20 mg Capsule,Delayed Release(Dr/Ec) 20 mg PO DAILY PRN (Reason: Heartburn) acetaminophen [Tylenol Extra Strength] 500 mg tablet 1,000 mg PO Q6H PRN (Reason: pain) Qty: 30 0RF Remicade 100 mg recon soln 100 mg IV Q8W Rx Instructions: NEXT DOSE: 10/17/2022 triamcinolone acetonide 0.1 % cream topical BID sodium,potassium,mag sulfates [Suprep Bowel Prep Kit] 17.5-3.13-1.6 gram recon soln See Rx Instructions PO .COMPLEX Qty: 354 0RF Rx Instructions: DILUTE; drink 1/2 at 6-8 pm and half at 11 PM- 1AM Discharge Date/Time: 03/09/25 16:00
[2025-03-09 14:30] LABS: MANUAL DIFF FLAG NO
[2025-03-09 14:34] LABS: Hematocrit 37.1 % (42.0-52.0); Hemoglobin 12.1 g/dl (14.0-18.0); Imm Gran Abs Auto 0.02 X10*3/uL (0.00-0.03); Imm Gran Pct Auto 0.3 % (0.0-0.4); Lymphocytes Absolute Auto 2.3 X10*3/uL (1.2-4.9); Mean Corpuscular HGB Conc 32.6 g/dl (31.0-36.0); Mean Corpuscular Hemoglobin 29.3 pg (27.0-33.0); Mean Corpuscular Volume 89.8 fL (80.0-98.0); NRBC Abs Auto 0.000 X10*3/uL (0.0-0.012); NRBC Pct Auto 0.0 /100WBC (0.0-0.2); Platelet Count 222 X10*3/uL (160-400); Red Blood Count 4.13 X10*6/uL (4.60-5.80); White Blood Count 7.5 X10*3/uL (4.8-10.8)
[2025-03-09 14:47] LABS: Alanine Aminotransferase 19 U/L (0-40); Albumin Level 4.6 g/dL (3.5-5.0); Alkaline Phosphatase 63 U/L (39-117); Anion Gap 11 (12-20); Aspartate Amino Transferase 25 U/L (5-37); Blood Urea Nitrogen 11 mg/dL (9-16); Calcium 9.9 mg/dL (8.4-10.2); Carbon Dioxide 27 mmol/L (22-29); Chloride 108 mmol/L (96-108); Creatinine Clr Calc Pharmacy 109.2; Estimated Glomerular Filt Rate > 60; Lipase 18 U/L (8-78); Potassium 4.7 mmol/L (3.3-5.1); Sodium 141 mmol/L (135-145); Total Protein 7.9 g/dL (6.5-8.0)
--- NOTE | 2025-03-09 15:37 | MHC.EDTECH ---
Requested a urine sample from patient, Stated no. He just went 45 minutes ago & no one been in the room.
--- NOTE | 2025-03-09 15:52 | MHC.EDTECH ---
PT family member with uniform of tech of [facility] [place] upset no iv/ no pain meds. I made aware PA will be notified. Rn was made aware of their presence is requested.
--- NOTE | 2025-03-09 15:55 | PC.NURSE ---
pt upset in room, saying he has been waiting hours for a provider to go in and see him, wants the results to his lab work, states that he wants to go somewhere else. FOX Rapp made aware, said she will be in when she can. accounting supervisor notified. patient walked out of room.
--- OUTSIDE RECORDS SUMMARY | 2025-03-09 18:02 | XMS_ITS | Clinical Summary ---
Author Organization [employer] Address [address] [place] [address] Care Team Providers Care Booking Clerk Name Role Phone Emilia Leija MD Primary Care Provider [phone] Allergies No known active allergies Medications inFLIXimab [...] neg. -Start Augmentin BID for 7 d. -Dickey nasal spray PRN. -Flonase for 10-14 d. [...] Crohn's disease of ileum, un specified complication ([facility]) 07/26/2020 Overview (06/22/2022): Last Assessment & Plan: [...] 01/10/2016 Crohn's disease of colon with abscess ([facility]) 12/16/2015 Anxiety 12/17/2012 Crohn's disease with abscess ([facility]) 3 Encounters Date Type Department Care Team Description 03/09/2025 Orders Only GENERIC EXTERNAL DATA DEPARTMENT Provider, Generic External Data 02/14/2025 Orders Only [facility] External Provider, [facility] from Last 3 Months Immunizations Immunization [...] Procedure Name Priority Date/Time Associated Diagnosis Comments LIPASE Routine 03/09/2025 2:20 PM EST COMPREHENSIVE METABOLIC PANEL Routine 03/09/2025 2:20 PM EST CBC WITH AUTO DIFFERENTIAL Routine 03/09/2025 2:[address] ABDOMEN PELVIS W CONTRAST Routine 02/15/2025 12:26 AM EST LIPID PANEL, STANDARD Routine 08/14/2024 2:53 PM EDT Primary hypertension ZZZ HISTORICAL HEPATITIS A,B,C PROFILE Routine 10/31/2021 10:58 AM EDT from Last 3 Months or Most Recently Relevant to Health Maintenance Results * (ABNORMAL) CBC auto differential (03/09/2025 2:20 PM EST) White Blood Count 7.5 4.8 - 10.8 X10*3/uL [facility] Red Blood Count 4.13(L) 4.60 - 5.80 X10*6/uL [facility] Hemoglobin 12.1(L) 14.0 - 18.0 g/dl [facility] Hematocrit 37.1(L) 42.0 - 52.0 % [facility] Mean Corpuscular Volume 89.8 80.0 - 98.0 fL [facility] Mean Corpuscular Hemoglobin 29.3 27.0 - 33.0 pg [facility] Mean Corpuscular HGB Conc 32.6 31.0 - 36.0 g/dl [facility] Red Cell Distribution Width 11.9 11.0 - 16.0 % [facility] Platelet Count 222 160 - 400 X10*3/uL [facility] Mean Platelet Volume 11.5 9.4 - 12.4 fL [facility] Neutrophils Percent Auto 55.7 45 - 73 % [facility] Imm Gran Pct Auto 0.3 0.0 - 0.4 % [facility] Lymphocytes Percent Auto 30.6 20 - 40 % [facility] Monocytes Percent Auto 9.7 2 - 11 % [facility] Eosinophils Percent Auto 3.2 0 - 4 % [facility] Basophils Percent Auto 0.5 0 - 2 % [facility] NRBC Pct Auto 0.0 0.0 - 0.2 /100WBC [facility] Neutrophils Absolute Auto 4.2 2.0 - 8.3 x10*3/uL [facility] Imm Gran Abs Auto 0.02 0.00 - 0.03 X10*3/uL [facility] Lymphocytes Absolute Auto 2.3 1.2 - 4.9 X10*3/uL [facility] Monocytes Absolute Auto 0.7 0.1 - 1.2 X10*3/uL [facility] Eosinophils Absolute Auto 0.2 0.0 - 0.4 X10*3/uL [facility] Basophils Absolute Auto 0.0 0.0 - 0.2 X10*3/uL [facility] NRBC Abs Auto 0.000 0.0 - 0.012 X10*3/uL [facility] 03/09/2025 2:20 PM EST 03/09/2025 2:26 PM EST us Generic External Data Provider LAB BLOOD ORDERAB LES Final Result Performing Organization Address City/[facility]/ZIP Co de Phone Number [facility] [address] [place] [phone] * Lipase (03/09/2025 2:20 PM EST) Lipase 18 8 - 78 U/L [facility] 03/09/2025 2:20 PM EST 03/09/2025 2:26 PM EST us Generic External Data Provider LAB BLOOD ORDERAB LES Final Result Performing Organization Address City/[facility]/ZIP Co de Phone Number [facility] [address] [place] [phone] * (ABNORMAL) Comprehensive Metabolic Panel (03/09/2025 2:20 PM EST) Sodium 141 135 - 145 mmol/L [facility] Potassium 4.7 3.3 - 5.1 mmol/L [facility] Chloride 108 96 - 108 mmol/L [facility] Carbon Dioxide 27 22 - 29 mmol/L [facility] Anion Gap 11(L) 12 - 20 [facility] Urea Nitrogen (BUN) 11 9 - 16 mg/dL [facility] Creatinine, Serum 1.00 0.5 - 1.4 mg/dL [facility] Creatinine Clr Calc Pharmacy 109.2 [facility] Comment:eGFR (calculated fro m the MDRD study equation) and eCrCl(calculated from the Cockcroft-Gault equation) are based ondifferent parameters and may not yield comparable results.If eCrCl result is absurd, please check patient'sheight/weight. Estimated Glomerular Filt Rate >60 [facility] Comment:Chronic Kidney Disea se: Estimated GFR < 60 mL/min/1.22q6Veegfy Kidney Disease: Estimated GFR < 15 mL/min/1.73m2 Glucose 101 60 - 115 mg/dL [facility] Calcium 9.9 8.4 - 10.2 mg/dL [facility] Bilirubin, Total 0.7 0.0 - 1.0 mg/dL [facility] Aspartate Amino Transferase 25 5 - 37 U/L [facility] Alanine Aminotransferase 19 0 - 40 U/L [facility] Total Protein 7.9 6.5 - 8.0 g/dL [facility] Albumin Level 4.6 3.5 - 5.0 g/dL [facility] Alkaline Phosphatase 63 39 - 117 U/L [facility] 03/09/2025 2:20 PM EST 03/09/2025 2:26 PM EST us Generic External Data Provider LAB BLOOD ORDERAB LES Final Result [facility] [address] [place] [phone] * CT Abdomen Pelvis w/ Contrast (02/15/2025 12:26 AM EST) Anatomical Region Laterality Modality Body, Pelvis, Abdomen Computed T omography 02/15/2025 12:2 6 AM EST Narrative 02/15/2025 12:28 AM EST [place] [address] CT Scan Report Signed with Addenda Patient: Toño Whalen MR#: [id number] 4 : 1980 Acct:[id number] Age/Sex: 44 / M ADM Date: 02/14/25 Loc: HO.ED Attending Dr: Ordering Physician: Rinku Watson MD Date of Service: 02/14/25 Procedure(s): CT abdomen pelvis w IV con Accession Number(s): [id number] cc: Emilia Leija MD; Rinku Watson MD Report Number: [id number]: Total DLP = 667.00 mGy-cm Reason for Exam: Crohns,SBO?, prior ileocecectomy sigmoid resecti ADDENDUM This document has been electronically signed by: Jamie Rai MD, PHD on 02/15/2025 00:26:44 ADDENDUM: This report was discussed with Rinku Watson MD on Feb 15, 2025 00:30:00 EST. This document has been electronically signed by: Pallavi Wu on 02/15/2025 00:30:32 Addendum Dictated By: Jamie Rai MD Addendum Signed By: <Electronically signed by Jamie Rai MD in OV> 02/15/2530 Addendum Cosigned By: DD/ TD/TT: 02/15/25 CLINICAL HISTORY: Crohns,SBO?, prior ileocecectomy sigmoid resecti CT abdomen and pelvis with contrast Comparison: CT/SR - ABDOMEN ABD_PELVIS_IV_CONTRAST (ADULT) - 09/26/2024 03:23 AM EDT Findings: The lung bases are clear. The gallbladder and solid organs are within normal limits. No renal stones. Dilated fluid-filled loops of small bowel are present within the inferior abdomen measuring up to 3.7cm diameter. Anastomotic sutures are noted in the distal sigmoid. Sutures noted in the cecum. Possible transition point in the ventral abdominal wall of the right lower quadrant. Appendix not visualized. Urinary bladder and pelvic structures are within normal limits. The bones are intact. IMPRESSION: Small-bowel obstruction. Possible transition point in the right lower quadrant near the ventral abdominal wall. This document has been electronically signed by: Jamie Rai MD, PHD on 02/15/2025 00:26:44 Dictated By: Jamie Rai MD Signed By: <Electronically signed by Jamie Rai MD in OV> 02/15/2526 DD/ TD/TT: 02/15/2525 Sheet Metal Duct Installer: Procedure Note Donotuseinterpreter, Image - 02/15/[address] [place] [address] [address] Scan Report Signed with Addenda Patient: Toño WhalenMR#: [id number] 4 : 1980Acct:[id number] Age/Sex: 44 / MADM Date: 02/14/25 Loc: .ED Attending Dr: Ordering Physician: Rinku Watson MD Date of Service: 02/14/25 Procedure(s): CT abdomen pelvis w IV con Accession Number(s): [id number] cc: Emilia Leija MD; Rinku Watson MD Report Number: [id number]: Total DLP = 667.00 mGy-cm Reason for Exam: Crohns,SBO?, prior ileocecectomy sigmoid resecti ADDENDUM This document has been electronically signed by: Jamie Rai MD, PHD on 02/15/2025 00:26:44 ADDENDUM: This report was discussed with Rinku Watson MD on Feb 15, 2025 00:30:00 EST. This document has been electronically signed by: Pallavi Wu on 02/15/2025 00:30:32 Addendum Dictated By: Jamie Rai MD Addendum Signed By: <Electronically signed by Jamie Mittal MD in OV> 02/15/2530 Addendum Cosigned By: DD/ TD/TT: 02/15/25 CLINICAL HISTORY: Crohns,SBO?, prior ileocecectomy sigmoid resecti CT abdomen and pelvis with contrast Comparison: CT/SR - ABDOMEN ABD_PELVIS_IV_CONTRAST (ADULT) - 09/26/2024 03:23 AM EDT Findings: The lung bases are clear. The gallbladder and solid organs are within normal limits. No renal stones. Dilated fluid-filled loops of small bowel are present within the inferior abdomen measuring up to 3.7cm diameter. Anastomotic sutures are noted in the distal sigmoid. Sutures noted in the cecum. Possible transition point in the ventral abdominal wall of the right lower quadrant. Appendix not visualized. Urinary bladder and pelvic structures are within normal limits. The bones are intact. IMPRESSION: Small-bowel obstruction. Possible transition point in the right lower quadrant near the ventral abdominal wall. This document has been electronically signed by: Jamie Rai MD, PHD on 02/15/2025 00:26:44 Dictated By: Jamie Rai MD Signed By: <Electronically signed by Jamie Rai MD in OV> 02/15/2526 DD/ TD/TT: 02/15/2525 Sheet Metal Duct Installer: [facility] External Provider IMG CT PROCEDURES Edited Result - Final * Lipid Panel, Standard (08/14/2024 2:53 PM EDT) Triglycerides 107 <150 mg/dL [facility] Comment:Desirable Triglyceri de: less than 150 mg/dLBorderline High Triglyceride 150-199 mg/dLHigh Triglyceride: 200-499 mg/dLVery High Triglyceride: greater than or equal to 5OO mg/dL Cholesterol 148 <200 mg/dL [facility] Comment:Desirable Cholestero l: less than 200 mg/dLBorderline High Cholesterol: 200-239 mg/dLHigh Cholesterol: greater than 239 mg/dL LDL Cholesterol Calculated 73 <100 mg/dL [facility] Comment:Desirable LDL: less than 100 mg/dLNear Optimal/Above Optimal LDL: 110- 129 mg/dLBorderline High LDL: 130-159 mg/dLHigh LDL: 160-189 mg/dLVery High LDL: greater than or equal to 190 mg/dL HDL Cholesterol 54 >40 mg/dL [facility] Comment:Desirable HDL: great er than 40 mg/dL Note: This HDL assay may give artificially low results in patients with liver disease. Blood Venous blood specimen / Unknown 08/14/2024 2:53 PM EDT 08/14/2024 5:33 PM EDT us Emilia Leija MD LAB BLOOD ORDERABLES Final Result Performing Organization Address [facility] Co de Phone Number [facility] [address] [place] [phone] * Hepatitis A,B,C Profile (10/31/2021 10:58 [...] ORDERABLE LABS Final Result Performing Organization Address City/[facility] Co de Phone Number [facility] [phone] from Last 3 Months or Most Recently Relevant to Health Maintenance Insurance MEDICARE [facility] HMO Care Teams Booking Clerk Relationship Specialty Start Date End Date Emilia Leija MD [address] [place] [phone] PCP - General Internal Medicine 09/21/11
--- OUTSIDE RECORDS SUMMARY | 2025-03-09 18:02 | XMS_ITS | Encounter Summary ---
Author Organization [facility] Address [address] [place] [phone] Phone Care Team Providers Care Glaze Handler Name Role Phone Emilia Leija MD Primary Care Pr ovider Encounter Details Date Type Department Care Team (Late st Contact Info) Description 07/26/2020 Procedure Pass [facility], Ct Scan - [address] [phone] Social History Tobacco Use Types Packs/Day Years [...] PM EDT documented as of this encounter Plan of Treatment Not on file documented as of this encounter Visit Diagnoses Not on filedocumented in this encounter Care Teams Glaze Handler Relationship Specialty Start Date End Date Emilia Leija MD [address] [place] [phone] PCP - General Internal Medicine 11/12/15 documented as of this encounter Additional Source Comments The information contained in this document represents components of the legal health record. It is not the complete legal health record.[facility]
--- OUTSIDE RECORDS SUMMARY | 2025-03-09 18:02 | XMS_ITS | Encounter Summary ---
Author Organization [employer] Address [address] [facility] [address] [place] [address] Care Team Providers Care Center Hole Reamer Name Role Phone Emilia Leija MD Primary Care Provider [phone] Encounter Details Date Type Department Care Team ([facility] st Contact Info) Description 03/09/2025 Orders Only GENERIC EXTERNAL DATA DEPARTMENT Provider, Generic External Data Social History Tobacco Use Types Packs/Day Years [...] AM EDT documented as of this encounter Plan of Treatment Not on file documented as of this encounter Procedures Procedure Name Priority Date/Time Associated Diagnosis Comments CBC WITH AUTO DIFFERENTIAL Routine 03/09/2025 2:20 PM EST LIPASE Routine 03/09/2025 2:20 PM EST COMPREHENSIVE METABOLIC PANEL Routine 03/09/2025 2:20 PM EST documented in this encounter Results * Lipase (03/09/2025 2:20 PM EST) Lipase 18 8 - 78 U/L [facility] 03/09/2025 2:20 PM EST 03/09/2025 2:26 PM EST us Generic External Data Provider LAB BLOOD ORDERAB LES Final Result [facility] [address] [place] [phone] * (ABNORMAL) Comprehensive Metabolic Panel (03/09/2025 2:20 PM EST) Sodium 141 135 - 145 mmol/L [facility] Potassium 4.7 3.3 - 5.1 mmol/L [facility] Chloride 108 96 - 108 mmol/L [facility] Carbon Dioxide 27 22 - 29 mmol/L [facility] Anion Gap 11(L) 12 - 20 [facility] Urea Nitrogen (BUN) 11 9 - 16 mg/dL [facility] Creatinine, Serum 1.00 0.5 - 1.4 mg/dL [facility] Creatinine Clr Calc Pharmacy 109.2 [facility] Comment:eGFR (calculated fro m the MDRD study equation) and eCrCl(calculated from the Cockcroft-Gault equation) are based ondifferent parameters and may not yield comparable results.If eCrCl result is absurd, please check patient'sheight/weight. Estimated Glomerular Filt Rate >60 [facility] Comment:Chronic Kidney Disea se: Estimated GFR < 60 mL/min/1.03u6Fppbhc Kidney Disease: Estimated GFR < 15 mL/min/1.73m2 Glucose 101 60 - 115 mg/dL [facility] Calcium 9.9 8.4 - 10.2 mg/dL [facility] Bilirubin, Total 0.7 0.0 - 1.0 mg/dL [facility] Aspartate Amino Transferase 25 5 - 37 U/L [facility] Alanine Aminotransferase 19 0 - 40 U/L [facility] Total Protein 7.9 6.5 - 8.0 g/dL [facility] Albumin Level 4.6 3.5 - 5.0 g/dL [facility] Alkaline Phosphatase 63 39 - 117 U/L [facility] 03/09/2025 2:20 PM EST 03/09/2025 2:26 PM EST us Generic External Data Provider LAB BLOOD ORDERAB LES Final Result [facility] [address] [place] [phone] * (ABNORMAL) CBC auto differential (03/09/2025 2:20 PM EST) White Blood Count 7.5 4.8 - 10.8 X10*3/uL [facility] Red Blood Count 4.13(L) 4.60 - 5.80 X10*6/uL [facility] Hemoglobin 12.1(L) 14.0 - 18.0 g/dl [facility] Hematocrit 37.1(L) 42.0 - 52.0 % [facility] Mean Corpuscular Volume 89.8 80.0 - 98.0 [facility] Mean Corpuscular Hemoglobin 29.3 27.0 - 33.0 pg [facility] Mean Corpuscular HGB Conc 32.6 31.0 - 36.0 g/dl [facility] Red Cell Distribution Width 11.9 11.0 - 16.0 % [facility] Platelet Count 222 160 - 400 X10*3/uL [facility] Mean Platelet Volume 11.5 9.4 - 12.4 fL [facility] Neutrophils Percent Auto 55.7 45 - 73 % [facility] Imm Gran Pct Auto 0.3 0.0 - 0.4 % [facility] Lymphocytes Percent Auto 30.6 20 - 40 % [facility] Monocytes Percent Auto 9.7 2 - 11 % [facility] Eosinophils Percent Auto 3.2 0 - 4 % [facility] Basophils Percent Auto 0.5 0 - 2 % [facility] NRBC Pct Auto 0.0 0.0 - 0.2 /100WBC [facility] Neutrophils Absolute Auto 4.2 2.0 - 8.3 x10*3/uL [facility] Imm Gran Abs Auto 0.02 0.00 - 0.03 X10*3/uL [facility] Lymphocytes Absolute Auto 2.3 1.2 - 4.9 X10*3/uL [facility] Monocytes Absolute Auto 0.7 0.1 - 1.2 X10*3/uL [facility] Eosinophils Absolute Auto 0.2 0.0 - 0.4 X10*3/uL [facility] Basophils Absolute Auto 0.0 0.0 - 0.2 X10*3/uL [facility] NRBC Abs Auto 0.000 0.0 - 0.012 X10*3/uL [facility] 03/09/2025 2:20 PM EST 03/09/2025 2:26 PM EST us Generic External Data Provider LAB BLOOD ORDERAB LES Final Result [facility] [address] [place] [phone] documented in this encounter Visit Diagnoses Not on filedocumented in this encounter Additional Health Concerns Assessment Noted Time PHQ-9 Depression Total Score: 4 08/15/19 25 2:20 PM EDT documented as of this encounter Care Teams Center Hole Reamer Relationship Specialty Start Date End Date Emilia Leija MD [address] [place] [phone] PCP - General Internal Medicine 09/21/11 documented as of this encounter
--- OUTSIDE RECORDS SUMMARY | 2025-03-09 18:03 | XMS_ITS | Clinical Summary ---
Author Organization [facility] Address [address] [address] Phone Care Team Providers Care Brass Molder Helper Name Role Phone Emilia Leija MD Primary [...] up with his GI Dr Arellano at [facility] after d/c. Follow up Fecal [...] Insurance MEDICARE PART A & B [facility] & [facility] MEDICARE PART A & B [employer] [facility] [facility] MEDICARE PART A & B [facility] A & B [place] [address] [place] [address] MEDICARE PART A & B [employer] [facility] HEALTH MEDICARE PART A & B [facility] [place] [address] [place] [address] MEDICARE PART A & B [facility] Advance Directives For more information, please contact: [phone] (9AM - 5PM [place]/[facility], Sunday-Sunday) * Full Code (Latest Code Status on File) Date Activated Date Inactivated Comments 07/26/2020 11:02 PM Question Answer Comments Code Status Confirmed With: Patient Care Teams Brass Molder Helper Relationship Specialty Start Date End Date Emilia Leija MD [address] [place] [address] [place] [id number] PCP - General Internal Medicine 11/12/15 Additional Source Comments The information contained in this document represents components of the legal health record. It is not the complete legal health record.[facility]
--- OUTSIDE RECORDS SUMMARY | 2025-03-09 18:03 | XMS_ITS | Encounter Summary ---
Author Organization [facility] Address [address] [place] [address] Care Team Providers Care Boiler Tube Blower Name Role Phone Emilia Leija MD Primary Care Provide r Radha Escalante RN Unavailable Unavailable Connie Cosby RN Unavailable Unavailable Frantz Asif MD Unavailable [phone] Encounter Details Date Type Department Care Team (Late st Contact Info) Description 08/01/2016 Documentation [facility] Surgery [facility] Surgery [address] [place], [place] [phone] Lou Mooney Social History Tobacco Use Types Packs/Day Years Used Date Smoking Tobacco: Never Alcohol Use Standard Drinks/Week Comments No 0 (1 standard drink = 0.6 oz pur e alcohol) Sex and Gender Information Value Date Recorded Sex Assigned at Not on file Legal Sex Male 3:52 PM EDT Gender Identity Not on file Sexual Orientation Not on file documented as of this encounter Plan of Treatment Not on file documented as of this encounter Visit Diagnoses Not on filedocumented in this encounter Care Teams Boiler Tube Blower Relationship Specialty Start Date End Date Emilia Leija MD [address] [place] [address] PCP - General 12/14/15 Radha Escalante RN [address] [place] [address] Registered Nurse Colorectal Surgery 03/01/16 Connie Cosby RN [address] [place] [address] Registered Nurse Colorectal Surgery 03/01/16 Frantz Asif MD [address] [place] [phone] Consulting Provider Colorectal Surgery 07/26/16 7 documented as of this encounter
--- OUTSIDE RECORDS SUMMARY | 2025-03-09 18:03 | XMS_ITS | Encounter Summary ---
Author Organization [employer] Address [address] [facility] [address] [place] [address] Care Team Providers Care Licensed Optical Dispenser Name Role Phone Emilia Leija MD Primary Care Provider [phone] Reason for Visit * Reason Onset Date Comments Referral 08/05/2024 Encounter Details Date Type Department Care Team ([facility] st Contact Info) Description 08/05/2024 Telephone [facility] [address] [place] [address] Emilia Leija MD [address], [place] [phone] Referral Social History Tobacco Use Types Packs/Day [...] documented as of this encounter Care Teams Licensed Optical Dispenser Relationship Specialty Start Date End Date Emilia Leija MD [address] [place] [phone] PCP - General Internal Medicine 09/21/11 documented as of this encounter
--- OUTSIDE RECORDS SUMMARY | 2025-03-09 18:03 | XMS_ITS | Clinical Summary ---
Author Organization [facility] Address [address] [place], [place] [phone] Care Team Providers Care Manager Location Name Role Phone Emilia Leija MD Primary Care Provide r Radha Escalante RN Unavailable Unavailable Connie Cosby RN Unavailable Unavailable Allergies No known active allergies Medications loperamide (IMODIUM) 2 mg capsule Take 1 capsule (2 mg total) by mouth 3 times a day before meals & at bedtime. 30 capsule 3 6 Active Additional Information Patient taking differently:2 mg Oral4 times daily PRN, Reported on 07/10/2016 acetaminophen (TYLENOL) 500 MG tablet Take 2 tablets (1,000 mg total) by mouth every 6 hours as needed for pain. 7 Active oxyCODONE (ROXICODONE) 5 MG immediate release tablet Take 1 tablet (5 mg total) by mouth every 6 hours as needed for pain. 20 tablet 0 7 Active Active Problems Problem Noted Date Diagnosed Date Crohn's disease involving terminal ileum 017 Crohn's disease with abscess 02/28/2016 Protein-calorie malnutrition, severe 01/10/2016 Crohn's disease of colon with abscess 12/16/2015 Crohn's colitis 12/16/2015 Family History Medical History Relation Comments Breast cancer Mother Multiple sclerosis Sister Colon cancer Neg Hx Inflammatory bowel disease Neg Hx Relation Status Comments Mother Sister Social History Tobacco Use Types Packs/Day Years Used Date Smoking Tobacco: Never Alcohol Use Standard Drinks/Week Comments No 0 (1 standard drink = 0.6 oz pur e alcohol) Sex and Gender Information Value Date Recorded Sex Assigned at Not on file Legal Sex Male 3:52 PM EDT Gender Identity Not on file Sexual Orientation Not on file Last Filed Vital Signs Vital Sign Reading Time Taken Comments Blood Pressure 116/73 07/30/2016 8:04 AM EDT Pulse 66 07/30/2016 8:04 AM EDT Temperature 37.1 C (98.7 F) 07/30/2016 8:04 AM EDT Respiratory Rate 16 07/30/2016 8:04 AM EDT Oxygen Saturation 96% 07/30/2016 8:04 AM EDT Inhaled Oxygen Concentration - - Weight 88.5 kg (195 lb) 07/25/2016 3:47 PM EDT Height 177.8 cm (5' 10 ) 07/25/2016 3:47 PM EDT Body Mass Index 27.98 07/25/2016 3:47 PM EDT Plan of Treatment Not on file [place] [address] Advance Directives * Full Code (Latest Code Status on File) Date Activated Date Inactivated Comments 07/25/2016 3:26 PM 07/30/2016 1:41 PM * Full Code Date Activated Date Inactivated Comments 02/28/2016 11:53 AM 03/10/2016 1:42 PM * Full Code Date Activated Date Inactivated Comments 01/06/2016 7:54 PM 01/13/2016 3:21 PM * Full Code Date Activated Date Inactivated Comments 12/16/2015 10:20 PM 12/20/2015 8:03 PM Healthcare Agents on File Name Relationship Healthcare Agent Relationship Communication Laura Kim Life Partner/[facility] Age nt Care Teams Manager Location Relationship Specialty Start Date End Date Emilia Leija MD [address] [place] [address] PCP - General 12/14/15 Radha Escalante RN [address] [place] [address] Registered Nurse Colorectal Surgery 03/01/16 Connie Cosby RN [address] [place] [address] Registered Nurse Colorectal Surgery 03/01/16
== END 2025-03-09 16:00 | disposition left against medical advice (07) ==
PROVIDERS: Physician Assistant; Emergency Provider Emergency Medicine; PCP Internal Medicine
DX: R10.31 Right lower quadrant pain (principal); Z53.29 Procedure and treatment not carried out because of patient's decision for other reasons
CPT/HCPCS: 36415; 80053; 83690; 85025; 99281; 99283